=== PATIENT | male | born 1970 | race Caucasian/White ===

== ENCOUNTER 2019-05-03 03:03 | Emergency (ER) | payer MEDICARE, MEDICAID, SELFPAY ==
[2019-05-03] VITALS (7 sets, daily range): BP systolic 130–151; BP diastolic 95–119; PULSE 84–87; RESP 17–20; O2SAT 96–98; BMI 23.7
--- NOTE | 2019-05-03 03:23 | ED_ITS ---
Entered by Yadi Du, acting as scribe for Marv Little DO HPI - General Adult General: Chief complaint: General Medical Stated complaint: ABD PAIN/N/V Time Seen by Provider: 05/03/19 03:24 Source: patient Mode of arrival: wheelchair History of Present Illness: HPI narrative: 48 y/o male presents to the ED with complaint of abd pain. Pt states he has been unable to sleep tonight due to heartburn, N/V. Pt states he has had diarrhea for the past few days. He had a spinal cord stimulator placed last and he has not felt well since then. MD complaint: abd pain Onset (ago): hour(s) Location: abdomen Severity: mild Pain Consistency: constant Relieving factors: none Associated symptoms: Reports nausea and vomiting; Deny chest pain, confusion, dyspnea, headache(s), rash or palpitations Review of Systems Const: Denies: fever or chills Eyes: Denies: change in vision or blurry vision ENMT: Denies: painful swallowing, swelling of lips/tongue, bleeding gums or dental pain Card: Denies: chest pain, palpitations, irregular heart rhythm, edema, swelling of feet/ankles, shortness of breath on exertion or shortness of breath when lying down Resp: Denies: shortness of breath, productive cough, non-productive cough or wheezing GI: Reports: abdominal pain, nausea, vomiting and diarrhea; Denies: rectal pain, blood in stool or black tarry stool : Denies: difficulty urinating, painful urination, urinary frequency, urinary urgency or blood in urine Musc: Denies: neck pain, back pain, redness or joint warmth Skin/Breast: Denies: rash, itching or redness Neuro: Denies: headache, dizziness, vertigo, confusion or seizure-like activity Psych: Denies: anxiety, visual hallucinations or auditory hallucinations PFSH ED PFSH: Statuses (acute, chronic, etc) shown below reflect problem list status as previously entered and may not be historically accurate Social History Smoking and tobacco status: never smoked Physical Exam Const: GENERAL APPEARANCE: well developed ORIENTATION/CONSCIOUSNESS: Yes oriented to person, Yes oriented to place and Yes oriented to time HENMT: COMMON NORMALS: normocephalic, external ears normal and external nose normal HEAD & SCALP: normocephalic; no scalp tenderness FACE & SINUS: normal facial exam NOSE: external nose normal and no nasal discharge EXTERNAL EAR: Yes external ears normal THROAT: posterior oropharynx normal; no peritonsillar mass Eye: COMMON NORMALS: PERRL, EOMs intact bilaterally and conjunctivae normal EYELID: eyelids normal CONJUNCTIVA: Yes conjunctivae normal PUPIL: Yes PERRL Chest: COMMONS NORMALS: inspection of chest normal CHEST: No tenderness Resp: COMMON NORMALS: clear to auscultation bilaterally EFFORT & INSPEC TION: No tachypneic, No respiratory distress, No retractions, No uses accessory muscles and No tracheal deviation AUSCULTATION: clear to auscultation bilaterally, no rhonchi, no wheezes and lung sounds not diminished Cardio: COMMON NORMALS: regular rate and regular rhythm RATE: regular rate RHYTHM: regular rhythm HEART SOUNDS: no murmurs PERIPHERAL PULSES: radial pulses present GI: COMMON NORMALS: soft to palpation INSPECTION: No abdominal distension AUSCULTATION: No hyperactive bowel sounds and No hypoactive bowel sounds PALPATION: Yes soft, Yes tender Details: RLQ, No guarding and No rigid PERCUSSION: no dullness to percussion and no tympanic to percussion Back/Pelvis: OTHER: spinal cord stimulator in place for trial basis Extremity: RIGHT LOWER EXTREMITY: Yes lower leg (amputation ) Neuro: SENSORIUM/ORIENTATION: Yes oriented to person, Yes oriented to place and Yes oriented to time Psych: COMMON NORMALS: mental status grossly normal Skin: COMMON NORMALS: no rashes or lesions noted GENERAL SKIN EXAM: no rashes or lesions noted Course ED course: No fever here. No leukocytosis. Labs are otherwise benign. CT of the belly shows no acute problem. CT of the lumbar spine with contrast fails to reveal an abscess or other problem. Vital Signs: Vital signs: Vital Signs Pulse Rate 84 05/03/19 06:48 Respiratory Rate 18 05/03/19 06:48 Blood Pressure 148/119 05/03/19 06:48 Pulse Oximetry 97 05/03/19 06:48 MDM - General Adult Lab Data: Labs: Lab Results 05/03/19 05/03/19 Range/Units 03:58 03:58 WBC 7.8 (4.0-10.0) 10^3/ uL RBC 5.52 H (4.1-5.3) 10^6/u L Hgb 11.8 (11.7-16.6) g/dL Hct 38.9 L (42.0-52.0) % MCV 70.5 L (80-94) fL MCH 21.4 L (28.0-34.0) pg MCHC 30.3 (30.0-36.0) g/dL RDW 18.6 H (12.1-15.1) % Plt Count 393 (130-400) 10^3/c mm MPV 9.3 (7.4-10.4) fL Neut % (Auto) 58.8 % Lymph % (Auto) 23.7 % [place] % (Auto) 10.0 % Eos % (Auto) 6.3 % Baso % (Auto) 0.9 % Neut # (Auto) 4.6 (1.8-7.7) 10^3/u L Lymph # (Auto) 1.8 (0.8-4.8) 10^3/u L [place] # (Auto) 0.8 (0.2-0.9) 10^3/u L Eos # (Auto) 0.5 (0.0-0.8) 10^3/u L Baso # (Auto) 0.1 (0.0-0.1) 10^3/u L Nucleated RBC % (a uto) 0 % Nucleated RBCs # 0.0 /100WBC Sodium 139 (136-145) mmol/L Potassium 3.7 (3.5-5.1) mmol/L Chloride 102 (98-107) mmol/L Carbon Dioxide 23 (22-29) mmol/L Anion Gap 17.7 (5-19) BUN 9 (6-20) mg/dL Creatinine 0.7 (0.7-1.2) mg/dL GFR Calculation 119.9 (90-130) mL/min Glucose 117 H (74-109) mg/dL Calcium 10.1 (8.5-10.5) mg/dL Total Bilirubin 0.5 (0.15-1.2) mg/dL AST 24 (0-40) U/L ALT 21 (0-41) U/L Alkaline Phosphata se 104 (40-130) IU/L C-Reactive Protein 4.2 (0.0-4.9) mg/L Total Protein 7.8 (6.6-8.7) g/dL Albumin 4.3 (3.5-5.2) g/dL Globulin 3.5 (1.3-4.6) g/dL Lipase 59 (13-60) U/L Discharge Plan Discharge Patient Disposition: Home, Self-Care Clinical Impression: Gastroenteritis Condition: Stable Prescriptions: New ketorolac 10 mg tablet 10 mg PO Q6H PRN (Reason: pain) Qty: 10 RF: 0 Zofran 4 mg tablet 4 mg PO Q6H PRN (Reason: nausea and vomiting) Qty: 10 RF: 0 No Action losartan 50 mg Tablet 100 mg PO DAILY RF: 0 metoprolol succinate 50 mg Tablet Extended Release 24 Hr 25 mg PO DAILY RF: 0 Nexium 20 mg Capsule,Delayed Release(Dr/Ec) 20 mg PO DAILY RF: 0 amlodipine 10 mg Tablet 10 mg PO DAILY RF: 0 Discharge Orders: Discharge Order (Routine); Ordered 05/03/19 Ordered By: Marv Little Referrals: Madi Trotter MD [Primary Care Provider] - Ozzy Torres DO [Family Provider] - Discharge Diet: Advance as tolerated and Clear Liquid Discharge Activity: Increase activity as tolerated Patient Instructions: Gastroenteritis (ED) Activity Restrictions/Additional Instructions: Return for fever greater than 100, worsening pain despite treatment, vomiting liquids or medications despite treatment, other concerning symptoms. Discharge Date/Time: 05/03/19 06:48 Coding Level of Care Code ED Ui Architect for Chg Ernie The documentation recorded by the Florian rodriguez Ashley, accurately reflects the service I personally performed and the decisions made by Sidney boyer Jeremy John, DO May 03, 2019 03:03
--- NOTE | 2019-05-03 03:39 | PC.NURSE ---
patient has had surgery for a spinal cord stimulator. patient states that his pain has not gotten any better since the surgery. patient is also stating that he is having pain in his right leg. 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
[2019-05-03] MEDS: ondansetron 2 mg/ML SDV 2 mL 4 MG IVP (03:56)
[2019-05-03] MEDS: morphine 4 mg/mL SDV 1 mL IVP ×2 (03:56→06:02)
[2019-05-03] MEDS: sodium chloride 0.9% 1,000 ML 999 ML IV (03:57)
[2019-05-03 04:12] LABS: Basophils # 0.1 10^3/uL (0.0-0.1); Basophils % 0.9 %; Eosinophils # 0.5 10^3/uL (0.0-0.8); Eosinophils % 6.3 %; Hematocrit 38.9 % (42.0-52.0); Hemoglobin 11.8 g/dL (11.7-16.6); Lymphocytes # 1.8 10^3/uL (0.8-4.8); Lymphocytes % 23.7 %; Mean Corpuscular HGB Conc 30.3 g/dL (30.0-36.0); Mean Corpuscular Hemoglobin 21.4 pg (28.0-34.0); Mean Corpuscular Volume 70.5 fL (80-94); Mean Platelet Volume 9.3 fL (7.4-10.4); Monocytes # 0.8 10^3/uL (0.2-0.9); Neutrophils # 4.6 10^3/uL (1.8-7.7); Neutrophils % 58.8 %; Nucleated Red Blood Cells % 0 %; Platelet Count 393 10^3/cmm (130-400); Red Blood Count 5.52 10^6/uL (4.1-5.3); Red Cell Distribution Width 18.6 % (12.1-15.1); White Blood Count 7.8 10^3/uL (4.0-10.0)
--- NOTE | 2019-05-03 04:36 | CTR_ITS ---
PROCEDURE INFORMATION: Exam: CT Lumbar Spine With Contrast Exam date and time: 05/03/2019 4:51 AM Age: 48 years old Clinical indication: Low back pain; Prior surgery; Surgery date: 3-7 days post-operative; Surgery type: Stimulator; Additional info: Pain, vomiting TECHNIQUE: Imaging protocol: Computed tomography images of the lumbar spine with intravenous contrast. Total DLP: 2350.97 mGy-cm Radiation optimization: All CT scans at this facility use at least one of these dose optimization techniques: automated exposure control; mA and/or kV adjustment per patient size (includes targeted exams where dose is matched to clinical indication); or iterative reconstruction. Contrast material: OMNI 300; Contrast volume: 95 ml; Contrast route: IV; COMPARISON: [place] [id number] 02/03/2017 10:16 AM FINDINGS: There is a normal lumbar lordosis. There is normal alignment of the lumbar spine. No fractures or dislocations identified. Vertebral body heights and intervertebral disk spaces are well maintained throughout. No prevertebral soft tissue swelling identified. The bony spinal canal is patent. No abscess identified. Note is made of stimulator wires in the lower thoracic spinal canal. CT/CT lumbar spine w con [id number] IMPRESSION: 1. No fractures or dislocations identified involving the lumbar spine. Radiation Dose CTDIVOL = (mGy): DLP = 2350.97 (mGy-cm)
--- NOTE | 2019-05-03 04:36 | CTR_ITS ---
PROCEDURE INFORMATION: Exam: CT Abdomen And Pelvis With Contrast Exam date and time: 05/03/2019 4:51 AM Age: 48 years old Clinical indication: Abdominal pain; Generalized; Prior surgery; Surgery date: 3-7 days post-operative; Surgery type: Stimulator; Additional info: Pain vomiting TECHNIQUE: Imaging protocol: Computed tomography of the abdomen and pelvis with intravenous contrast. Total DLP: 752.85 mGy-cm Radiation optimization: All CT scans at this facility use at least one of these dose optimization techniques: automated exposure control; mA and/or kV adjustment per patient size (includes targeted exams where dose is matched to clinical indication); or iterative reconstruction. Contrast material: OMNI 300; Contrast volume: 95 ml; Contrast route: IV; COMPARISON: CT abdomen pelvis w con* [id number] 02/03/2017 10:22 AM FINDINGS: Mild atelectasis at bilateral lung bases. The liver, gallbladder, spleen, pancreas, adrenal glands, and right kidney are unremarkable. There is a 1.7 cm cyst in the left kidney lower pole. A normal-appearing appendix is seen in the right lower quadrant. No evidence of bowel obstruction. No evidence of diverticulitis. No free intraperitoneal air or fluid identified. The bladder is partially filled with contrast. The abdominal aorta is nonaneurysmal. Minimal degenerative changes of the lumbar spine. CT/CT abdomen pelvis w con* [id number] IMPRESSION: 1. No acute intra-abdominal/intrapelvic process identified. Radiation Dose CTDIVOL = (mGy): DLP = 752.85 (mGy-cm)
[2019-05-03 04:45] LABS: Alanine Aminotransferase 21 U/L (0-41); Albumin Level 4.3 g/dL (3.5-5.2); Alkaline Phosphatase 104 IU/L (40-130); Anion Gap 17.7 (5-19); Aspartate Amino Transferase 24 U/L (0-40); Blood Urea Nitrogen 9 mg/dL (6-20); Calcium 10.1 mg/dL (8.5-10.5); Carbon Dioxide 23 mmol/L (22-29); Chloride 102 mmol/L (98-107); Globulin 3.5 g/dL (1.3-4.6); Glomerular Filtration Rate 119.9 mL/min (90-130); Glucose 117 mg/dL (74-109); Lipase 59 U/L (13-60); Potassium 3.7 mmol/L (3.5-5.1); Sodium 139 mmol/L (136-145); Total Bilirubin 0.5 mg/dL (0.15-1.2); Total Protein 7.8 g/dL (6.6-8.7)
[2019-05-03 05:26] LABS: C Reactive Protein 4.2 mg/L (0.0-4.9)
[2019-05-03] MEDS: ketorolac 30 mg/mL INJ IVP (06:01)
== END 2019-05-03 06:48 | disposition home or self-care (01) ==
PROVIDERS: Emergency Provider Emergency Medicine; Family Provider Internal Medicine; PCP Internal Medicine
DX: K52.9 Noninfective gastroenteritis and colitis, unspecified (principal)
CPT/HCPCS: 72132; 74177; 80053; 83690; 85025; 86140; 96360; 96361; 96374; 96375; 96376; 99282; 99283; J1885; J2270; J2405; J7030

== ENCOUNTER 2019-08-23 20:52 | Emergency (ER) | payer MEDICARE, MEDICAID, SELFPAY ==
[2019-08-23 21:11] VITALS: BP 150/110; PULSE 106; RESP 18; TEMP 36.8; O2SAT 98; BMI 23.3
--- NOTE | 2019-08-23 21:18 | W.ED.WOUNDLC ---
HPI - Wound/Laceration General: Chief Complaint: Wound/Laceration Stated Complaint: hand lac Time Seen by Provider: 08/23/19 21:18 Source: patient Mode of arrival: ambulatory Limitations: no limitations History of Present Illness: HPI narrative: Patient comes in with injury to the right hand fourth knuckle. Patient states he cut it on a exhaust from a engine he was removing. Patient states that he cleaned it well at home but needed it repaired in order for him to continue his work on the engine tomorrow. Patient appears well. Patient appears in no acute distress. Patient cannot recall his last tetanus shot. Review of Systems General: Reports: 10 or more systems reviewed and unremarkable except in HPI and below Skin/Breast: Reports: other (Laceration) PFSH ED PFSH: Social History Smoking and tobacco status: current every day smoker Physical Exam Const: COMMON NORMALS: no acute distress and patient oriented x3 GENERAL APPEARANCE: cooperative HENMT: COMMON NORMALS: normocephalic, TM's normal bilaterally and Normal external nose present HEAD & SCALP: normal to inspection and normocephalic NOSE: Normal external nose present TYMPANIC MEMBRANE: TM's normal bilaterally MOUTH: Normal oral and palatal mucosa present THROAT: posterior oropharynx normal Eye: GENERAL EYE: appearance normal, both eyes and all related structures Neck/C-Spine: COMMON NORMALS: full ROM Lymph: LYMPHATIC: no lymphadenopathy noted Chest: COMMONS NORMALS: normal inspection of the chest Resp: COMMON NORMALS: normal respiratory effort EFFORT & INSPECTION: Yes able to speak in complete sentences Cardio: COMMON NORMALS: regular rate and regular rhythm RATE: regular rate RHYTHM: regular rhythm GI: COMMON NORMALS: non-tender : COMMON NORMALS: Yes no CVA tenderness BLADDER/KIDNEY EXAM: Yes no CVA tenderness Back/Pelvis: COMMON NORMALS: no CVA tenderness and thoracic and lumbar spine normal to inspection Extremity: COMMON NORMALS: normal to inspection Neuro: COMMON NORMALS: patient oriented x3 and moves all extremities Psych: COMMON NORMALS: mental status grossly normal and cooperative Skin: NARRATIVE SKIN EXAM: 2 cm lacerations noted to the dorsal right hand at the fourth knuckle. Procedures Laceration Laceration 1: Site: upper extremity Side (If applicable): right Size (cm): 2 Description: linear Depth: simple, single layer Local Anesthetic: lidocaine 1% Amount of anesthesia used (mL): 5 Pre-repair: wound explored and irrigated extensively Skin layer closed with: nylon Size (cm): 4-0 Number of sutures: 3 Technique: simple, interrupted (2) and horizontal mattress (1) Course Vital Signs: Vital signs: Vital Signs Temperature 98.2 F 08/23/19 21:11 Pulse Rate 106 H 08/23/19 21:11 Respiratory Rate 18 08/23/19 21:11 Blood Pressure 150/110 08/23/19 21:11 Pulse Oximetry 98 08/23/19 21:11 MDM - Wound/Laceration MDM Narrative: Medical decision making narrative: Patient comes in today with injury to the right dorsal hand. On exam we note a 2 cm laceration to the right dorsal hand at the fourth knuckle. Patient has normal range of motion of the hand. No foreign body was noted. Normal tendon function was noted. Prompt capillary refill was noted. Differential diagnosis includes but not limited to tendon injury, foreign body, laceration, need for prophylaxis tetanus. Reviewed exam with patient repaired wound with sutures. Updated tetanus shot. Patient will be placed on cephalexin twice a day for 10 days due to length of time prior to repair. Patient reported understanding of care plan and need for follow-up. Discharge Plan Discharge Patient Disposition: Home, Self-Care Clinical Impression: Laceration Condition: Stable Prescriptions: New cephalexin 500 mg capsule 500 mg PO BID 10 Days Qty: 20 RF: 0 No Action losartan 50 mg Tablet 100 mg PO DAILY RF: 0 metoprolol succinate 50 mg Tablet Extended Release 24 Hr 25 mg PO DAILY RF: 0 Nexium 20 mg Capsule,Delayed Release(Dr/Ec) 20 mg PO DAILY RF: 0 amlodipine 10 mg Tablet 10 mg PO DAILY RF: 0 ketorolac 10 mg tablet 10 mg PO Q6H PRN (Reason: pain) Qty: 10 RF: 0 Zofran 4 mg tablet 4 mg PO Q6H PRN (Reason: nausea and vomiting) Qty: 10 RF: 0 Discharge Orders: Discharge Order (Routine); Ordered 08/23/19 Ordered By: Nathaniel Liz Referrals: Ozzy Torres DO [Primary Care Provider] - Discharge Diet: Usual diet Discharge Activity: Increase activity as tolerated Patient Instructions: Laceration (ED) Activity Restrictions/Additional Instructions: Keep wound to the hand clean and dry. It is very important to keep it clean and dry for the next 2 days. Use dressing to protect the wound site. Sutures need removed in 7 to 10 days. Monitor for signs of infection such as redness, increased swelling to the hand, and fever. Return to the ER for the signs. Follow-up with primary care in 1 week. Coding Level of Care Code ED Power Shovel Engineer for Dickson Klein Exam Comprehensive
[2019-08-23] MEDS: tetanus-dipt-pertussis 0.5 mL SDV IM (21:58)
[2019-08-23] MEDS: cephALEXin 500 mg Capsule PO (21:58)
[2019-08-23 22:10] VITALS: BP 134/88; PULSE 71; RESP 16; O2SAT 96
== END 2019-08-23 22:13 | disposition home or self-care (01) ==
PROVIDERS: Emergency Provider Nurse Practitioner Family; PCP Internal Medicine
DX: S61.411A Laceration without foreign body of right hand, initial encounter (principal); W26.8XXA Contact with other sharp object(s), not elsewhere classified, initial encounter; F17.210 Nicotine dependence, cigarettes, uncomplicated; Z23 Encounter for immunization
CPT/HCPCS: 12001; 12345; 90471; 90715; 99281; 99283

== ENCOUNTER 2019-08-31 20:02 | Emergency (ER) | payer MEDICARE, MEDICAID, SELFPAY ==
[2019-08-31 20:18] VITALS: BP 148/92; PULSE 94; RESP 14; TEMP 36.3; O2SAT 96; BMI 23.7
--- NOTE | 2019-08-31 20:25 | XR_ITS ---
WS: [id number] XR chest 1V portable [id number] REASON FOR EXAM: tia FINDINGS: A nodular density is noted in the left lung base not appreciated on previous exam May 17, 2018. The heart is not enlarged. The remaining lung salgado are well aerated. No pneumonia, pleural effusion, pulmonary edema, no pneum othorax. The hilum and apices are normal. XR/XR chest 1V portable [id number] IMPRESSION: Essentially negative chest A nodule is seen in the left lung base follow-up evaluation recommended.
--- NOTE | 2019-08-31 21:08 | CTR_ITS ---
PROCEDURE INFORMATION: Exam: CT Angiography Head With Contrast Exam date and time: 08/31/2019 9:15 PM Age: 48 years old Clinical indication: Visual disturbance; Additional info: TIA TECHNIQUE: Imaging protocol: Computed tomography angiography of the head with intravenous contrast. 3D rendering: MIP and/or 3D reconstructed images were created by the technologist. Radiation optimization: All CT scans at this facility use at least one of these dose optimization techniques: automated exposure control; mA and/or kV adjustment per patient size (includes targeted exams where dose is matched to clinical indication); or iterative reconstruction. Contrast material: OMNI 350; Contrast volume: 95 ml; Contrast route: IV; COMPARISON: No relevant prior studies available. RADIATION DOSE METRICS: Total DLP: 3644.46 mGy-cm FINDINGS: Anterior cerebral arteries: No occlusion or significant stenosis. No aneurysm. Right internal carotid artery: Intracranial segment is patent with no significant stenosis or occlusion. No aneurysm. Right middle cerebral artery: No occlusion or significant stenosis. No aneurysm. Right posterior cerebral artery: No occlusion or significant stenosis. No aneurysm. Right vertebral artery: No occlusion or significant stenosis. No aneurysm. Left internal carotid artery: Intracranial segment is patent with no significant stenosis or occlusion. No aneurysm. Left middle cerebral artery: No occlusion or significant stenosis. No aneurysm. Left posterior cerebral artery: No occlusion or significant stenosis. No aneurysm. Left vertebral artery: No occlusion or significant stenosis. No aneurysm. Basilar artery: No occlusion or significant stenosis. No aneurysm. Other vasculature: No hyperdense artery. HEAD: Brain: The sulci are normal. No abnormal brain attenuation. No intracranial hemorrhage. Sinuses: Mucosal thickening in the anterior ethmoid sinuses. IMPRESSION: 1. No large artery occlusion or stenosis. PROCEDURE INFORMATION: Exam: CT Angiography Neck With Contrast Exam date and time: 08/31/2019 9:15 PM Age: 48 years old Clinical indication: Visual disturbance; Additional info: TIA TECHNIQUE: Imaging protocol: Computed tomography angiography of the neck with intravenous contrast. 3D rendering: MIP and/or 3D reconstructed images were created by the technologist. Radiation optimization: All CT scans at this facility use at least one of these dose optimization techniques: automated exposure control; mA and/or kV adjustment per patient size (includes targeted exams where dose is matched to clinical indication); or iterative reconstruction. Contrast material: OMNI 350; Contrast volume: 95 ml; Contrast route: IV; COMPARISON: No relevant prior studies available. RADIATION DOSE METRICS: Total DLP: 3644.46 mGy-cm FINDINGS: Right common carotid artery: No stenosis. No dissection or occlusion. Right internal carotid artery: No stenosis of the extracranial segment. No dissection or occlusion. Right external carotid artery: No occlusion or stenosis of the origin. Right vertebral artery: No stenosis. No dissection or occlusion. Left common carotid artery: No stenosis. No dissection or occlusion. Left internal carotid artery: Mild plaque in the proximal left internal carotid artery with 0% stenosis. Left external carotid artery: No occlusion or stenosis of the origin. Left vertebral artery: No stenosis. No dissection or occlusion. Bones/joints: No acute fracture. Soft tissues: Normal. No significant soft tissue swelling. Lungs: Centrilobular emphysema. CT/CT angio headneck* [id number] IMPRESSION: 1. No stenosis identified within the arteries of the neck. 2. Mild plaque in the proximal left internal carotid artery with 0% stenosis. REFERENCES: NASCET CRITERIA. The degree of internal carotid artery stenosis is based on NASCET criteria. Normal is no stenosis. Mild is less than 50% stenosis. Moderate is 50-69% stenosis. Severe is 70% to 99% stenosis. Total occlusion is no detectable patent lumen. Radiation Dose CTDIVOL = (mGy): DLP = 3644.46~3644.46 (mGy-cm)
--- NOTE | 2019-08-31 21:11 | ED_ITS ---
HPI - Neuro Symptoms/Deficit General: Chief Complaint: Neuro Symptoms/Deficit Stated Complaint: Vision change Time Seen by Provider: 08/31/19 21:05 History of Present Illness: HPI Narrative: Mr. Garcia is a nice 48-year-old male who comes in complaining of 15 minutes of double vision and tingling on the left side of his face. He denies any numbness or tingling to his left upper extremity or left lower extremity. He states his symptoms lasted 15 minutes and then completely resolved. He states he had a similar episode approximately 4 to 5 days ago but did not seek any evaluation at that time. He states currently he has no symptoms. He states this occurred approximately 4-1/2 to 5 hours ago. Associated symptoms: Deny chest pain, diaphoresis, headache(s), malaise, nausea, syncope, vertigo or vomiting Review of Systems Const: Denies: fever(s), chills, body aches, fatigue, malaise or diaphoresis Eyes: Reports: change in vision; Denies: blurry vision, blind spots or photophobia ENMT: Denies: throat pain, odynophagia, hoarseness, swelling of lips/tongue, ear or mastoid pain, ear discharge, change in hearing or nasal discharge Card: Denies: chest pain, palpitations, irregular heart rhythm, edema, lightheadedness, syncope, pre-syncope, dyspnea on exertion or orthopnea Resp: Denies: dyspnea, productive cough, non-productive cough, wheezing, hemoptysis or chest congestion GI: Denies: abdominal pain, nausea, vomiting, hematemesis, coffee ground emesis, heartburn, diarrhea, constipation, GI cramping, hematochezia or melena : Denies: flank pain, dysuria, urinary frequency, urinary urgency or hematuria Musc: Denies: neck pain, back pain, extremity pain, extremity swelling, joint pain, joint swelling, joint redness, joint warmth or joint stiffness Skin/Breast: Denies: rash, pruritus, erythema, skin tenderness or jaundice Neuro: Reports: sensory changes; Denies: headache(s), numbness in extremities, weakness in extremities, lack of coordination, difficulty walking, dizziness, vertigo, confusion or Slurred speech present Neil/Lymph: Denies: easy bruising, easy bleeding, petechiae, purpura or enlarged lymph nodes All/Imm: Denies: urticaria, throat swelling, tongue swelling, facial swelling or acute wheezing PFSH ED PFSH: Medical History Amputation of leg Hypertension Social History Smoking and tobacco status: current every day smoker NIH stroke score NIHSS: Level Of Consciousness - 1a: 0 Level Of Consciousness Questions - 1b: Both Correct Level Of Consciousness Commands - 1c: Both Correct Best Gaze - 2: Normal Visual Clark - 3: No Visual Loss Facial Palsy - 4: Normal Motor Arm Right - 5: No Drift Motor Arm Left - 5: No Drift Motor Leg Right - 6: No Drift Motor Leg Left - 6: No Drift Limb Ataxia - 7: Absent Sensory - 8: Normal Best Language - 9: No Aphasia Dysarthia - 10: Normal Extinction And Inattention - 11: 0 Score: Total Score: 0 Physical Exam Const: COMMON NORMALS: no acute distress, patient oriented x3, no limitations, healthy appearing and well nourished GENERAL APPEARANCE: cooperative, well kempt and well developed HENMT: COMMON NORMALS: normocephalic, atraumatic, hearing grossly normal bilaterally, external ears normal, EAC's normal, Normal external nose present and moist oral mucous membranes HEAD & SCALP: normocephalic and atraumatic NOSE: Normal external nose present and Normal nares present EXTERNAL EAR: Yes external ears normal EXTERNAL AUDITORY CANAL: EAC's normal MOUTH: Normal oral and palatal mucosa present, lip normal and tongue normal Eye: COMMON NORMALS: Equal, round and reactive pupils present, EOMs intact bilaterally, conjunctivae normal and no scleral icterus GENERAL EYE: appearance normal, both eyes and all related structures ALIGNMENT: Yes alignment normal PERIORBITAL: periorbital findings normal EYELID: eyelids normal CONJUNCTIVA: Yes conjunctivae normal SCLERA: sclerae normal PUPIL: Yes Equal, round and reactive pupils present Neck/C-Spine: COMMON NORMALS: full ROM, no lymphadenopathy, supple, no meningeal signs and no JVD GENERAL: Yes normal visual inspection and Yes tr achea midline Chest: COMMONS NORMALS: normal inspection of the chest and normal palpation of entire chest wall Resp: COMMON NORMALS: normal respiratory effort, No retractions, No use of accessory muscles and clear to auscultation bilaterally EFFORT & INSPECTION: Yes able to speak in complete sentences and Yes symmetric chest movement AUSCULTATION: clear to auscultation bilaterally, no crackles, no rales, no rhonchi and no wheezes Cardio: COMMON NORMALS: no JVD, regular rate, regular rhythm, S1 normal heart sound present, S2 normal heart sound present, No gallops present (Cardio), No clicks present (Cardio), No murmurs present (Cardio) and No rub (Cardio) RATE: regular rate RHYTHM: regular rhythm HEART SOUNDS: S1 normal heart sound present and S2 normal heart sound present GI: COMMON NORMALS: Soft to palpation and No hepatosplenomegaly present PALPATION: Yes Soft to palpation, No Tenderness to palpation present (GI), No Guarding due to palpation present (GI), No Rigid due to palpation, Yes No hepatosplenomegaly present, No Hernia present, No Palpable mass present and No Pulsatile mass present : COMMON NORMALS: Yes no CVA tenderness BLADDER/KIDNEY EXAM: Yes no CVA tenderness Back/Pelvis: COMMON NORMALS: no CVA tenderness, thoracic and lumbar spine normal to inspection, no thoracic nor lumbar tenderness and thoraco-lumbar ROM normal Extremity: COMMON NORMALS: normal to inspection, full ROM, capillary refill normal, no joint enlargement, no clubbing, cyanosis or edema and no calf tenderness Neuro: COMMON NORMALS: patient oriented x3, CN's II-XII intact bilaterally, moves all extremities, no focal motor deficits and no sensory deficits noted MENINGEAL SIGNS: Yes no meningeal signs SPEECH: speech normal Psych: COMMON NORMALS: mental status grossly normal, Normal thought process present, cooperative, normal affect, speech normal and activity/motor behavior normal APPEARANCE: Yes well kempt SPEECH: Yes normal speech THOUGHT PROCESS: Normal thought process present Skin: COMMON NORMALS: no rashes or lesions noted, turgor normal, no jaundice, no petechiae and no mottling GENERAL SKIN EXAM: no rashes or lesions noted and turgor normal Course Vital Signs: Vital signs: Vital Signs Temperature 97.4 F L 08/31/19 20:18 Pulse Rate 68 08/31/19 23:11 Respiratory Rate 18 08/31/19 23:11 Blood Pressure 157/100 08/31/19 23:11 Pulse Oximetry 97 08/31/19 23:11 MDM - Neuro Symptoms/Deficit MDM Narrative: Medical decision making narrative: The patient refuses to stay as he says he has things at home he needs to get done. He had said this from the very beginning but reluctantly agreed for me to do as much work-up as I did do here. He is refusing to take aspirin as he says he cannot tolerate it with his stomach and his ears. He understands the importance of this but does agree to try Plavix. He is going to see Dr. Torres in the next 1 to 2 days as he has surgery planned that he wants to complete and he knows that he will need to address the Plavix at that time. Patient understands I recommended he come into the hospital for further evaluation and care but he declines. He understands the risks of leaving including another stroke but despite this he refuses and wants to leave. He understands though he is welcome to return here at any time. Lab Data: Attestation: I reviewed the patient's lab results. Labs: Lab Results 08/31/19 08/31/19 08/31/19 Range/Units 21:05 21:05 21:05 WBC 9.0 (4.0-10.0) 10^3/ uL RBC 5.65 H (4.1-5.3) 10^6/u L Hgb 13.3 (11.7-16.6) g/dL Hct 42.7 (42.0-52.0) % MCV 75.6 L (80-94) fL MCH 23.5 L (28.0-34.0) pg MCHC 31.1 (30.0-36.0) g/dL RDW 17.0 H (12.1-15.1) % Plt Count 476 H (130-400) 10^3/c mm MPV 8.9 (7.4-10.4) fL Neut % (Auto) 52.6 % Lymph % (Auto) 30.8 % Treasure % (Auto) 11.7 % Eos % (Auto) 3.7 % Baso % (Auto) 0.9 % Neut # (Auto) 4.7 (1.8-7.7) 10^3/u L Lymph # (Auto) 2.8 (0.8-4.8) 10^3/u L Treasure # (Auto) 1.1 H (0.2-0.9) 10^3/u L Eos # (Auto) 0.3 (0.0-0.8) 10^3/u L Baso # (Auto) 0.1 (0.0-0.1) 10^3/u L Nucleated RBC % (a uto) 0 % Nucleated RBCs # 0.0 /100WBC PT 11.80 (10.5-13.3) SECO NDS INR 0.85 (0.8-1.2) APTT 26.0 (23.9-36.7) SECO NDS Sodium 136 (136-145) mmol/L Potassium 3.7 (3.5-5.1) mmol/L Chloride 99 (98-107) mmol/L Carbon Dioxide 26 (22-29) mmol/L Anion Gap 14.7 (5-19) BUN 9 (6-20) mg/dL Creatinine 0.8 (0.7-1.2) mg/dL GFR Calculation 102.7 (90-130) mL/min Glucose 82 (65-115) mg/dL Calculated Osmolal ity 277 L (285-295) mOsm/k g Calcium 9.5 (8.5-10.5) mg/dL Magnesium 2.3 (1.7-2.3) mg/dL Total Bilirubin 0.3 (0.15-1.2) mg/dL AST 19 (0-40) U/L ALT 17 (0-41) U/L Alkaline Phosphata se 101 (40-130) IU/L Troponin T Baselin e (0-15) ng/mL Troponin T 120 Min [place] (0-15) ng/mL Delta Troponin T (0-10) ABS# Total Protein 7.1 (6.6-8.7) g/dL Albumin 4.7 (3.5-5.2) g/dL Globulin 2.4 (1.3-4.6) g/dL 08/31/19 08/31/19 Range/Units 21:05 22:30 WBC (4.0-10.0) 10^3/ uL RBC (4.1-5.3) 10^6/u L Hgb (11.7-16.6) g/dL Hct (42.0-52.0) % MCV (80-94) fL MCH (28.0-34.0) pg MCHC (30.0-36.0) g/dL RDW (12.1-15.1) % Plt Count (130-400) 10^3/c mm MPV (7.4-10.4) fL Neut % (Auto) % Lymph % (Auto) % Treasure % (Auto) % Eos % (Auto) % Baso % (Auto) % Neut # (Auto) (1.8-7.7) 10^3/u L Lymph # (Auto) (0.8-4.8) 10^3/u L Treasure # (Auto) (0.2-0.9) 10^3/u L Eos # (Auto) (0.0-0.8) 10^3/u L Baso # (Auto) (0.0-0.1) 10^3/u L Nucleated RBC % (a uto) % Nucleated RBCs # /100WBC PT (10.5-13.3) SECO NDS INR (0.8-1.2) APTT (23.9-36.7) SECO NDS Sodium (136-145) mmol/L Potassium (3.5-5.1) mmol/L Chloride (98-107) mmol/L Carbon Dioxide (22-29) mmol/L Anion Gap (5-19) BUN (6-20) mg/dL Creatinine (0.7-1.2) mg/dL GFR Calculation (90-130) mL/min Glucose (65-115) mg/dL Calculated Osmolal ity (285-295) mOsm/k g Calcium (8.5-10.5) mg/dL Magnesium (1.7-2.3) mg/dL Total Bilirubin (0.15-1.2) mg/dL AST (0-40) U/L ALT (0-41) U/L Alkaline Phosphata se (40-130) IU/L Troponin T Baselin e 6 (0-15) ng/mL Troponin T 120 Min [place] 6.50 (0-15) ng/mL Delta Troponin T 0.50 (0-10) ABS# Total Protein (6.6-8.7) g/dL Albumin (3.5-5.2) g/dL Globulin (1.3-4.6) g/dL Imaging Data^: CXR: My impression: No acute cardiopulmonary findings. CT Head: Radiologist's impression: [facility] [address] [place] [address] CT Scan Report Signed Patient: Holger Garcia Unit #: [id number] : 1970 Age/Sex: 48 / M ADM Date: 08/31/19 Loc: ER Room/Bed: Attending Dr: Ordering Provider/Ordering MD: Shelley Fontanez DO Date of Service: 08/31/19 Procedure(s): CT angio headneck* [id number] Accession Number(s): [id number] Report Number: [id number] PROCEDURE INFORMATION: Exam: CT Angiography Head With Contrast Exam date and time: 08/31/2019 9:15 PM Age: 48 years old Clinical indication: Visual disturbance; Additional info: TIA TECHNIQUE: Imaging protocol: Computed tomography angiography of the head with intravenous contrast. 3D rendering: MIP and/or 3D reconstructed images were created by the technologist. Radiation optimization: All CT scans at this facility use at least one of these dose optimization techniques: automated exposure control; mA and/or kV adjustment per patient size (includes targeted exams where dose is matched to clinical indication); or iterative reconstruction. Contrast material: OMNI 350; Contrast volume: 95 ml; Contrast route: IV; COMPARISON: No relevant prior studies available. RADIATION DOSE METRICS: Total DLP: 3644.46 mGy-cm FINDINGS: Anterior cerebral arteries: No occlusion or significant stenosis. No aneurysm. Right internal carotid artery: Intracranial segment is patent with no significant stenosis or occlusion. No aneurysm. Right middle cerebral artery: No occlusion or significant stenosis. No aneurysm. Right posterior cerebral artery: No occlusion or significant stenosis. No aneurysm. Right vertebral artery: No occlusion or significant stenosis. No aneurysm. Left internal carotid artery: Intracranial segment is patent with no significant stenosis or occlusion. No aneurysm. Left middle cerebral artery: No occlusion or significant stenosis. No aneurysm. Left posterior cerebral artery: No occlusion or significant stenosis. No aneurysm. Left vertebral artery: No occlusion or significant stenosis. No aneurysm. Basilar artery: No occlusion or significant stenosis. No aneurysm. Other vasculature: No hyperdense artery. HEAD: Brain: The sulci are normal. No abnormal brain attenuation. No intracranial hemorrhage. Sinuses: Mucosal thickening in the anterior ethmoid sinuses. IMPRESSION: 1. No large artery occlusion or stenosis. PROCEDURE INFORMATION: Exam: CT Angiography Neck With Contrast Exam date and time: 08/31/2019 9:15 PM Age: 48 years old Clinical indication: Visual disturbance; Additional info: TIA TECHNIQUE: Imaging protocol: Computed tomography angiography of the neck with intravenous contrast. 3D rendering: MIP and/or 3D reconstructed images were created by the technologist. Radiation optimization: All CT scans at this facility use at least one of these dose optimization techniques: automated exposure control; mA and/or kV adjustment per patient size (includes targeted exams where dose is matched to clinical indication); or iterative reconstruction. Contrast material: OMNI 350; Contrast volume: 95 ml; Contrast route: IV; COMPARISON: No relevant prior studies available. RADIATION DOSE METRICS: Total DLP: 3644.46 mGy-cm FINDINGS: Right common carotid artery: No stenosis. No dissection or occlusion. Right internal carotid artery: No stenosis of the extracranial segment. No dissection or occlusion. Right external carotid artery: No occlusion or stenosis of the origin. Right vertebral artery: No stenosis. No dissection or occlusion. Left common carotid artery: No stenosis. No dissection or occlusion. Left internal carotid artery: Mild plaque in the proximal left internal carotid artery with 0% stenosis. Left external carotid artery: No occlusion or stenosis of the origin. Left vertebral artery: No stenosis. No dissection or occlusion. Bones/joints: No acute fracture. Soft tissues: Normal. No significant soft tissue swelling. Lungs: Centrilobular emphysema. CT/CT angio headneck* [id number] IMPRESSION: 1. No stenosis identified within the arteries of the neck. 2. Mild plaque in the proximal left internal carotid artery with 0% stenosis. REFERENCES: NASCET CRITERIA. The degree of internal carotid artery stenosis is based on NASCET criteria. Normal is no stenosis. Mild is less than 50% stenosis. Moderate is 50-69% stenosis. Severe is 70% to 99% stenosis. Total occlusion is no detectable patent lumen. Radiation Dose CTDIVOL = (mGy): DLP = 3644.46 3644.46 (mGy-cm) Dictated By: Sang Paz Signed By: Sang Paz Signed Date/Time: 08/31/192232 DD/ 31 EKG Data^: EKG 1: Attestation: I personally reviewed and interpreted this EKG as follows: EKG interpretation date: 08/31/19 EKG interpretation time: 21:35 Interpretation: Normal sinus rhythm at 92 beats a minute, left axis deviation, incomplete right bundle branch block, LVH, no acute ST or T wave findings. Discharge Plan Discharge Patient Disposition: Home, Self-Care Clinical Impression: Transient cerebral ischemia Qualifiers: Transient cerebral ischemia type: unspecified Qualified Code(s): G45.9 - Transient cerebral ischemic attack, unspecified Condition: Stable Prescriptions: New Plavix 75 mg tablet 75 mg PO DAILY Qty: 30 RF: 0 No Action losartan 50 mg Tablet 100 mg PO DAILY RF: 0 metoprolol succinate 50 mg Tablet Extended Release 24 Hr 25 mg PO DAILY RF: 0 Nexium 20 mg Capsule,Delayed Release(Dr/Ec) 20 mg PO DAILY RF: 0 amlodipine 10 mg Tablet 10 mg PO DAILY RF: 0 ketorolac 10 mg tablet 10 mg PO Q6H PRN (Reason: pain) Qty: 10 RF: 0 Zofran 4 mg tablet 4 mg PO Q6H PRN (Reason: nausea and vomiting) Qty: 10 RF: 0 cephalexin 500 mg capsule 500 mg PO BID 10 Days Qty: 20 RF: 0 Discharge Orders: Discharge Order (Routine); Ordered 08/31/19 Ordered By: Shelley Fontanez Referrals: Ozzy Torres DO [Primary Care Provider] - 1-3 days Discharge Diet: Advance as tolerated Discharge Activity: Increase activity as tolerated Patient Instructions: Transient Ischemic Attack (ED) Activity Restrictions/Additional Instructions: Please return to the ER immediately for any of the signs or symptoms listed on your discharge instruction sheets, worsening/changing of your symptoms, you are not getting better as quickly as expected, or for ANY other cause or concerns. I have recommended and offered to admit you to the hospital for further evaluation and care but you have refused. Your risk of stroke much worse than you experienced a day by not staying for further evaluation and care. If your symptoms change or return or you simply change your mind you are more than welcome to return here at any time for further evaluation and care. Be certain to follow-up with Dr. Trores as soon as possible to discuss your Plavix and upcoming surgery. Discharge Date/Time: 08/31/19 23:12 Coding Level of Care Code ED [employer] Fwd Exam Comprehensive
[2019-08-31 21:18] LABS: Basophils # 0.1 10^3/uL (0.0-0.1); Basophils % 0.9 %; Eosinophils # 0.3 10^3/uL (0.0-0.8); Eosinophils % 3.7 %; Hematocrit 42.7 % (42.0-52.0); Hemoglobin 13.3 g/dL (11.7-16.6); Lymphocytes # 2.8 10^3/uL (0.8-4.8); Lymphocytes % 30.8 %; Mean Corpuscular HGB Conc 31.1 g/dL (30.0-36.0); Mean Corpuscular Hemoglobin 23.5 pg (28.0-34.0); Mean Corpuscular Volume 75.6 fL (80-94); Mean Platelet Volume 8.9 fL (7.4-10.4); Monocytes # 1.1 10^3/uL (0.2-0.9); Monocytes % 11.7 %; Neutrophils # 4.7 10^3/uL (1.8-7.7); Neutrophils % 52.6 %; Nucleated Red Blood Cells % 0 %; Platelet Count 476 10^3/cmm (130-400); Red Blood Count 5.65 10^6/uL (4.1-5.3)
[2019-08-31 21:21] VITALS: BP 125/100; PULSE 92; RESP 18; O2SAT 98
[2019-08-31 21:30] LABS: INR 0.85 (0.8-1.2)
[2019-08-31] MEDS: ondansetron 2 mg/ML SDV 2 mL 4 MG IVP (21:33)
[2019-08-31 21:34] VITALS: RESP 16; O2SAT 95
[2019-08-31] MEDS: morphine 4 mg/mL SDV 1 mL IVP (21:34)
[2019-08-31 21:37] VITALS: BP 135/84; PULSE 94; RESP 18; O2SAT 96
[2019-08-31 21:38] LABS: Alanine Aminotransferase 17 U/L (0-41); Albumin Level 4.7 g/dL (3.5-5.2); Alkaline Phosphatase 101 IU/L (40-130); Anion Gap 14.7 (5-19); Aspartate Amino Transferase 19 U/L (0-40); Blood Urea Nitrogen 9 mg/dL (6-20); Calcium 9.5 mg/dL (8.5-10.5); Carbon Dioxide 26 mmol/L (22-29); Chloride 99 mmol/L (98-107); Globulin 2.4 g/dL (1.3-4.6); Glomerular Filtration Rate 102.7 mL/min (90-130); Glucose 82 mg/dL (65-115); Magnesium 2.3 mg/dL (1.7-2.3); Osmolality Calculated 277 mOsm/kg (285-295); Potassium 3.7 mmol/L (3.5-5.1); Sodium 136 mmol/L (136-145); Total Bilirubin 0.3 mg/dL (0.15-1.2); Total Protein 7.1 g/dL (6.6-8.7)
[2019-08-31 21:40] LABS: Troponin(5th) Baseline 6 ng/mL (0-15)
[2019-08-31 22:08] VITALS: PULSE 78; RESP 18; O2SAT 99
[2019-08-31] MEDS: iohexol 350 mg/mL 100 mL Btl IV (22:11)
--- NOTE | 2019-08-31 22:26 | ECG_ITS ---
Measurements Intervals [place] Rate: 92 P: 39 HI: 160 QRS: -24 QRSD: 114 T: -4 QT: 366 QTc: 453 SINUS RHYTHM BORDERLINE LEFT AXIS DEVIATION [QRS AXIS < -20] S1-S2-S3 PATTERN, CONSISTENT WITH PULMONARY DISEASE, RVH, OR NORMAL VARIANT INCOMPLETE RIGHT BUNDLE BRANCH BLOCK [90+ ms QRS DURATION, TERMINAL R IN V1/V2, 40+ ms S IN I/aVL/V4/V5/V6] VOLTAGE CRITERIA FOR LVH [MEETS CRITERIA IN ONE OF: R(aVL), S(V1), R(V5), R (V5/V6)+S(V1)] No previous ECG available for comparison Electronically Signed On 09-01-2019 19:39:25 CDT by Katerin Mccullough M.D. [id number]
[2019-08-31] MEDS: clopidogrel 75 mg Tablet PO (23:07)
[2019-08-31 23:11] VITALS: BP 157/100; PULSE 68; RESP 18; O2SAT 97
== END 2019-08-31 23:12 | disposition home or self-care (01) ==
PROVIDERS: Emergency Provider Emergency Medicine; PCP Internal Medicine
DX: G45.9 Transient cerebral ischemic attack, unspecified (principal); I10 Essential (primary) hypertension; F17.210 Nicotine dependence, cigarettes, uncomplicated
CPT/HCPCS: 12345; 36415; 70496; 70498; 71045; 80053; 83735; 84484; 85025; 85610; 85730; 93005; 96374; 96375; 99283; 99284; J2270; J2405; Q9967

== ENCOUNTER 2019-09-21 09:29 | Outpatient (CLI) | payer MEDICARE, MEDICAID, SELFPAY ==
--- NOTE | 2019-09-21 | CT_ITS ---
WS: [id number] CT CHEST TECHNIQUE: Noncontrast CT of the chest with coronal and sagittal reformatted images. CLINICAL INFORMATION: PULMONARY NODULE COMPARISON: None. DLP: 994.[address] scans at [facility] use at least one of these dose optimization techniques: automat ed exposure control; mA and/or kV adjustment per patient size (includes targeted exams where dose is matched to clinical indication); or iterative reconstruction. FINDINGS: Mild chronic emphysematous changes. Patchy hazy groundglass infiltrates in the right upper lobe. Fazal elation for pneumonitis. Lungs are otherwise well aerated. No focal pneumonia. No consolidation pleur al fluid.Small noncalcified nodule along the left fissure measuring 5 mm. Additional small noncalcifi ed nodule left lower lobe measuring 5 mm. Normal caliber thoracic aorta or. No mediastinal or hilar lymphadenopathy. No axillary lymphadenopath y. Chronic appearing anterior wedging at L1. No acute appearing compression fractures. Adrenal glands are normal. Small esophageal hiatal hernia. CT/CT chest wo con [id number] IMPRESSION: 1. Patchy hazy ground glass infiltrates in the right upper lobe. Recommend cor relation for pneumonitis. 2. Lungs are otherwise well aerated. Mild chronic emphysematous changes. 3. Small noncalcified nodule along the left fissure and left lower lobe latera lly both measuring 5 mm. Recommend 6 month follow-up. 4. No other significant findings. 5. No mediastinal or hilar lymphadenopathy.
== END 2019-09-21 09:30 | disposition home or self-care (01) ==
LOC: RADWPI 09:33
PROVIDERS: Family Provider Internal Medicine; PCP Internal Medicine; Visit Provider Internal Medicine
DX: R91.1 Solitary pulmonary nodule (principal); R91.8 Other nonspecific abnormal finding of lung field
CPT/HCPCS: 71250

== ENCOUNTER 2020-07-07 16:27 | Emergency (ER) | payer MEDICARE, MEDICAID, SELFPAY ==
[2020-07-07 16:40] VITALS: BP 203/133; PULSE 114; RESP 18; TEMP 36.7; O2SAT 97; BMI 26.4
--- NOTE | 2020-07-07 17:29 | ED_ITS ---
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 He comes to the ER complaining of severe right kidney pains for the past month but has been severe for the past couple days. He says occasionally his urine has be en foul-smelling and it is also dark yellow-colored. Pain 10 out of 10. He has had no previous kidney stone or infection history but does have chronic severe low back pain. Duration: constant Location: right flank Severity: severe Severity scale (1-10): 10 Quality: sharp Exacerbating factors: none Review of Systems General: Reports: 10 or more systems reviewed and unremarkable except in HPI and below Const: Denies: fatigue Eyes: Denies: change in vision, blurry vision or eye redness ENMT: Denies: throat pain, swelling of lips/tongue, ear or mastoid pain or na cain congestion Card: Denies: chest pain, palpitations, irregular heart rhythm, edema, dyspnea on exertion or orthopnea Resp: Denies: dyspnea, productive cough or non-productive cough GI: Denies: abdominal pain, diarrhea or GI cramping : Reports: flank pain; Denies: urinary frequency or urinary urgency Musc: Reports: back pain; Denies: neck pain, extremity pain, joint pain, joint redness, limited range of motion or muscle weakness Skin/Breast: Denies: rash, pruritus, erythema, skin pain or skin tenderness Neuro: Denies: headache(s), numbness in extremities, weakness in extremities, sensory changes, difficulty walking, dizziness, confusion or Slurred speech present Psych: Denies: anxiety or depression Endo: Denies: polyuria All/Imm: Denies: urticaria, throat swelling or tongue swelling PFSH ED PFSH: Medical History (Updated 07/07/20 @ 20:09 by Deshawn Lopez MD) Amputation of leg Hypertension Social History Smoking and tobacco status: current every day smoker Physical Exam Const: COMMON NORMALS: no acute distress, average body habitus, patient oriented x3, no limitations, healthy appearing, alert and well nourished GENERAL APPEARANCE: cooperative, comfortable, well kempt and well developed ORIENTATION/CONSCIOUSNESS: Yes awake, Yes oriented to person, Yes oriented to place and Yes oriented to time HENMT: COMMON NORMALS: normocephalic, external ears normal and Normal external nose present HEAD & SCALP: normal to inspection and normocephalic NOSE: Normal external nose present EXTERNAL EAR: Yes external ears normal MOUTH: Normal oral and palatal mucosa present THROAT: posterior oropharynx normal Eye: COMMON NORMALS: Equal, round and reactive pupils present and EOMs intact bilaterally GENERAL EYE: appearance normal, both eyes and all related structures PUPIL: Yes Equal, round and reactive pupils present Neck/C-Spine: COMMON NORMALS: full ROM, no lymphadenopathy, no meningeal signs and no JVD GENERAL: Yes normal visual inspection Lymph: LYMPHATIC: no lymphadenopathy noted Chest: COMMONS NORMALS: normal inspection of the chest and normal palpation of entire chest wall Resp: COMMON NORMALS: normal respiratory effort, No retractions, No use of accessory muscles, clear to auscultation bilaterally and percussion normal EFFORT & INSPECTION: Yes able to speak in complete sentences AUSCULTATION: clear to auscultation bilaterally PERCUSSION: percussion normal Cardio: COMMON NORMALS: no JVD, regular rate, regular rhythm, S1 normal heart sound present, S2 normal heart sound present and Peripheral pulses 2+ throughout RATE: regular rate RHYTHM: regular rhythm HEART SOUNDS: S1 normal heart sound present and S2 normal heart sound present PERIPHERAL PULSES: Peripheral pulses 2+ throughout GI: COMMON NORMALS: Normal to inspection, nondistended, normoactive bowel sounds present, Soft to palpation, non-tender and no masses INSPECTION: Yes normal to inspection PALPATION: Yes Soft to palpation : BLADDER/KIDNEY EXAM: Yes CVA tenderness on the right Back/Pelvis: COMMON NORMALS: thoracic and lumbar spine normal to inspection, no thoracic nor lumbar tenderness and thoraco-lumbar ROM normal GENERAL BACK: Yes CVA tenderness Extremity: COMMON NORMALS: normal to inspection, full ROM, capillary refill normal, no joint enlargement and no pedal edema GENERAL: Yes normal exam except as noted Neuro: COMMON NORMALS: patient oriented x3, CN's II-XII intact bilaterally, moves all extremities, no focal motor deficits, no sensory deficits noted and gait normal SENSORIUM/ORIENTATION: Yes alert, Yes oriented to person, Yes oriented to place and Yes oriented to time MENINGEAL SIGNS: Yes no meningeal signs Psych: COMMON NORMALS: mental status grossly normal, Normal thought process present, cooperative, normal affect and speech normal APPEARANCE: Yes well kempt ATTITUDE: Yes calm SPEECH: Yes normal speech THOUGHT PROCESS: Normal thought process present Skin: COMMON NORMALS: no rashes or lesions noted GENERAL SKIN EXAM: no rashes or lesions noted Course Vital Signs: Vital signs: Vital Signs Temperature 98.0 F 07/07/20 16:40 Pulse Rate 103 H 07/07/20 20:05 Respiratory Rate 16 07/07/20 20:05 Blood Pressure 195/125 07/07/20 20:05 Pulse Oximetry 97 07/07/20 20:05 MDM - Male MDM Narrative: Medical decision making narrative: The patient came to the ER complaining of right flank pain. He also has severe chronic back pain. CT scan was negative for stone. Gave him pain control with morphine which improved his pain significantly. Likely causing his pain is a back spasm. He has a right leg amputation and this probably causes him to have severe back pain and walk offkilter frequently. Also of note is his blood pressure is severely elevated. He gave him 0.2 clonidine with mild reduction of his blood pressure. Currently 183/26. When he arrived it was 203/133. He is asymptomatic of this blood pressure. He says he takes his blood pressure medicines at night. His medical record says he takes amlodipine daily however he says he does not take it. I prescribed him amlodipine 10 mg daily as he is clearly supposed to be taking that medication but does not. Recommended he write down his blood pressures in a diary and bring them to his primary care physician early next week. Return to the ER with any worsening symptoms. Lab Data: Labs: Lab Results 07/07/20 07/07/20 07/07/20 Range/Units 17:35 17:35 17:35 WBC 9.5 (4.0-10.0) 10^3/ uL RBC 5.50 H (4.1-5.3) 10^6/u L Hgb 16.4 (11.7-16.6) g/dL Hct 48.2 (42.0-52.0) % MCV 87.6 (80-94) fL MCH 29.8 (28.0-34.0) pg MCHC 34.0 (30.0-36.0) g/dL RDW 13.2 (12.1-15.1) % Plt Count 323 (130-400) 10^3/c mm MPV 9.3 (7.4-10.4) fL Neut % (Auto) 62.0 % Lymph % (Auto) 23.4 % [place] % (Auto) 9.3 % Eos % (Auto) 3.7 % Baso % (Auto) 1.2 % Neut # (Auto) 5.87 (1.8-7.7) 10^3/u L Lymph # (Auto) 2.2 (0.8-4.8) 10^3/u L [place] # (Auto) 0.9 (0.2-0.9) 10^3/u L Eos # (Auto) 0.4 (0.0-0.8) 10^3/u L Baso # (Auto) 0.1 (0.0-0.1) 10^3/u L Nucleated RBC % (a uto) 0 % Nucleated RBCs # 0.0 /100WBC Sodium 140 (136-145) mmol/L Potassium 3.5 (3.5-5.1) mmol/L Chloride 103 (98-107) mmol/L Carbon Dioxide 27 (22-29) mmol/L Anion Gap 13.5 (5-19) BUN 9 (6-20) mg/dL Creatinine 0.7 (0.7-1.2) mg/dL GFR Calculation 119.4 (90-130) mL/min Glucose 99 (65-115) mg/dL Calculated Osmolal ity 289 (285-295) mOsm/k g Lactate 1.7 (0.5-2.2) mmol/L Calcium 9.2 (8.5-10.5) mg/dL Total Bilirubin 0.4 (0.15-1.2) mg/dL AST 18 (0-40) U/L ALT 22 (0-41) U/L Alkaline Phosphata se 110 (40-130) IU/L Total Protein 6.4 L (6.6-8.7) g/dL Albumin 4.0 (3.5-5.2) g/dL Globulin 2.4 (1.3-4.6) g/dL Lipase 50 (13-60) U/L Urine Color (Yellow) Urine Appearance (CLEAR) Urine pH (5-7) Ur Specific Gravit y (1.005-1.030) Urine Protein (Negative) Urine Glucose (UA) (Normal) Urine Ketones (Negative) Urine Blood (Negative) Urine Nitrate (Negative) Urine Bilirubin (Negative) Urine Urobilinogen (Negative) mg/dL Ur Leukocyte Sydni ase (Negative) 07/07/20 Range/Units 17:40 WBC (4.0-10.0) 10^3/ uL RBC (4.1-5.3) 10^6/u L Hgb (11.7-16.6) g/dL Hct (42.0-52.0) % MCV (80-94) fL MCH (28.0-34.0) pg MCHC (30.0-36.0) g/dL RDW (12.1-15.1) % Plt Count (130-400) 10^3/c mm MPV (7.4-10.4) fL Neut % (Auto) % Lymph % (Auto) % [place] % (Auto) % Eos % (Auto) % Baso % (Auto) % Neut # (Auto) (1.8-7.7) 10^3/u L Lymph # (Auto) (0.8-4.8) 10^3/u L [place] # (Auto) (0.2-0.9) 10^3/u L Eos # (Auto) (0.0-0.8) 10^3/u L Baso # (Auto) (0.0-0.1) 10^3/u L Nucleated RBC % (a uto) % Nucleated RBCs # /100WBC Sodium (136-145) mmol/L Potassium (3.5-5.1) mmol/L Chloride (98-107) mmol/L Carbon Dioxide (22-29) mmol/L Anion Gap (5-19) BUN (6-20) mg/dL Creatinine (0.7-1.2) mg/dL GFR Calculation (90-130) mL/min Glucose (65-115) mg/dL Calculated Osmolal ity (285-295) mOsm/k g Lactate (0.5-2.2) mmol/L Calcium (8.5-10.5) mg/dL Total Bilirubin (0.15-1.2) mg/dL AST (0-40) U/L ALT (0-41) U/L Alkaline Phosphata se (40-130) IU/L Total Protein (6.6-8.7) g/dL Albumin (3.5-5.2) g/dL Globulin (1.3-4.6) g/dL Lipase (13-60) U/L Urine Color Yellow (Yellow) Urine Appearance Clear (CLEAR) Urine pH 6 (5-7) Ur Specific Gravit y 1.015 (1.005-1.030) Urine Protein Neg (Negative) Urine Glucose (UA) Norm (Normal) Urine Ketones Negative (Negative) Urine Blood Neg (Negative) Urine Nitrate Negative (Negative) Urine Bilirubin Neg (Negative) Urine Urobilinogen 1 H (Negative) mg/dL Ur Leukocyte Sydni ase Negative (Negative) Discharge Plan Discharge Patient Disposition: Home Clinical Impression: Hypertension, Back muscle spasm Condition: Stable Prescriptions: New amlodipine 10 mg tablet 10 mg PO DAILY Qty: 30 RF: 0 cyclobenzaprine 5 mg tablet 5 mg PO TID PRN (Reason: Back Pain) Qty: 12 RF: 0 No Action losartan 50 mg Tablet 100 mg PO DAILY RF: 0 metoprolol succinate 50 mg Tablet Extended Release 24 Hr 50 mg PO DAILY RF: 0 esomeprazole magnesium [Nexium] 20 mg Capsule,Delayed Release(Dr/Ec) 20 mg PO DAILY RF: 0 amlodipine 10 mg Tablet 10 mg PO DAILY RF: 0 cimetidine 400 mg tablet 400 mg PO DAILY RF: 0 nortriptyline 50 mg capsule 50 mg PO BEDTIME RF: 0 Discharge Orders: Discharge ED (Routine); Ordered 07/07/20 Ordered By: Deshawn Lopez Referrals: Ozzy Torres DO [Primary Care Provider] - Discharge Diet: Advance as tolerated Discharge Activity: Resume usual activity Patient Instructions: Chronic Hypertension (ED), Muscle Spasm (ED), Opioid Safety Activity Restrictions/Additional Instructions: You do not have a kidney stone. Your pain is likely caused by the muscles in your back spasming. Please take the muscle relaxer to help with your pain there and it will ease. Do not mix this medication with drugs, alcohol, nor operate machinery while taking it. Also of note your blood pressure is severely elevated. During our discussion you noted that you are not taking amlodipine. I have prescribed you a month supply of this to take once daily in the mornings. Write your blood pressures down and bring this to your primary care physician in a few days to discuss further as you may need further increases of blood pressure medication to get it under control. Return to the ER with worsening symptoms at any time Coding Level of Care Code ED Filterer for Dickson Klein Exam Comprehensive
[2020-07-07 17:49] LABS: Add Urine Microscopic? NO; Charge for UA Resulting for Rev
[2020-07-07 17:52] LABS: Basophils # 0.1 10^3/uL (0.0-0.1); Basophils % 1.2 %; Eosinophils # 0.4 10^3/uL (0.0-0.8); Eosinophils % 3.7 %; Hematocrit 48.2 % (42.0-52.0); Hemoglobin 16.4 g/dL (11.7-16.6); Lymphocytes # 2.2 10^3/uL (0.8-4.8); Lymphocytes % 23.4 %; Mean Corpuscular Hemoglobin 29.8 pg (28.0-34.0); Mean Corpuscular Volume 87.6 fL (80-94); Mean Platelet Volume 9.3 fL (7.4-10.4); Monocytes # 0.9 10^3/uL (0.2-0.9); Monocytes % 9.3 %; Neutrophils # 5.87 10^3/uL (1.8-7.7); Nucleated Red Blood Cells % 0 %; Platelet Count 323 10^3/cmm (130-400); Red Cell Distribution Width 13.2 % (12.1-15.1); White Blood Count 9.5 10^3/uL (4.0-10.0)
[2020-07-07 17:59] LABS: Bilirubin Urine Neg (Negative); Blood Urine Neg (Negative); Glucose Urine UA Norm (Normal); Ketones Urine Negative (Negative); Leukocyte Esterase Urine Negative (Negative); Nitrate Urine Negative (Negative); Protein Urine Neg (Negative); Specific Gravity, Urine 1.015 (1.005-1.030); Urine Appearance Clear (CLEAR); Urine Color Yellow (Yellow); Urobilinogen Urine 1 mg/dL (Negative); pH Urine 6 (5-7)
[2020-07-07] MEDS: sodium chloride 0.9% 1,000 ML 999 ML IV (18:06)
[2020-07-07] MEDS: morphine 4 mg/mL SDV 1 mL 2 MG IVP (18:06)
[2020-07-07 18:10] VITALS: BP 190/128; PULSE 112; RESP 16; O2SAT 97
[2020-07-07 18:17] LABS: Alanine Aminotransferase 22 U/L (0-41); Alkaline Phosphatase 110 IU/L (40-130); Anion Gap 13.5 (5-19); Aspartate Amino Transferase 18 U/L (0-40); Blood Urea Nitrogen 9 mg/dL (6-20); Calcium 9.2 mg/dL (8.5-10.5); Carbon Dioxide 27 mmol/L (22-29); Chloride 103 mmol/L (98-107); Globulin 2.4 g/dL (1.3-4.6); Glomerular Filtration Rate 119.4 mL/min (90-130); Glucose 99 mg/dL (65-115); Lipase 50 U/L (13-60); Osmolality Calculated 289 mOsm/kg (285-295); Potassium 3.5 mmol/L (3.5-5.1); Sodium 140 mmol/L (136-145); Total Bilirubin 0.4 mg/dL (0.15-1.2); Total Protein 6.4 g/dL (6.6-8.7)
[2020-07-07 18:18] LABS: Lactate (Lactic Acid level) 1.7 mmol/L (0.5-2.2)
--- NOTE | 2020-07-07 18:28 | CTR_ITS ---
PROCEDURE INFORMATION: Exam: CT Abdomen And Pelvis Without Contrast Exam date and time: 07/07/2020 6:34 PM Age: 49 years old Clinical indication: Abdominal pain; Flank; Right; Additional info: Right flank pain TECHNIQUE: Imaging protocol: Computed tomography of the abdomen and pelvis without contrast. Radiation optimization: All CT scans at this facility use at least one of these dose optimization techniques: automated exposure control; mA and/or kV adjustment per patient size (includes targeted exams where dose is matched to clinical indication); or iterative reconstruction. COMPARISON: CT abdomen pelvis w con* [id number] 05/03/2019 5:15 AM , and 02/03/2017 RADIATION DOSE METRICS: Total DLP (mGy-cm): 1529.19 FINDINGS: Lungs: Stable 4 mm left lower lobe nodule. Liver: Normal. No mass. Gallbladder and bile ducts: Partially contracted gallbladder. The bile ducts are normal. Pancreas: Normal. No ductal dilation. Spleen: Normal. No splenomegaly. Adrenal glands: Normal. No mass. Kidneys and ureters: 2 mm nonobstructing left renal calculus. Mild perinephric stranding is most likely physiologic. The right kidney is normal. No ureteral calculus or hydronephrosis. Fluid density left renal cyst, Hounsfield units less than 20. No imaging follow-up recommended. Stomach and bowel: Unremarkable. No obstruction. No mucosal thickening. Appendix: The appendix is visualized and is normal. Intraperitoneal space: Unremarkable. No free air. No significant fluid collection. Vasculature: Unremarkable. No abdominal aortic aneurysm. Lymph nodes: Unremarkable. No enlarged lymph nodes. Urinary bladder: Unremarkable as visualized. Reproductive: Unremarkable as visualized. Bones/joints: Stable mild chronic L1 compression fracture. Soft tissues: Bilateral fat containing inguinal hernias. Small fat containing umbilical hernia. CT/CT kidney stone 57000 IMPRESSION: 1. No acute abnormality identified in the abdomen or pelvis. 2. Nonobstructing small left renal calculus. 3. 4 mm left pulmonary nodule, stable since 02/03/2017 and considered benign. Radiation Dose CTDIVOL = (mGy): DLP = 1529.19 (mGy-cm)
[2020-07-07 18:40] VITALS: BP 190/128
[2020-07-07] MEDS: cloNIDine 0.1 mg Tablet 0.2 MG PO (18:40)
[2020-07-07 20:05] VITALS: BP 195/125; PULSE 103; RESP 16; O2SAT 97
[2020-07-07 20:14] VITALS: BP 183/126; PULSE 105; RESP 15; O2SAT 95
== END 2020-07-07 20:14 | disposition home or self-care (01) ==
PROVIDERS: Emergency Provider Family Medicine; PCP Internal Medicine
DX: M62.830 Muscle spasm of back (principal); I10 Essential (primary) hypertension; F17.210 Nicotine dependence, cigarettes, uncomplicated; Z89.611 Acquired absence of right leg above knee
CPT/HCPCS: 74176; 80053; 81003; 83605; 83690; 85025; 96361; 96374; 99283; J2270; J7030

== ENCOUNTER 2020-08-07 09:52 | Emergency (ER) | payer MEDICARE, MEDICAID, SELFPAY ==
[2020-08-07 10:04] VITALS: BP 173/134; PULSE 114; RESP 18; TEMP 36.6; O2SAT 95; BMI 24.4
--- NOTE | 2020-08-07 10:08 | W.ED.SKABFB ---
HPI - Skin/Abscess/Foreign Bdy General: Chief complaint: Skin/Abscess/Foreign Body Stated complaint: HAND AND PROSTATE ISSUES Time Seen by Provider: 08/07/20 10:02 Source: patient Mode of arrival: ambulatory Limitations: no limitations History of Present Illness: HPI narrative: 49-year-old male patient comes in with area of redness and induration to the left forearm. Patient also has a skin rash to the right buttock. He reports tenderness to one lesion in the area of the right buttock. Patient is alert oriented and appears well. MD complaint: rash and discoloration Onset (ago): day(s) Tetanus up to date: yes Location: LUE and buttocks Severity: moderate Quality: burning Pain Consistency: intermittent Relieving factors: none Exacerbating factors: none Context: none Associated symptoms: Reports no associated symptoms Treatments prior to arrival: none Review of Systems General: Reports: 10 or more systems reviewed and unremarkable except in HPI and below Skin/Breast: Reports: erythema and skin tenderness [facility] ED PFSH: Medical History (Updated 08/07/20 @ 10:16 by CARLOS Parham) Amputation of leg Hypertension Social History Smoking and tobacco status: current every day smoker Physical Exam Const: COMMON NORMALS: no acute distress and patient oriented x3 GENERAL APPEARANCE: cooperative HENMT: COMMON NORMALS: normocephalic and Normal external nose present HEAD & SCALP: normal to inspection and normocephalic NOSE: Normal external nose present Eye: GENERAL EYE: appearance normal, both eyes and all related structures Neck/C-Spine: COMMON NORMALS: full ROM Chest: COMMONS NORMALS: normal inspection of the chest Resp: COMMON NORMALS: normal respiratory effort EFFORT & INSPECTION: Yes able to speak in complete sentences Cardio: COMMON NORMALS: regular rate and regular rhythm RATE: regular rate RHYTHM: regular rhythm GI: COMMON NORMALS: non-tender Back/Pelvis: COMMON NORMALS: thoracic and lumbar spine normal to inspection Extremity: COMMON NORMALS: normal to inspection Neuro: COMMON NORMALS: patient oriented x3 and moves all extremities Psych: COMMON NORMALS: mental status grossly normal and cooperative Skin: NARRATIVE SKIN EXAM: Patient has several lesions to the right buttock and thigh in various stages of healing. Patient points out 1 larger lesion to the central right buttock with a pustulant center with no surrounding area of redness. No fluctuance or mass is noted in the area. Patient also has an area of redness about 7 cm with a central lesion that is crusted to the left forearm. Course Vital Signs: Vital signs: Vital Signs Temperature 97.8 F 08/07/20 10:04 Pulse Rate 113 H 08/07/20 10:25 Respiratory Rate 18 08/07/20 10:25 Blood Pressure 173/120 08/07/20 10:25 Pulse Oximetry 96 08/07/20 10:25 MDM - Skin/Abscess/Foreign Bdy MDM Narrative: Medical decision making narrative: 49-year-old male comes in today with complaints of redness and pain to his left forearm and right buttock. On exam we do note an area of cellulitis and with a central lesion to the left forearm. Right buttock has various lesions and various stages of healing with one lesion that has a purulent center that is draining but with no surrounding area of redness or significant fluctuance or mass. Differential diagnosis includes MRSA, cellulitis, folliculitis. Reviewed exam with patient with recommendations for treatment and follow-up. Patient reported understanding of care plan and need for further evaluation as needed. Patient was treated with clindamycin for an antibiotic to cover for MRSA. Patient was given hydrocodone acetaminophen 10 tablets for his complaints of significant pain in the area of buttock from a draining lesion. Discharge Plan Discharge Patient Disposition: Home Clinical Impression: Cellulitis of forearm, left, Folliculitis Condition: Stable Prescriptions: New clindamycin HCl 150 mg capsule 450 mg PO Q8H 7 Days Qty: 63 RF: 0 hydrocodone-acetaminophen 5-325 mg tablet 1 tab PO Q6H PRN (Reason: pain) Qty: 10 RF: 0 No Action losartan 50 mg Tablet 100 mg PO DAILY RF: 0 metoprolol succinate 50 mg Tablet Extended Release 24 Hr 50 mg PO DAILY RF: 0 esomeprazole magnesium [Nexium] 20 mg Capsule,Delayed Release(Dr/Ec) 20 mg PO DAILY RF: 0 amlodipine 10 mg Tablet 10 mg PO DAILY RF: 0 cimetidine 400 mg tablet 400 mg PO DAILY RF: 0 nortriptyline 50 mg capsule 50 mg PO BEDTIME RF: 0 amlodipine 10 mg tablet 10 mg PO DAILY Qty: 30 RF: 0 cyclobenzaprine 5 mg tablet 5 mg PO TID PRN (Reason: Back Pain) Qty: 12 RF: 0 Discharge Orders: Discharge ED (Routine); Ordered 08/07/20 Ordered By: Nathaniel Liz Referrals: Ozzy Torres DO [Primary Care Provider] - Discharge Diet: Usual diet Discharge Activity: Increase activity as tolerated Patient Instructions: Cellulitis (ED), Opioid Safety Activity Restrictions/Additional Instructions: Take medication as directed. Drink plenty of water with antibiotic. Follow-up with primary care in 3 days for recheck. Continue with routine medication for blood pressure. Return to the emergency department for high fever or worsening symptoms. Coding Level of Care Code ED Can Closing Machine Tender for Derrickg Fwd Exam Comprehensive
[2020-08-07 10:25] VITALS: BP 173/120; PULSE 113; RESP 18; O2SAT 96
== END 2020-08-07 10:27 | disposition home or self-care (01) ==
PROVIDERS: Emergency Provider Nurse Practitioner Family; PCP Internal Medicine
DX: L03.114 Cellulitis of left upper limb (principal); L73.9 Follicular disorder, unspecified; I10 Essential (primary) hypertension; F17.210 Nicotine dependence, cigarettes, uncomplicated; Z89.619 Acquired absence of unspecified leg above knee
CPT/HCPCS: 99282

== ENCOUNTER 2020-12-20 10:58 | Emergency (ER) | payer BC, MEDICARE, MEDICAID, SELFPAY ==
[2020-12-20 11:15] VITALS: BP 140/82; PULSE 89; RESP 16; TEMP 36.8; O2SAT 96; BMI 24.1
--- NOTE | 2020-12-20 11:20 | CT_ITS ---
WS: [id number] CT HEAD NONCONTRAST HISTORY: headache, dizziness and double vision TECHNIQUE: Contiguous axial imaging performed through the brain in 2.5 mm imaging. Bone and soft tiss ue windows. Sagittal and coronal reformats reviewed. All CT scans at [facility] use at least one of these dose optimization techniques: automated exposure control; mA and/or kV adjustment per pa tient size (includes targeted exams where dose is matched to clinical indication); or iterative recon struction. DLP: 986.5 mGy.cm COMPARISON: 09/14/2011, 02/25/2007 No acute intracranial hemorrhage, midline shift or mass effect. No atrophy or prior infarcts or herniation. The configuration of the brain in the vascular structure s very similar to the prior CT from 02/25/2007. Ventricles: Normal size with no hydrocephalus. No mass or abnormality at the optic chiasm on this unenhanced CT. Paranasal sinuses: As visualized are clear. Mastoid air cells: Well pneumatized. Calvarium and scalp: Skull is intact with no soft tissue edema or swelling. CT/CT head wo con* [id number] IMPRESSION: 1. No acute hemorrhage or edema. 2. No mass near the optic chiasm. 3. Stable appearance of the brain since 2006.
[2020-12-20 11:26] VITALS: BP 141/92; PULSE 90; RESP 16; TEMP 37; O2SAT 96
--- NOTE | 2020-12-20 11:39 | ED_ITS ---
HPI - Headache General: Chief Complaint: Headache Stated Complaint: DIZZINESS, AND DOUBLE VISION Time Seen by Provider: 12/20/20 11:20 History of Present Illness: HPI Narrative: Patient is a 50-year-old male who comes to the ED with a headache and dizziness. Patient says that 2 days ago he got out of the car and walk to his door and felt dizziness and a headache that he describes as pressure in the front of his head. He says the dizziness felt like a spinning sensation. He immediately went to lie down and slept after that episode. Yesterday at work he was sitting working and developed the dizziness and double vision all day while at work. He says his headache has remained since it started 2 days ago and he rates it currently 8 out of 10. He also endorses having some nausea as well, but no emesis. Denies having any episodes like this in the past. Denies chest pain, shortness of breath, syncope or loss of consciousness. Associated symptoms: Deny chest pain, fever(s), nausea, rash or vomiting Review of Systems Const: Denies: fever(s), chills or fatigue Eyes: Denies: change in vision or eye discomfort ENMT: Denies: throat pain, odynophagia, nasal discharge or nasal congestion Card: Denies: chest pain, palpitations, edema, swelling of feet/ankles, dyspnea on exertion or orthopnea Resp: Denies: dyspnea, productive cough or non-productive cough GI: Denies: abdominal pain, nausea, vomiting, diarrhea, constipation or hematochezia : Denies: flank pain, difficulty urinating, dysuria or hematuria Musc: Denies: neck pain, back pain or extremity swelling Skin/Breast: Denies: rash or new lesions Neuro: Reports: headache(s), dizziness and vertigo; Denies: numbness in extremities or weakness in extremities PFSH ED 2 PFSH: Medical History Amputation of leg Hypertension Social History Smoking and tobacco status: current every day smoker Physical Exam Const: COMMON NORMALS: no acute distress, patient oriented x3 and alert GENERAL APPEARANCE: cooperative and comfortable HENMT: COMMON NORMALS: normocephalic HEAD & SCALP: normocephalic MOUTH: Normal oral and palatal mucosa present THROAT: posterior oropharynx normal and uvula midline Neck/C-Spine: COMMON NORMALS: supple GENERAL: Yes normal visual inspection Resp: COMMON NORMALS: normal respiratory effort, No retractions, No use of accessory muscles and clear to auscultation bilaterally AUSCULTATION: clear to auscultation bilaterally Cardio: COMMON NORMALS: regular rate, regular rhythm, S1 normal heart sound present, S2 normal heart sound present, No gallops present (Cardio), No clicks present (Cardio), No murmurs present (Cardio) and Peripheral pulses 2+ throughout RATE: regular rate RHYTHM: regular rhythm HEART SOUNDS: S1 normal heart sound present and S2 normal heart sound present PERIPHERAL PULSES: Peripheral pulses 2+ throughout GI: COMMON NORMALS: Normal to inspection, nondistended, normoactive bowel sounds present, Soft to palpation, non-tender and no masses PALPATION: Yes Soft to palpation : COMMON NORMALS: Yes no CVA tenderness BLADDER/KIDNEY EXAM: Yes no CVA tenderness Back/Pelvis: COMMON NORMALS: no CVA tenderness Extremity: GENERAL: Yes normal exam except as noted and Yes amputation (Right leg above the knee) Neuro: COMMON NORMALS: patient oriented x3, CN's II-XII intact bilaterally, moves all extremities, no focal motor deficits and no sensory deficits noted SENSORIUM/ORIENTATION: Yes alert SENSORY EXAM: Yes extremities (intact) MOTOR EXAM: 5/5 motor strength present throughout Skin: GENERAL SKIN EXAM: dry skin Course Reevaluation(s): Reevaluation #1: After patient received IV fluids and migraine/headache cocktail his symptoms improved. He said his headache is a lot more manageable now and he is ready to discharge home. Time: 14:17 Vital Signs: Vital signs: Vital Signs Temperature 98 F 12/20/20 14:18 Pulse Rate 79 12/20/20 14:18 Respiratory Rate 16 12/20/20 14:18 Blood Pressure 117/79 12/20/20 14:18 Pulse Oximetry 97 12/20/20 14:18 MDM - Headache MDM Narrative: Medical decision making narrative: Patient is a 50-year-old male comes to the ED with headache and dizziness. Patient appears nontoxic and in no acute distress or pain. Neuro exam was normal and shows no deficits. CBC and CMP were unremarkable. CT of head shows no acute findings. Patient was given IV fluids, Toradol, Decadron, Reglan and Benadryl and his headache and other symptoms greatly improved. Patient was diagnosed with a headache and dizziness and discharged home with a prescription of meclizine. He was told to follow-up with his PCP in 7 to 10 days reevaluation. Return to ED precautions given. Patient understood agree with plan. Lab Data: Labs: Lab Results 12/20/20 12/20/20 12/20/20 11:36 11:36 12:04 WBC 8.7 10^3/uL 10^3/ uL (4.0-10.0) RBC 6.08 10^6/uL H 10 ^6/uL (4.1-5.3) Hgb 18.6 g/dL H g/dL (11.7-16.6) Hct 54.1 % H % (42.0-52.0) MCV 89.0 fl fl (80-94) MCH 30.6 pg pg (28.0-34.0) MCHC 34.4 g/dL g/dL (30.0-36.0) RDW 13.2 % % (12.1-15.1) Plt Count 291 10^3/cmm 10^3 /cmm (130-400) MPV 9.2 fL fL (7.4-10.4) Neut % (Auto) 71.3 % % Lymph % (Auto) 15.1 % % [place] % (Auto) 7.9 % % Eos % (Auto) 4.1 % % Baso % (Auto) 1.0 % % Neut # (Auto) 6.18 10^3/uL 10^3 /uL (1.8-7.7) Lymph # (Auto) 1.3 10^3/uL 10^3/ uL (0.8-4.8) [place] # (Auto) 0.7 10^3/uL 10^3/ uL (0.2-0.9) Eos # (Auto) 0.4 10^3/uL 10^3/ uL (0.0-0.8) Baso # (Auto) 0.1 10^3/uL 10^3/ uL (0.0-0.1) Nucleated RBC % (a uto) 0 % % Nucleated RBCs # 0.0 /100WBC /100W BC Sodium Cancelled 135 mmol/L L mmol /L (136-145) Potassium Cancelled 3.7 mmol/L mmol/L (3.5-5.1) Chloride Cancelled 101 mmol/L mmol/L (98-107) Carbon Dioxide Cancelled 25 mmol/L mmol/L (22-29) Anion Gap Cancelled 12.7 (5-19) BUN Cancelled 7 mg/dL mg/dL (6-20) Creatinine Cancelled 0.6 mg/dL L mg/dL (0.7-1.2) GFR Calculation Cancelled 142.0 mL/min H mL /min (90-130) Glucose Cancelled 105 mg/dL mg/dL (65-115) Calculated Osmolal ity Cancelled 278 mOsm/kg L mOs m/kg (285-295) Calcium Cancelled 9.1 mg/dL mg/dL (8.5-10.5) Total Bilirubin Cancelled 0.5 mg/dL mg/dL (0.15-1.2) AST Cancelled 15 U/L U/L (0-40) ALT Cancelled 18 U/L U/L (0-41) Alkaline Phosphata se Cancelled 90 IU/L IU/L (40-130) Total Protein Cancelled 6.4 g/dL L g/dL (6.6-8.7) Albumin Cancelled 3.7 g/dL g/dL (3.5-5.2) Globulin Cancelled 2.7 g/dL g/dL (1.3-4.6) Imaging Data^: CT Head: Attestation: I personally reviewed and interpreted this imaging study as follows: Radiologist's impression: [address] [address] [address] Scan Report Signed Patient: Holger Garcia Unit #: [id number] : 1970 Age/Sex: 50 / M ADM Date: 12/20/20 Loc: ER Room/Bed: Attending Dr: Ordering Provider/Ordering MD: Dez Moraes Date of Service: 12/20/20 Procedure(s): CT head wo con* [id number] Accession Number(s): [id number] Report Number: [id number] WS: [id number] CT HEAD NONCONTRAST HISTORY: headache, dizziness and double vision TECHNIQUE: Contiguous axial imaging performed through the brain in 2.5 mm imaging. Bone and soft tissue windows. Sagittal and coronal reformats reviewed. All CT scans at [facility] use at least one of these dose optimization techniques: automated exposure control; mA and/or kV adjustment per patient size (includes targeted exams where dose is matched to clinical indication); or iterative reconstruction. DLP: 986.5 mGy.cm COMPARISON: 09/14/2011, 02/25/2007 No acute intracranial hemorrhage, midline shift or mass effect. No atrophy or prior infarcts or herniation. The configuration of the brain in the vascular structures very similar to the prior CT from 02/25/2007. Ventricles: Normal size with no hydrocephalus. No mass or abnormality at the optic chiasm on this unenhanced CT. Paranasal sinuses: As visualized are clear. Mastoid air cells: Well pneumatized. Calvarium and scalp: Skull is intact with no soft tissue edema or swelling. CT/CT head wo con* [id number] IMPRESSION: 1. No acute hemorrhage or edema. 2. No mass near the optic chiasm. 3. Stable appearance of the brain since 2006. Dictated By: Joie Garcia DO Signed By: Joie Garcia DO Signed Date/Time: 12/20/20 1311 DD/ 1307 Discharge Plan Discharge Patient Disposition: Home Clinical Impression: Dizziness Headache Qualifiers: Headache type: unspecified Headache chronicity pattern: acute headache Intractability: not intractable Qualified Code(s): R51.9 - Headache, unspecified Condition: Stable Prescriptions: New meclizine 25 mg tablet 25 mg PO DAILY PRN (Reason: dizziness or vertigo) Qty: 15 RF: 0 No Action losartan 50 mg Tablet 100 mg PO DAILY RF: 0 metoprolol succinate 50 mg Tablet Extended Release 24 Hr 50 mg PO DAILY RF: 0 esomeprazole magnesium [Nexium] 20 mg Capsule,Delayed Release(Dr/Ec) 20 mg PO DAILY RF: 0 chlorthalidone 25 mg Tablet 25 mg PO DAILY RF: 0 amlodipine 5 mg tablet 5 mg PO DAILY RF: 0 Iron (ferrous sulfate) 325 mg (65 mg iron) Tablet 325 mg PO DAILY RF: 0 sertraline 50 mg tablet See Rx Instructions .ROUTE .COMPLEX RF: 0 pregabalin 75 mg capsule 75 mg PO BID RF: 0 cimetidine 400 mg tablet 400 mg PO DAILY RF: 0 nortriptyline 50 mg capsule 50 mg PO BEDTIME RF: 0 amlodipine 10 mg tablet 10 mg PO DAILY Qty: 30 RF: 0 Discharge Orders: Discharge ED (Routine); Ordered 12/20/20 Ordered By: Dez Moraes Referrals: Ozzy Torres, [Primary Care Provider] - Discharge Diet: Regular Discharge Activity: Increase activity as tolerated Patient Instructions: Vertigo (ED), Acute Headache (ED), Dizziness (ED) Activity Restrictions/Additional Instructions: Follow-up with medical provider as directed in 7-10 days. Take medications as prescribed. Return to the ER or your medical provider if condition worsens. Please read and understand discharge instructions. Thank you for choosing [facility] for your healthcare needs today. Please realize this is an emergency room and that we are providing you with a medical screening exam and this may not be complete and all inclusive of all the testing and or work up that you may need to determine your ailment or severity of your illness. It is very important that you follow up as instructed or that you return to the Emergency Department should you have concerns or if your condition changes or worsens in any way. 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
[2020-12-20 11:49] LABS: Basophils # 0.1 10^3/uL (0.0-0.1); Eosinophils # 0.4 10^3/uL (0.0-0.8); Eosinophils % 4.1 %; Hematocrit 54.1 % (42.0-52.0); Hemoglobin 18.6 g/dL (11.7-16.6); Lymphocytes # 1.3 10^3/uL (0.8-4.8); Lymphocytes % 15.1 %; Mean Corpuscular HGB Conc 34.4 g/dL (30.0-36.0); Mean Corpuscular Hemoglobin 30.6 pg (28.0-34.0); Mean Platelet Volume 9.2 fL (7.4-10.4); Monocytes # 0.7 10^3/uL (0.2-0.9); Monocytes % 7.9 %; Neutrophils # 6.18 10^3/uL (1.8-7.7); Neutrophils % 71.3 %; Nucleated Red Blood Cells % 0 %; Platelet Count 291 10^3/cmm (130-400); Red Blood Count 6.08 10^6/uL (4.1-5.3); Red Cell Distribution Width 13.2 % (12.1-15.1); White Blood Count 8.7 10^3/uL (4.0-10.0)
[2020-12-20 12:31] LABS: Alanine Aminotransferase 18 U/L (0-41); Albumin Level 3.7 g/dL (3.5-5.2); Alkaline Phosphatase 90 IU/L (40-130); Anion Gap 12.7 (5-19); Aspartate Amino Transferase 15 U/L (0-40); Blood Urea Nitrogen 7 mg/dL (6-20); Calcium 9.1 mg/dL (8.5-10.5); Carbon Dioxide 25 mmol/L (22-29); Chloride 101 mmol/L (98-107); Globulin 2.7 g/dL (1.3-4.6); Glucose 105 mg/dL (65-115); Osmolality Calculated 278 mOsm/kg (285-295); Potassium 3.7 mmol/L (3.5-5.1); Sodium 135 mmol/L (136-145); Total Bilirubin 0.5 mg/dL (0.15-1.2); Total Protein 6.4 g/dL (6.6-8.7)
[2020-12-20 13:02] VITALS: BP 124/82; PULSE 90; RESP 18; TEMP 36.6; O2SAT 96
[2020-12-20] MEDS: dexamethasone 10 mg/mL INJ IVP (13:27)
[2020-12-20] MEDS: ketorolac 30 mg/mL INJ IVP (13:27)
[2020-12-20] MEDS: diphenhydrAMINE 50 mg/mL SDV 1mL 25 MG IVP (13:27)
[2020-12-20] MEDS: sodium chloride 0.9% 500 ML 999 ML IV (13:27)
[2020-12-20] MEDS: metoclopramide 5 mg/mL SDV 2 mL 10 MG IVP (13:27)
--- NOTE | 2020-12-20 14:03 | PC.NURSE ---
Lab at bedside.
[2020-12-20 14:05] VITALS: BP 109/65; PULSE 77; RESP 16; TEMP 36.6; O2SAT 95
[2020-12-20 14:18] VITALS: BP 117/79; PULSE 79; RESP 16; TEMP 36.6; O2SAT 97
== END 2020-12-20 14:30 | disposition home or self-care (01) ==
PROVIDERS: Emergency Provider Physician Assistant; PCP Internal Medicine
DX: R51.9 Headache, unspecified (principal); R42 Dizziness and giddiness; I10 Essential (primary) hypertension; F17.210 Nicotine dependence, cigarettes, uncomplicated
CPT/HCPCS: 70450; 80053; 85025; 96374; 96375; 99284; J1100; J1200; J1885; J2765; J7040

== ENCOUNTER 2020-12-25 19:30 | Inpatient (IN) | payer BC, MEDICARE, MEDICAID, SELFPAY ==
[2020-12-25] VITALS (33 sets, daily range): BP systolic 142–170; BP diastolic 93–114; PULSE 99–120; RESP 12–20; TEMP 37.1–37.4; O2SAT 59–96; BMI 23.0
[2020-12-25 19:40] LABS: Glucose Point of Care 170 mg/dL (70-110)
--- NOTE | 2020-12-25 19:47 | XRR_ITS ---
PROCEDURE INFORMATION: Exam: XR Chest Exam date and time: 12/25/2020 7:47 PM Age: 50 years old Clinical indication: Fever; Additional info: Fever, weakness TECHNIQUE: Imaging protocol: XR of the chest. Views: 1 view. COMPARISON: CT chest con [id number] 09/21/2019 10:27 AM FINDINGS: Lungs: Lungs are clear bilaterally. Pleural spaces: No pleural effusion. No pneumothorax. Heart/Mediastinum: The cardiac silhouette and mediastinal contours are unremarkable. Bones/joints: Unremarkable for age. XR/XR chest 1V portable [id number] IMPRESSION: 1. No acute cardiopulmonary process. 2. Incidental/nonacute findings are listed in the report.
--- NOTE | 2020-12-25 19:47 | CTR_ITS ---
PROCEDURE INFORMATION: Exam: CT Head Without Contrast Exam date and time: 12/25/2020 7:47 PM Age: 50 years old Clinical indication: Patient HX: C/O dizziness and weakness; Additional info: Weakness, dizziness TECHNIQUE: Imaging protocol: Computed tomography of the head without contrast. Sagittal and coronal reformatted images were created and reviewed. Radiation optimization: All CT scans at this facility use at least one of these dose optimization techniques: automated exposure control; mA and/or kV adjustment per patient size (includes targeted exams where dose is matched to clinical indication); or iterative reconstruction. COMPARISON: CT head wo con* [id number] 12/20/2020 12:48 PM RADIATION DOSE METRICS: Total DLP (mGy-cm): 1911.55 FINDINGS: Brain: No acute intracranial hemorrhage. Interval development of a moderate sized area of decreased density with loss of lara-white matter differentiation in the medial right cerebellar hemisphere (series 601, image 11 and series 2, image 20). Findings are suspicious for an acute infarct. No intra-axial or extra-axial masses. No midline shift. No extra-axial fluid collections. Lara-white matter differentiation is unremarkable. No evidence for Chiari 1 malformation. Cerebral ventricles: No hydrocephalus. Paranasal sinuses: Visualized paranasal sinuses are clear. Mastoid air cells: Visualized mastoid air cells are clear. Orbital cavity: Globes and lenses, extraocular muscles, and optic nerves are intact bilaterally. No acute intraorbital abnormality. Bones/joints: No acute fracture. Soft tissues: The extracranial soft tissues are unremarkable. CT/CT head wo con* [id number] IMPRESSION: Interval development of findings suspicious for a moderate sized acute infarct in the medial right cerebellar hemisphere. Radiation Dose CTDIVOL = (mGy): DLP = 1911.55 (mGy-cm)
[2020-12-25 19:54] LABS: Basophils # 0.1 10^3/uL (0.0-0.1); Basophils % 0.3 %; Eosinophils # 0.1 10^3/uL (0.0-0.8); Eosinophils % 0.2 %; Hematocrit 54.7 % (42.0-52.0); Hemoglobin 19.3 g/dL (11.7-16.6); Lymphocytes # 1.9 10^3/uL (0.8-4.8); Lymphocytes % 6.9 %; Mean Corpuscular HGB Conc 35.3 g/dL (30.0-36.0); Mean Corpuscular Hemoglobin 30.5 pg (28.0-34.0); Mean Corpuscular Volume 86.6 fl (80-94); Mean Platelet Volume 8.8 fL (7.4-10.4); Monocytes # 1.8 10^3/uL (0.2-0.9); Monocytes % 6.7 %; Neutrophils # 23.24 10^3/uL (1.8-7.7); Neutrophils % 85.1 %; Nucleated Red Blood Cells % 0 %; Platelet Count 414 10^3/cmm (130-400); Red Blood Count 6.32 10^6/uL (4.1-5.3); White Blood Count 27.3 10^3/uL (4.0-10.0)
[2020-12-25] MEDS: LORazepam 2 mg/mL INJ 1 mL 1.5 MG IVP (19:56)
[2020-12-25] MEDS: sodium chloride 0.9% 1,000 ML 999 ML IV (19:58)
[2020-12-25] MEDS: labetalol 5 mg/mL SDV 20mL 10 MG IVP (19:58)
[2020-12-25 20:06] LABS: Alanine Aminotransferase 21 U/L (0-41); Albumin Level 4.5 g/dL (3.5-5.2); Alkaline Phosphatase 103 IU/L (40-130); Anion Gap 20.4 (5-19); Aspartate Amino Transferase 13 U/L (0-40); Blood Urea Nitrogen 19 mg/dL (6-20); Calcium 9.7 mg/dL (8.5-10.5); Carbon Dioxide 23 mmol/L (22-29); Chloride 93 mmol/L (98-107); Creatine Phosphokinase 69 U/L (39-308); Globulin 3.6 g/dL (1.3-4.6); Glucose 145 mg/dL (65-115); Lactate (Lactic Acid level) 2.1 mmol/L (0.5-2.2); Magnesium 2.3 mg/dL (1.7-2.3); Osmolality Calculated 281 mOsm/kg (285-295); Potassium 3.4 mmol/L (3.5-5.1); Sodium 133 mmol/L (136-145); Total Protein 8.1 g/dL (6.6-8.7)
[2020-12-25 20:13] LABS: Alcohol Level < 10 mg/dL (0-10); Procalcitonin 0.06 ng/mL (0-0.5)
--- NOTE | 2020-12-25 20:20 | ED_ITS ---
HPI - Weakness General: Chief complaint: Weakness Stated complaint: gerneralized weakness and high blood pressure Time Seen by Provider: 12/25/20 19:37 History of Present Illness: HPI Narrative: 50-year-old gentleman who was seen last week for vertigo type symptoms. He notes that he improved from this, but yesterday began to feel generally weak. He got dizzy again, and notes that the whole world is spinning. It is worse with movement. He notes that only sleeping improves his symptoms. He vomited multiple times last night. He has not had any respiratory symptoms. No diarrhea. No fever that he knows of. No focal weakness, no language or vision changes. MD Complaint: generalized weakness Onset (ago): hour(s) (30) Duration: constant Location: generalized Migration: none Severity: moderate Quality: other Relieving factors: none Associated symptoms: Reports decreased appetite, diaphoresis, headache(s), nausea and vomiting; Denies chest pain, chills, confusion, dysuria, fever(s) or short of breath Review of Systems Const: Reports: diaphoresis; Denies: fever(s) or chills Card: Denies: chest pain GI: Reports: nausea and vomiting : Denies: dysuria Neuro: Reports: headache(s); Denies: confusion PFS ED PFSH: Medical History (Updated 12/25/20 @ 22:14 by Marv Little DO) Amputation of leg Hypertension Social History Smoking and tobacco status: current every day smoker Physical Exam Const: COMMON NORMALS: no acute distress GENERAL APPEARANCE: cooperative and ill appearing ORIENTATION/CONSCIOUSNESS: Yes awake, Yes oriented to p erson, Yes oriented to place and Yes oriented to time HENMT: COMMON NORMALS: normocephalic and atraumatic HEAD & SCALP: normocephalic and atraumatic FACE & SINUS: normal facial exam and face symmetric Eye: COMMON NORMALS: Equal, round and reactive pupils present and EOMs intact bilaterally PUPIL: Yes Equal, round and reactive pupils present Chest: COMMONS NORMALS: normal inspection of the chest Resp: COMMON NORMALS: normal respiratory effort, No use of accessory muscles and clear to auscultation bilaterally AUSCULTATION: clear to auscultation bilaterally Cardio: COMMON NORMALS: regular rhythm RATE: tachycardic RHYTHM: regular rhythm GI: COMMON NORMALS: Normal to inspection, nondistended, normoactive bowel sounds present and Soft to palpation PALPATION: Yes Soft to palpation Neuro: AGUSTO COMA SCALE: document GCS findings SENSORIUM/ORIENTATION: Yes oriented to person, Yes oriented to place and Yes oriented to time CRANIAL NERVES: Yes CN normal except as noted COORDINATION/BALANCE: No qtkddw-wr-fget test normal (Mildly impaired on the right) and yhcc-yw-dtev test normal (Not performed, missing right lower extremity) SPEECH: speech normal GAIT: Yes Unable to assess gait SENSORY EXAM: Yes extremities (Intact) MOTOR EXAM: Pronator motor function not present COORDINATION: erfijl-rm-vpht test abnormal (Mildly impaired on the right) and lbke-fc-oarf test normal (Not performed, missing right lower extremity) Course Consultations: Consultation #1: Merari Time: 22:14 Vital Signs: Vital signs: Vital Signs Temperature 98.8 F 12/25/20 23:13 Pulse Rate 105 H 12/25/20 23:13 Respiratory Rate 17 12/25/20 23:13 Blood Pressure 148/98 12/25/20 23:13 Pulse Oximetry 95 12/25/20 23:13 MDM - Weakness MDM Narrative: Medical decision making narrative: NIH calculated is 1 due to mild ataxia with [id number]-gn-devd on the right. No other deficits. This gentleman appears to have a change in his CT in the right occipital lobe not present 5 days ago consistent with likely ischemia. Awaiting official radiology read. 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 White blood cell count is elevated at 27, hemoglobin is 19.3. Likely from vomiting. He is afebrile here. His creatinine is 0.6. Potassium 3.4. He is mildly hypertensive, with systolic blood pressure of 144 currently. He'll be admitted for continued stroke work-up and treatment Lab Data: Labs: Lab Results 12/25/20 12/25/20 12/25/20 19:38 19:45 19:45 WBC 27.3 10^3/uL H 10 ^3/uL (4.0-10.0) RBC 6.32 10^6/uL H 10 ^6/uL (4.1-5.3) Hgb 19.3 g/dL H g/dL (11.7-16.6) Hct 54.7 % H % (42.0-52.0) MCV 86.6 fl fl (80-94) MCH 30.5 pg pg (28.0-34.0) MCHC 35.3 g/dL g/dL (30.0-36.0) RDW 13.0 % % (12.1-15.1) Plt Count 414 10^3/cmm H 10 ^3/cmm (130-400) MPV 8.8 fL fL (7.4-10.4) Neut % (Auto) 85.1 % % Lymph % (Auto) 6.9 % % [place] % (Auto) 6.7 % % Eos % (Auto) 0.2 % % Baso % (Auto) 0.3 % % Neut # (Auto) 23.24 10^3/uL H 1 0^3/uL (1.8-7.7) Lymph # (Auto) 1.9 10^3/uL 10^3/ uL (0.8-4.8) [place] # (Auto) 1.8 10^3/uL H 10^ 3/uL (0.2-0.9) Eos # (Auto) 0.1 10^3/uL 10^3/ uL (0.0-0.8) Baso # (Auto) 0.1 10^3/uL 10^3/ uL (0.0-0.1) Nucleated RBC % (a uto) 0 % % Nucleated RBCs # 0.0 /100WBC /100W BC Sodium 133 mmol/L L mmol /L (136-145) Potassium 3.4 mmol/L L mmol /L (3.5-5.1) Chloride 93 mmol/L L mmol/ L (98-107) Carbon Dioxide 23 mmol/L mmol/L (22-29) Anion Gap 20.4 H (5-19) BUN 19 mg/dL mg/dL (6-20) Creatinine 0.6 mg/dL L mg/dL (0.7-1.2) GFR Calculation 142.0 mL/min H mL /min (90-130) Glucose 145 mg/dL H mg/dL (65-115) POC Glucose 170 mg/dL H mg/dL (70-110) Calculated Osmolal ity 281 mOsm/kg L mOs m/kg (285-295) Lactate Calcium 9.7 mg/dL mg/dL (8.5-10.5) Magnesium 2.3 mg/dL mg/dL (1.7-2.3) Total Bilirubin 1.0 mg/dL mg/dL (0.15-1.2) AST 13 U/L U/L (0-40) ALT 21 U/L U/L (0-41) Alkaline Phosphata se 103 IU/L IU/L (40-130) Creatine Kinase 69 U/L U/L (39-308) C-Reactive Protein 15.0 mg/L H mg/L (0.0-4.9) Total Protein 8.1 g/dL g/dL (6.6-8.7) Albumin 4.5 g/dL g/dL (3.5-5.2) Globulin 3.6 g/dL g/dL (1.3-4.6) Procalcitonin 0.06 ng/mL ng/mL (0-0.5) Urine Color Urine Appearance Urine pH Ur Specific Gravit y Urine Protein Urine Glucose (UA) Urine Ketones Urine Blood Urine Nitrate Urine Bilirubin Urine Urobilinogen Ur Leukocyte Sydni ase Urine Opiates Scre en Ur Barbiturates Sc reen Ur Phencyclidine S crn Ur Amphetamines Sc reen U Benzodiazepines Scrn Urine Cocaine Scre en U Marijuana (THC) Screen Ethyl Alcohol < 10 mg/dL mg/dL (0-10) 12/25/20 12/25/20 12/25/20 19:45 22:18 22:18 WBC RBC Hgb Hct MCV MCH MCHC RDW Plt Count MPV Neut % (Auto) Lymph % (Auto) [place] % (Auto) Eos % (Auto) Baso % (Auto) Neut # (Auto) Lymph # (Auto) [place] # (Auto) Eos # (Auto) Baso # (Auto) Nucleated RBC % (a uto) Nucleated RBCs # Sodium Potassium Chloride Carbon Dioxide Anion Gap BUN Creatinine GFR Calculation Glucose POC Glucose Calculated Osmolal ity Lactate 2.1 mmol/L mmol/L (0.5-2.2) Calcium Magnesium Total Bilirubin AST ALT Alkaline Phosphata se Creatine Kinase C-Reactive Protein Total Protein Albumin Globulin Procalcitonin Urine Color Yellow (Yellow) Urine Appearance Clear (CLEAR) Urine pH 5 (5-7) Ur Specific Gravit y 1.020 (1.005-1.030) Urine Protein Neg (Negative) Urine Glucose (UA) Norm (Normal) Urine Ketones 1+ H (Negative) Urine Blood Neg (Negative) Urine Nitrate Negative (Negative) Urine Bilirubin Neg (Negative) Urine Urobilinogen Norm mg/dL mg/dL (Negative) Ur Leukocyte Sydni ase Negative (Negative) Urine Opiates Scre en Negative ng/mL ng /mL (Negative) Ur Barbiturates Sc reen Negative ng/mL ng /mL (Negative) Ur Phencyclidine S crn Negative ng/mL ng /mL (Negative) Ur Amphetamines Sc reen Negative ng/mL ng /mL (Negative) U Benzodiazepines Scrn Negative ng/mL ng /mL (Negative) Urine Cocaine Scre en Negative ng/mL ng /mL (Negative) U Marijuana (THC) Screen Negative ng/mL ng /mL (Negative) Ethyl Alcohol Discharge Plan Discharge Patient Disposition: Admitted As Inpatient Admit Provider: Raina Gage Clinical Impression: Acute CVA (cerebrovascular accident) Condition: Stable Coding Level of Care Code ED 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
--- NOTE | 2020-12-25 20:29 | PC.NURSE ---
v/s at 2020 depicts an erroneous spo2. spo2 has remained 92-98 % since time in ED.
[2020-12-25 22:23] LABS: Add Urine Microscopic? NO; Charge for UA Resulting for Rev
--- NOTE | 2020-12-25 22:28 | PC.NURSE ---
report called to Chrissie FUENTES
[2020-12-25 22:29] LABS: Bilirubin Urine Neg (Negative); Blood Urine Neg (Negative); Glucose Urine UA Norm (Normal); Ketones Urine 1+ (Negative); Leukocyte Esterase Urine Negative (Negative); Nitrate Urine Negative (Negative); Protein Urine Neg (Negative); Urine Appearance Clear (CLEAR); Urine Color Yellow (Yellow); Urobilinogen Urine Norm (Negative); pH Urine 5 (5-7)
[2020-12-25 22:34] LABS: Amphetamines Screen Urine Negative (Negative); Barbiturates Screen Urine Negative (Negative); Benzodiazepines Screen Urine Negative (Negative); Cocaine Screen Urine Negative (Negative); Opiate Screen Urine Negative (Negative); PCP Screen Urine Negative (Negative); THC Screen Urine Negative (Negative)
[2020-12-25] MEDS: aspirin 325 mg Tablet PO (23:11)
[2020-12-25] MEDS: sodium chloride 0.9% 1,000 ML 150 ML IV (23:11)
[2020-12-25] MEDS: ondansetron 2 mg/ML SDV 2 mL 4 MG IVP (23:46)
[2020-12-26] VITALS (10 sets, daily range): BP systolic 150–172; BP diastolic 91–117; PULSE 0–109; RESP 16–20; TEMP 36.6–37.4; O2SAT 95–98
--- NOTE | 2020-12-26 00:09 | PM.HP ---
Providers/Chief Complaint Admitting Physician: Raina Gage MD Primary Care Provider: Ozzy Torres DO Chief Complaint: gerneralized weakness and high blood pressure History of Present Illness Holger Garcia is a 50 year old male who had presented to the emergency room on 12/20 with chief complains of headache dizziness and double vision. His symptoms have started 2 days prior to initial presentation when he had experienced dizziness while getting out and walking to his car. Thereafter he had 2-3 more episodes and presented to the ER. Associated symptoms were nausea. Neurology exam was normal at the day, CT head was negative for any acute events. He received symptomatic treatment with fluids Toradol Decadron Reglan and Benadryl and his symptoms greatly improved. Overall impression was that of possible migraine. He received a prescription of meclizine to go home, which she states helped for the first few days. He returned to the ER today complaining of generalized weakness and return of dizziness described as the room spinning around him. He has also had multiple episodes of vomiting without significant relief. Denies visual changes today. CT of the head today revealed a posterior circulation stroke in the right cerebellum. Review of Systems General: Reports: 10 or more systems reviewed and unremarkable except in HPI and below Const: Denies: fever(s), chills or body aches Eyes: Denies: change in vision, blurry vision or photophobia ENMT: Reports: hoarseness; Denies: throat pain, enlarged tonsils, odynophagia or nasal congestion Card: Denies: chest pain, palpitations, irregular heart rhythm, edema, swelling of feet/ankles, lightheadedness, pre-syncope, dyspnea on exertion or orthopnea Resp: Denies: dyspnea, productive cough, non-productive cough, wheezing, stridor, pain on inspiration, change in phlegm color, hemoptysis or chest congestion GI: Denies: abdominal pain, nausea, vomiting, hematemesis, coffee ground emesis, dysphagia, heartburn, diarrhea, constipation, GI cramping, change in stool character, hematochezia or melena : Denies: flank pain, dysuria, urinary frequency, urinary urgency, urinary hesitancy or hematuria Musc: Denies: neck pain, back pain, extremity pain, joint swelling, joint warmth or deformity Neuro: Denies: headache(s), numbness in extremities, weakness in extremities, sensory changes, difficulty walking, frequent falls, dizziness, vertigo, behavioral changes, Slurred speech present or seizure-like activity Psych: Denies: anxiety, depression, suicidal ideation or homicidal ideation Endo: Denies: polyuria, polydipsia, tired all the time, cold intolerance or hot flashes Neil/Lymph: Denies: easy bruising or easy bleeding Medications/Allergies Home Medications Medication Instructions Recorded Confirmed Last Taken Type esomeprazole magnesium [Nexium] 20 mg PO DAILY 05/03/19 12/25/20 12/23/20 History losartan 100 mg PO DAILY 05/03/19 12/25/20 12/23/20 History metoprolol succinate 50 mg PO DAILY 05/03/19 12/25/20 12/23/20 History amlodipine 10 mg PO DAILY #30 tab 07/07/20 12/25/20 12/23/20 Rx cimetidine 400 mg PO DAILY 07/07/20 12/25/20 12/23/20 History nortriptyline 50 mg PO BEDTIME 07/07/20 12/25/20 12/23/20 History amlodipine 5 mg PO DAILY 12/20/20 12/25/20 12/23/20 History chlorthalidone 25 mg PO DAILY 12/20/20 12/25/20 12/23/20 History ferrous sulfate [Iron (ferrous 325 mg PO DAILY 12/20/20 12/25/20 12/23/20 History sulfate)] meclizine 25 mg PO DAILY PRN #15 tab 12/20/20 12/25/20 Unknown Rx pregabalin 75 mg PO BID 12/20/20 12/25/20 12/23/20 History sertraline See Rx Instructions .ROUTE .COMPLEX 12/20/20 12/25/20 12/23/20 History Allergies Allergy/AdvReac Type Severity Reaction Status Date / Time No Known Allergies Allergy Verified 05/03/19 03:16 PFSH Acute PFSH: Medical History (Updated 12/26/20 @ 05:25 by Raina Gage MD) Amputation of leg Hypertension Social History Smoking and tobacco status: current every day smoker Vitals/I&O/Wt Last Vital Signs Temp 98.8 F 12/25/20 23:13 Pulse 105 H 12/25/20 23:13 Resp 17 12/25/20 23:13 BP 148/98 12/25/20 23:13 Pulse Ox 95 12/25/20 23:13 12/25/20 12/25/20 12/26/20 14:59 22:59 06:59 Intake Total 1000 / 1000 Balance 1000 / 1000 Weight last 48 hrs Weight 77.111 kg Physical Exam Narrative: EXAM NARRATIVE: General: No acute distress, AO x3 Chest: Normal vesicular breath sounds, no added sounds, equal good air entry bilaterally CVS: S1-S2 regular, no murmurs, no tachycardia, no gallops, no rubs Abdomen: Soft, nontender, no organomegaly, bowel sounds present Neuro: No focal deficits,ataxia+ , no facial deformity, AO x3, power 5/5 in all limbs . Data : 12/25/20 19:45 12/25/20 19:45 Other Labs: Laboratory Results WBC 27.3 10^3/uL (4.0-10.0) H 12/25/20 19:45 RBC 6.32 10^6/uL (4.1-5.3) H 12/25/20 19:45 Hgb 19.3 g/dL (11.7-16.6) H 12/25/20 19:45 Hct 54.7 % (42.0-52.0) H 12/25/20 19:45 MCV 86.6 fl (80-94) 12/25/20 19:45 MCH 30.5 pg (28.0-34.0) 12/25/20 19:45 MCHC 35.3 g/dL (30.0-36.0) 12/25/20 19:45 RDW 13.0 % (12.1-15.1) 12/25/20 19:45 Plt Count 414 10^3/cmm (130-400) H 12/25/20 19:45 MPV 8.8 fL (7.4-10.4) 12/25/20 19:45 Neut % (Auto) 85.1 % 12/25/20 19:45 Lymph % (Auto) 6.9 % 12/25/20 19:45 [place] % (Auto) 6.7 % 12/25/20 19:45 Eos % (Auto) 0.2 % 12/25/20 19:45 Baso % (Auto) 0.3 % 12/25/20 19:45 Neut # (Auto) 23.24 10^3/uL (1.8-7.7) H 12/25/20 19:45 Lymph # (Auto) 1.9 10^3/uL (0.8-4.8) 12/25/20 19:45 [place] # (Auto) 1.8 10^3/uL (0.2-0.9) H 12/25/20 19:45 Eos # (Auto) 0.1 10^3/uL (0.0-0.8) 12/25/20 19:45 Baso # (Auto) 0.1 10^3/uL (0.0-0.1) 12/25/20 19:45 Nucleated RBC % (auto) 0 % 12/25/20 19:45 Nucleated RBCs # 0.0 /100WBC 12/25/20 19:45 Sodium 133 mmol/L (136-145) L 12/25/20 19:45 Potassium 3.4 mmol/L (3.5-5.1) L 12/25/20 19:45 Chloride 93 mmol/L (98-107) L 12/25/20 19:45 Carbon Dioxide 23 mmol/L (22-29) 12/25/20 19:45 Anion Gap 20.4 (5-19) H 12/25/20 19:45 BUN 19 mg/dL (6-20) 12/25/20 19:45 Creatinine 0.6 mg/dL (0.7-1.2) L 12/25/20 19:45 GFR Calculation 142.0 mL/min (90-130) H 12/25/20 19:45 Glucose 145 mg/dL (65-115) H 12/25/20 19:45 POC Glucose 170 mg/dL (70-110) H 12/25/20 19:38 Calculated Osmolality 281 mOsm/kg (285-295) L 12/25/20 19:45 Lactate 2.1 mmol/L (0.5-2.2) 12/25/20 19:45 Calcium 9.7 mg/dL (8.5-10.5) 12/25/20 19:45 Magnesium 2.3 mg/dL (1.7-2.3) 12/25/20 19:45 Total Bilirubin 1.0 mg/dL (0.15-1.2) 12/25/20 19:45 AST 13 U/L (0-40) 12/25/20 19:45 ALT 21 U/L (0-41) 12/25/20 19:45 Alkaline Phosphatase 103 IU/L (40-130) 12/25/20 19:45 Creatine Kinase 69 U/L (39-308) 12/25/20 19:45 C-Reactive Protein 15.0 mg/L (0.0-4.9) H 12/25/20 19:45 Total Protein 8.1 g/dL (6.6-8.7) 12/25/20 19:45 Albumin 4.5 g/dL (3.5-5.2) 12/25/20 19:45 Globulin 3.6 g/dL (1.3-4.6) 12/25/20 19:45 Procalcitonin 0.06 ng/mL (0-0.5) 12/25/20 19:45 Urine Color Yellow (Yellow) 12/25/20 22:18 Urine Appearance Clear (CLEAR) 12/25/20 22:18 Urine pH 5 (5-7) 12/25/20 22:18 Ur Specific [place] 1.020 (1.005-1.030) 12/25/20 22:18 Urine Protein Neg (Negative) 12/25/20 22:18 Urine Glucose (UA) Norm (Normal) 12/25/20 22:18 Urine Ketones 1+ (Negative) H 12/25/20 22:18 Urine Blood Neg (Negative) 12/25/20 22:18 Urine Nitrate Negative (Negative) 12/25/20 22:18 Urine Bilirubin Neg (Negative) 12/25/20 22:18 Urine Urobilinogen Norm mg/dL (Negative) 12/25/20 22:18 Ur Leukocyte Esterase Negative (Negative) 12/25/20 22:18 Urine Opiates Screen Negative ng/mL (Negative) 12/25/20 22:18 Ur Barbiturates Screen Negative ng/mL (Negative) 12/25/20 22:18 Ur Phencyclidine Scrn Negative ng/mL (Negative) 12/25/20 22:18 Ur Amphetamines Screen Negative ng/mL (Negative) 12/25/20 22:18 U Benzodiazepines Scrn Negative ng/mL (Negative) 12/25/20 22:18 Urine Cocaine Screen Negative ng/mL (Negative) 12/25/20 22:18 U Marijuana (THC) Screen Negative ng/mL (Negative) 12/25/20 22:18 Ethyl Alcohol < 10 mg/dL (0-10) 12/25/20 19:45 Impressions Chest X-Ray 12/25/20 19:47 IMPRESSION: 1. No acute cardiopulmonary process. 2. Incidental/nonacute findings are listed in the report. Head CT 12/25/20 19:47 IMPRESSION: Interval development of findings suspicious for a moderate sized acute infarct in the medial right cerebellar hemisphere. Radiation Dose CTDIVOL = (mGy): DLP = 1911.55 (mGy-cm) ADDENDUM: 12/25/202038 THIS REPORT CONTAINS FINDINGS THAT MAY BE CRITICAL TO PATIENT CARE. GRACIA Rodriguez confirmed on 12/25/2020 at 8:37 PM CDT that a copy of the report containing critical findings was received and there were no questions. Radiation Dose CTDIVOL = (mGy): DLP = 1911.55 (mGy-cm) A&P Assessment and plan (1) Cerebellar stroke: Right cerebellar stroke with symptom onset at least since 12/20/20. current symptoms include ataxia, dizziness, persistant nausea and vomiting Evaluate with MRI/MRA head and neck to evaluate for mass effect, brainstem CVA and assessment of vasculature/aneursym or dissection. 2d echocardiogram telemetry monitoring to evaluate for underlying arrhthymias PT/OT/speech assessment Status: Acute (2) Dizziness: Status: Acute (3) Headache: Status: Acute Qualifiers: Headache chronicity pattern: acute headache Headache type: unspecified Intractability: not intractable Qualified Code(s): R51.9 - Headache, unspecified (4) Leukocytosis: Leukocytosis may be 2/2 recurrent nausea and vomiting monitor off antimicrobials for now recheck with am labs Status: Acute Qualifiers: Leukocytosis type: unspecified Qualified Code(s): D72.829 - Elevated white blood cell count, unspecified Attestations Medical Necessity Statement*: >2midnight admission anticipated for above defined care Coding Level of Care Code Acute Scientific Editor for [facility] Diagnoses Cerebellar stroke I63.9 Dizziness R42 Headache R51.9 Headache chronicity pattern: acute headache Headache type: unspecified Intractability: not intractable Leukocytosis D72.829 Leukocytosis type: unspecified
[2020-12-26] MEDS: acetaminophen 325 mg Tablet 650 MG PO ×2 (03:19→10:37)
--- NOTE | 2020-12-26 05:17 | MR_ITS ---
WS: [id number] MRA CAROTID ARTERIES HISTORY: cerebellar stroke COMPARISON: None available. TECHNIQUE: MRA is performed with intravenous gadolinium. MIP and source images are reviewed. Right: Normal carotid artery. No occlusions or dissection. Left: Normal carotid artery. No occlusion or dissection. Subclavian Arteries: Normal bilaterally. Vertebral Arteries: Very small caliber extracranial RIGHT vertebral artery. At the skull base there is loss of the normal RIGHT vertebral artery. Abnormal signal is noted within the distal RIGHT vertebral artery on the recent MRI. Suspect occlusion secondary to thrombus distall y. Normal, dominant LEFT vertebral artery. MR/MR angio neck w con* [id number] IMPRESSION: 1. Absent distal RIGHT vertebral artery. Findings on the recent MRI suggests t hrombus in the distal RIGHT vertebral artery with occlusion resulting in infarc tion. 2. No carotid artery stenosis.
[2020-12-26] MEDS: sodium chloride 0.9% 1,000 ML 75 ML IV ×2 (06:23→22:39)
[2020-12-26 06:32] LABS: Basophils # 0.1 10^3/uL (0.0-0.1); Basophils % 0.4 %; Eosinophils # 0.1 10^3/uL (0.0-0.8); Eosinophils % 0.5 %; Hematocrit 46.2 % (42.0-52.0); Hemoglobin 16.2 g/dL (11.7-16.6); Lymphocytes # 2.4 10^3/uL (0.8-4.8); Lymphocytes % 12.5 %; Mean Corpuscular HGB Conc 35.1 g/dL (30.0-36.0); Mean Corpuscular Hemoglobin 30.7 pg (28.0-34.0); Mean Corpuscular Volume 87.7 fl (80-94); Monocytes # 1.7 10^3/uL (0.2-0.9); Monocytes % 8.8 %; Neutrophils # 14.63 10^3/uL (1.8-7.7); Neutrophils % 77.3 %; Nucleated Red Blood Cells % 0 %; Platelet Count 328 10^3/cmm (130-400); Red Blood Count 5.27 10^6/uL (4.1-5.3); Red Cell Distribution Width 13.2 % (12.1-15.1); White Blood Count 18.9 10^3/uL (4.0-10.0)
--- NOTE | 2020-12-26 06:50 | PC.NURSE ---
No tele available
[2020-12-26 07:03] LABS: Alanine Aminotransferase 16 U/L (0-41); Albumin Level 3.7 g/dL (3.5-5.2); Alkaline Phosphatase 91 IU/L (40-130); Anion Gap 14.3 (5-19); Aspartate Amino Transferase 11 U/L (0-40); Blood Urea Nitrogen 14 mg/dL (6-20); Calcium 8.4 mg/dL (8.5-10.5); Carbon Dioxide 25 mmol/L (22-29); Chloride 95 mmol/L (98-107); Cholesterol 174 mg/dL (0-200); Globulin 2.7 g/dL (1.3-4.6); Glucose 100 mg/dL (65-115); HDL Cholesterol 30 mg/dL (60-100); LDL Cholesterol Calculated 118 mg/dL (50-129); LDL HDL Ratio 3.93 RATIO (0.00-3.22); Osmolality Calculated 273 mOsm/kg (285-295); Potassium 3.3 mmol/L (3.5-5.1); Sodium 131 mmol/L (136-145); Total Bilirubin 1.1 mg/dL (0.15-1.2); Total Protein 6.4 g/dL (6.6-8.7); Triglycerides 132 mg/dL (0-150)
[2020-12-26 07:19] LABS: SARS Covid-2 Antigen Negative (Negative)
--- NOTE | 2020-12-26 07:34 | MR_ITS ---
WS: [id number] MRI BRAIN WITH AND WITHOUT CONTRAST HISTORY: posterior circulation stroke COMPARISON: 12/25/2020 TECHNIQUE: Multiplanar imaging performed through the brain with MultiHance 20 ml's IV. Diffusion-weighted abnormalities are noted within the RIGHT cerebellum. Diffusion-weighted abnormalit y along the posterior cerebellum extends into the vermis and also involves the lateral most aspect of the RIGHT medullary. There is no hemorrhagic component. No additional infarcts are evident. No susceptibility artifacts or prior lacunar infarcts. Mild chronic microvascular ischemic type perez es in the supratentorial white matter. No additional infarct. Ventricles and extra-axial spaces are normal. Clivus and pituitary gland are normal. Visualized posterior fossa and brainstem are also normal. Postcontrast images are negative for masses or vascular malformations. There is abnormal signal in th e distal RIGHT vertebral artery. On the postcontrast images there is a persistent filling defect. Thi s will be better evaluated on follow-up MR angiogram. Dural venous sinuses are normal. Paranasal sinuses: Well aerated with no significant disease. Mastoid air cells: Normal. Calvarium and scalp: Normal. MR/MR head wo/w con [id number] IMPRESSION: 1. Acute infarct involving the medial, posterior and inferior RIGHT cerebellum with extension to involve the lateral most RIGHT medullary. No hemorrhage. 2. Central filling defect in the distal RIGHT vertebral artery is probably thr ombus. 3. Otherwise mild chronic microvascular type ischemic changes.
[2020-12-26 07:52] LABS: Estmated Average Glucose 111; Hemoglobin A1C 5.5 % (4.0-6.0)
[2020-12-26] MEDS: metoprolol succinate ER (24 HR) 50 mg Tablet PO (07:58)
[2020-12-26] MEDS: pregabalin 75 mg Capsule PO ×2 (07:59→17:37)
[2020-12-26] MEDS: sertraline 50 mg Tablet PO (07:59)
--- NOTE | 2020-12-26 09:15 | PC.CHAP ---
Pastoral Care Encounter/Spiritual Assessment Type of Contact [] Declined palletiser operator visit [] Patient/Family/Request visit [] Outpatient visit [] Follow-up visit [] Physician referral [] Code/Alert [x] Routine visit [] Staff referral [] Actively dying [x] Patient sleeping [] Family support [] [] Out of room [] Palliative care [] [] Receiving care in room [] Pre-surgical visit [] Trauma [] Long length of stay [] ICU visit [] Other: Relational/Emotional Strength [] Patient feels connected with others/family/visitors/staff [] Distress [] Loneliness/isolation [] Abandonment Spirituality of Patient [] Person of [place] [] Attends Sikh of their [place] [] Believes in Prayer [] Reads Bible or Anabaptism materials [] There are Spiritual issues to be addressed Gear Machine Operator Interventions [] Prayer [] Active listening [] Non-anxious presence [] Spiritual/emotional support [] Crisis/trauma care [] Spiritual counseling [] Bereavement support [] Provided bereavement packet [] Provided Bible/devotional materials [] Provided toy/stuffed animal, coloring book to patient or family member [] Provided Communion [] Anointing/[place] [] Salvation [x] Completed spiritual assessment [] Other: Impact on Illness or Injury [] Angry [] Fearful [] Anxious [] Often cries [] Exhaustion [] Unable to work [] Unable to attend restoration [] Unable to walk/stand [] Unable to read [] Unable to drive [] Unable to eat/drink [] Unable to sleep [] Unable to be with family [] Patient intubated [] Other: Summary Time spent with patient
[2020-12-26] MEDS: metoclopramide 5 mg/mL SDV 2 mL IVP (09:18)
--- NOTE | 2020-12-26 11:25 | PC.NURSE ---
Patient to MRI at this time.
[2020-12-26] MEDS: gadobenate dimeglumine 20 mL vial IV (12:50)
--- NOTE | 2020-12-26 13:00 | PC.NURSE ---
Patient returned from MRI at this time. He states his headache is better
--- NOTE | 2020-12-26 13:38 | PC.NURSE ---
Patient came back from MRI and Florecita Bloom RN went to patient's room to assess him after his procedure to find that he was not in his room, however his phone and glasses were still on the bed. I called and spoke with Terry Mathur with [facility] and he believed he saw the patient and his spouse coming back into the hospital from the ER entrance. I waited for them to come back to the floor and went in and spoke with the patient and his spouse and informed him of the smoking policy as well as the risks of leaving the floor. They verbalize understanding and state they won't do it again. Security notified of update as well as Florecita Bloom RN.
[2020-12-26] MEDS: ondansetron 2 mg/ML SDV 2 mL 4 MG IVP (13:47)
--- NOTE | 2020-12-26 13:49 | PC.NURSE ---
Patient has his gown and Telemetry off in the room at this time. Patient states, I don't need it right now. I just want to sit her and talk with her.
--- NOTE | 2020-12-26 13:59 | PC.RESP ---
SMOKING CESSATION INFORMATION SENT TO PATIENT.
[2020-12-26] MEDS: pantoprazole DR 40 mg Tablet PO (14:47)
[2020-12-26] MEDS: clopidogrel 75 mg Tablet PO (14:47)
[2020-12-26] MEDS: HYDROcodone-acetaminophen 5-325 mg Tablet 1 TAB PO ×2 (15:18→23:55)
--- NOTE | 2020-12-26 17:20 | P.PN_ITS ---
Subjective Subjective: Interval history: Still having vertigo. No further vomiting. Some heartburn, however, request to advance diet. Discussed risks of aspiration in case of recurrence of vomiting, he and his verbalized understanding. Having some mild to moderate headache. Vitals/I&O/Wt Last Vital Signs Temp 98.5 F 12/26/20 16:00 Pulse 89 12/26/20 16:00 Resp 17 12/26/20 16:00 BP 169/107 12/26/20 16:00 Pulse Ox 97 12/26/20 16:00 12/26/20 12/26/20 12/26/20 06:59 14:59 22:59 Intake Total 800 / 1800 500 / 500 Output Total 725 / 725 Balance 75 / 1075 500 / 500 Weight last 48 hrs Weight 77.111 kg Weight 77.111 kg Physical Exam Narrative: EXAM NARRATIVE: at bedside. Const: COMMON NORMALS: no acute distress, patient oriented x3 and alert HENMT: COMMON NORMALS: oropharynx normal Neck/C-Spine: COMMON NORMALS: no meningeal signs and no JVD Resp: COMMON NORMALS: normal respiratory effort and clear to auscultation bilaterally AUSCULTATION: clear to auscultation bilaterally Cardio: COMMON NORMALS: no JVD, regular rhythm, S1 normal heart sound present, S2 normal heart sound present and No murmurs present (Cardio) RHYTHM: regular rhythm HEART SOUNDS: S1 normal heart sound present and S2 normal heart sound present GI: COMMON NORMALS: Normal to inspection, nondistended, normoactive bowel sounds present, Soft to palpation and non-tender PALPATION: Yes Soft to palpation Extremity: COMMON NORMALS: no joint enlargement and no pedal edema OTHER: R AKA Neuro: COMMON NORMALS: patient oriented x3 and moves all extremities SENSORIUM/ORIENTATION: Yes alert MENINGEAL SIGNS: Yes no meningeal signs COORDINATION/BALANCE: [id number] test normal (Near normal) and [id number]-[id number] test normal (Cannot perform due to AKA) SPEECH: speech normal SENSORY EXAM: Yes Normal double simultaneous stimulation for sensation; No sensory level loss detected MOTOR EXAM: 5/5 motor strength present throughout and Pronator motor function not present COORDINATION: [id number]-[id number] test normal (Near normal) and [id number] test normal (Cannot perform due to AKA) OTHER: No tr ouble tracking. Visual salgado full to confrontation. Skin: COMMON NORMALS: no rashes or lesions noted GENERAL SKIN EXAM: no rashes or lesions noted Data : 12/26/20 06:03 12/26/20 06:03 A&P Assessment and plan (1) Cerebellar stroke: Acute right cerebellar infarction confirmed on MRI. He reports symptoms started on Saturday. Discussed findings with him and his . Discussed also findings with parent thrombosis in the distal right vertebral artery. He states he has had issues with aspirin in the past would not want to continue this long- term. Discussed with him Plavix instead. He is agreeable. Denies other acute recent events. Had been vaccinated for COVID-19, but this was 4 months ago. No thrombocytopenia. He is a current smoker, and had been seen sneaking out with his to smoke. Had been educated regarding smoking abstinence, verbalized understanding continued smoking will predispose him to re currence of CVA. Agreeable to nicotine replacement in the hospital. Start statin. Seen by speech therapy, appears to be having some aspiration with thin liquids. Started on nectar thick liquids. Perhaps may have had a degree of microaspiration causing some of his other symptoms. Continue PT, OT. Discussed with him with size and location of his CVA may be at risk of cerebellar swelling, possibly severe complications. Discussed with him need for close monitoring for additional several days in the hospital. Close monitoring of blood pressure to avoid hypotension and further ischemia due to risk of severe complications which may be life-threatening. He and his verbalized understanding. Follow-up 2d echocardiogram telemetry monitoring to evaluate for underlying arrhthymias Follow-up with neurology after discharge. Status: Acute (2) Dizziness: Status: Acute (3) Headache: Status: Acute Qualifiers: Headache chronicity pattern: acute headache Headache type: unspecified Intractability: not intractable Qualified Code(s): R51.9 - Headache, unspecified (4) Leukocytosis: Improving. Leukocytosis may be 2/2 recurrent nausea and vomiting monitor off antimicrobials for now recheck with am labs Status: Acute Qualifiers: Leukocytosis type: unspecified Qualified Code(s): D72.829 - Elevated white blood cell count, unspecified Attestations Medical Necessity Statement*: Continue admission for assessment of management of cerebellar CVA Coding Level of Care Code Acute Client Relationship Manager for [facility] Exam Comprehensive Diagnoses Cerebellar stroke I63.9 Dizziness R42 Headache R51.9 Headache chronicity pattern: acute headache Headache type: unspecified Intractability: not intractable Leukocytosis D72.829 Leukocytosis type: unspecified
[2020-12-26] MEDS: polyethylene glycol 3350 Pkt 17 gm PO (17:37)
--- NOTE | 2020-12-26 19:10 | PC.NURSE ---
[facility] at [facility].
[2020-12-26] MEDS: nortriptyline 25 mg Capsule 50 MG PO (21:06)
[2020-12-26] MEDS: atorvastatin 40 mg Tablet PO (21:06)
[2020-12-27] VITALS: BP 149/90; PULSE 102; RESP 17; TEMP 36.6; O2SAT 93
--- NOTE | 2020-12-27 00:04 | USCV_ITS ---
Holger Garcia Age: 50 Gender: M : 1970 Exam Date: 12/27/2020 06:15 Ordering Phys: Raina Gage MD Technologist: [place] Austin [place] [facility] [place]ication: CVA BP: 146 / 86 HR: 73 Rhythm: Sinus Technical Quality: Adequate MEASUREMENTS (Male / Female) Normal Values 2D ECHO LV Diastolic Diameter PLAX 4.4 cm 4.2 - 5.9 / 3.9 - 5.3 cm LV Systolic Diameter PLAX 2.7 cm IVS Diastolic Thickness 1.8 cm 0.6 - 1.0 / 0.6 - 0.9 cm IVS Systolic Thickness 1.7 cm LVPW Diastolic Thickness 1.4 cm 0.6 - 1.0 / 0.6 - 0.9 cm LVPW Systolic Thickness 1.9 cm LVOT Diameter 2.0 cm LV Ejection Fraction 2D Teich 68.9 % LV Ejection Fraction MOD 2C 67.2 % LV Ejection Fraction 2C AL 68.1 % LA Diameter 3.4 cm LA Width 3.4 cm LA Height 3.8 cm RA Width 2.9 cm RA Height 4.1 cm Aorta at Sinotubular Diameter 3.2 cm DOPPLER AV Peak Velocity 127.0 cm/s LVOT Peak Velocity 111.0 cm/s AV Area Cont Eq vti 2.9 cm squared AV Area Cont Eq pk 2.7 cm squared MV Area PHT 3.1 cm squared Mitral E to A Ratio 0.9 MV E' Velocity 37.0 cm/s Mitral E to MV E' Ratio 8.2 Mitral E to LV E' Lateral Ratio 6.7 Mitral E to LV E' Septal Ratio 10.4 TR Peak Velocity 127.0 cm/s TR Peak Gradient 6.5 mmHg TV Peak E Velocity 55.0 cm/s Right Atrial Pressure 3.0 mmHg Pulmonary Artery Systolic Pressu 9.5 mmHg PV Peak Velocity 95.0 cm/s RV Acceleration Time 0.1 s RV Ejection Time 0.3 s RV AcT/ET 0.6 FINDINGS Left Ventricle Normal left ventricular size and systolic function, EF 72 %. No regional wall motion abnormalities. Mild left ventricular hypertrophy. Grade I/IV diastolic dysfunction (abnormal relaxation filling pattern), normal to mildly elevated filling pressures. Right Ventricle The right ventricle is normal in size and function. Right Atrium The right atrium is normal in size. Left Atrium The left atrium is normal in size. Mitral Valve Thickened mitral valve. Aortic Valve Thickened aortic valve. Tricuspid Valve No gross abnormalities noted Pulmonic Valve Trace pulmonary valve regurgitation. Pericardium Normal pericardium without effusion. Aorta Normal ascending aorta dimension. CONCLUSIONS Normal left ventricular size and systolic function, EF 72 %. No regional wall motion abnormalities. Mild left ventricular hypertrophy. Grade I/IV diastolic dysfunction (abnormal relaxation filling pattern), normal to mildly elevated filling pressures. Minimally thickened aortic and mitral valves.Trace pulmonary valve regurgitation. There is no pericardial effusion. There are no intracardiac masses. No similar previous study is available for comparison. Dr Leia Mast MD FAC (Electronically Signed) Final Date: 27 December 2020 13:24 S
--- NOTE | 2020-12-27 00:04 | USCV_ITS ---
Holger Garcia Age: 50 Gender: M : 1970 Exam Date: 12/27/2020 06:34 Ordering Phys: Raina Gage MD Technologist: [place] Austin Exam Location: [facility] [place] Indication: CVA Risk Factors: Previous Vascular Surgery: Right Brachial BP: / Left Brachial BP: / Right Left Velocity (cm/s) Spectral Plaque Velocity (cm/s) Spectral Plaque Syst/Diast Broadening Syst/Diast Broadening 68.40/ 17.60 Prox CCA 71.70 / 26.50 83.20/ 18.70 Mid CCA 70.60 / 20.90 84.30/ 25.60 Distal CCA 61.00 / 17.80 66.00/ 27.50 Prox ICA 48.10 / 20.30 39.30/ 15.80 Mid ICA 55.40 / 25.70 65.30/ 30.30 Distal ICA 46.40 / 23.50 101.70 ECA 86.80 0.79 ICA/CCA 0.78 Antegrade Vertebral Antegrade 42.30/ 7.40 cm/s 45.80/ 22.50 cm/s Tri Subclavian Tri 110.3 98.50 0 FINDINGS Minimal plaques of the bifurcations Normal Doppler flow velocities Antegrade flow in the vertebral arteries bilaterally CONCLUSIONS No significant stenosis in the extracranial arteries, evaluated as above. No unstable plaques or lesions noted Dr Leia Mast MD [facility] (Electronically Signed) Final Date: 27 December 2020 19:26 S
[2020-12-27 03:58] VITALS: BP 147/96; PULSE 86; RESP 17; TEMP 36.8; O2SAT 95
[2020-12-27 05:38] LABS: Basophils # 0.1 10^3/uL (0.0-0.1); Basophils % 0.7 %; Eosinophils # 0.2 10^3/uL (0.0-0.8); Eosinophils % 2.5 %; Hematocrit 48.3 % (42.0-52.0); Hemoglobin 16.3 g/dL (11.7-16.6); Lymphocytes % 30.1 %; Mean Corpuscular HGB Conc 33.7 g/dL (30.0-36.0); Mean Corpuscular Hemoglobin 30.1 pg (28.0-34.0); Mean Corpuscular Volume 89.3 fl (80-94); Monocytes # 1.1 10^3/uL (0.2-0.9); Neutrophils # 5.39 10^3/uL (1.8-7.7); Neutrophils % 55.1 %; Nucleated Red Blood Cells % 0 %; Platelet Count 306 10^3/cmm (130-400); Red Blood Count 5.41 10^6/uL (4.1-5.3); White Blood Count 9.8 10^3/uL (4.0-10.0)
[2020-12-27 06:02] LABS: Anion Gap 14.5 (5-19); Blood Urea Nitrogen 5 mg/dL (6-20); Calcium 8.2 mg/dL (8.5-10.5); Carbon Dioxide 25 mmol/L (22-29); Chloride 101 mmol/L (98-107); Glomerular Filtration Rate 175.3 mL/min (90-130); Glucose 136 mg/dL (65-115); Osmolality Calculated 283 mOsm/kg (285-295); Potassium 3.5 mmol/L (3.5-5.1); Sodium 137 mmol/L (136-145)
[2020-12-27 07:19] VITALS: BP 155/92; PULSE 80; RESP 17; TEMP 36.9; O2SAT 97
[2020-12-27] MEDS: HYDROcodone-acetaminophen 5-325 mg Tablet 1 TAB PO ×2 (08:31→21:29)
[2020-12-27] MEDS: nicotine 21 mg Patch 1 PATCH TRANSDERMA (08:32)
[2020-12-27] MEDS: metoprolol succinate ER (24 HR) 50 mg Tablet PO (08:32)
[2020-12-27] MEDS: pantoprazole DR 40 mg Tablet PO (08:32)
[2020-12-27] MEDS: pregabalin 75 mg Capsule PO ×2 (08:32→17:12)
[2020-12-27] MEDS: polyethylene glycol 3350 Pkt 17 gm PO ×2 (08:32→17:12)
[2020-12-27] MEDS: sertraline 50 mg Tablet PO (08:36)
--- NOTE | 2020-12-27 10:33 | PC.CHAP ---
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 [] Patient/Family/Request visit [] Outpatient visit [] Follow-up visit [] Physician referral [] Code/Alert [x] Routine visit [] Staff referral [] Actively dying [] Patient sleeping [] Family support [] [] Out of room [] Palliative care [] [] Receiving care in room [] Pre-surgical visit [] Trauma [] Long length of stay [] ICU visit [] Other: Relational/Emotional Strength [x] Patient feels connected with others/family/visitors/staff [] Distress [] Loneliness/isolation [] Abandonment Spirituality of Patient [] Person of Blaire [] Attends Christianity of their Blaire [] Believes in Prayer [] Reads Bible or Episcopal materials [x] 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 are 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 [] Prayer [x] Active listening [x] Non-anxious presence [x] Spiritual/emotional support [] Crisis/trauma care [] Spiritual counseling [] Bereavement support [] Provided bereavement packet [] Provided Bible/devotional materials [] Provided toy/stuffed animal, coloring book to patient or family member [] Provided Communion [] Anointing/Cable [] Salvation [x] Completed spiritual assessment [] Other: Impact on Illness or Injury [] Angry [] Fearful [] Anxious [] Often cries [] Exhaustion [] Unable to work [] Unable to attend hinduism [] Unable to walk/stand [] Unable to read [] Unable to drive [] Unable to eat/drink [] Unable to sleep [] Unable to be with family [] Patient intubated [] Other: Summary Pt is a very determined individual. Has had multiple health issues in his life but doesn't look at any of them as something to weigh him down. 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 The stroke has affected his balance. His will bring in leg tomorrow and he will see if he is able to walk and/or how well. Time spent with patient 20 m
[2020-12-27 11:32] VITALS: BP 175/122; PULSE 100; RESP 18; TEMP 36.9; O2SAT 94
--- NOTE | 2020-12-27 14:51 | PC.NURSE ---
Addendum entered by Jeaenth Bloom RN 12/27/20 14:52: Dr. Palacios notified Original Note: Patient is refusing to wear the telemetry box. Patient states, The patches itch me.
[2020-12-27] MEDS: acetaminophen 325 mg Tablet 650 MG PO (15:25)
[2020-12-27] MEDS: clopidogrel 75 mg Tablet PO (15:25)
[2020-12-27] MEDS: nicotine 2 mg Gum 4 MG BUCCAL (15:31)
[2020-12-27 15:44] VITALS: BP 177/112; PULSE 104; RESP 17; TEMP 37; O2SAT 93
[2020-12-27] MEDS: psyllium powder Pkt 1 PACKET PO (17:12)
[2020-12-27 20:00] VITALS: BP 198/118; PULSE 109; RESP 18; TEMP 37.4; O2SAT 96
--- NOTE | 2020-12-27 21:04 | PM.PN ---
Subjective Subjective: Interval history: Was having some pain of the right eyes/headache behind the right eye, was rubbing the eye as well and noted to have some conjunctival erythema. Denies any blurred vision, no trouble seeing. No visual artifacts. Denies history of glaucoma. Denies any other new complaints. Vitals/I&O/Wt Last Vital Signs Temp 98.6 F 12/27/20 15:44 Pulse 104 H 12/27/20 15:44 Resp 17 12/27/20 15:44 BP 177/112 12/27/20 15:44 Pulse Ox 93 12/27/20 15:44 12/27/20 12/27/20 12/27/20 06:59 14:59 22:59 Intake Total 360 / 2220 600 / 600 360 / 960 Output Total 1000 / 2200 Balance -640 / 20 600 / 600 360 / 960 Weight last 48 hrs Weight 77.111 kg Physical Exam Narrative: EXAM NARRATIVE: at bedside. Const: COMMON NORMALS: no acute distress, patient oriented x3 and alert HENMT: COMMON NORMALS: oropharynx normal Eye: OTHER: Right eye mild conjunctival injection. Pupils equal and reactive. Right eye tonometry exam, intraocular pressure of 12 mmHg. Neck/C-Spine: COMMON NORMALS: no meningeal signs and no JVD Resp: COMMON NORMALS: normal respiratory effort and clear to auscultation bilaterally AUSCULTATION: clear to auscultation bilaterally Cardio: COMMON NORMALS: no JVD, regular rhythm, S1 normal heart sound present, S2 normal heart sound present and No murmurs present (Cardio) RHYTHM: regular rhythm HEART SOUNDS: S1 normal heart sound present and S2 normal heart sound present GI: COMMON NORMALS: Normal to inspection, nondistended, normoactive bowel sounds present, Soft to palpation and non-tender PALPATION: Yes Soft to palpation Extremity: COMMON NORMALS: no joint enlargement and no pedal edema OTHER: R AKA Neuro: COMMON NORMALS: patient oriented x3 and moves all extremities SENSORIUM/ORIENTATION: Yes alert MENINGEAL SIGNS: Yes no meningeal signs COORDINATION/BALANCE: gvqrjc-ko-vmtb test normal (Near normal) and odix-ah-rrzi test normal (Cannot perform due to AKA) SPEECH: speech normal SENSORY EXAM: Yes Normal double simultaneous stimulation for sensation; No sensory level loss detected MOTOR EXAM: 5/5 motor strength present throughout and Pronator motor function not present COORDINATION: wrxhwe-de-ckah test normal (Near normal) and rxpl-hq-gibe test normal (Cannot perform due to AKA) OTHER: No trouble tracking. Visual salgado full to confrontation. Skin: COMMON NORMALS: no rashes or lesions noted GENERAL SKIN EXAM: no rashes or lesions noted Data : 12/27/20 04:50 12/27/20 04:50 A&P Assessment and plan (1) Cerebellar stroke: Follow-up CT head requested following cerebellar CVA. Hold off on blood any escalation in pressure treatment. Continue to monitor in the hospital given size and location of the stroke. No significant stenosis noted on carotid Doppler. Echocardiogram with normal ejection fraction, grade 1 diastolic dysfunction, trace PVR. Continue Plavix. Denies other acute recent events. Had been vaccinated for COVID-19, but this was 4 months ago. No thrombocytopenia. He is a current smoker. Continue to encourage cessation. Statin. Seen by speech therapy, appears to be having some aspiration with thin liquids. Started on nectar thick liquids. Perhaps may have had a degree of microaspiration causing some of his other symptoms. Continue PT, OT. Discussed with him with size and location of his CVA may be at risk of cerebellar swelling, possibly severe complications. Discussed with him need for close monitoring for additional several days in the hospital. Close monitoring of blood pressure to avoid hypotension and further ischemia due to risk of severe complications which may be life-threatening. He and his verbalized understanding. telemetry monitoring to evaluate for underlying arrhthymias Follow-up with neurology after discharge. Status: Acute (2) Dizziness: Status: Acute (3) Headache: Status: Acute Qualifiers: Headache chronicity pattern: acute headache Headache type: unspecified Intractability: not intractable Qualified Code(s): R51.9 - Headache, unspecified (4) Leukocytosis: Resolved. Leukocytosis may be 2/2 recurrent nausea and vomiting monitor off antimicrobials for now recheck with am labs Status: Acute Qualifiers: Leukocytosis type: unspecified Qualified Code(s): D72.829 - Elevated white blood cell count, unspecified Attestations Medical Necessity Statement*: Continue admission for management following cerebellar CVA, reassessment CT head given size and location of the stroke, risk of cerebellar edema. 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
[2020-12-27] MEDS: nortriptyline 25 mg Capsule 50 MG PO (21:16)
[2020-12-27] MEDS: atorvastatin 40 mg Tablet PO (21:16)
[2020-12-28] VITALS: BP 190/124; PULSE 108; RESP 18; TEMP 36.8; O2SAT 96
[2020-12-28] MEDS: hyDRALAzine 20 mg/mL INJ 1 mL 10 MG IVP (01:07)
[2020-12-28] MEDS: acetaminophen 325 mg Tablet 650 MG PO (01:17)
[2020-12-28 04:00] VITALS: BP 159/105; PULSE 98; RESP 18; TEMP 37; O2SAT 95
[2020-12-28 05:27] LABS: Basophils # 0.1 10^3/uL (0.0-0.1); Basophils % 1.2 %; Eosinophils # 0.4 10^3/uL (0.0-0.8); Eosinophils % 3.8 %; Hematocrit 48.7 % (42.0-52.0); Mean Corpuscular HGB Conc 34.9 g/dL (30.0-36.0); Mean Corpuscular Hemoglobin 30.5 pg (28.0-34.0); Mean Corpuscular Volume 87.3 fl (80-94); Mean Platelet Volume 8.7 fL (7.4-10.4); Monocytes # 1.1 10^3/uL (0.2-0.9); Monocytes % 11.9 %; Neutrophils # 4.52 10^3/uL (1.8-7.7); Neutrophils % 49.1 %; Nucleated Red Blood Cells % 0 %; Platelet Count 309 10^3/cmm (130-400); Red Blood Count 5.58 10^6/uL (4.1-5.3); Red Cell Distribution Width 12.6 % (12.1-15.1); White Blood Count 9.2 10^3/uL (4.0-10.0)
[2020-12-28 05:44] LABS: Anion Gap 13.7 (5-19); Blood Urea Nitrogen 7 mg/dL (6-20); Calcium 9.2 mg/dL (8.5-10.5); Carbon Dioxide 25 mmol/L (22-29); Chloride 99 mmol/L (98-107); Glomerular Filtration Rate 175.3 mL/min (90-130); Glucose 92 mg/dL (65-115); Osmolality Calculated 276 mOsm/kg (285-295); Potassium 3.7 mmol/L (3.5-5.1); Sodium 134 mmol/L (136-145)
[2020-12-28 08:00] VITALS: PULSE 106; RESP 18; TEMP 36.8; O2SAT 95
--- NOTE | 2020-12-28 08:00 | CT_ITS ---
WS: [id number] CT HEAD NONCONTRAST HISTORY: follow up on cerebellar CVA TECHNIQUE: Contiguous axial imaging performed through the brain in 2.5 mm imaging. Bone and soft tiss ue windows. Sagittal and coronal reformats reviewed. All CT scans at [facility] use at least one of these dose optimization techniques: automated exposure control; mA and/or kV adjustment per pa tient size (includes targeted exams where dose is matched to clinical indication); or iterative recon struction. DLP: 2276.6 mGy.cm COMPARISON: 12/25/2020 No acute hemorrhage or hemorrhagic transformation of the RIGHT cerebellar acute infarct. Low-attenuat ion has progressed as expected in the posterior medial RIGHT cerebellum. Infarct in the lateral RIGHT medullary is not apparent but this is a very small infarct and would not likely be apparent by CT. S upratentorial white matter is intact. No significant atrophy and no herniation. Ventricles: Normal size with no hydrocephalus. There is increased density in the distal RIGHT vertebral artery which corresponds to the thrombus see n on the recent angiogram and MRI head in the vertebral artery. Vertebral artery thrombus is more rehan dent pronounced as compared to prior CTs. Paranasal sinuses: As visualized are clear. Mastoid air cells: Well pneumatized. Calvarium and scalp: Skull is intact with no soft tissue edema or swelling. CT/CT head wo con* [id number] IMPRESSION: 1. Normal evolution of the acute RIGHT cerebellar infarct without hemorrhagic transformation. 2. High density thrombus noted within the distal RIGHT vertebral artery. This thrombus was previously described.
[2020-12-28] MEDS: polyethylene glycol 3350 Pkt 17 gm PO (09:36)
[2020-12-28] MEDS: psyllium powder Pkt 1 PACKET PO (09:36)
[2020-12-28] MEDS: aspirin 81 mg EC Tablet PO (09:37)
[2020-12-28] MEDS: sertraline 50 mg Tablet PO (09:37)
[2020-12-28] MEDS: pantoprazole DR 40 mg Tablet PO (09:37)
[2020-12-28] MEDS: pregabalin 75 mg Capsule PO (09:37)
[2020-12-28] MEDS: metoprolol succinate ER (24 HR) 50 mg Tablet PO (09:37)
[2020-12-28] MEDS: nicotine 21 mg Patch 1 PATCH TRANSDERMA (09:38)
[2020-12-28] MEDS: HYDROcodone-acetaminophen 5-325 mg Tablet 1 TAB PO (09:40)
[2020-12-28 10:14] VITALS: BP 160/112
--- NOTE | 2020-12-28 10:30 | ECG_ITS ---
[facility] Test Date: 2020-12-28 Pat Name: Holger Garcia Department: Room: 277 Gender: Male Gold Reclaimer: CARLOS: 1970 Requested By: Danny Pittman Order Number: [id number] Emily MD: Leia Mast M.D. Measurements Intervals [place] Rate: 107 P: 63 OH: 164 QRS: -4 QRSD: 101 T: 44 QT: 332 QTc: 444 Interpretive Statements SINUS TACHYCARDIA ABNORMAL RHYTHM ECG Compared to ECG 08/31/2019 21:35:38 Sinus rhythm no longer present Right ventricular hypertrophy no longer present Incomplete right bundle-branch block no longer present Left ventricular hypertrophy no longer present Electronically Signed On 12-28-2020 21:47:50 CDT by Leia Mast M.D. [id number]
[2020-12-28 10:55] LABS: Troponin T (5th) Once 6 ng/L (0-15)
[2020-12-28 11:07] LABS: Glucose Point of Care 116 mg/dL (70-110)
[2020-12-28 11:52] VITALS: BP 160/110; PULSE 103; RESP 18; TEMP 36.8; O2SAT 94
--- NOTE | 2020-12-28 12:47 | PM.DCS ---
Discharge Providers Date of Admission: 12/25/20 22:24 Date of Discharge: December 28, 2020 Attending Provider at Admission: Raina Gage MD Attending Provider at Discharge: Danny Pittman Primary Care Provider: Ozzy Torres DO Diagnoses at Discharge Discharge Diagnosis (1) Cerebellar stroke: Status: Acute (2) Dizziness: Status: Inactive (3) Headache: Status: Inactive Qualifiers: Headache chronicity pattern: acute headache Headache type: unspecified Intractability: not intractable Qualified Code(s): R51.9 - Headache, unspecified (4) Leukocytosis: Status: Acute Qualifiers: Leukocytosis type: unspecified Qualified Code(s): D72.829 - Elevated white blood cell count, unspecified (5) Dysphagia: Status: Acute (6) Left arm numbness: Status: Acute (7) Left arm pain: Status: Acute (8) Hypertension: Status: Acute Reason for Visit Reason for Visit: gerneralized weakness and high blood pressure Hospital Course Hospital Course Pleasant 50-year-old gentleman with history of hypertension, TIA, began experiencing dizziness sometime on Saturday for which was evaluated in ER, this was associated with headache. CT of the head at that time was unremarkable. With symptomatic treatment his symptoms improved and he was discharged home with symptoms thought to be related to possible migraine. He returned on 12/25 with complaint of headache, dizziness, double vision. Multiple episodes of vomiting. Head CT in ER with finding of interval development of finding suspicious for moderate-sized acute infarct in medial right cerebellar hemisphere. He was admitted for additional assessment and management of the CVA. Maintained on permissive hypertension with antihypertensives held except for metoprolol. He was started on aspirin, Plavix, statin. We discussed smoking cessation with him as well which will be important for him going forward. Additionally assessed by MRA neck, MRI head, with confirmation of CVA finding, as well as with noted filling defect in distal right vertebral artery, possibly thrombus. He was monitored closely in the hospital due to size and location of his stroke. Carotid Doppler did not reveal any significant occlusions. Echocardiogram showed normal ejection fraction, grade 1 diastolic dysfunction. Minimally thickened aortic and mitral valves. Trace PVR. On assessment by speech therapy he has been noted to have aspiration with thin liquids. Due to risk of microaspiration, pneumonitis, pneumonia his liquids were thickened to nectar thick. Leukocytosis on presentation 27.3 resolved, he remained afebrile and adequate oxygenation on room air, 94%. He is encouraged to continue nectar thick. He is referred for follow-up with PT, speech therapy. He has also noted since the stroke he has had decreased sensation of his left arm as well as pain that comes and jolts and goes towards his left hand. EKG and troponin not suggestive of cardiac ischemia. He is referred additionally for CT cervical spine to assess for DJD with possible nerve root compression. His blood pressures were allowed to run on the high side in the hospital, and he is instructed to avoid rapid decreases in blood pressure over the Lasix several days to a week. Please follow-up with regards to CVA and help him to gradually continue optimize blood pressures with long-term hypertension goal of 120/80. Since he has done well in the hospital he is wanting to discharge home today. He is continued on aspirin, Plavix for the next 21 days or as directed by neurology. Statin. Please continue to work with him to encourage smoking cessation. While in the hospital also noted mild conjunctivitis after he was rubbing his right eye due to headache behind his eye. Repeat CT of the head today with expected evolution changes of cerebellar stroke. Density of right vertebral artery likely thrombus, no other new changes. He denies any vision changes in the affected eye, intraocular pressure measured at 12 mmHg. Symptoms improving with artificial tears. Please follow-up for resolution. Physical Exam Const: COMMON NORMALS: no acute distress, patient oriented x3 and alert HENMT: COMMON NORMALS: oropharynx normal Eye: OTHER: Resolving mild conjunctival injection right eye. Pupils equal and reactive. Neck/C-Spine: COMMON NORMALS: no meningeal signs and no JVD Resp: COMMON NORMALS: normal respiratory effort and clear to auscultation bilaterally AUSCULTATION: clear to auscultation bilaterally Cardio: COMMON NORMALS: no JVD, regular rhythm, S1 normal heart sound present, S2 normal heart sound present and No murmurs present (Cardio) RHYTHM: regular rhythm HEART SOUNDS: S1 normal heart sound present and S2 normal heart sound present GI: COMMON NORMALS: Normal to inspection, nondistended, normoactive bowel sounds present, Soft to palpation and non-tender PALPATION: Yes Soft to palpation Extremity: COMMON NORMALS: no joint enlargement and no pedal edema OTHER: R AKA Neuro: COMMON NORMALS: patient oriented x3 and moves all extremities SENSORIUM/ORIENTATION: Yes alert MENINGEAL SIGNS: Yes no meningeal signs COORDINATION/BALANCE: edjfdv-ga-svga test normal SPEECH: speech normal SENSORY EXAM: Yes sensory level loss detected (Reported persistent diminished sensation of the left arm) and Normal double simultaneous stimulation for sensation MOTOR EXAM: 5/5 motor strength present throughout and Pronator motor function not present COORDINATION: exhaxx-rw-jlpw test normal OTHER: No trouble tracking. Visual salgado full to confrontation. Skin: COMMON NORMALS: no rashes or lesions noted GENERAL SKIN EXAM: no rashes or lesions noted Discharge Data Data Completed and Pending: Completed Studies During Hospitalization Category Date Time Status CT head wo con* 7 0450 Routine Cat Scan 12/28/20 08:[address] head wo con* 7 0450 Urgent Cat Scan 12/25/20 19:47 Completed XR chest 1V kayla ble [id number] Urgent Exams 12/25/20 19:47 Completed MR angio neck w c on* [id number] Routine MRI 12/26/20 05:17 Completed MR head wo/w con [id number] Routine MRI 12/26/20 07:34 Completed CV carotid duplex BI* [id number] Routine Ultrasound 12/27/20 00:04 Completed CV. echo complete * [id number] Routine Ultrasound 12/27/20 00:04 Completed Pending at discharge Category Date Time Status Basic Metabolic P aimee AM LABS Lab 12/29/20 04:00 Ordered Complete Blood Co unt w/Auto AM LABS Lab 12/29/20 04:00 Ordered MR head wo con* 7 0551 Routine MRI 12/26/20 11:45 Unverified Labs from last 24 hours 12/28/20 12/28/20 12/28/20 10:56 05:12 05:12 WBC RBC Hgb Hct MCV MCH MCHC RDW Plt Count MPV Neut % (Auto) Lymph % (Auto) [place] % (Auto) Eos % (Auto) Baso % (Auto) Neut # (Auto) Lymph # (Auto) [place] # (Auto) Eos # (Auto) Baso # (Auto) Nucleated RBC % (a uto) Nucleated RBCs # Sodium 134 L Potassium 3.7 Chloride 99 Carbon Dioxide 25 Anion Gap 13.7 BUN 7 Creatinine 0.5 L GFR Calculation 175.3 H Glucose 92 POC Glucose 116 H Calculated Osmolal ity 276 L Calcium 9.2 Troponin T Gen 5 n g/L 6 12/28/20 05:12 WBC 9.2 RBC 5.58 H Hgb 17.0 H Hct 48.7 MCV 87.3 MCH 30.5 MCHC 34.9 RDW 12.6 Plt Count 309 MPV 8.7 Neut % (Auto) 49.1 Lymph % (Auto) 33.0 [place] % (Auto) 11.9 Eos % (Auto) 3.8 Baso % (Auto) 1.2 Neut # (Auto) 4.52 Lymph # (Auto) 3.0 [place] # (Auto) 1.1 H Eos # (Auto) 0.4 Baso # (Auto) 0.1 Nucleated RBC % (a uto) 0 Nucleated RBCs # 0.0 Sodium Potassium Chloride Carbon Dioxide Anion Gap BUN Creatinine GFR Calculation Glucose POC Glucose Calculated Osmolal ity Calcium Troponin T Gen 5 n g/L Vitals: Last Vital Signs Temp 98.2 F 12/28/20 11:52 Pulse 103 H 12/28/20 11:52 Resp 18 12/28/20 11:52 BP 160/110 12/28/20 11:52 Pulse Ox 94 12/28/20 11:52 Discharge Plan Discharge Patient Disposition: Home Condition: Stable Prescriptions: New Isopto Tears 0.5 % Drops 1 drp eye-right Q4H PRN (Reason: Dry Eye(S)) Qty: 15 RF: 0 aspirin 81 mg Tablet,Delayed Release (Dr/Ec) 81 mg PO DAILY Qty: 90 RF: 0 atorvastatin 40 mg Tablet 40 mg PO BEDTIME Qty: 90 RF: 0 nicotine (polacrilex) 2 mg Gum 4 mg buccal Q2H PRN (Reason: Withdrawal) Qty: 100 RF: 3 clopidogrel 75 mg Tablet 75 mg PO Q24H Qty: 21 RF: 0 nicotine 21 mg/24 hr Patch 24 Hour 1 patch transdermal DAILY Qty: 30 RF: 0 polyethylene glycol 3350 17 gram Powder In Packet 17 g PO BID Qty: 30 RF: 0 Metamucil (with sugar) 3.4 gram Powder In Packet 1 packet PO BID Qty: 60 RF: 0 Continued metoprolol succinate 50 mg Tablet Extended Release 24 Hr 50 mg PO DAILY RF: 0 esomeprazole magnesium [Nexium] 20 mg Capsule,Delayed Release(Dr/Ec) 20 mg PO DAILY RF: 0 ferrous sulfate [Iron (ferrous sulfate)] 325 mg (65 mg iron) Tablet 325 mg PO DAILY RF: 0 sertraline 50 mg tablet See Rx Instructions .ROUTE .COMPLEX RF: 0 meclizine 25 mg tablet 25 mg PO DAILY PRN (Reason: dizziness or vertigo) Qty: 15 RF: 0 cimetidine 400 mg tablet 400 mg PO DAILY RF: 0 nortriptyline 50 mg capsule 50 mg PO BEDTIME RF: 0 Changed pregabalin 75 mg capsule 150 mg PO BID Qty: 60 RF: 0 Held losartan 50 mg Tablet 100 mg PO DAILY RF: 0 Hold Instructions: Resume on 01/04/21. chlorthalidone 25 mg Tablet 25 mg PO DAILY RF: 0 Hold Instructions: Resume on 01/05/21. amlodipine 10 mg tablet 10 mg PO DAILY Qty: 30 RF: 0 Hold Instructions: Resume on 01/08/21. Discontinued amlodipine 5 mg tablet 5 mg PO DAILY RF: 0 Discharge Orders: Discharge Order (Routine); Ordered 12/28/20 Ordered By: Danny Pittman Other Ambulatory Orders: CT cervical spin wo con* [id number] (Routine) Timeframe: 2 Days Facility: [facility] - Location: Radiology [place] [facility] Ordered By: Danny Pittman Physical Therapy Eval and Treat Outpatient (Order) Timeframe: 2 Days Facility: [facility] - Location: Physical Therapy [place] Ordered By: Danny Pittman Speech Language Pathology Eval and Treat Outpatient (Order) Timeframe: 2 Days Facility: [facility] - 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, OT, 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[place] Ordered By: Danny Pittman Referrals: NEUROSCIENCE PROVIDERS [Provider Group] - 01/13/21 12:30 pm Ozzy Torres DO [Primary Care Provider] - 4-7 days Discharge Diet: As Directed and Cardiac Discharge Activity: Increase activity as tolerated, As per PT/OT instructions and Return to work/school after cleared by PCP/Specialist Patient Instructions: Aspirin (By mouth), Nicotine (Absorbed through the skin), Atorvastatin (By mouth), Clopidogrel (By mouth), How to Stop Smoking (GEN), Cigarette Smoking and Your Health (GEN), Ischemic Stroke (GEN), Fall Prevention (GEN) Activity Restrictions/Additional Instructions: Please stay off work for the next week, returning to work after cleared by your primary provider or neurologist. Please follow-up with neurology in office with regards to stroke as well as noted thrombus in the right vertebral artery. Please stop smoking as continued smoking would lead to additional stroke, as well as risk of heart attack, lung disease, and various cancers. As noted during hospitalization due to aspiration with thin liquids, risk of pneumonitis, pneumonia, association, please make sure to maintain aspiration precautions and thicken liquids to nectar thick consistency. Maintain fall precautions. Please discuss with your primary doctor and neurologist also regarding loss of sensation in the left arm, intermittent jolt-like pain, and have them follow-up also on the results of the CT of your neck ordered to assess if there are any obvious degenerative changes that may signify nerve root compression. Please monitor your blood pressures closely at home. In case her blood pressures rise above 200 top number or above 100 bottom number seek medical attention. Avoid having her blood pressure for the next several days being too low, avoiding blood pressures lower than 140 top number or lower than 80 bottom number. Apart from metoprolol hold your other usual blood pressure medications for now, resuming them next week, or sooner if cleared by your primary provider or neurologist depending on your blood pressure at the next visit. Do not resume all medications at the same time, resume 1 every 1-2 days and monitor blood pressures closely and watch for any changes in your symptoms. If you experience worsening her symptoms, or if your finds that you are more sleepy, difficult to awaken, or there are other concerning symptoms, seek medical attention immediately. Discharge Attestations Time Spent in Discharge Care*: greater than 30 min Quality Metrics Clinical Quality Measures During this hospital stay, did patient experience: Stroke Contraindication to Antithrombotic: Antithrombotic prescribed Contraindication to Anticoagulation: Overlap treatment not indicated Contraindication to Statin: Statin prescribed Coding Level of Care Code Acute [facility] note Diagnoses Cerebellar stroke I63.9 Dizziness R42 Headache R51.9 Headache chronicity pattern: acute headache Headache type: unspecified Intractability: not intractable Leukocytosis D72.829 Leukocytosis type: unspecified Dysphagia R13.10 Left arm numbness R20.0 Left arm pain M79.602 Hypertension I10
--- NOTE | 2020-12-28 12:50 | PC.SOCIAL ---
IMM UPdated Page 2 of IMM updated and reviewed. Initialed timed and dated. Copy placed in chart.
[2020-12-28] MEDS: clopidogrel 75 mg Tablet PO (15:00)
[2020-12-28 17:39] VITALS: BP 160/110; PULSE 103; RESP 18; TEMP 36.8; O2SAT 94
--- NOTE | 2020-12-29 11:53 | PC.SOCIAL ---
discharge follow up call made, spoke with patient. patient picked up medications from the pharmacy, is taking as prescribed. the only thing the patient didn't get was Lyrica, dose was changed and patient needs refilled. business writer will call lyrica into patients pharmacy, patient has a follow up appointment saturday with his pcp and he will get further refills from pcp. Patient is aware of follow up appointment with Dr. Willis 01-13. Physical therapy set up appointment for patient to be seen 01-04, patient will been seen in PT and Speech therapy at this time. Patient given date and time of CT scan by business writer, patient is to have CT scan done 01-06 at 0815 at [facility]. Patient verbalized understanding. Patient is aware of held medications, and when to resume taking. Patient is recording b/p's at home and will take when he has follow up w pcp. patient has nicotine patches and is attempting to quit smoking. Patient denies getting choked on liquids at home, he reports the only way he keeps from getting choked is with drinking water.
== END 2020-12-28 15:30 | disposition home or self-care (01) | DRG 66 ==
LOC: ER 22:14 → MEDSURG 22:25
PROVIDERS: Admitting Provider Student in an Organized Health Care Education/Training Program; Emergency Provider Emergency Medicine; PCP Internal Medicine; Visit Provider Internal Medicine
DX: I63.341 Cerebral infarction due to thrombosis of right cerebellar artery (principal); R47.01 Aphasia; R13.10 Dysphagia, unspecified; H53.2 Diplopia; R20.2 Paresthesia of skin; R29.702 NIHSS score 2; I10 Essential (primary) hypertension; Z89.611 Acquired absence of right leg above knee; F17.210 Nicotine dependence, cigarettes, uncomplicated; I65.01 Occlusion and stenosis of right vertebral artery; H10.9 Unspecified conjunctivitis
CPT/HCPCS: 36415; 36416; 70450; 70548; 70553; 71045; 80048; 80053; 80061; 80306; 80307; 81003; 82550; 82962; 83036; 83605; 83735; 84145; 84484; 85025; 86140; 87426; 92523; 92526; 92610; 93005; 93306; 93880; 96361; 96374; 96375; 97161; 97165; 97530; 99285; A9577; J0360; J2060; J2405; J2765; J3490; J7030

== ENCOUNTER 2021-01-04 07:29 | Outpatient (RCR) | payer BC, MEDICARE, MEDICAID, SELFPAY | END 2021-01-29 23:59 | disposition home or self-care (01) | LOC: SPS 07:29 | PROVIDERS: PCP Internal Medicine; Referring Provider Internal Medicine; Visit Provider Internal Medicine | DX: I63.9 Cerebral infarction, unspecified (principal) | CPT/HCPCS: 92507; 92523; 92526; 92610; 97110; 97161 ==

== ENCOUNTER 2021-01-10 07:58 | Outpatient (CLI) | payer BC, MEDICARE, MEDICAID, SELFPAY ==
--- NOTE | 2021-01-10 09:00 | CT_ITS ---
WS: [id number] CT CERVICAL SPINE TECHNIQUE: Noncontrast CT of the cervical spine with coronal and sagittal reformatted images. CLINICAL INFORMATION: Assess for DJD, nerve root compression COMPARISON: None. DLP: 1691.[address] scans at [facility] use at least one of these dose optimization techniques: automated e xposure control; mA and/or kV adjustment per patient size (includes targeted exams where dose is matc hed to clinical indication); or iterative reconstruction. FINDINGS: Straightening of the normal cervical lordosis. Disc space narrowing worse at C5-C6 and C6-C7 with dis c osteophyte complexes. Normal C1-C2 articulation. C2-C3: Normal. C3-C4: Mild disc bulging with a tiny shallow central protrusion. Mild central canal stenosis. Foramen are patent. Mild facet arthropathy. C4-C5: Mild disc bulging with osteophytic ridging. Tiny shallow central protrusion. Mild central axel l stenosis. Mild right foraminal narrowing. Mild facet arthropathy. C5-C6: Disc osteophyte complex with endplate ridging. Mild central canal stenosis. Moderate left grea ter than right bony foraminal narrowing. Mild facet arthropathy. C6-C7: Disc osteophyte complex with endplate ridging eccentric to the left. Moderate to severe left b albin foraminal narrowing. Mild central canal stenosis. Right foramen is patent. Mild facet arthropathy . C7-T1: No significant disc bulging. Spinal canal and foramen are patent. Visualized posterior nasopharynx: Normal. Prevertebral soft tissues: Normal. CT/CT cervical spin wo con* [id number] IMPRESSION: 1. Straightening of the normal cervical lordosis. Disc space narrowing worse a t C5-C6 and C6-C7. 2. Disc osteophyte complexes at C5-C6 and C6-C7 with mild central canal stenos is. 3. Moderate bilateral C5-C6 bony foraminal narrowing left greater than right a nd moderate to severe left C6-C7 bony foraminal narrowing. 4. Tiny shallow central protrusion C3-C4 and C4-C5 with mild central canal namrata nosis.
== END 2021-01-10 07:59 | disposition home or self-care (01) ==
PROVIDERS: PCP Internal Medicine; Visit Provider Internal Medicine
DX: M79.602 Pain in left arm (principal); R20.0 Anesthesia of skin; M25.78 Osteophyte, vertebrae; M50.21 Other cervical disc displacement, high cervical region; M48.02 Spinal stenosis, cervical region
CPT/HCPCS: 72125

== ENCOUNTER → 2021-01-13 12:25 | Outpatient (BNVA) | payer BC, MEDICARE, MEDICAID, SELFPAY | PROVIDERS: PCP Internal Medicine; Referring Provider Internal Medicine; Visit Provider Nurse Practitioner | DX: I69.398 Other sequelae of cerebral infarction (principal); R26.89 Other abnormalities of gait and mobility; I69.354 Hemiplegia and hemiparesis following cerebral infarction affecting left non-dominant side; I10 Essential (primary) hypertension; F17.200 Nicotine dependence, unspecified, uncomplicated | CPT/HCPCS: 99204 ==

== ENCOUNTER 2021-02-06 08:00 | Outpatient (CLI) | payer BC, MEDICARE, MEDICAID, SELFPAY | END 2021-02-06 08:01 | disposition home or self-care (01) | LOC: SLEEP 02-07 11:04 | PROVIDERS: PCP Internal Medicine; Visit Provider Internal Medicine | DX: G47.10 Hypersomnia, unspecified (principal) | CPT/HCPCS: G0399 ==

== ENCOUNTER 2021-05-12 11:06 | Emergency (ER) | payer MEDICARE, BC, MEDICAID, SELFPAY ==
[2021-05-12 11:18] VITALS: BP 154/84; PULSE 103; RESP 16; TEMP 36.9; O2SAT 96; BMI 25.1
--- NOTE | 2021-05-12 11:47 | CT_ITS ---
WS: [id number] CT HEAD NONCONTRAST HISTORY: visual disturbance, recent stroke hx TECHNIQUE: Contiguous axial imaging performed through the brain in 2.5 mm imaging. Bone and soft tiss ue windows. Sagittal and coronal reformats reviewed. All CT scans at [facility] use at least one of these dose optimization techniques: automated exposure control; mA and/or kV adjustment per pa tient size (includes targeted exams where dose is matched to clinical indication); or iterative recon struction. DLP: 1002.13 mGy.cm COMPARISON: 12/28/2020 No acute intracranial hemorrhage, midline shift or mass effect. Very minimal atrophy and chronic microvascular ischemic changes. Remote infarct in the RIGHT cerebell um. There is a very tiny lacunar infarct noted in the RIGHT occipital lobe. Lacunar infarct is new si nce 12/28/2020. Ventricles: Normal size with no hydrocephalus. No inferior displacement of cerebellar tonsils. Paranasal sinuses: As visualized are clear. Mastoid air cells: Well pneumatized. Calvarium and scalp: Skull is intact with no soft tissue edema or swelling. CT/CT head wo con* [id number] IMPRESSION: 1. No acute intracranial hemorrhage or edema. 2. Remote RIGHT cerebellar infarct. 3. Remote lacunar infarct in the RIGHT occipital lobe. New since 12/28/2020.
--- NOTE | 2021-05-12 11:47 | CT_ITS ---
WS: [id number] CT ANGIOGRAM CEREBRAL AND CAROTID ARTERIES HISTORY: visual disturbance, prior stroke. TECHNIQUE: CT angiogram is performed of the carotid and cerebral arteries. During arterial injection imaging is obtained from the skull vertex to the aortic arch in 1.25 mm imaging. Coronal and sagittal reformats are submitted. Additional multi planar reformats of the carotid and cerebral arteries are submitted, MIP imaging also reviewed. NASCET criteria utilized. [facility] CT [facility] at least one of these dose optimization techniques: automated exposure control; mA and/or kV adjust ment per patient size (includes targeted exams where dose is matched to clinical indication); or iter ative reconstruction. CONTRAST: Omnipaque 350; 95 mL IV. DLP: 2374.51 mGy.cm COMPARISON: 08/31/2019 Carotid Angiogram: Right carotid: Common carotid artery: Arises normally from the innominate artery. No significant plaque or stenosis. Internal carotid artery: No plaque or stenosis. External carotid artery: Patent. Left carotid: Common carotid artery: Arises normally from the aorta. No significant plaque or stenosis. Internal carotid artery: No plaque or stenosis. External carotid artery: Patent. Right vertebral artery: Small caliber RIGHT vertebral artery but it is patent. Small caliber RIGHT ve rtebral artery is a new finding since 08/31/2019. The small caliber vertebral artery was described on is is probably the result of prior thrombus or dissection. This is not a new finding as comp ared to 12/26/2020. Left vertebral artery: Normal caliber with calcified plaque. Subclavian arteries: No stenosis or significant abnormality. Upper thorax: Normal. Thyroid gland: Normal. Osseous structures: Unremarkable. CEREBRAL ANGIOGRAM: Intracranial vertebral arteries: Again noted is a very small caliber RIGHT vertebral artery. Distal L EFT vertebral artery is normal with a few calcified plaques. Basilar artery: No significant stenosis or occlusion. No aneurysm. Intracranial Internal carotid arteries: Very minimal atherosclerotic disease. Middle cerebral arteries: Dominant LEFT M1 segment. No occlusion on the RIGHT but the RIGHT M1 and M2 segments are smaller than the LEFT. No thrombus or stenosis and no aneurysm. Anterior cerebral arteries and ACOM: Small caliber RIGHT A1 segment but no stenosis or occlusion. Posterior cerebral arteries and PCOM's: Posterior cerebral arteries are both patent. Small caliber bu t patent posterior communicating arteries. Dural venous sinuses are normally enhancing. Mastoid air cells: Normal.1 Paranasal sinuses: Normal. Calvarium: Normal. CT/CT angio headneck* [id number] IMPRESSION: 1. No significant cervical carotid artery stenosis. 2. Very mild atherosclerotic plaque within the intracranial carotid arteries b ut no high-grade stenosis. 3. Diffuse small caliber RIGHT vertebral artery. 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 This is not a new finding.
--- NOTE | 2021-05-12 12:06 | ED_ITS ---
Documented by User: Keyona Paul PA-C 05/12/21 14:01 HPI - General Adult General: Chief complaint: General Medical Stated complaint: Hx of stroke recently, high bp and heart rate Time Seen by Provider: 05/12/21 11:38 Source: patient Mode of arrival: ambulatory Limitations: no limitations History of Present Illness: 50-year-old male with history of stroke presents to the ER today for elevated blood pressure, blurred vision, difficulty processing his thoughts x24 hours. Patient reports this all began yesterday. Patient reports his right eye was red yesterday and then he woke up this a.m. and his blood pressure was significantly elevated. Patient reports at home his diastolic was 107 this morning. Patient reports he went to work and felt like he had difficulty processing thoughts and doing his job which is abnormal for him. Patient also reports blurred vision which is abnormal for him. Patient reports these are similar symptoms to what he experienced when he had a stroke in November. Patient was placed on a blood thinner at that time but he does not think he is taking it anymore. Patient reports he has some burning sensation in his left leg. He reports this is a chronic issue however is significantly worse in the last couple of days. Patient reports he was unable to sleep last night due to the burning in the leg. Onset (ago): hour(s) (24) Pain Consistency: constant Relieving factors: none Exacerbating factors: none Associated symptoms: Reports confusion (Difficulty processing thoughts at work) and headache(s) (Has chronic headaches); Deny chest pain, dyspnea, short of breath or weakness Review of Systems General: Reports: 10 or more systems reviewed and unremarkable except in HPI and below Eyes: Reports: change in vision, blurry vision and eye redness Card: Denies: chest pain Resp: Denies: dyspnea or productive cough Neuro: Reports: headache(s) (Has chronic headaches), confusion (Difficulty pro cessing thoughts at work) and other (Burning sensation in left lower extremity) [facility] PFSH: Medical History (Updated 05/12/21 @ 14:01 by Keyona Paul PA-C) Acute CVA (cerebrovascular accident) Amputation of leg Hypertension Social History Smoking and tobacco status: current every day smoker Physical Exam Const: COMMON NORMALS: no acute distress, average body habitus, patient oriented x3, no limitations and alert HENMT: COMMON NORMALS: normocephalic, Normal external nose present and moist oral mucous membranes HEAD & SCALP: normocephalic NOSE: Normal external nose present Eye: COMMON NORMALS: EOMs intact bilaterally and conjunctivae normal CONJUNCTIVA: Yes conjunctivae normal Neck/C-Spine: COMMON NORMALS: no lymphadenopathy Resp: COMMON NORMALS: normal respiratory effort and No retractions Cardio: COMMON NORMALS: regular rate and regular rhythm RATE: regular rate RHYTHM: regular rhythm Extremity: NARRATIVE EXTREMITY EXAM: Patient has amputation right lower extremity Neuro: COMMON NORMALS: patient oriented x3 SENSORIUM/ORIENTATION: Yes alert SPEECH: speech normal GAIT: Yes Assistive device used (pt has unilateral amputation) crutches SENSORY EXAM: Yes other (normal sensation bilaterally) Psych: COMMON NORMALS: cooperative Skin: COMMON NORMALS: no rashes or lesions noted GENERAL SKIN EXAM: no rashes or lesions noted Course ED course: Patient presents to the ER today for blurry vision, elevated diastolic blood pressure, headache, difficulty with thoughts this morning. This has been going on more than 24 hours. Patient has a history of a stroke. We will go ahead with imaging and lab work at this time given symptoms and history. Consultations: Consultation #1: Spoke with Dr. Pedraza regarding patient, he recommends contacting Dr. Willis. Consultation #2: Spoke with Dr. Willis who recommends MRI outpatient along with aspirin and atorvastatin. Time: 12:50 Vital Signs: Vital signs: Vital Signs Temperature 97.8 F 05/12/21 13:35 Pulse Rate 101 H 05/12/21 13:35 Respiratory Rate 18 05/12/21 13:35 Blood Pressure 152/96 05/12/21 13:35 Pulse Oximetry 95 05/12/21 13:35 MDM - General Adult Medical Decision Making 50-year-old male with history of a stroke approximately 6 months ago presents to the ER today for blurry vision, elevated diastolic blood pressure, headache, and difficulty with thoughts x24 hours. Patient reports headaches are daily. Patient reports he checks his blood pressure daily and this was the first that has been elevated however in the ER today it is normal. Patient reports the blurry vision has not changed his acuity it is just not normal for him. Patient reports the difficulty with thoughts was this morning while at work. He denies any weakness or numbness on the left side. He reports a burning sensation in his left side however that again is chronic and he takes Lyrica for that. We we nt ahead and imaging at this time, a CT of the brain and also a CTA. CT of the brain shows an infarct that is new since November. Age is undetermined at this time. Given patient has no significant neurological deficits at this time it is unlikely it is acute. I spoke with Dr. Pedraza and Dr. Willis. Dr. Willis recommends follow-up this week with her in the clinic in addition to an outpati ent MRI. She recommends aspirin and atorvastatin. Patient is currently taking aspirin and atorvastatin. Discussed findings with patient. Labs are otherwise stable for patient. Patient should follow-up as discussed. Return to the ER with new or worsening symptoms. Patient verbalized understanding and is in agreement with the treatment plan. Lab Data : 05/12/21 11:54 05/12/21 12:[address] 05/12/21 11:47 IMPRESSION: 1. No acute intracranial hemorrhage or edema. 2. Remote RIGHT cerebellar infarct. 3. Remote lacunar infarct in the RIGHT occipital lobe. New since 12/28/2020. Head/Neck CTA 05/12/21 11:47 IMPRESSION: 1. No significant cervical carotid artery stenosis. 2. Very mild atherosclerotic plaque within the intracranial carotid arteries but no high-grade stenosis. 3. Diffuse small caliber RIGHT vertebral artery. 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 This is not a new finding. Laboratory Results WBC 8.5 10^3/uL (4.0-10.0) 05/12/21 11:54 RBC 5.81 10^6/uL (4.1-5.3) H 05/12/21 11:54 Hgb 17.0 g/dL (11.7-16.6) H 05/12/21 11:54 Hct 51.3 % (42.0-52.0) 05/12/21 11:54 MCV 88.3 fl (80-94) 05/12/21 11:54 MCH 29.3 pg (28.0-34.0) 05/12/21 11:54 MCHC 33.1 g/dL (30.0-36.0) 05/12/21 11:54 RDW 18.2 % (12.1-15.1) H 05/12/21 11:54 Plt Count 287 10^3/cmm (130-400) 05/12/21 11:54 MPV 10.5 fL (7.4-10.4) H 05/12/21 11:54 Neut % (Auto) 65.5 % 05/12/21 11:54 Lymph % (Auto) 21.5 % 05/12/21 11:54 [place] % (Auto) 7.2 % 05/12/21 11:54 Eos % (Auto) 4.1 % 05/12/21 11:54 Baso % (Auto) 1.3 % 05/12/21 11:54 Neut # (Auto) 5.58 10^3/uL (1.8-7.7) 05/12/21 11:54 Lymph # (Auto) 1.8 10^3/uL (0.8-4.8) 05/12/21 11:54 [place] # (Auto) 0.6 10^3/uL (0.2-0.9) 05/12/21 11:54 Eos # (Auto) 0.4 10^3/uL (0.0-0.8) 05/12/21 11:54 Baso # (Auto) 0.1 10^3/uL (0.0-0.1) 05/12/21 11:54 Nucleated RBC % (auto) 0 % 05/12/21 11:54 Nucleated RBCs # 0.0 /100WBC 05/12/21 11:54 PT 12.80 SECONDS (12.1-14.9) 05/12/21 12:55 INR 0.94 (0.8-1.2) 05/12/21 12:55 APTT 26.5 SECONDS (23.9-36.7) 05/12/21 12:55 Sodium 132 mmol/L (136-145) L 05/12/21 12:55 Potassium 3.1 mmol/L (3.5-5.1) L 05/12/21 12:55 Chloride 97 mmol/L (98-107) L 05/12/21 12:55 Carbon Dioxide 22 mmol/L (22-29) 05/12/21 12:55 Anion Gap 16.1 (5-19) 05/12/21 12:55 BUN 11 mg/dL (6-20) 05/12/21 12:55 Creatinine 0.8 mg/dL (0.7-1.2) 05/12/21 12:55 GFR Calculation 101.9 mL/min (90-130) 05/12/21 12:55 Glucose 163 mg/dL (65-115) H 05/12/21 12:55 Calculated Osmolality 277 mOsm/kg (285-295) L 05/12/21 12:55 Calcium 9.3 mg/dL (8.5-10.5) 05/12/21 12:55 Total Bilirubin 0.6 mg/dL (0.15-1.2) 05/12/21 12:55 AST 15 U/L (0-40) 05/12/21 12:55 ALT 23 U/L (0-41) 05/12/21 12:55 Alkaline Phosphatase 122 IU/L (40-130) 05/12/21 12:55 Total Protein 6.9 g/dL (6.6-8.7) 05/12/21 12:55 Albumin 4.4 g/dL (3.5-5.2) 05/12/21 12:55 Globulin 2.5 g/dL (1.3-4.6) 05/12/21 12:55 Critical Care Time Critical Care Time: Critical Care Time: No Discharge Plan Discharge Patient Disposition: Home Clinical Impression: Right-sided lacunar infarction, Hyponatremia, Hypokalemia Condition: Stable Prescriptions: No Action losartan 50 mg Tablet 100 mg PO DAILY 0RF Hold Instructions: Resume on 01/04/21. metoprolol succinate 50 mg Tablet Extended Release 24 Hr 50 mg PO DAILY 0RF esomeprazole magnesium [Nexium] 20 mg Capsule,Delayed Release(Dr/Ec) 20 mg PO DAILY 0RF chlorthalidone 25 mg Tablet 25 mg PO DAILY 0RF Hold Instructions: Resume on 01/05/21. ferrous sulfate [Iron (ferrous sulfate)] 325 mg (65 mg iron) Tablet 325 mg PO DAILY 0RF cimetidine 400 mg tablet 400 mg PO DAILY 0RF nortriptyline 50 mg capsule 50 mg PO BEDTIME 0RF amlodipine 10 mg tablet 10 mg PO DAILY Qty: 30 0RF Hold Instructions: Resume on 01/08/21. Rx Instructions: take with 5 mg tab to make 15 mg daily pregabalin 75 mg capsule 150 mg PO BID Qty: 60 0RF Isopto Tears 0.5 % Drops 1 drp eye-right Q4H PRN (Reason: Dry Eye(S)) Qty: 15 0RF aspirin 81 mg Tablet,Delayed Release (Dr/Ec) 81 mg PO DAILY Qty: 90 0RF atorvastatin 40 mg Tablet 40 mg PO BEDTIME Qty: 90 0RF nicotine 21 mg/24 hr Patch 24 Hour 1 patch transdermal DAILY Qty: 30 0RF polyethylene glycol 3350 17 gram Powder In Packet 17 g PO BID Qty: 30 0RF Metamucil (with sugar) 3.4 gram Powder In Packet 1 packet PO BID Qty: 60 0RF Discharge Orders: Discharge ED (Routine); Ordered 05/12/21 Ordered By: Keyona Paul Referrals: Ozzy Torres DO [Primary Care Provider] - Discharge Diet: Usual diet Discharge Activity: Resume usual activity Patient Instructions: Opioid Safety Activity Restrictions/Additional Instructions: Make sure you're taking aspirin and atorvastatin as prescribed. Follow-up with Dr. Willis next week. MRI will be scheduled so if you do not hear from the hospital contact them next week. Return to the ER with new or worsening symptoms. Coding Level of Care Code ED Print Binding And Finishing Worker for [facility]g Fwd Exam Comprehensive Documented by User: Jonnie Pedraza MD 05/18/21 03:37 HPI - General Adult General: Chief complaint: General Medical Stated complaint: Hx of stroke recently, high bp and heart rate Time Seen by Provider: 05/12/21 11:38 PFS ED PFSH: Medical History (Updated 05/12/21 @ 14:01 by Keyona Paul PA-C) Acute CVA (cerebrovascular accident) Amputation of leg Hypertension Social History Smoking and tobacco status: current every day smoker Course Vital Signs: Vital signs: Vital Signs Temperature 97.8 F 05/12/21 13:35 Pulse Rate 101 H 05/12/21 13:35 Respiratory Rate 18 05/12/21 13:35 Blood Pressure 152/96 05/12/21 13:35 Pulse Oximetry 95 05/12/21 13:35 MDM - General Adult Medical Decision Making 50-year-old male with history of a stroke approximately 6 months ago presents to the ER today for blurry vision, elevated diastolic blood pressure, headache, and difficulty with thoughts x24 hours. Patient reports headaches are daily. Patient reports he checks his blood pressure daily and this was the first that has been elevated however in the ER today it is normal. Patient reports the blurry vision has not changed his acuity it is just not normal for him. Patient reports the difficulty with thoughts was this morning while at work. He denies any weakness or numbness on the left side. He reports a burning sensation in his left side however that again is chronic and he takes Lyrica for that. We went ahead and imaging at this time, a CT of the brain and also a CTA. CT of the brain shows an infarct that is new since November. Age is undetermined at this time. Given patient has no significant neurological deficits at this time it is unlikely it is acute. I spoke with Dr. Pedraza and Dr. Willis. Dr. Willis recommends follow-up this week with her in the clinic in addition to an outpatient MRI. She recommends aspirin and atorvastatin. Patient is currently taking aspirin and atorvastatin. Discussed findings with patient. Labs are otherwise stable for patient. Patient should follow-up as discussed. Return to the ER with new or worsening symptoms. Patient verbalized understanding and is in agreement with the treatment plan. I have reviewed this documentation by MAYELIN Armendariz. I discussed the case with her while patient present in the emergency department. I reviewed labs and imaging. Jonnie Pedraza MD Emergency Medicine Lab Data : 05/12/21 11:54 05/12/21 12:[address] 05/12/21 11:47 IMPRESSION: 1. No acute intracranial hemorrhage or edema. 2. Remote RIGHT cerebellar infarct. 3. Remote lacunar infarct in the RIGHT occipital lobe. New since 12/28/2020. Head/Neck CTA 05/12/21 11:47 IMPRESSION: 1. No significant cervical carotid artery stenosis. 2. Very mild atherosclerotic plaque within the intracranial carotid arteries but no high-grade stenosis. 3. Diffuse small caliber RIGHT vertebral artery. 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 This is not a new finding. Laboratory Results WBC 8.5 10^3/uL (4.0-10.0) 05/12/21 11:54 RBC 5.81 10^6/uL (4.1-5.3) H 05/12/21 11:54 Hgb 17.0 g/dL (11.7-16.6) H 05/12/21 11:54 Hct 51.3 % (42.0-52.0) 05/12/21 11:54 MCV 88.3 fl (80-94) 05/12/21 11:54 MCH 29.3 pg (28.0-34.0) 05/12/21 11:54 MCHC 33.1 g/dL (30.0-36.0) 05/12/21 11:54 RDW 18.2 % (12.1-15.1) H 05/12/21 11:54 Plt Count 287 10^3/cmm (130-400) 05/12/21 11:54 MPV 10.5 fL (7.4-10.4) H 05/12/21 11:54 Neut % (Auto) 65.5 % 05/12/21 11:54 Lymph % (Auto) 21.5 % 05/12/21 11:54 [place] % (Auto) 7.2 % 05/12/21 11:54 Eos % (Auto) 4.1 % 05/12/21 11:54 Baso % (Auto) 1.3 % 05/12/21 11:54 Neut # (Auto) 5.58 10^3/uL (1.8-7.7) 05/12/21 11:54 Lymph # (Auto) 1.8 10^3/uL (0.8-4.8) 05/12/21 11:54 [place] # (Auto) 0.6 10^3/uL (0.2-0.9) 05/12/21 11:54 Eos # (Auto) 0.4 10^3/uL (0.0-0.8) 05/12/21 11:54 Baso # (Auto) 0.1 10^3/uL (0.0-0.1) 05/12/21 11:54 Nucleated RBC % (auto) 0 % 05/12/21 11:54 Nucleated RBCs # 0.0 /100WBC 05/12/21 11:54 PT 12.80 SECONDS (12.1-14.9) 05/12/21 12:55 INR 0.94 (0.8-1.2) 05/12/21 12:55 APTT 26.5 SECONDS (23.9-36.7) 05/12/21 12:55 Sodium 132 mmol/L (136-145) L 05/12/21 12:55 Potassium 3.1 mmol/L (3.5-5.1) L 05/12/21 12:55 Chloride 97 mmol/L (98-107) L 05/12/21 12:55 Carbon Dioxide 22 mmol/L (22-29) 05/12/21 12:55 Anion Gap 16.1 (5-19) 05/12/21 12:55 BUN 11 mg/dL (6-20) 05/12/21 12:55 Creatinine 0.8 mg/dL (0.7-1.2) 05/12/21 12:55 GFR Calculation 101.9 mL/min (90-130) 05/12/21 12:55 Glucose 163 mg/dL (65-115) H 05/12/21 12:55 Calculated Osmolality 277 mOsm/kg (285-295) L 05/12/21 12:55 Calcium 9.3 mg/dL (8.5-10.5) 05/12/21 12:55 Total Bilirubin 0.6 mg/dL (0.15-1.2) 05/12/21 12:55 AST 15 U/L (0-40) 05/12/21 12:55 ALT 23 U/L (0-41) 05/12/21 12:55 Alkaline Phosphatase 122 IU/L (40-130) 05/12/21 12:55 Total Protein 6.9 g/dL (6.6-8.7) 05/12/21 12:55 Albumin 4.4 g/dL (3.5-5.2) 05/12/21 12:55 Globulin 2.5 g/dL (1.3-4.6) 05/12/21 12:55 Discharge Plan Discharge Patient Disposition: Home Clinical Impression: Right-sided lacunar infarction, Hyponatremia, Hypokalemia Condition: Stable Prescriptions: No Action losartan 50 mg Tablet 100 mg PO DAILY 0RF Hold Instructions: Resume on 01/04/21. metoprolol succinate 50 mg Tablet Extended Release 24 Hr 50 mg PO DAILY 0RF esomeprazole magnesium [Nexium] 20 mg Capsule,Delayed Release(Dr/Ec) 20 mg PO DAILY 0RF chlorthalidone 25 mg Tablet 25 mg PO DAILY 0RF Hold Instructions: Resume on 01/05/21. ferrous sulfate [Iron (ferrous sulfate)] 325 mg (65 mg iron) Tablet 325 mg PO DAILY 0RF cimetidine 400 mg tablet 400 mg PO DAILY 0RF nortriptyline 50 mg capsule 50 mg PO BEDTIME 0RF amlodipine 10 mg tablet 10 mg PO DAILY Qty: 30 0RF Hold Instructions: Resume on 01/08/21. Rx Instructions: take with 5 mg tab to make 15 mg daily pregabalin 75 mg capsule 150 mg PO BID Qty: 60 0RF Isopto Tears 0.5 % Drops 1 drp eye-right Q4H PRN (Reason: Dry Eye(S)) Qty: 15 0RF aspirin 81 mg Tablet,Delayed Release (Dr/Ec) 81 mg PO DAILY Qty: 90 0RF atorvastatin 40 mg Tablet 40 mg PO BEDTIME Qty: 90 0RF nicotine 21 mg/24 hr Patch 24 Hour 1 patch transdermal DAILY Qty: 30 0RF polyethylene glycol 3350 17 gram Powder In Packet 17 g PO BID Qty: 30 0RF Metamucil (with sugar) 3.4 gram Powder In Packet 1 packet PO BID Qty: 60 0RF Discharge Orders: Discharge ED (Routine); Ordered 05/12/21 Ordered By: Keyona Paul Referrals: Ozzy Torres DO [Primary Care Provider] - Discharge Diet: Usual diet Discharge Activity: Resume usual activity Patient Instructions: Opioid Safety Activity Restrictions/Additional Instructions: Make sure you're taking aspirin and atorvastatin as prescribed. Follow-up with Dr. Willis next week. MRI will be scheduled so if you do not hear from the hospital contact them next week. Return to the ER with new or worsening symptoms. Coding Level of Care Code ED Print Binding And Finishing Worker for [place] Fwd Exam Comprehensive
[2021-05-12] MEDS: iohexol 350 mg/mL 100 mL Btl IV (12:08)
[2021-05-12 12:13] LABS: Basophils # 0.1 10^3/uL (0.0-0.1); Basophils % 1.3 %; Eosinophils # 0.4 10^3/uL (0.0-0.8); Eosinophils % 4.1 %; Hematocrit 51.3 % (42.0-52.0); Lymphocytes # 1.8 10^3/uL (0.8-4.8); Lymphocytes % 21.5 %; Mean Corpuscular HGB Conc 33.1 g/dL (30.0-36.0); Mean Corpuscular Hemoglobin 29.3 pg (28.0-34.0); Mean Corpuscular Volume 88.3 fl (80-94); Mean Platelet Volume 10.5 fL (7.4-10.4); Monocytes # 0.6 10^3/uL (0.2-0.9); Monocytes % 7.2 %; Neutrophils # 5.58 10^3/uL (1.8-7.7); Neutrophils % 65.5 %; Nucleated Red Blood Cells % 0 %; Platelet Count 287 10^3/cmm (130-400); Red Blood Count 5.81 10^6/uL (4.1-5.3); Red Cell Distribution Width 18.2 % (12.1-15.1); White Blood Count 8.5 10^3/uL (4.0-10.0)
[2021-05-12 13:16] LABS: INR 0.94 (0.8-1.2)
[2021-05-12 13:17] LABS: Partial Thromboplastin Time 26.5 SECONDS (23.9-36.7)
[2021-05-12 13:24] LABS: Aspartate Amino Transferase 15 U/L (0-40); Blood Urea Nitrogen 11 mg/dL (6-20); Carbon Dioxide 22 mmol/L (22-29)
[2021-05-12 13:35] VITALS: BP 152/96; PULSE 101; RESP 18; TEMP 36.6; O2SAT 95
[2021-05-12 13:41] LABS: Alanine Aminotransferase 23 U/L (0-41); Albumin Level 4.4 g/dL (3.5-5.2); Alkaline Phosphatase 122 IU/L (40-130); Anion Gap 16.1 (5-19); Calcium 9.3 mg/dL (8.5-10.5); Chloride 97 mmol/L (98-107); Globulin 2.5 g/dL (1.3-4.6); Glomerular Filtration Rate 101.9 mL/min (90-130); Glucose 163 mg/dL (65-115); Osmolality Calculated 277 mOsm/kg (285-295); Potassium 3.1 mmol/L (3.5-5.1); Sodium 132 mmol/L (136-145)
[2021-05-12 13:42] LABS: Total Bilirubin 0.6 mg/dL (0.15-1.2); Total Protein 6.9 g/dL (6.6-8.7)
--- NOTE | 2021-05-16 10:40 | DCPLANNER ---
Addendum entered by Enid Toure 08/09/21 20:28: Patient had an appointment scheduled for 07.24.21 for an outpatient MRI - appointment was rescheduled. Addendum entered by Enid Toure 06/30/21 07:47: Patient has an MRI scheduled for Saturday, July 24, 2021 at 8:45. Centralized scheduling will contact patient with appointment information. Addendum entered by Enid Toure 06/02/21 12:14: network architect manager was told by Dr. Damon office that patient declined appointment, was seen by his primary care and is being referred to [facility]. Addendum entered by Enid Toure 05/25/21 19:05: network architect manager received conformation that centralized scheduling received order, no appointment at this time. Addendum entered by Enid Toure 05/16/21 12:29: network architect manager also had message to schedule an outpatient MRI. network architect manager faxed signed order to centralized scheduling, who will call patient with appointment information. Original Note: network architect manager had message to schedule a follow up appointment for patient with Dr. Willis. network architect manager emailed patients information to the neurology clinic for review. Patients information will be printed and reviewed. Clinic will call patient with appointment information.
== END 2021-05-12 14:06 | disposition home or self-care (01) ==
PROVIDERS: Emergency Provider Physician Assistant; PCP Internal Medicine
DX: I63.81 Other cerebral infarction due to occlusion or stenosis of small artery (principal); E87.1 Hypo-osmolality and hyponatremia; E87.6 Hypokalemia; Z79.82 Long term (current) use of aspirin; Z86.73 Personal history of transient ischemic attack (TIA), and cerebral infarction without residual deficits; I10 Essential (primary) hypertension; F17.210 Nicotine dependence, cigarettes, uncomplicated
CPT/HCPCS: 70450; 70496; 70498; 80053; 85025; 85610; 85730; 99283; Q9967

== ENCOUNTER 2021-05-20 19:16 | Emergency (ER) | payer MEDICARE, BC, MEDICAID, SELFPAY ==
[2021-05-20 19:35] VITALS: BP 175/98; PULSE 100; RESP 20; TEMP 36.7; O2SAT 95; BMI 25.2
--- NOTE | 2021-05-20 19:42 | W.ED.WOUNDLC ---
HPI - Wound/Laceration General: Chief Complaint: Wound/Laceration Stated Complaint: Left Finger Cut\On Blood Thinners Time Seen by Provider: 05/20/21 19:42 History of Present Illness: 50-year-old male patient comes in for injury to the left dorsal thumb and left ulnar index finger. Patient had cut the fingers while working on some pipe. The lacerations occurred through the sharp edges of the pipe. Patient cannot recall his last tetanus shot. Patient is on Plavix and was concerned due to the bleeding. Patient has pressure applied at this time with electricians tape. Review of Systems General: Reports: 10 or more systems reviewed and unremarkable except in HPI and below Skin/Breast: Reports: new lesions (Laceration first and second digit left hand) [facility] ED PFSH: Medical History (Updated 05/20/21 @ 20:14 by CARLOS Parham) Acute CVA (cerebrovascular accident) Amputation of leg Hypertension Social History Smoking and tobacco status: current every day smoker Physical Exam Const: COMMON NORMALS: alert HENMT: COMMON NORMALS: atraumatic HEAD & SCALP: atraumatic Resp: COMMON NORMALS: normal respiratory effort Cardio: COMMON NORMALS: regular rate and regular rhythm RATE: regular rate RHYTHM: regular rhythm Extremity: LEFT UPPER EXTREMITY: Yes hand & digits (Lacerations first and second digit left hand) Left hand and digits: Yes inspection, Yes palpation, Yes ROM, Yes neurovascular exam and Yes tendon exam Neuro: SENSORIUM/ORIENTATION: Yes alert Psych: COMMON NORMALS: cooperative Skin: TRAUMA: laceration (First and second digit left hand) linear (Dorsal thumb left hand), Y-shaped (Ulnar side of finger distal) and actively bleeding; Negative for no foreign bodies present Procedures Laceration Laceration 1: Site: hand (Left thumb) Size (cm): 1 Description: linear Depth: simple, single layer Local Anesthetic: lidocaine 1% Amount of anesthesia used (mL): 2 Pre-repair: wound explored and irrigated extensively Skin layer closed with: nylon Size (cm): 4-0 Number of sutures: 2 Technique: simple, interrupted Laceration 2: Site: hand (Left index finger) Size (cm): 1.5 Description: irregular Depth: simple, single layer Local Anesthetic: lidocaine 1% Amount of anesthesia used (mL): 2 Pre-repair: wound explored and irrigated extensively Skin layer closed with: nylon Size (cm): 4-0 Number of sutures: 3 Technique: simple, interrupted Course Vital Signs: Vital signs: Vital Signs Temperature 98.1 F 05/20/21 19:35 Pulse Rate 100 05/20/21 19:35 Respiratory Rate 20 H 05/20/21 19:35 Blood Pressure 175/98 05/20/21 19:35 Pulse Oximetry 95 05/20/21 19:35 MDM - Wound/Laceration Medical Decision Making Patient was brought in today for injuries to the left hand first and second digit. On exam there is two lacerations one to the dorsal left thumb and one to the ulnar side of the left index finger. Patient has normal range of motion. No acute distress is noted. Respirations are even lungs are clear to auscultation. Differential diagnosis includes need for prophylaxis antibiotic, need for prophylaxis tetanus, laceration, foreign body. No foreign body was noted. Wounds were cleaned and approximated with sutures. Bleeding was controlled with sutures and pressure. Patient will be continued on antibiotics cephalexin 500 twice a day for 7 days. Tetanus was updated. Patient was given hydrocodone tablet for his discomfort. Discharge Plan Discharge Patient Disposition: Home Clinical Impression: Finger laceration Qualifiers: Encounter type: initial encounter Finger: unspecified finger Damage to nail status: without damage Foreign body presence: without foreign body Laterality: left Qualified Code(s): S61.219A - Laceration without foreign body of unspecified finger without damage to nail, initial encounter Condition: Stable Prescriptions: New cephalexin 500 mg capsule 500 mg PO BID 7 Days Qty: 14 0RF hydrocodone-acetaminophen 5-325 mg tablet 1 tab PO Q8H PRN (Reason: pain) Qty: 6 0RF No Action losartan 50 mg Tablet 100 mg PO DAILY 0RF Hold Instructions: Resume on 01/04/21. metoprolol succinate 50 mg Tablet Extended Release 24 Hr 50 mg PO DAILY 0RF esomeprazole magnesium [Nexium] 20 mg Capsule,Delayed Release(Dr/Ec) 20 mg PO DAILY 0RF chlorthalidone 25 mg Tablet 25 mg PO DAILY 0RF Hold Instructions: Resume on 01/05/21. ferrous sulfate [Iron (ferrous sulfate)] 325 mg (65 mg iron) Tablet 325 mg PO DAILY 0RF cimetidine 400 mg tablet 400 mg PO DAILY 0RF nortriptyline 50 mg capsule 50 mg PO BEDTIME 0RF amlodipine 10 mg tablet 10 mg PO DAILY Qty: 30 0RF Hold Instructions: Resume on 01/08/21. Rx Instructions: take with 5 mg tab to make 15 mg daily pregabalin 75 mg capsule 150 mg PO BID Qty: 60 0RF Isopto Tears 0.5 % Drops 1 drp eye-right Q4H PRN (Reason: Dry Eye(S)) Qty: 15 0RF aspirin 81 mg Tablet,Delayed Release (Dr/Ec) 81 mg PO DAILY Qty: 90 0RF atorvastatin 40 mg Tablet 40 mg PO BEDTIME Qty: 90 0RF nicotine 21 mg/24 hr Patch 24 Hour 1 patch transdermal DAILY Qty: 30 0RF polyethylene glycol 3350 17 gram Powder In Packet 17 g PO BID Qty: 30 0RF Metamucil (with sugar) 3.4 gram Powder In Packet 1 packet PO BID Qty: 60 0RF Discharge Orders: Discharge ED (Routine); Ordered 05/20/21 Ordered By: Nathaniel Liz Referrals: Ozzy Torres DO [Primary Care Provider] - Discharge Diet: Usual diet Discharge Activity: Increase activity as tolerated Patient Instructions: Finger Laceration (ED), Opioid Safety Activity Restrictions/Additional Instructions: Keep wounds clean and dry. Sutures out in 7 days. Monitor for signs of infection such as increasing redness, swelling, purulent drainage. Take Keflex 500 mg twice a day for the next 7-day for prophylaxis infection therapy. Follow-up with primary care in 1 week. Return to ER for new concerns. 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
[2021-05-20] MEDS: tetanus-dipt-pertussis 0.5 mL SDV IM (20:08)
[2021-05-20] MEDS: lidocaine 1% INJ 20 mL INJECTION (20:09)
[2021-05-20] MEDS: cephALEXin 500 mg Capsule PO (20:23)
[2021-05-20] MEDS: HYDROcodone-acetaminophen 7.5-325 mg Tablet 1 TAB PO (20:23)
== END 2021-05-20 20:28 | disposition home or self-care (01) ==
PROVIDERS: Emergency Provider Nurse Practitioner Family; PCP Internal Medicine
DX: S61.012A Laceration without foreign body of left thumb without damage to nail, initial encounter (principal); S61.211A Laceration without foreign body of left index finger without damage to nail, initial encounter; W26.8XXA Contact with other sharp object(s), not elsewhere classified, initial encounter; I10 Essential (primary) hypertension; Z23 Encounter for immunization; Z79.02 Long term (current) use of antithrombotics/antiplatelets; Z86.73 Personal history of transient ischemic attack (TIA), and cerebral infarction without residual deficits; Z79.82 Long term (current) use of aspirin
CPT/HCPCS: 12001; 90471; 90715; 99283

== ENCOUNTER 2021-06-02 14:55 | Emergency (ER) | payer BC, MEDICARE, MEDICAID, SELFPAY ==
[2021-06-02 15:03] VITALS: BP 170/91; PULSE 116; RESP 16; TEMP 36.7; O2SAT 94; BMI 25.0
--- NOTE | 2021-06-02 16:33 | CTR_ITS ---
PROCEDURE INFORMATION: Exam: CT Head Without Contrast Exam date and time: 06/02/2021 4:33 PM Age: 50 years old Clinical indication: Dizziness and visual disturbance; Additional info: R/O stroke; Dizziness, visual changes, slurred speech TECHNIQUE: Imaging protocol: Computed tomography of the head without contrast. Sagittal and coronal reformatted images were created and reviewed. Radiation optimization: All CT scans at this facility use at least one of these dose optimization techniques: automated exposure control; mA and/or kV adjustment per patient size (includes targeted exams where dose is matched to clinical indication); or iterative reconstruction. COMPARISON: CT head wo con* [id number] 05/12/2021 12:04 PM RADIATION DOSE METRICS: Total DLP (mGy-cm): 1018.95 FINDINGS: Brain: No acute intracranial hemorrhage. No acute infarct. No intra-axial or extra-axial masses. Lara-white matter differentiation is preserved. No cerebral edema. No extra-axial fluid collections. No midline shift. No evidence for Chiari 1 malformation. Stable small area of encephalomalacia in the right cerebellar hemisphere suggesting chronic infarct. Cerebral ventricles: No hydrocephalus. Paranasal sinuses: Mild opacification within an anterior right ethmoid sinuses. Other visualized paranasal sinuses are clear. Mastoid air cells: Visualized mastoid air cells are clear. Orbital cavity: Globes and lenses, extraocular muscles, and optic nerves are intact bilaterally. No acute intraorbital abnormality. Bones/joints: No acute fracture. Soft tissues: The extracranial soft tissues are unremarkable. CT/CT head wo con* [id number] IMPRESSION: 1. No acute abnormality of the brain. 2. Stable small area of encephalomalacia in the right cerebellar hemisphere suggesting chronic infarct. 3. Mild opacification within an anterior right ethmoid sinuses.
--- NOTE | 2021-06-02 16:34 | XRR_ITS ---
PROCEDURE INFORMATION: Exam: XR Chest Exam date and time: 06/02/2021 4:34 PM Age: 50 years old Clinical indication: Other: Dizziness TECHNIQUE: Imaging protocol: XR of the chest. Views: 1 view. COMPARISON: CR XR chest 1V portable [id number] 12/25/2020 8:18 PM FINDINGS: Lungs: Lungs are clear bilaterally. Pleural spaces: No pleural effusion. No pneumothorax. Heart/Mediastinum: Stable mild enlargement of the cardiac silhouette. Mediastinal contours are unremarkable. Bones/joints: Unremarkable for age. XR/XR chest 1V portable [id number] IMPRESSION: 1. No acute cardiopulmonary process. 2. Incidental/nonacute findings are listed in the report.
--- NOTE | 2021-06-02 16:34 | W.ED.DIZZY ---
Documented by User: MAYELIN Coughlin 06/02/21 16:53 HPI - Dizziness General: Chief Complaint: Dizziness Stated Complaint: dizziness and weakness Time Seen by Provider: 06/02/21 16:25 Source: patient Mode of arrival: ambulatory Limitations: no limitations History of Present Illness: HPI Narrative: Patient is a 50-year-old male who presents to ED today with a complaint of dizziness, visual changes/blurry vision, slurred speech, and trouble thinking. Patient states he had an episode of dizziness around 8 PM yesterday evening that was accompanied with nausea and feeling sweaty. Patient states episode lasted for approximately 2 hours and then he went to bed around 10 PM. He states when he woke up this morning he felt foggy headed and states later that day he had another episode of dizziness and slurred speech. Patient states currently he feels like he is having blurry vision and trouble thinking. He has not noticed any weakness to his upper extremities. Patient has a right lower extremity amputation. 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 Patient has not noticed any facial drooping/deficits. Patient was seen here in our facility on 05/12 for similar complaints. He had CT head and CTA head/neck performed. Dr. Willis was consulted who recommended MRI as an outpatient but I do not see where this is ever been completed. MD elicited complaint: dizziness Pertinent past history: stroke Onset (ago): hour(s) Description: room spinning History of similar symptoms: Yes Exacerbating factors: nothing Relieving factors: nothing Associated symptoms: Reports nausea (none currently); Denies chest pain, chills, headache(s), malaise, palpitations, syncope or vomiting Associated neuro symptoms: Reports confusion Review of Systems Const: Denies: fever(s), chills, body aches, fatigue or malaise Eyes: Reports: change in vision and blurry vision; Denies: blind spots, photophobia, floaters or seeing flashes Card: Denies: chest pain, palpitations, irregular heart rhythm, edema, swelling of feet/ankles, lightheadedness, syncope, pre-syncope or dyspnea on exertion Resp: Reports: dyspnea (reports this is chronic); Denies: productive cough, pain on inspiration or chest congestion GI: Reports: nausea (none currently); Denies: abdominal pain, vomiting, heartburn or diarrhea : Denies: flank pain, difficulty urinating or dysuria Musc: Denies: neck pain, back pain, extremity pain, extremity swelling or joint pain Skin/Breast: Denies: rash Neuro: Reports: sensory changes (chronic L LE; no new sensory changes), dizziness, confusion, Slurred speech present and difficulty communicating thoughts; Denies: headache(s) or seizure-like activity PFS ED PFSH: Medical History (Updated 06/10/21 @ 00:00 by ) Acute CVA (cerebrovascular accident) Amputation of leg Hypertension Social History Smoking and tobacco status: current every day smoker Physical Exam Const: COMMON NORMALS: no acute distress, patient oriented x3, no limitations and alert GENERAL APPEARANCE: cooperative ORIENTATION/CONSCIOUSNESS: Yes awake, Yes oriented to person, Yes oriented to place and Yes oriented to time HENMT: COMMON NORMALS: normocephalic and atraumatic HEAD & SCALP: normal to inspection, normocephalic and atraumatic FACE & SINUS: normal facial exam Neck/C-Spine: COMMON NORMALS: full ROM, no lymphadenopathy and no meningeal signs Resp: COMMON NORMALS: normal respiratory effort and clear to auscultation bilaterally AUSCULTATION: clear to auscultation bilaterally Cardio: COMMON NORMALS: regular rate and regular rhythm RATE: regular rate RHYTHM: regular rhythm Extremity: COMMON NORMALS: normal to inspection and full ROM NARRATIVE EXTREMITY EXAM: R LE amputation GENERAL: Yes normal exam except as noted Neuro: SHANE COMA SCALE: document GCS findings Shane coma scale eye opening: Spontaneous Spalding coma scale verbal response: Orientated Spalding coma scale motor response: Obey commands Shane coma scale total score: 15 COMMON NORMALS: patient oriented x3, CN's II-XII intact bilaterally, moves all extremities, no focal motor deficits and no sensory deficits noted (lateral L LE sensory deficits that are chronic) SENSORIUM/ORIENTATION: Yes alert, Yes oriented to person, Yes oriented to place and Yes oriented to time MENINGEAL SIGNS: Yes no meningeal signs CRANIAL NERVES: Yes CN normal except as noted COORDINATION/BALANCE: [id number] test normal SPEECH: speech normal GAIT: Yes Unable to assess gait (secondary to R LE amputation/wheelchair status) MOTOR EXAM: 5/5 motor strength present throughout and Pronator motor function not present COORDINATION: [id number] test normal Skin: COMMON NORMALS: no rashes or lesions noted GENERAL SKIN EXAM: no rashes or lesions noted Course Vital Signs: Vital signs: Vital Signs Temperature 98.1 F 06/02/21 15:03 Pulse Rate 98 06/02/21 20:50 Respiratory Rate 18 06/02/21 20:50 Blood Pressure 182/98 06/02/21 20:50 Pulse Oximetry 98 06/02/21 20:50 MDM - Dizziness Lab Data : 06/02/21 17:30 06/02/21 17:[address] 06/02/21 16:33 IMPRESSION: 1. No acute abnormality of the brain. 2. Stable small area of encephalomalacia in the right cerebellar hemisphere suggesting chronic infarct. 3. Mild opacification within an anterior right ethmoid sinuses. Chest X-Ray 06/02/21 16:34 IMPRESSION: 1. No acute cardiopulmonary process. 2. Incidental/nonacute findings are listed in the report. Head/Neck CTA 06/02/21 18:42 IMPRESSION: 1. Atherosclerotic disease with multilevel mild stenoses. No occlusion, thrombosis, extravasation, dissection, or aneurysm. Findings are stable. 2. The posterior communicating arteries are not visualized. The posterior communicating arteries may be congenitally absent, or may be too small for the resolution capabilities of this study. 3. Diffusely small caliber of the A1 segment, likely congenital in nature. There is a common trunk of the A2 segment of the right and left anterior cerebral arteries that branches into right and left A3 segments. 4. Incidental/nonacute findings are listed in the report. IMPRESSION: 1. Atherosclerotic disease. Moderate stenosis at the origin of the right vertebral artery. No occlusion, thrombosis, extravasation, dissection, or aneurysm. Findings are stable. 2. Incidental/nonacute findings are listed in the report. REFERENCES: NASCET CRITERIA. The degree of internal carotid artery stenosis is based on NASCET criteria. Normal is no stenosis. Mild is less than 50% stenosis. Moderate is 50-69% stenosis. Severe is 70% to 99% stenosis. Total occlusion is no detectable patent lumen. Laboratory Results WBC 12.3 10^3/uL (4.0-10.0) H 06/02/21 17:30 RBC 5.81 10^6/uL (4.1-5.3) H 06/02/21 17: Hgb 17.1 g/dL (11.7-16.6) H 06/02/21 17: Hct 49.7 % (42.0-52.0) 06/02/21 17: MCV 85.5 fl (80-94) 06/02/21 17: MCH 29.4 pg (28.0-34.0) 06/02/21 17: MCHC 34.4 g/dL (30.0-36.0) 06/02/21 17: RDW 13.7 % (12.1-15.1) 06/02/21: Plt Count 326 10^3/cmm (130-400) 06/02/21 17: MPV 9.3 fL (7.4-10.4) 06/02/21 17: Neut % (Auto) 67.0 % 06/02/21: Lymph % (Auto) 20.8 % 06/02/21 17:30 Barber % (Auto) 6.9 % 06/02/21 17: Eos % (Auto) 3.9 % 06/02/21: Baso % (Auto) 1.1 % 06/02/21: Neut # (Auto) 8.27 10^3/uL (1.8-7.7) H 06/02/21 17: Lymph # (Auto) 2.6 10^3/uL (0.8-4.8) 06/02/21: Barber # (Auto) 0.9 10^3/uL (0.2-0.9) 06/02/21: Eos # (Auto) 0.5 10^3/uL (0.0-0.8) 06/02/21 17: Baso # (Auto) 0.1 10^3/uL (0.0-0.1) 06/02/21: Nucleated RBC % (auto) 0 % 06/02/21: Nucleated RBCs # 0.0 /100WBC 06/02/21 17: Sodium 136 mmol/L (136-145) 06/02/21 17:30 Potassium 3.5 mmol/L (3.5-5.1) 06/02/21 17:30 Chloride 98 mmol/L (98-107) 06/02/21 17:30 Carbon Dioxide 23 mmol/L (22-29) 06/02/21 17:30 Anion Gap 18.5 (5-19) 06/02/21 17:30 BUN 7 mg/dL (6-20) 06/02/21 17:30 Creatinine 0.6 mg/dL (0.7-1.2) L 06/02/21 17:30 GFR Calculation 142.0 mL/min (90-130) H 06/02/21 17:30 Glucose 134 mg/dL (65-115) H 06/02/21 17:30 Calculated Osmolality 282 mOsm/kg (285-295) L 06/02/21 17:30 Calcium 9.6 mg/dL (8.5-10.5) 06/02/21 17:30 Total Bilirubin 0.8 mg/dL (0.15-1.2) 06/02/21 17:30 AST 16 U/L (0-40) 06/02/21 17:30 ALT 22 U/L (0-41) 06/02/21 17:30 Alkaline Phosphatase 111 IU/L (40-130) 06/02/21 17:30 Troponin T Baseline 7 ng/L (0-15) 06/02/21 17:30 Troponin T 120 Minute 6.04 ng/L (0-15) 06/02/21 19:22 Delta Troponin T Not Reportable 06/02/21 19:22 Total Protein 7.6 g/dL (6.6-8.7) 06/02/21 17:30 Albumin 4.5 g/dL (3.5-5.2) 06/02/21 17:30 Globulin 3.1 g/dL (1.3-4.6) 06/02/21 17:30 Urine Opiates Screen Negative ng/mL (Negative) 06/02/21 19:29 Ur Barbiturates Screen Negative ng/mL (Negative) 06/02/21 19:29 Ur Phencyclidine Scrn Negative ng/mL (Negative) 06/02/21 19:29 Ur Amphetamines Screen Negative ng/mL (Negative) 06/02/21 19:29 U Benzodiazepines Scrn Negative ng/mL (Negative) 06/02/21 19:29 Urine Cocaine Screen Negative ng/mL (Negative) 06/02/21 19:29 U Marijuana (THC) Screen Negative ng/mL (Negative) 06/02/21 19:29 Ethyl Alcohol < 10 mg/dL (0-10) 06/02/21 17:30 Discharge Plan Discharge Patient Disposition: Home Clinical Impression: Dizziness, History of cerebral infarction Condition: Stable Prescriptions: No Action clopidogrel [Plavix] 75 mg tablet 75 mg PO DAILY Qty: 90 0RF losartan 50 mg Tablet 100 mg PO DAILY 0RF Hold Instructions: Resume on 01/04/21. metoprolol succinate 50 mg Tablet Extended Release 24 Hr 50 mg PO DAILY 0RF esomeprazole magnesium [Nexium] 20 mg Capsule,Delayed Release(Dr/Ec) 20 mg PO DAILY 0RF chlorthalidone 25 mg Tablet 25 mg PO DAILY 0RF Hold Instructions: Resume on 01/05/21. ferrous sulfate [Iron (ferrous sulfate)] 325 mg (65 mg iron) Tablet 325 mg PO DAILY 0RF hydrocodone-acetaminophen 5-325 mg tablet 1 tab PO Q8H PRN (Reason: pain) Qty: 6 0RF cimetidine 400 mg tablet 400 mg PO DAILY 0RF nortriptyline 50 mg capsule 50 mg PO BEDTIME 0RF amlodipine 10 mg tablet 10 mg PO DAILY Qty: 30 0RF Hold Instructions: Resume on 01/08/21. Rx Instructions: take with 5 mg tab to make 15 mg daily pregabalin 75 mg capsule 150 mg PO BID Qty: 60 0RF Isopto Tears 0.5 % Drops 1 drp eye-right Q4H PRN (Reason: Dry Eye(S)) Qty: 15 0RF aspirin 81 mg Tablet,Delayed Release (Dr/Ec) 81 mg PO DAILY Qty: 90 0RF atorvastatin 40 mg Tablet 40 mg PO BEDTIME Qty: 90 0RF nicotine 21 mg/24 hr Patch 24 Hour 1 patch transdermal DAILY Qty: 30 0RF polyethylene glycol 3350 17 gram Powder In Packet 17 g PO BID Qty: 30 0RF Metamucil (with sugar) 3.4 gram Powder In Packet 1 packet PO BID Qty: 60 0RF Discharge Orders: Discharge ED (Routine); Ordered 06/02/21 Ordered By: Dez Moraes Referrals: Ozzy Torres DO [Primary Care Provider] - Discharge Diet: Regular Discharge Activity: Increase activity as tolerated Patient Instructions: Dizziness (ED) Activity Restrictions/Additional Instructions: Follow-up with medical provider as directed. Case management should be contacting you in the next several days to set up an appointment for an MRI of head. Take medications as prescribed. Return to the ER or your medical provider if condition worsens. Please read and understand discharge instructions. Thank you for choosing [facility] for your healthcare needs today. Please realize this is an emergency room and that we are providing you with a medical screening exam and this may not be complete and all inclusive of all the testing and or work up that you may need to determine your ailment or severity of your illness. It is very important that you follow up as instructed or that you return to the Emergency Department should you have concerns or if your condition changes or worsens in any way. Sign Out Sign Out Data: Patient Sign Out occurred on 06/02/21 at 17:06. Patient's care was discussed, and care was transferred from to MAYELIN Ying. Coding Level of Care Code ED Telecommunications Consultant for Chg Fwd Exam Comprehensive Documented by User: MAYELIN Ying 06/02/21 22:50 HPI - Dizziness General: Chief Complaint: Dizziness Stated Complaint: dizziness and weakness Time Seen by Provider: 06/02/21 16:25 [facility] ED PFSH: Medical History (Updated 06/10/21 @ 00:00 by ) Acute CVA (cerebrovascular accident) Amputation of leg Hypertension Social History Smoking and tobacco status: current every day smoker Physical Exam Neuro: SHANE COMA SCALE: document GCS findings Shane coma scale total score: 15 Course Vital Signs: Vital signs: Vital Signs Temperature 98.1 F 06/02/21 15:03 Pulse Rate 98 06/02/21 20:50 Respiratory Rate 18 06/02/21 20:50 Blood Pressure 182/98 06/02/21 20:50 Pulse Oximetry 98 06/02/21 20:50 MDM - Dizziness Medical Decision Making Patient is a 50-year-old male who presents to ED today with a complaint of dizziness, visual changes/blurry vision, slurred speech, and trouble thinking. Past history of a cerebellar infarct. 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 Patient has not noticed any facial drooping/deficits. Patient was seen here in our facility on 05/12 for similar complaints. He had CT head and CTA head/neck performed. Dr. Willis was consulted who recommended MRI as an outpatient. He is currently being referred to [facility] by his primary care physician. Vitals are stable. Patient stroke score is 0. Rest of exam is benign. Labs were unremarkable and troponin negative. EKG showed no ST segment ovation or depression seen. No other acute findings noted. Head CT showed no acute abnormality. It did note a small chronic infarct in right cerebellar. CTA of head neck showed no occlusions or from both cysts, dissection or aneurysm. Talked with Dr. Núñez about patient case he recommended getting patient set up for an outpatient MRI. I placed order with case management for patient to get an outpatient MRI of head. Patient is stable for discharge home and was told to follow-up with his PCP in the next 5 to 7 days for reevaluation. Return to ED precautions given. Patient still agree with plan. Lab Data I reviewed the patient's lab results. : 06/02/21 17:30 06/02/21 17:[address] 06/02/21 16:33 IMPRESSION: 1. No acute abnormality of the brain. 2. Stable small area of encephalomalacia in the right cerebellar hemisphere suggesting chronic infarct. 3. Mild opacification within an anterior right ethmoid sinuses. Chest X-Ray 06/02/21 16:34 IMPRESSION: 1. No acute cardiopulmonary process. 2. Incidental/nonacute findings are listed in the report. Head/Neck CTA 06/02/21 18:42 IMPRESSION: 1. Atherosclerotic disease with multilevel mild stenoses. No occlusion, thrombosis, extravasation, dissection, or aneurysm. Findings are stable. 2. The posterior communicating arteries are not visualized. The posterior communicating arteries may be congenitally absent, or may be too small for the resolution capabilities of this study. 3. Diffusely small caliber of the A1 segment, likely congenital in nature. There is a common trunk of the A2 segment of the right and left anterior cerebral arteries that branches into right and left A3 segments. 4. Incidental/nonacute findings are listed in the report. IMPRESSION: 1. Atherosclerotic disease. Moderate stenosis at the origin of the right vertebral artery. No occlusion, thrombosis, extravasation, dissection, or aneurysm. Findings are stable. 2. Incidental/nonacute findings are listed in the report. REFERENCES: NASCET CRITERIA. The degree of internal carotid artery stenosis is based on NASCET criteria. Normal is no stenosis. Mild is less than 50% stenosis. Moderate is 50-69% stenosis. Severe is 70% to 99% stenosis. Total occlusion is no detectable patent lumen. Laboratory Results WBC 12.3 10^3/uL (4.0-10.0) H 06/02/21 17:30 RBC 5.81 10^6/uL (4.1-5.3) H 06/02/21 17:30 Hgb 17.1 g/dL (11.7-16.6) H 06/02/21 17:30 Hct 49.7 % (42.0-52.0) 06/02/21 17: MCV 85.5 fl (80-94) 06/02/21 17:30 MCH 29.4 pg (28.0-34.0) 06/02/21 17: MCHC 34.4 g/dL (30.0-36.0) 06/02/21 17: RDW 13.7 % (12.1-15.1) 06/02/21 17:30 Plt Count 326 10^3/cmm (130-400) 06/02/21 17:30 MPV 9.3 fL (7.4-10.4) 06/02/21 17: Neut % (Auto) 67.0 % 06/02/21 17: Lymph % (Auto) 20.8 % 06/02/21 17:30 Barber % (Auto) 6.9 % 06/02/21 17:30 Eos % (Auto) 3.9 % 06/02/21 17: Baso % (Auto) 1.1 % 06/02/21 17:30 Neut # (Auto) 8.27 10^3/uL (1.8-7.7) H 06/02/21 17:30 Lymph # (Auto) 2.6 10^3/uL (0.8-4.8) 06/02/21 17:30 Barber # (Auto) 0.9 10^3/uL (0.2-0.9) 06/02/21 17:30 Eos # (Auto) 0.5 10^3/uL (0.0-0.8) 06/02/21 17:30 Baso # (Auto) 0.1 10^3/uL (0.0-0.1) 06/02/21 17:30 Nucleated RBC % (auto) 0 % 06/02/21 17: Nucleated RBCs # 0.0 /100WBC 06/02/21 17:30 Sodium 136 mmol/L (136-145) 06/02/21 17:30 Potassium 3.5 mmol/L (3.5-5.1) 06/02/21 17:30 Chloride 98 mmol/L (98-107) 06/02/21 17:30 Carbon Dioxide 23 mmol/L (22-29) 06/02/21 17:30 Anion Gap 18.5 (5-19) 06/02/21 17:30 BUN 7 mg/dL (6-20) 06/02/21 17:30 Creatinine 0.6 mg/dL (0.7-1.2) L 06/02/21 17:30 GFR Calculation 142.0 mL/min (90-130) H 06/02/21 17:30 Glucose 134 mg/dL (65-115) H 06/02/21 17:30 Calculated Osmolality 282 mOsm/kg (285-295) L 06/02/21 17:30 Calcium 9.6 mg/dL (8.5-10.5) 06/02/21 17:30 Total Bilirubin 0.8 mg/dL (0.15-1.2) 06/02/21 17:30 AST 16 U/L (0-40) 06/02/21 17:30 ALT 22 U/L (0-41) 06/02/21 17:30 Alkaline Phosphatase 111 IU/L (40-130) 06/02/21 17:30 Troponin T Baseline 7 ng/L (0-15) 06/02/21 17:30 Troponin T 120 Minute 6.04 ng/L (0-15) 06/02/21 19:22 Delta Troponin T Not Reportable 06/02/21 19:22 Total Protein 7.6 g/dL (6.6-8.7) 06/02/21 17:30 Albumin 4.5 g/dL (3.5-5.2) 06/02/21 17:30 Globulin 3.1 g/dL (1.3-4.6) 06/02/21 17:30 Urine Opiates Screen Negative ng/mL (Negative) 06/02/21 19:29 Ur Barbiturates Screen Negative ng/mL (Negative) 06/02/21 19:29 Ur Phencyclidine Scrn Negative ng/mL (Negative) 06/02/21 19:29 Ur Amphetamines Screen Negative ng/mL (Negative) 06/02/21 19:29 U Benzodiazepines Scrn Negative ng/mL (Negative) 06/02/21 19:29 Urine Cocaine Screen Negative ng/mL (Negative) 06/02/21 19:29 U Marijuana (THC) Screen Negative ng/mL (Negative) 06/02/21 19:29 Ethyl Alcohol < 10 mg/dL (0-10) 06/02/21 17:30 EKG Data EKG 1: EKG interpretation date: 06/02/21 Interpretation: EKG shows sinus tachycardia, 100 bpm, no ST segment elevation or depression seen. Discharge Plan Discharge Patient Disposition: Home Clinical Impression: Dizziness, History of cerebral infarction Condition: Stable Prescriptions: No Action clopidogrel [Plavix] 75 mg tablet 75 mg PO DAILY Qty: 90 0RF losartan 50 mg Tablet 100 mg PO DAILY 0RF Hold Instructions: Resume on 01/04/21. metoprolol succinate 50 mg Tablet Extended Release 24 Hr 50 mg PO DAILY 0RF esomeprazole magnesium [Nexium] 20 mg Capsule,Delayed Release(Dr/Ec) 20 mg PO DAILY 0RF chlorthalidone 25 mg Tablet 25 mg PO DAILY 0RF Hold Instructions: Resume on 01/05/21. ferrous sulfate [Iron (ferrous sulfate)] 325 mg (65 mg iron) Tablet 325 mg PO DAILY 0RF hydrocodone-acetaminophen 5-325 mg tablet 1 tab PO Q8H PRN (Reason: pain) Qty: 6 0RF cimetidine 400 mg tablet 400 mg PO DAILY 0RF nortriptyline 50 mg capsule 50 mg PO BEDTIME 0RF amlodipine 10 mg tablet 10 mg PO DAILY Qty: 30 0RF Hold Instructions: Resume on 01/08/21. Rx Instructions: take with 5 mg tab to make 15 mg daily pregabalin 75 mg capsule 150 mg PO BID Qty: 60 0RF Isopto Tears 0.5 % Drops 1 drp eye-right Q4H PRN (Reason: Dry Eye(S)) Qty: 15 0RF aspirin 81 mg Tablet,Delayed Release (Dr/Ec) 81 mg PO DAILY Qty: 90 0RF atorvastatin 40 mg Tablet 40 mg PO BEDTIME Qty: 90 0RF nicotine 21 mg/24 hr Patch 24 Hour 1 patch transdermal DAILY Qty: 30 0RF polyethylene glycol 3350 17 gram Powder In Packet 17 g PO BID Qty: 30 0RF Metamucil (with sugar) 3.4 gram Powder In Packet 1 packet PO BID Qty: 60 0RF Discharge Orders: Discharge ED (Routine); Ordered 06/02/21 Ordered By: Dez Moraes Referrals: Ozzy Torres DO [Primary Care Provider] - Discharge Diet: Regular Discharge Activity: Increase activity as tolerated Patient Instructions: Dizziness (ED) Activity Restrictions/Additional Instructions: Follow-up with medical provider as directed. Case management should be contacting you in the next several days to set up an appointment for an MRI of head. Take medications as prescribed. Return to the ER or your medical provider if condition worsens. Please read and understand discharge instructions. Thank you for choosing [facility] for your healthcare needs today. Please realize this is an emergency room and that we are providing you with a medical screening exam and this may not be complete and all inclusive of all the testing and or work up that you may need to determine your ailment or severity of your illness. It is very important that you follow up as instructed or that you return to the Emergency Department should you have concerns or if your condition changes or worsens in any way. Sign Out Sign Out Data: Patient Sign Out occurred on 06/02/21 at 17:06. Patient's care was discussed, and care was transferred from to MAYELIN Ying. Coding Level of Care Code ED Telecommunications Consultant for Chg Fwd Exam Comprehensive Documented by User: Jonnie Pedraza MD 06/12/21 16:21 HPI - Dizziness General: Chief Complaint: Dizziness Stated Complaint: dizziness and weakness Time Seen by Provider: 06/02/21 16:25 PFSH ED PFSH: Medical History (Updated 06/10/21 @ 00:00 by ) Acute CVA (cerebrovascular accident) Amputation of leg Hypertension Social History Smoking and tobacco status: current every day smoker Physical Exam Neuro: SHANE COMA SCALE: document GCS findings Spalding coma scale total score: 15 Course Vital Signs: Vital signs: Vital Signs Temperature 98.1 F 06/02/21 15:03 Pulse Rate 98 06/02/21 20:50 Respiratory Rate 18 06/02/21 20:50 Blood Pressure 182/98 06/02/21 20:50 Pulse Oximetry 98 06/02/21 20:50 MDM - Dizziness Medical Decision Making Patient is a 50-year-old male who presents to ED today with a complaint of dizziness, visual changes/blurry vision, slurred speech, and trouble thinking. Past history of a cerebellar infarct. 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 Patient has not noticed any facial drooping/deficits. Patient was seen here in our facility on 05/12 for similar complaints. He had CT head and CTA head/neck performed. Dr. Willis was consulted who recommended MRI as an outpatient. He is currently being referred to [facility] neuro by his primary care physician. Vitals are stable. Patient stroke score is 0. Rest of exam is benign. Labs were unremarkable and troponin negative. EKG showed no ST segment ovation or depression seen. No other acute findings noted. Head CT showed no acute abnormality. It did note a small chronic infarct in right cerebellar. CTA of head neck showed no occlusions or from both cysts, dissection or aneurysm. Talked with Dr. Núñez about patient case he recommended getting patient set up for an outpatient MRI. I placed order with case management for patient to get an outpatient MRI of head. Patient is stable for discharge home and was told to follow-up with his PCP in the next 5 to 7 days for reevaluation. Return to ED precautions given. Patient still agree with plan. I discussed this case with MAYELIN Coughlin. I have reviewed this documentation. Jonnie Pedraza MD Emergency Medicine Lab Data : 06/02/21 17:30 06/02/21 17:[address] 06/02/21 16:33 IMPRESSION: 1. No acute abnormality of the brain. 2. Stable small area of encephalomalacia in the right cerebellar hemisphere suggesting chronic infarct. 3. Mild opacification within an anterior right ethmoid sinuses. Chest X-Ray 06/02/21 16:34 IMPRESSION: 1. No acute cardiopulmonary process. 2. Incidental/nonacute findings are listed in the report. Head/Neck CTA 06/02/21 18:42 IMPRESSION: 1. Atherosclerotic disease with multilevel mild stenoses. No occlusion, thrombosis, extravasation, dissection, or aneurysm. Findings are stable. 2. The posterior communicating arteries are not visualized. The posterior communicating arteries may be congenitally absent, or may be too small for the resolution capabilities of this study. 3. Diffusely small caliber of the A1 segment, likely congenital in nature. There is a common trunk of the A2 segment of the right and left anterior cerebral arteries that branches into right and left A3 segments. 4. Incidental/nonacute findings are listed in the report. IMPRESSION: 1. Atherosclerotic disease. Moderate stenosis at the origin of the right vertebral artery. No occlusion, thrombosis, extravasation, dissection, or aneurysm. Findings are stable. 2. Incidental/nonacute findings are listed in the report. REFERENCES: NASCET CRITERIA. The degree of internal carotid artery stenosis is based on NASCET criteria. Normal is no stenosis. Mild is less than 50% stenosis. Moderate is 50-69% stenosis. Severe is 70% to 99% stenosis. Total occlusion is no detectable patent lumen. Laboratory Results WBC 12.3 10^3/uL (4.0-10.0) H 06/02/21 17:30 RBC 5.81 10^6/uL (4.1-5.3) H 06/02/21 17:30 Hgb 17.1 g/dL (11.7-16.6) H 06/02/21 17: Hct 49.7 % (42.0-52.0) 06/02/21 17: MCV 85.5 fl (80-94) 06/02/21 17: MCH 29.4 pg (28.0-34.0) 06/02/21: MCHC 34.4 g/dL (30.0-36.0) 06/02/21 17: RDW 13.7 % (12.1-15.1) 06/02/21: Plt Count 326 10^3/cmm (130-400) 06/02/21: MPV 9.3 fL (7.4-10.4) 06/02/21: Neut % (Auto) 67.0 % 06/02/21: Lymph % (Auto) 20.8 % 06/02/21: Barber % (Auto) 6.9 % 06/02/21 17: Eos % (Auto) 3.9 % 06/02/21 17: Baso % (Auto) 1.1 % 06/02/21: Neut # (Auto) 8.27 10^3/uL (1.8-7.7) H 06/02/21: Lymph # (Auto) 2.6 10^3/uL (0.8-4.8) 06/02/21: Barber # (Auto) 0.9 10^3/uL (0.2-0.9) 06/02/21 17: Eos # (Auto) 0.5 10^3/uL (0.0-0.8) 06/02/21: Baso # (Auto) 0.1 10^3/uL (0.0-0.1) 06/02/21: Nucleated RBC % (auto) 0 % 06/02/21: Nucleated RBCs # 0.0 /100WBC 06/02/21: Sodium 136 mmol/L (136-145) 06/02/21: Potassium 3.5 mmol/L (3.5-5.1) 06/02/21 17:30 Chloride 98 mmol/L (98-107) 06/02/21 17:30 Carbon Dioxide 23 mmol/L (22-29) 06/02/21 17:30 Anion Gap 18.5 (5-19) 06/02/21 17:30 BUN 7 mg/dL (6-20) 06/02/21 17:30 Creatinine 0.6 mg/dL (0.7-1.2) L 06/02/21 17:30 GFR Calculation 142.0 mL/min (90-130) H 06/02/21 17:30 Glucose 134 mg/dL (65-115) H 06/02/21 17:30 Calculated Osmolality 282 mOsm/kg (285-295) L 06/02/21 17:30 Calcium 9.6 mg/dL (8.5-10.5) 06/02/21 17:30 Total Bilirubin 0.8 mg/dL (0.15-1.2) 06/02/21 17:30 AST 16 U/L (0-40) 06/02/21 17:30 ALT 22 U/L (0-41) 06/02/21 17:30 Alkaline Phosphatase 111 IU/L (40-130) 06/02/21 17:30 Troponin T Baseline 7 ng/L (0-15) 06/02/21 17:30 Troponin T 120 Minute 6.04 ng/L (0-15) 06/02/21 19:22 Delta Troponin T Not Reportable 06/02/21 19:22 Total Protein 7.6 g/dL (6.6-8.7) 06/02/21 17:30 Albumin 4.5 g/dL (3.5-5.2) 06/02/21 17:30 Globulin 3.1 g/dL (1.3-4.6) 06/02/21 17:30 Urine Opiates Screen Negative ng/mL (Negative) 06/02/21 19:29 Ur Barbiturates Screen Negative ng/mL (Negative) 06/02/21 19:29 Ur Phencyclidine Scrn Negative ng/mL (Negative) 06/02/21 19:29 Ur Amphetamines Screen Negative ng/mL (Negative) 06/02/21 19:29 U Benzodiazepines Scrn Negative ng/mL (Negative) 06/02/21 19:29 Urine Cocaine Screen Negative ng/mL (Negative) 06/02/21 19:29 U Marijuana (THC) Screen Negative ng/mL (Negative) 06/02/21 19:29 Ethyl Alcohol < 10 mg/dL (0-10) 06/02/21 17:30 Discharge Plan Discharge Patient Disposition: Home Clinical Impression: Dizziness, History of cerebral infarction Condition: Stable Prescriptions: No Action clopidogrel [Plavix] 75 mg tablet 75 mg PO DAILY Qty: 90 0RF losartan 50 mg Tablet 100 mg PO DAILY 0RF Hold Instructions: Resume on 01/04/21. metoprolol succinate 50 mg Tablet Extended Release 24 Hr 50 mg PO DAILY 0RF esomeprazole magnesium [Nexium] 20 mg Capsule,Delayed Release(Dr/Ec) 20 mg PO DAILY 0RF chlorthalidone 25 mg Tablet 25 mg PO DAILY 0RF Hold Instructions: Resume on 01/05/21. ferrous sulfate [Iron (ferrous sulfate)] 325 mg (65 mg iron) Tablet 325 mg PO DAILY 0RF hydrocodone-acetaminophen 5-325 mg tablet 1 tab PO Q8H PRN (Reason: pain) Qty: 6 0RF cimetidine 400 mg tablet 400 mg PO DAILY 0RF nortriptyline 50 mg capsule 50 mg PO BEDTIME 0RF amlodipine 10 mg tablet 10 mg PO DAILY Qty: 30 0RF Hold Instructions: Resume on 01/08/21. Rx Instructions: take with 5 mg tab to make 15 mg daily pregabalin 75 mg capsule 150 mg PO BID Qty: 60 0RF Isopto Tears 0.5 % Drops 1 drp eye-right Q4H PRN (Reason: Dry Eye(S)) Qty: 15 0RF aspirin 81 mg Tablet,Delayed Release (Dr/Ec) 81 mg PO DAILY Qty: 90 0RF atorvastatin 40 mg Tablet 40 mg PO BEDTIME Qty: 90 0RF nicotine 21 mg/24 hr Patch 24 Hour 1 patch transdermal DAILY Qty: 30 0RF polyethylene glycol 3350 17 gram Powder In Packet 17 g PO BID Qty: 30 0RF Metamucil (with sugar) 3.4 gram Powder In Packet 1 packet PO BID Qty: 60 0RF Discharge Orders: Discharge ED (Routine); Ordered 06/02/21 Ordered By: Dez Moraes Referrals: Ozzy Torres DO [Primary Care Provider] - Discharge Diet: Regular Discharge Activity: Increase activity as tolerated Patient Instructions: Dizziness (ED) Activity Restrictions/Additional Instructions: Follow-up with medical provider as directed. Case management should be contacting you in the next several days to set up an appointment for an MRI of head. Take medications as prescribed. Return to the ER or your medical provider if condition worsens. Please read and understand discharge instructions. Thank you for choosing [facility] for your healthcare needs today. Please realize this is an emergency room and that we are providing you with a medical screening exam and this may not be complete and all inclusive of all the testing and or work up that you may need to determine your ailment or severity of your illness. It is very important that you follow up as instructed or that you return to the Emergency Department should you have concerns or if your condition changes or worsens in any way. Sign Out Sign Out Data: Patient Sign Out occurred on 06/02/21 at 17:06. Patient's care was discussed, and care was transferred from to MAYELIN Ying. Coding Level of Care Code ED Telecommunications Consultant for Dickson Klein Exam Comprehensive
--- NOTE | 2021-06-02 16:45 | ECG_ITS ---
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 Measurements Intervals [place] Rate: 109 P: 49 NM: 145 QRS: -5 QRSD: 106 T: 46 QT: 352 QTc: 475 Interpretive Statements SINUS TACHYCARDIA INCOMPLETE RIGHT BUNDLE BRANCH BLOCK [90+ ms QRS DURATION, TERMINAL R IN V1/V2, 40+ ms S IN I/aVL/V4/V5/V6] Compared to ECG 12/28/2020 11:23:42 Incomplete right bundle-branch block now present Electronically Signed On 06-03-2021 8:31:41 ONBOARDING SPECIALIST by Beatriz Lopez M.D. [id number]
[2021-06-02] MEDS: lactated ringers 1,000 ML 999 ML IV (17:30)
[2021-06-02 17:31] VITALS: BP 147/100; PULSE 105; RESP 13; O2SAT 94
[2021-06-02 17:40] LABS: Basophils # 0.1 10^3/uL (0.0-0.1); Basophils % 1.1 %; Eosinophils # 0.5 10^3/uL (0.0-0.8); Eosinophils % 3.9 %; Hematocrit 49.7 % (42.0-52.0); Hemoglobin 17.1 g/dL (11.7-16.6); Lymphocytes # 2.6 10^3/uL (0.8-4.8); Lymphocytes % 20.8 %; Mean Corpuscular HGB Conc 34.4 g/dL (30.0-36.0); Mean Corpuscular Hemoglobin 29.4 pg (28.0-34.0); Mean Corpuscular Volume 85.5 fl (80-94); Mean Platelet Volume 9.3 fL (7.4-10.4); Monocytes # 0.9 10^3/uL (0.2-0.9); Monocytes % 6.9 %; Neutrophils # 8.27 10^3/uL (1.8-7.7); Nucleated Red Blood Cells % 0 %; Platelet Count 326 10^3/cmm (130-400); Red Blood Count 5.81 10^6/uL (4.1-5.3); Red Cell Distribution Width 13.7 % (12.1-15.1); White Blood Count 12.3 10^3/uL (4.0-10.0)
[2021-06-02 18:04] LABS: Troponin(5th) Baseline 7 ng/L (0-15)
[2021-06-02 18:15] LABS: Alanine Aminotransferase 22 U/L (0-41); Albumin Level 4.5 g/dL (3.5-5.2); Alkaline Phosphatase 111 IU/L (40-130); Anion Gap 18.5 (5-19); Aspartate Amino Transferase 16 U/L (0-40); Blood Urea Nitrogen 7 mg/dL (6-20); Calcium 9.6 mg/dL (8.5-10.5); Carbon Dioxide 23 mmol/L (22-29); Chloride 98 mmol/L (98-107); Globulin 3.1 g/dL (1.3-4.6); Glucose 134 mg/dL (65-115); Osmolality Calculated 282 mOsm/kg (285-295); Potassium 3.5 mmol/L (3.5-5.1); Sodium 136 mmol/L (136-145); Total Bilirubin 0.8 mg/dL (0.15-1.2); Total Protein 7.6 g/dL (6.6-8.7)
[2021-06-02 18:16] LABS: Alcohol Level < 10 mg/dL (0-10)
--- NOTE | 2021-06-02 18:42 | CTR_ITS ---
PROCEDURE INFORMATION: Exam: CT Angiography Head With Contrast, Arteriography Exam date and time: 06/02/2021 6:42 PM Age: 50 years old Clinical indication: Patient HX: C/O dizziness and L sided numbness; Additional info: Dizziness. History of stroke TECHNIQUE: Imaging protocol: Computed tomography angiography of the head with contrast. Exam focused on the arteries. 3D rendering (Not supervised by radiologist): MIP and/or 3D reconstructed images were created by the technologist. Radiation optimization: All CT scans at this facility use at least one of these dose optimization techniques: automated exposure control; mA and/or kV adjustment per patient size (includes targeted exams where dose is matched to clinical indication); or iterative reconstruction. Contrast material: OMNI 350; Contrast volume: 90 ml; Contrast route: INTRAVENOUS (IV); COMPARISON: 1. CT angio headneck* [id number] 05/12/2021 12:[address] head wo con* [id number] 06/02/2021 4:59 PM RADIATION DOSE METRICS: Total DLP (mGy-cm): 2228.61 FINDINGS: ANTERIOR CIRCULATION: Right internal carotid artery: Unremarkable. No occlusion, thrombosis, stenosis, extravasation, dissection, or aneurysm. Right middle cerebral artery: Unremarkable. No occlusion, thrombosis, stenosis, extravasation, dissection, or aneurysm. Right anterior cerebral artery: Diffusely small caliber of the A1 segment, likely congenital in nature. There is a common trunk of the A2 segment of the right and left anterior cerebral arteries that branches into right and left A3 segments. No occlusion, thrombosis, stenosis, extravasation, dissection, or aneurysm. Findings are stable. Anterior communicating artery: The anterior communicating artery is unremarkable. Left internal carotid artery: Stable mild calcified plaque at the cavernous segment. No occlusion, thrombosis, stenosis, extravasation, dissection, or aneurysm. Left middle cerebral artery: Unremarkable. No occlusion, thrombosis, stenosis, extravasation, dissection, or aneurysm. Left anterior cerebral artery: See right anterior cerebral artery . POSTERIOR CIRCULATION: Right vertebral artery: Diffusely small caliber, likely congenital in nature. No occlusion, thrombosis, extravasation, dissection, or aneurysm. Left vertebral artery: Dominant left vertebral artery. Stable mild calcified and moderate noncalcified plaque with diffuse irregularity. 30% stenosis in the distal left vertebral artery. No occlusion, thrombosis, extravasation, dissection, or aneurysm. Basilar artery: Mild noncalcified plaque with mild irregularity. No occlusion, thrombosis, stenosis, extravasation, dissection, or aneurysm. Right posterior cerebral artery: Unremarkable. No occlusion, thrombosis, stenosis, dissection, or aneurysm. Left posterior cerebral artery: Unremarkable. No occlusion, thrombosis, stenosis, extravasation, dissection, or aneurysm. Right posterior communicating artery: The right posterior communicating artery is not visualized. The right posterior communicating artery may be congenitally absent, or may be too small for the resolution capabilities of this study. Left posterior communicating artery: The left posterior communicating artery is not visualized. The left posterior communicating artery may be congenitally absent, or may be too small for the resolution capabilities of this study. Brain: No definite mass, mass effect, or midline shift. Cerebral ventricles: No hydrocephalus. Orbital cavity: Globes and lenses, extraocular muscles, and optic nerves are intact bilaterally. No acute intraorbital abnormality. Bones/joints: Unremarkable. No acute fracture. Mastoid air cells: Mastoid air cells are clear bilaterally. Soft tissues: No acute abnormality of the extracranial soft tissues. Paranasal sinuses: Stable opacification within an anterior right ethmoid sinus. Other paranasal sinuses are clear. PROCEDURE INFORMATION: Exam: CT Angiography Neck With Contrast Exam date and time: 06/02/2021 6:42 PM Age: 50 years old Clinical indication: Patient HX: C/O dizziness and L sided numbness; Additional info: Dizziness. History of stroke TECHNIQUE: Imaging protocol: Computed tomography angiography of the neck with contrast. 3D rendering (Not supervised by radiologist): MIP and/or 3D reconstructed images were created by the technologist. Radiation optimization: All CT scans at this facility use at least one of these dose optimization techniques: automated exposure control; mA and/or kV adjustment per patient size (includes targeted exams where dose is matched to clinical indication); or iterative reconstruction. Contrast material: OMNI 350; Contrast volume: 90 ml; Contrast route: INTRAVENOUS (IV); COMPARISON: CT angio headneck* [id number] 05/12/2021 12:07 PM RADIATION DOSE METRICS: Total DLP (mGy-cm): 2228.61 FINDINGS: Right common carotid artery: Unremarkable. No occlusion, thrombosis, stenosis, extravasation, dissection, or aneurysm. Right internal carotid artery: Unremarkable. No occlusion, thrombosis, stenosis, extravasation, dissection, or aneurysm. Right external carotid artery: Unremarkable. No occlusion, thrombosis, stenosis, extravasation, dissection, or aneurysm. Left common carotid artery: Mild calcified and noncalcified plaque at the carotid bulb. No occlusion, thrombosis, stenosis, extravasation, dissection, or aneurysm. Left internal carotid artery: Stable mild noncalcified plaque at the origin. No occlusion, thrombosis, stenosis, extravasation, dissection, or aneurysm. Left external carotid artery: Mild noncalcified plaque at the origin. No occlusion, thrombosis, stenosis, extravasation, dissection, or aneurysm. Right vertebral artery: Diffusely small caliber, likely congenital in nature. Stable moderate calcified plaque at the origin with 50% stenosis. Left vertebral artery: Dominant left vertebral artery. Left vertebral artery is unremarkable.. No occlusion, thrombosis, stenosis, dissection, or aneurysm. Brachiocephalic artery: Unremarkable. No occlusion, thrombosis, stenosis, extravasation, dissection, or aneurysm. Subclavian arteries: Mild calcified plaque at the origin of the right subclavian artery and mild calcified and noncalcified plaque at the origin left subclavian artery. No occlusion, thrombosis, stenosis, extravasation, dissection, or aneurysm. Aorta: Mild calcified plaque in the visualized aortic arch. Lymph nodes: No lymphadenopathy. Soft tissues: No soft tissue swelling. No radiopaque foreign body. Bones/joints: Multilevel degenerative changes of varying severity in the visualized spine. Lungs: Visualized lungs are clear. Mild centrilobular emphysematous changes in the lungs. CT/CT angio headneck* [id number] IMPRESSION: 1. Atherosclerotic disease with multilevel mild stenoses. No occlusion, thrombosis, extravasation, dissection, or aneurysm. Findings are stable. 2. The posterior communicating arteries are not visualized. The posterior communicating arteries may be congenitally absent, or may be too small for the resolution capabilities of this study. 3. Diffusely small caliber of the A1 segment, likely congenital in nature. There is a common trunk of the A2 segment of the right and left anterior cerebral arteries that branches into right and left A3 segments. 4. Incidental/nonacute findings are listed in the report. IMPRESSION: 1. Atherosclerotic disease. Moderate stenosis at the origin of the right vertebral artery. No occlusion, thrombosis, extravasation, dissection, or aneurysm. Findings are stable. 2. Incidental/nonacute findings are listed in the report. REFERENCES: NASCET CRITERIA. The degree of internal carotid artery stenosis is based on NASCET criteria. Normal is no stenosis. Mild is less than 50% stenosis. Moderate is 50-69% stenosis. Severe is 70% to 99% stenosis. Total occlusion is no detectable patent lumen.
--- NOTE | 2021-06-02 18:45 | ECG_ITS ---
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 Measurements Intervals [place] Rate: 100 P: 52 [place]: 150 QRS: -3 QRSD: 107 T: 30 QT: 369 QTc: 477 Interpretive Statements SINUS TACHYCARDIA INCOMPLETE RIGHT BUNDLE BRANCH BLOCK NONSPECIFIC T-WAVE ABNORMALITY Compared to ECG 06/02/2021 17:23:50 T-wave abnormality now present Electronically Signed On 06-03-2021 8:42:51 MANAGEMENT ASSISTANT by Beatriz Lopez M.D. [id number]
[2021-06-02] MEDS: iohexol 350 mg/mL 100 mL Btl IV (19:18)
[2021-06-02 19:47] LABS: Troponin 5 2HR 6.04 ng/L (0-15)
[2021-06-02 19:47] LABS: Amphetamines Screen Urine Negative (Negative); Barbiturates Screen Urine Negative (Negative); Benzodiazepines Screen Urine Negative (Negative); Cocaine Screen Urine Negative (Negative); Opiate Screen Urine Negative (Negative); PCP Screen Urine Negative (Negative); THC Screen Urine Negative (Negative)
[2021-06-02 20:50] VITALS: BP 182/98; PULSE 98; RESP 18; O2SAT 98
--- NOTE | 2021-06-06 06:28 | DCPLANNER ---
Addendum entered by Enid Toure 08/09/21 20:23: Patient had an MRI scheduled for 07.24.21 - appointment was rescheduled. Addendum entered by Enid Toure 06/30/21 08:04: Patient has an outpatient MRI scheduled for Saturday, July 24, 2021 at 8:45. Centralized scheduling will call patient with appointment information. Original Note: radiology manager had message to schedule an outpatient MRI for patient. radiology manager faxed signed order to centralized scheduling, who will call patient with appointment information.
== END 2021-06-02 20:51 | disposition home or self-care (01) ==
PROVIDERS: Physician Assistant; Emergency Provider Physician Assistant; PCP Internal Medicine
DX: R42 Dizziness and giddiness (principal); Z79.82 Long term (current) use of aspirin; Z86.73 Personal history of transient ischemic attack (TIA), and cerebral infarction without residual deficits; I10 Essential (primary) hypertension; F17.210 Nicotine dependence, cigarettes, uncomplicated; Z89.619 Acquired absence of unspecified leg above knee
CPT/HCPCS: 36415; 70450; 70496; 70498; 71045; 80053; 80306; 80307; 84484; 85025; 93005; 96360; 99284; Q9967

== ENCOUNTER 2021-06-30 10:28 | Emergency (ER) | payer BC, MEDICARE, MEDICAID, SELFPAY ==
[2021-06-30 10:37] VITALS: BP 165/93; PULSE 91; RESP 17; TEMP 36.7; O2SAT 97; BMI 26.6
--- NOTE | 2021-06-30 11:03 | W.ED.SOB ---
HPI - SOB/Dyspnea General: Chief Complaint: Shortness of Breath/Dyspnea Stated Complaint: Diffculty breathing, Believe he had a stroke sunda Time Seen by Provider: 06/30/21 11:03 History of Present Illness: HPI Narrative: Mr Garcia is a 50-year-old gentleman with history of hypertension, history of stroke with residual left-sided sensory deficits, history of dysphagia, current tobaccoism who presents to the emergency department due to concern over aspiration and repeat stroke. He reports approximately 1 week ago subacute onset of hoarseness and progressive shortness of breath since that time. He does endorse when he sleeps occasionally waking up choking, he has been on a PPI but does feel that he has aspirated. He has had similar episodes in the past however these typically resolve after approximately 2 or 3 days. He endorses mild cough and mild shortness of breath. Denies chest pain or other significant changes in health. Intensity symptoms are moderate. Course has persisted. He reports compliance with his aspirin and Plavix as well as other medications. He is currently working on quitting smoking but does still smoke. No other specific changes in health, exacerbating, or alleviating factors identified. Onset (ago): week(s) Severity: moderate Exacerbating factors: lying flat Review of Systems General: Reports: 10 or more systems reviewed and unremarkable except in HPI and below PFSH ED PFSH: Medical History (Updated 06/30/21 @ 12:58 by Jonnie Pedraza MD) Acute CVA (cerebrovascular accident) Amputation of leg Hypertension Social History Smoking and tobacco status: current every day smoker Physical Exam Const: COMMON NORMALS: patient oriented x3 and alert GENERAL APPEARANCE: cooperative and well developed HENMT: COMMON NORMALS: normocephalic and atraumatic HEAD & SCALP: normocephalic and atraumatic Eye: COMMON NORMALS: conjunctivae normal CONJUNCTIVA: Yes conjunctivae normal SCLERA: sclerae normal Neck/C-Spine: COMMON NORMALS: supple GENERAL: Yes trachea midline Resp: EFFORT & INSPECTION: Yes able to speak in complete sentences AUSCULTATION: diminished lung sounds Cardio: COMMON NORMALS: regular rate and regular rhythm RATE: regular rate RHYTHM: regular rhythm GI: COMMON NORMALS: Soft to palpation PALPATION: Yes Soft to palpation and No Tenderness to palpation present (GI) PERCUSSION: normal to percussion Extremity: NARRATIVE EXTREMITY EXAM: RLE amputation GENERAL: Yes normal exam except as noted and No edema Neuro: COMMON NORMALS: patient oriented x3, CN's II-XII intact bilaterally, moves all extremities and no focal motor deficits; negative for no sensory deficits noted (baseline) SENSORIUM/ORIENTATION: Yes alert and No Orientation impaired Psych: COMMON NORMALS: mental status grossly normal and Normal thought process present THOUGHT PROCESS: Normal thought process present Course ED course: - Patient was seen and evaluated by me at bedside - Patient placed on cardiac monitors, IV access obtained - Initial evaluation notable for exam as above - Labs and xrays personally interpreted by me - RT treatment, steroids, antibiotics given - Labs notable for mild leukocytosis, normal hemoglobin. Metabolic panel without acute derangement. - Imaging notable for no lobar consolidation or pneumothorax. CT head without evidence of acute hemorrhage or mass. - Upon serial reexamination after treatment the patient was improved - Based on patient history, evaluation, and testing as interpreted the most likely cause of the patient's condition is pneumonia likely secondary to aspiration - The results of ED evaluation were discussed with the patient including prescriptions and/or symptomatic cares (if applicable) including appropriate and responsible use, followup plan, and return precautions. The patient verbalized understanding and felt safe for discharge. - Patient discharged in satisfactory condition. Note: Click bubbles or prepopulated salgado in note writing are used for assistance with data collection and billing and are inherently more limited than narrative and other text portions of this note. Please use narrative for additional clinical history and defer to narrative/free test for any case of contradictory information. If information appears in only free text or click bubble it should be considered present or absent as reported. Please contact note designer writer for clarifications of clinical information or contradictory information. MDM is a brief summary, contradictory or erroneous seeming information should be clarified and full note should be reviewed. Vital Signs: Vital signs: Vital Signs Temperature 98.1 F 06/30/21 10:37 Pulse Rate 90 06/30/21 13:14 Respiratory Rate 15 06/30/21 13:14 Blood Pressure 147/90 06/30/21 13:14 Pulse Oximetry 91 06/30/21 13:14 MDM - SOB/Dyspnea Medical Decision Making 50-year-old gentleman with complex past medical history including stroke presenting with concern over shortness of breath and possible worsening symptoms. Neurologic exam grossly unchanged from previous. Patient is high risk for aspiration given history of stroke with dysphagia and clinically consistent with pneumonia. Patient is nontoxic in appearance. Satisfactory for outpatient management with antibiotics given improvement with ED treatment. We will plan to refer for outpatient speech-language pathology. Medical Records I reviewed the patient's medical records. Lab Data I reviewed the patient's lab results. : 06/30/21 11:40 06/30/21 11:40 Labs/Radiology: Radiology Impressions Chest X-Ray 06/30/21 11:15 IMPRESSION: 1. No acute cardiopulmonary finding. Head CT 06/30/21 11:15 IMPRESSION: 1. No acute intracranial hemorrhage or edema. 2. Prior stable RIGHT cerebellar infarct. Laboratory Results WBC 12.5 10^3/uL (4.0-10.0) H 06/30/21 11:40 RBC 5.38 10^6/uL (4.1-5.3) H 06/30/21 11:40 Hgb 15.8 g/dL (11.7-16.6) 06/30/21 11:40 Hct 47.8 % (42.0-52.0) 06/30/21 11:40 MCV 88.8 fl (80-94) 06/30/21 11:40 MCH 29.4 pg (28.0-34.0) 06/30/21 11:40 MCHC 33.1 g/dL (30.0-36.0) 06/30/21 11:40 RDW 13.9 % (12.1-15.1) 06/30/21 11:40 Plt Count 319 10^3/cmm (130-400) 06/30/21 11:40 MPV 9.2 fL (7.4-10.4) 06/30/21 11:40 Neut % (Auto) 64.6 % 06/30/21 11:40 Lymph % (Auto) 21.2 % 06/30/21 11:40 [place] % (Auto) 9.8 % 06/30/21 11:40 Eos % (Auto) 3.2 % 06/30/21 11:40 Baso % (Auto) 0.8 % 06/30/21 11:40 Neut # (Auto) 8.04 10^3/uL (1.8-7.7) H 06/30/21 11:40 Lymph # (Auto) 2.6 10^3/uL (0.8-4.8) 06/30/21 11:40 [place] # (Auto) 1.2 10^3/uL (0.2-0.9) H 06/30/21 11:40 Eos # (Auto) 0.4 10^3/uL (0.0-0.8) 06/30/21 11:40 Baso # (Auto) 0.1 10^3/uL (0.0-0.1) 06/30/21 11:40 Nucleated RBC % (auto) 0 % 06/30/21 11:40 Nucleated RBCs # 0.0 /100WBC 06/30/21 11:40 Sodium 139 mmol/L (136-145) 06/30/21 11:40 Potassium 4.3 mmol/L (3.5-5.1) 06/30/21 11:40 Chloride 103 mmol/L (98-107) 06/30/21 11:40 Carbon Dioxide 24 mmol/L (22-29) 06/30/21 11:40 Anion Gap 16.3 (5-19) 06/30/21 11:40 BUN 9 mg/dL (6-20) 06/30/21 11:40 Creatinine 0.8 mg/dL (0.7-1.2) 06/30/21 11:40 GFR Calculation 101.9 mL/min (90-130) 06/30/21 11:40 Glucose 104 mg/dL (65-115) 06/30/21 11:40 Calculated Osmolality 287 mOsm/kg (285-295) 06/30/21 11:40 Calcium 9.2 mg/dL (8.5-10.5) 06/30/21 11:40 Total Bilirubin 0.2 mg/dL (0.15-1.2) 06/30/21 11:40 AST 15 U/L (0-40) 06/30/21 11:40 ALT 20 U/L (0-41) 06/30/21 11:40 Alkaline Phosphatase 108 IU/L (40-130) 06/30/21 11:40 Total Protein 6.7 g/dL (6.6-8.7) 06/30/21 11:40 Albumin 4.3 g/dL (3.5-5.2) 06/30/21 11:40 Globulin 2.4 g/dL (1.3-4.6) 06/30/21 11:40 Discharge Plan Discharge Patient Disposition: Home Clinical Impression: Aspiration pneumonia, COPD (chronic obstructive pulmonary disease), Bronchitis Condition: Stable Prescriptions: New amoxicillin-pot clavulanate 875-125 mg tablet 1 tab PO BID Qty: 20 0RF No Action metoprolol succinate 50 mg Tablet Extended Release 24 Hr 50 mg PO BEDTIME 0RF ferrous sulfate [Iron (ferrous sulfate)] 325 mg (65 mg iron) Tablet 325 mg PO DAILY 0RF cimetidine 400 mg tablet 400 mg PO BEDTIME 0RF aspirin 325 mg Tablet 325 mg PO BEDTIME 0RF Plavix 75 mg tablet 75 mg PO BEDTIME 0RF amlodipine 10 mg tablet 10 mg PO BEDTIME 0RF pregabalin 150 mg capsule 150 mg PO BID 0RF omeprazole 40 mg capsule,delayed release(DR/EC) 40 mg PO BID 0RF pantoprazole 40 mg tablet,delayed release (DR/EC) 40 mg PO BEDTIME 0RF losartan 100 mg tablet 100 mg PO BEDTIME 0RF Discharge Orders: Discharge ED (Routine); Ordered 06/30/21 Ordered By: Jonnie Pedraza Referrals: Ozzy Torres DO [Primary Care Provider] - Patient Instructions: Acute Bronchitis (ED), COPD (Chronic Obstructive Pulmonary Disease) (ED), GERD (Gastroesophageal Reflux Disease) (ED), Bacterial Pneumonia (ED), Aspiration Precautions (ED) Activity Restrictions/Additional Instructions: Thank you for visiting the emergency department. You were seen and evaluated for cough, voice change, and concern over aspiration and strokelike symptoms. The exact cause of your symptoms is unclear though likely related to aspiration pneumonia/bronchitis. You will be given a prescription for steroids and antibiotics. I would expect that these would improve your symptoms however please ensure to return to the emergency department if symptoms worsen despite treatment and make sure to follow-up with your primary care provider. Given your history of stroke and aspiration I will message case management regarding referral for outpatient [facility] follow-up. Please return to the emergency department for anything else that you are concerned about and feel needs emergency department evaluation. Coding Level of Care Code ED [employer] [employer] for [facility] Fwd Exam Comprehensive
--- NOTE | 2021-06-30 11:15 | CT_ITS ---
WS: [id number] CT HEAD NONCONTRAST HISTORY: new hoarseness, hx strokes TECHNIQUE: Contiguous axial imaging performed through the brain in 2.5 mm imaging. Bone and soft tiss ue windows. Sagittal and coronal reformats reviewed. All CT scans at [facility] use at least one of these dose optimization techniques: automated exposure control; mA and/or kV adjustment per pa tient size (includes targeted exams where dose is matched to clinical indication); or iterative recon struction. DLP: 1053.45 mGy.cm COMPARISON: 06/02/2021, 05/12/2021 No acute intracranial hemorrhage, midline shift or mass effect. No significant atrophy. Prior infarct in the posterior RIGHT cerebellum. There is an area of encephal omalacia and volume loss. Ventricles: Normal size with no hydrocephalus. No inferior displacement of cerebellar tonsils. Paranasal sinuses: As visualized are clear. Mastoid air cells: Well pneumatized. Calvarium and scalp: Skull is intact with no soft tissue edema or swelling. CT/CT head wo con* [id number] IMPRESSION: 1. No acute intracranial hemorrhage or edema. 2. Prior stable RIGHT cerebellar infarct.
--- NOTE | 2021-06-30 11:15 | XR_ITS ---
WS: [id number] Exam: XR chest 1V portable [id number] Date/Time of Exam: 06/30/2021 11:19 AM Reason For Exam: cough, hoarseness Comparison 06/02/2021. The lungs are clear and fully expanded. Cardiomediastinal silhouette is unremarkable. Monitoring lead s superimpose the chest. A battery pack is noted along the mediastinum on the right. Bony structures are intact. XR/XR chest 1V portable [id number] IMPRESSION: 1. No acute cardiopulmonary finding.
[2021-06-30 11:27] VITALS: PULSE 91; RESP 16; O2SAT 93
[2021-06-30] MEDS: ipratropium-albuterol 3 mL Neb INHALATION (11:27)
[2021-06-30 11:33] VITALS: PULSE 95; RESP 16; O2SAT 95
[2021-06-30 11:49] LABS: Basophils # 0.1 10^3/uL (0.0-0.1); Basophils % 0.8 %; Eosinophils # 0.4 10^3/uL (0.0-0.8); Eosinophils % 3.2 %; Hematocrit 47.8 % (42.0-52.0); Hemoglobin 15.8 g/dL (11.7-16.6); Lymphocytes # 2.6 10^3/uL (0.8-4.8); Lymphocytes % 21.2 %; Mean Corpuscular HGB Conc 33.1 g/dL (30.0-36.0); Mean Corpuscular Hemoglobin 29.4 pg (28.0-34.0); Mean Corpuscular Volume 88.8 fl (80-94); Mean Platelet Volume 9.2 fL (7.4-10.4); Monocytes # 1.2 10^3/uL (0.2-0.9); Monocytes % 9.8 %; Neutrophils # 8.04 10^3/uL (1.8-7.7); Neutrophils % 64.6 %; Nucleated Red Blood Cells % 0 %; Platelet Count 319 10^3/cmm (130-400); Red Blood Count 5.38 10^6/uL (4.1-5.3); Red Cell Distribution Width 13.9 % (12.1-15.1); White Blood Count 12.5 10^3/uL (4.0-10.0)
[2021-06-30] MEDS: doxycycline 100 MG in sodium chloride 0.9% (plus) 100 ML IV (12:01)
[2021-06-30 12:08] LABS: Alanine Aminotransferase 20 U/L (0-41); Albumin Level 4.3 g/dL (3.5-5.2); Alkaline Phosphatase 108 IU/L (40-130); Anion Gap 16.3 (5-19); Aspartate Amino Transferase 15 U/L (0-40); Blood Urea Nitrogen 9 mg/dL (6-20); Calcium 9.2 mg/dL (8.5-10.5); Carbon Dioxide 24 mmol/L (22-29); Chloride 103 mmol/L (98-107); Globulin 2.4 g/dL (1.3-4.6); Glomerular Filtration Rate 101.9 mL/min (90-130); Glucose 104 mg/dL (65-115); Osmolality Calculated 287 mOsm/kg (285-295); Potassium 4.3 mmol/L (3.5-5.1); Sodium 139 mmol/L (136-145); Total Bilirubin 0.2 mg/dL (0.15-1.2); Total Protein 6.7 g/dL (6.6-8.7)
--- NOTE | 2021-06-30 12:28 | PC.PHAR ---
pt states him and his take care of his medications-pt states he takes aspirin daily states it just causes ringing in his ears-pt states he still takes losartan 100mg hs ext med history shows last filled 11/28/20 90d/s
[2021-06-30 13:14] VITALS: BP 147/90; PULSE 90; RESP 15; O2SAT 91
== END 2021-06-30 13:13 | disposition home or self-care (01) ==
PROVIDERS: Emergency Provider Emergency Medicine; PCP Internal Medicine
DX: J69.0 Pneumonitis due to inhalation of food and vomit (principal); J44.9 Chronic obstructive pulmonary disease, unspecified; F17.210 Nicotine dependence, cigarettes, uncomplicated; I69.998 Other sequelae following unspecified cerebrovascular disease; Z79.02 Long term (current) use of antithrombotics/antiplatelets; I10 Essential (primary) hypertension
CPT/HCPCS: 36415; 70450; 71045; 80053; 85025; 94640; 96365; 96375; 99284; J2930; J3490

== ENCOUNTER 2021-09-07 06:49 | Outpatient (CLI) | payer BC, MEDICARE, MEDICAID, SELFPAY ==
--- NOTE | 2021-09-07 07:15 | MR_ITS ---
WS: [id number] MRI HEAD WITH CONTRAST TECHNIQUE: Sagittal T1, T2 axial, T2 axial FLAIR, axial susceptibility weighted imaging, axial diffus ion weighted images, and coronal T2 images were obtained. Pre and post-T1 axial and post T1 coronal i mages. ADC and FSPGR images. CLINICAL INFORMATION: Z86.73 - Personal history of transient ischemic attack (T... COMPARISON: CT head June 30, 2021 and MRI December 26, 2020 FINDINGS: No evidence of restricted diffusion to suggest acute ischemia. Ventricular system and basal cisterns are patent. Mild small vessel changes. Mild parenchymal volume loss. Chronic cortical infarct with en cephalomalacia RIGHT parasagittal cerebellum unchanged. Associated chronic lacunar infarct involving the RIGHT medullary pyramid. Normal vascular flow voids at the skull base. No extra-axial fluid colle ctions. No evidence of mass or mass effect. Mild mucosal thickening ethmoid air cells. Mastoid air ce lls well aerated. Tiny chronic appearing lacunar infarct in the RIGHT medullary pyramid. No hemosiderin on susceptibly weighted images. Normal optic chiasm and pituitary infundibulum. Normal cavernous sinuses and Meckel's cave. No abnormal gadolinium enhancement. Normal visualized dural gilberto ous sinuses. MR/MR head wo/w con [id number] IMPRESSION: 1. No evidence of restricted diffusion to suggest acute ischemia. 2. Mild small vessel changes with mild parenchymal volume loss. 3. Chronic infarct in the RIGHT parasagittal cerebellum with encephalomalacia unchanged. 4. Tiny chronic lacunar infarct RIGHT brain stem involving the medullary pyram id.a 5. No abnormal gadolinium enhancement. 6. No other acute findings.
[2021-09-07] MEDS: gadobenate dimeglumine 20 mL vial IV (08:06)
== END 2021-09-07 06:50 | disposition home or self-care (01) ==
LOC: RAD 06:52
PROVIDERS: PCP Internal Medicine; Visit Provider Nurse Practitioner
DX: Z86.73 Personal history of transient ischemic attack (TIA), and cerebral infarction without residual deficits (principal)
CPT/HCPCS: 70553

== ENCOUNTER 2021-11-27 15:05 | Emergency (ER) | payer BC, MEDICARE, MEDICAID, SELFPAY ==
[2021-11-27 15:17] VITALS: BP 146/101; PULSE 109; RESP 19; TEMP 36.8; O2SAT 95; BMI 27.1
--- NOTE | 2021-11-27 15:31 | W.ED.AMS ---
HPI - Altered Mental Status General: Chief Complaint: Altered Mental Status Stated Complaint: DIFFICULTY SPEAKING Time Seen by Provider: 11/27/21 15:06 History of Present Illness: 50-year-old with history of previous CVA presents due to altered mental status and speech difficulty for 2 to 3 days. Denies any pain. Denies any drug or alcohol use. Denies any focal numbness weakness or tingling. However history is limited due to speech difficulty. Review of Systems Narrative: - CONSTITUTIONAL: Denies weight loss, fever and chills. - HEENT: Denies changes in vision and hearing. - RESPIRATORY: Denies SOB and cough. - CV: Denies palpitations and CP. - GI: Denies abdominal pain, nausea, vomiting and diarrhea. - : Denies dysuria and urinary frequency. - MSK: Denies myalgia and joint pain. - SKIN: Denies rash and pruritus. - NEUROLOGICAL: As above - PSYCHIATRIC: Denies suicidal ideation [facility] ED PFSH: Medical History (Updated 07/08/21 @ 00:01 by ) Acute CVA (cerebrovascular accident) Amputation of leg Hypertension Social History Smoking and tobacco status: current every day smoker Physical Exam Narrative: - GENERAL: Alert and oriented x 3. No acute distress. Well-nourished. - EYES: EOMI. Anicteric. - HENT: Atraumatic, no C-spine tenderness. Moist mucous membranes. No scleral icterus. No cervical lymphadenopathy. - LUNGS: Clear to auscultation bilaterally. No accessory muscle use. Equal lung sounds bilaterally. No respiratory distress. - CARDIOVASCULAR: Regular rate and rhythm. No murmur. No JVD. - ABDOMEN: Soft, non-tender and non-distended. Negative CVA tenderness bilaterally, no rebound or guarding, negative Patel sign. No palpable masses. - EXTREMITIES: No edema. Non-tender. - SKIN: No rashes or lesions. Warm. - NEUROLOGIC: No meningismus, does appear to exhibit expressive aphasia. Otherwise no focal deficit. - PSYCHIATRIC: Cooperative. Appropriate mood and affect. Course Vital Signs: Vital signs: Vital Signs Temperature 98.2 F 11/27/21 15:17 Pulse Rate 109 H 11/27/21 15:17 Respiratory Rate 19 H 11/27/21 15:17 Blood Pressure 146/101 11/27/21 15:17 Pulse Oximetry 95 11/27/21 15:17 Oxygen Delivery Me thod 11/27/21 15:17 MDM - Altered Mental Status Medical Decision Making 50-year-old presents due to speech difficulty and altered mental status. CT scan of the head does not reveal any intracranial hemorrhage or other acute abnormality. According to family onset was approximately 2 to 3 days ago. He is outside of tPA window. Discussed with neurology and they recommend outpatient follow-up and outpatient MRI. UDS is positive for amphetamines. Patient also had some improvement in mental status with Narcan. Observed in the emergency department without any decompensation. Remainder of lab work unremarkable. At this time I believe patient would be safe for discharge and outpatient follow-up. Return precautions provided. Plan was reviewed with the patient who expressed understanding. Questions answered. Patient will follow up with neurology and PCP. Patient discharged in stable condition. Lab Data : 11/27/21 15:45 11/27/21 15:[address] 11/27/21 15:32 IMPRESSION: No acute intracranial abnormality. Laboratory Results WBC 9.9 10^3/uL (4.0-10.0) 11/27/21 15:45 RBC 5.25 10^6/uL (4.1-5.3) 11/27/21 15:45 Hgb 14.9 g/dL (11.7-16.6) 11/27/21 15:45 Hct 44.9 % (42.0-52.0) 11/27/21 15:45 MCV 85.5 fl (80-94) 11/27/21 15:45 MCH 28.4 pg (28.0-34.0) 11/27/21 15:45 MCHC 33.2 g/dL (30.0-36.0) 11/27/21 15:45 RDW 14.0 % (12.1-15.1) 11/27/21 15:45 Plt Count 365 10^3/cmm (130-400) 11/27/21 15:45 MPV 9.5 fL (7.4-10.4) 11/27/21 15:45 Neut % (Auto) 69.4 % 11/27/21 15:45 Lymph % (Auto) 20.6 % 11/27/21 15:45 [place] % (Auto) 5.6 % 11/27/21 15:45 Eos % (Auto) 3.2 % 11/27/21 15:45 Baso % (Auto) 0.7 % 11/27/21 15:45 Neut # (Auto) 6.89 10^3/uL (1.8-7.7) 11/27/21 15:45 Lymph # (Auto) 2.1 10^3/uL (0.8-4.8) 11/27/21 15:45 [place] # (Auto) 0.6 10^3/uL (0.2-0.9) 11/27/21 15:45 Eos # (Auto) 0.3 10^3/uL (0.0-0.8) 11/27/21 15:45 Baso # (Auto) 0.1 10^3/uL (0.0-0.1) 11/27/21 15:45 Nucleated RBC % (auto) 0 % 11/27/21 15:45 Nucleated RBCs # 0.0 /100WBC 11/27/21 15:45 Sodium 139 mmol/L (136-145) 11/27/21 15:45 Potassium 3.4 mmol/L (3.5-5.1) L 11/27/21 15:45 Chloride 101 mmol/L (98-107) 11/27/21 15:45 Carbon Dioxide 23 mmol/L (22-29) 11/27/21 15:45 Anion Gap 18.4 (5-19) 11/27/21 15:45 BUN 8 mg/dL (6-20) 11/27/21 15:45 Creatinine 0.8 mg/dL (0.7-1.2) 11/27/21 15:45 GFR Calculation 101.9 mL/min (90-130) 11/27/21 15:45 Glucose 108 mg/dL (65-115) 11/27/21 15:45 Calculated Osmolality 287 mOsm/kg (285-295) 11/27/21 15:45 Calcium 9.2 mg/dL (8.5-10.5) 11/27/21 15:45 Total Bilirubin 0.4 mg/dL (0.15-1.2) 11/27/21 15:45 AST 13 U/L (0-40) 11/27/21 15:45 ALT 20 U/L (0-41) 11/27/21 15:45 Alkaline Phosphatase 100 U/L (40-130) 11/27/21 15:45 Troponin T Baseline 8 ng/L (0-15) 11/27/21 15:45 Total Protein 6.9 g/dL (6.6-8.7) 11/27/21 15:45 Albumin 4.1 g/dL (3.5-5.2) 11/27/21 15:45 Globulin 2.8 g/dL (1.3-4.6) 11/27/21 15:45 TSH 2.35 uIU/mL (0.27-4.20) 11/27/21 15:45 Urine Color Yellow (Yellow) 11/27/21 16:11 Urine Appearance Clear (CLEAR) 11/27/21 16:11 Urine pH 6.5 (5-7) 11/27/21 16:11 Ur Specific [place] 1.005 (1.005-1.030) 11/27/21 16:11 Urine Protein Neg (Negative) 11/27/21 16:11 Urine Glucose (UA) Norm (Normal) 11/27/21 16:11 Urine Ketones Negative (Negative) 11/27/21 16:11 Urine Blood Neg (Negative) 11/27/21 16:11 Urine Nitrate Negative (Negative) 11/27/21 16:11 Urine Bilirubin Neg (Negative) 11/27/21 16:11 Urine Urobilinogen Norm mg/dL (Negative) 11/27/21 16:11 Ur Leukocyte Esterase Negative (Negative) 11/27/21 16:11 Urine RBC 0-4 /hpf (0-2) H 11/27/21 16:11 Urine WBC 0-4 /hpf (0-5) H 11/27/21 16:11 Ur Squamous Epith Cells 0-4 /hpf (0-5) H 11/27/21 16:11 Amorphous Sediment Not Reportable 11/27/21 16:11 Urine Bacteria Trace /hpf (NONE) 11/27/21 16:11 Urine Opiates Screen Negative ng/mL (Negative) 11/27/21 16:11 Ur Barbiturates Screen Negative ng/mL (Negative) 11/27/21 16:11 Ur Phencyclidine Scrn Negative ng/mL (Negative) 11/27/21 16:11 Ur Amphetamines Screen Positive ng/mL (Negative) H 11/27/21 16:11 U Benzodiazepines Scrn Negative ng/mL (Negative) 11/27/21 16:11 Urine Cocaine Screen Negative ng/mL (Negative) 11/27/21 16:11 U Marijuana (THC) Screen Negative ng/mL (Negative) 11/27/21 16:11 Ethyl Alcohol < 10 mg/dL (0-10) 11/27/21 15:45 EKG Data EKG 1: Other EKG comments: Sinus tachycardia, rate 108, incomplete right bundle branch block, no sign of acute ischemia or other acute abnormality. Discharge Plan Discharge Condition: Stable Prescriptions: No Action atorvastatin [Lipitor] 40 mg tablet 40 mg PO DAILY Qty: 30 3RF cimetidine 400 mg tablet 400 mg PO BEDTIME clopidogrel [Plavix] 75 mg tablet 75 mg PO BEDTIME amlodipine 10 mg tablet 10 mg PO BEDTIME pregabalin 150 mg capsule 150 mg PO BID pantoprazole 40 mg tablet,delayed release (DR/EC) 40 mg PO BEDTIME losartan 100 mg tablet 100 mg PO BEDTIME nicotine (polacrilex) 2 mg gum 4 mg PO Q2H PRN (Reason: Withdrawal Symptoms) metoprolol succinate 100 mg tablet extended release 24 hr 100 mg PO DAILY chlorthalidone 25 mg tablet 50 mg PO DAILY Referrals: Ozzy Torres DO [Primary Care Provider] - Coding Level of Care Code ED Inserting Operator for Derrickg Ernie
--- NOTE | 2021-11-27 15:32 | ECG_ITS ---
[facility] Test Date: 2021-11-27 Pat Name: Holger Garcia Department: Room: Gender: Male Fisher Scallop: CARLOS: 1970 Requested By: Ariel Higgins Order Number: [id number] Diaz MD: Andrea Rebolledo M.D. Measurements Intervals [place] Rate: 108 P: 60 W[place]: 192 QRS: 18 QRSD: 108 T: 42 QT: 337 QTc: 453 Interpretive Statements SINUS TACHYCARDIA POSSIBLE LEFT ATRIAL ENLARGEMENT [-0.1mV P-WAVE IN V1/V2] INCOMPLETE RIGHT BUNDLE BRANCH BLOCK [90+ ms QRS DURATION, TERMINAL R IN V1/V2, 40+ ms S IN I/aVL/V4/V5/V6] Compared to ECG 06/02/2021 18:48:16 T-wave abnormality no longer present Electronically Signed On 11-28-2021 16:28:34 CDT by Andrea Rebolledo M.D. [email or web address]
--- NOTE | 2021-11-27 15:32 | CTR_ITS ---
PROCEDURE INFORMATION: Exam: CT Head Without Contrast Exam date and time: 11/27/2021 4:31 PM Age: 50 years old Clinical indication: Altered mental status/memory loss; Additional info: AMS TECHNIQUE: Imaging protocol: Computed tomography of the head without contrast. Radiation optimization: All CT scans at this facility use at least one of these dose optimization techniques: automated exposure control; mA and/or kV adjustment per patient size (includes targeted exams where dose is matched to clinical indication); or iterative reconstruction. COMPARISON: MR head wo/w con [id number] 09/07/2021 7:34 AM RADIATION DOSE METRICS: Total DLP (mGy-cm): 1149.98 FINDINGS: Brain: Normal. No hemorrhage. Unremarkable white matter. No mass effect. Cerebral ventricles: No ventriculomegaly. Paranasal sinuses: Visualized sinuses are unremarkable. No fluid levels. Mastoid air cells: Visualized mastoid air cells are well aerated. Bones/joints: Unremarkable. No acute fracture. Soft tissues: Unremarkable. CT/CT head wo con* [id number] IMPRESSION: No acute intracranial abnormality.
--- NOTE | 2021-11-27 15:47 | PC.PHAR ---
pt unable to verify medications-pts states the pt has the medications entered except states she is unsure if the pt takes the chlorthalidone 25mg take 50mg daily [facility] -pts states the pt has a bottle of losartan 100mg daily from 2020 ozh last filled 10/2020 rx is -pts states the has nicotine gum but doesnt use it-notes are made in the pharmacy comments
[2021-11-27 16:05] LABS: Basophils # 0.1 10^3/uL (0.0-0.1); Basophils % 0.7 %; Eosinophils # 0.3 10^3/uL (0.0-0.8); Eosinophils % 3.2 %; Hematocrit 44.9 % (42.0-52.0); Hemoglobin 14.9 g/dL (11.7-16.6); Lymphocytes # 2.1 10^3/uL (0.8-4.8); Lymphocytes % 20.6 %; Mean Corpuscular HGB Conc 33.2 g/dL (30.0-36.0); Mean Corpuscular Hemoglobin 28.4 pg (28.0-34.0); Mean Corpuscular Volume 85.5 fl (80-94); Mean Platelet Volume 9.5 fL (7.4-10.4); Monocytes # 0.6 10^3/uL (0.2-0.9); Monocytes % 5.6 %; Neutrophils # 6.89 10^3/uL (1.8-7.7); Neutrophils % 69.4 %; Nucleated Red Blood Cells % 0 %; Platelet Count 365 10^3/cmm (130-400); Red Blood Count 5.25 10^6/uL (4.1-5.3); White Blood Count 9.9 10^3/uL (4.0-10.0)
[2021-11-27 16:19] LABS: Troponin(5th) Baseline 8 ng/L (0-15)
[2021-11-27 16:25] LABS: Amphetamines Screen Urine Positive (Negative); Barbiturates Screen Urine Negative (Negative); Benzodiazepines Screen Urine Negative (Negative); Cocaine Screen Urine Negative (Negative); Opiate Screen Urine Negative (Negative); PCP Screen Urine Negative (Negative); THC Screen Urine Negative (Negative)
[2021-11-27 16:29] LABS: Alanine Aminotransferase 20 U/L (0-41); Albumin Level 4.1 g/dL (3.5-5.2); Alkaline Phosphatase 100 U/L (40-130); Anion Gap 18.4 (5-19); Aspartate Amino Transferase 13 U/L (0-40); Blood Urea Nitrogen 8 mg/dL (6-20); Calcium 9.2 mg/dL (8.5-10.5); Carbon Dioxide 23 mmol/L (22-29); Chloride 101 mmol/L (98-107); Globulin 2.8 g/dL (1.3-4.6); Glomerular Filtration Rate 101.9 mL/min (90-130); Glucose 108 mg/dL (65-115); Osmolality Calculated 287 mOsm/kg (285-295); Potassium 3.4 mmol/L (3.5-5.1); Sodium 139 mmol/L (136-145); Thyroid Stimulating Hormone 2.35 uIU/mL (0.27-4.20); Total Bilirubin 0.4 mg/dL (0.15-1.2); Total Protein 6.9 g/dL (6.6-8.7)
[2021-11-27 16:30] LABS: Alcohol Level < 10 mg/dL (0-10)
[2021-11-27 16:48] LABS: Add Urine Culture? No; Bacteria Urine TRACE /hpf; Bilirubin Urine Neg (Negative); Blood Urine Neg (Negative); Glucose Urine UA Norm (Normal); Ketones Urine Negative (Negative); Leukocyte Esterase Urine Negative (Negative); Nitrate Urine Negative (Negative); Protein Urine Neg (Negative); RBC Urine 0-4 /hpf (0-2); Specific Gravity, Urine 1.005 (1.005-1.030); Squamous Epithelial Cell Urine 0-4 /hpf (0-5); Urine Appearance Clear (CLEAR); Urine Color Yellow (Yellow); Urobilinogen Urine Norm (Negative); WBC Urine 0-4 /hpf (0-5); pH Urine 6.5 (5-7)
[2021-11-27 17:20] LABS: Free T4 Free Thyroxine 1.34 ng/dL (0.82-1.77)
[2021-11-27 22:16] VITALS: BP 142/98; PULSE 62; RESP 14; TEMP 36.6
== END 2021-11-27 21:35 | disposition home or self-care (01) ==
PROVIDERS: Emergency Provider Emergency Medicine; PCP Internal Medicine
DX: R41.82 Altered mental status, unspecified (principal); Z79.02 Long term (current) use of antithrombotics/antiplatelets; I10 Essential (primary) hypertension; Z86.73 Personal history of transient ischemic attack (TIA), and cerebral infarction without residual deficits; F17.210 Nicotine dependence, cigarettes, uncomplicated
CPT/HCPCS: 70450; 80053; 80306; 80307; 81001; 84439; 84443; 84484; 85025; 93005; 96374; 99285; J2310

== ENCOUNTER 2022-01-18 21:31 | Emergency (ER) | payer BC, MEDICARE, MEDICAID, SELFPAY ==
[2022-01-18 22:03] VITALS: BP 130/91; PULSE 84; RESP 15; TEMP 36.4; O2SAT 97; BMI 25.9
--- NOTE | 2022-01-18 22:30 | CTR_ITS ---
PROCEDURE INFORMATION: Exam: CTA Head With Contrast, Arteriography Exam date and time: 01/18/2022 11:16 PM Age: 51 years old Clinical indication: Dizziness and giddiness; Additional info: Dizzy TECHNIQUE: Imaging protocol: Computed tomographic angiography of the head with contrast. Exam focused on the arteries. 3D rendering (Not supervised by radiologist): MIP and/or 3D reconstructed images were created by the technologist. Radiation optimization: All CT scans at this facility use at least one of these dose optimization techniques: automated exposure control; mA and/or kV adjustment per patient size (includes targeted exams where dose is matched to clinical indication); or iterative reconstruction. Contrast material: OMNI 350; Contrast volume: 100 ml; Contrast route: INTRAVENOUS (IV); COMPARISON: CT angio headneck* [id number] 06/02/2021 7:13 PM RADIATION DOSE METRICS: Total DLP (mGy-cm): 566.58 FINDINGS: ANTERIOR CIRCULATION: Right internal carotid artery: Mild atherosclerotic disease. Intracranial segment is patent with no significant stenosis. No aneurysm. Right middle cerebral artery: No occlusion or significant stenosis. No aneurysm. Right anterior cerebral artery: The A1 segment of the right JAMES is non dominant and smaller in caliber compared to the contralateral side. No occlusion or significant stenosis. No aneurysm. Left internal carotid artery: Mild atherosclerotic disease. Intracranial segment is patent with no significant stenosis. No aneurysm. Left middle cerebral artery: No occlusion or significant stenosis. No aneurysm. Left anterior cerebral artery: No occlusion or significant stenosis. No aneurysm. POSTERIOR CIRCULATION: Right vertebral artery: Atherosclerotic disease of the non dominant right vertebral artery with severe stenosis or occlusion. No aneurysm. Left vertebral artery: Atherosclerotic disease of the dominant left vertebral artery with multifocal moderate stenosis. No occlusion. No aneurysm. Basilar artery: No occlusion or significant stenosis. No aneurysm. Right posterior cerebral artery: No occlusion or significant stenosis. No aneurysm. Left posterior cerebral artery: No occlusion or significant stenosis. No aneurysm. Brain: No definite mass, mass effect, or midline shift. Cerebral ventricles: Stable ventricular caliber.. Bones/joints: Unremarkable. No acute fracture. Soft tissues: Unremarkable. Other findings: Azygous JAMES is again noted. PROCEDURE INFORMATION: Exam: CTA Neck With Contrast Exam date and time: 01/18/2022 11:16 PM Age: 51 years old Clinical indication: Dizziness and giddiness; Additional info: Dizzy TECHNIQUE: Imaging protocol: Computed tomographic angiography of the neck with contrast. 3D rendering (Not supervised by radiologist): MIP and/or 3D reconstructed images were created by the technologist. Radiation optimization: All CT scans at this facility use at least one of these dose optimization techniques: automated exposure control; mA and/or kV adjustment per patient size (includes targeted exams where dose is matched to clinical indication); or iterative reconstruction. Contrast material: OMNI 350; Contrast volume: 100 ml; Contrast route: INTRAVENOUS (IV); COMPARISON: CT angio headneck* [id number] 06/02/2021 7:13 PM RADIATION DOSE METRICS: Total DLP (mGy-cm): 566.58 FINDINGS: Right common carotid artery: Mild atherosclerotic disease No stenosis. No dissection or occlusion. There are atherosclerotic calcifications of the proximal right brachiocephalic, the right common carotid, and the right subclavian arteries. Right internal carotid artery: Mild atherosclerotic disease. No stenosis of the extracranial segment. No dissection or occlusion. Mild tortuosity of the distal cervical right internal carotid artery. Right external carotid artery: No occlusion or stenosis of the origin. Left common carotid artery: Mild atherosclerotic disease. No stenosis. No dissection or occlusion. Left internal carotid artery: Mild atherosclerotic disease. No stenosis of the extracranial segment. No dissection or occlusion. Tortuosity of the distal cervical left internal carotid artery. Left external carotid artery: No occlusion or stenosis of the origin. Right vertebral artery: The non dominant right vertebral artery is small in caliber with the moderate to severe stenosis at its origin and scattered atherosclerotic disease along its cervical course. Left vertebral artery: The right vertebral artery is dominant. Scattered atherosclerotic disease and narrowing, most prominent proximally with [id number] stenosis, (series 4, image 139 for example). No hemodynamically significant stenosis. No dissection or occlusion. Aorta: There are atherosclerotic calcifications of the aortic arch. Soft tissues: Thickening of the right aryepiglottic fold with asymmetric medialization of the right vocal fold. Direct visualization laryngeal endoscopy is recommended for further evaluation. Bones/joints: There are degenerative changes of the cervical spine. Other findings: Typical carotid bifurcation is identified. CT/CT angio headneck* [id number] IMPRESSION: 1. Atherosclerotic disease of the intracranial arterial vessels as outlined. 2. No aneurysm, occlusion, or hemodynamically significant stenosis in the head. IMPRESSION: 1. Moderate to severe stenosis of the origin of the non dominant right vertebral artery due to atherosclerotic disease. 2. Additional atherosclerotic disease of the extracranial arterial vessels as outlined.. REFERENCES: NASCET CRITERIA. The degree of stenosis in the cervical segment of the internal carotid artery is based on NASCET criteria. Normal is no stenosis. Mild is less than 50% stenosis. Moderate is 50-69% stenosis. Severe is 70% to 99% stenosis. Total occlusion is no detectable patent lumen.
--- NOTE | 2022-01-18 22:30 | CTR_ITS ---
PROCEDURE INFORMATION: Exam: CT Head Without Contrast Exam date and time: 01/18/2022 11:03 PM Age: 51 years old Clinical indication: Dizziness; Additional info: Dizzy TECHNIQUE: Imaging protocol: Computed tomography of the head without contrast. Radiation optimization: All CT scans at this facility use at least one of these dose optimization techniques: automated exposure control; mA and/or kV adjustment per patient size (includes targeted exams where dose is matched to clinical indication); or iterative reconstruction. COMPARISON: CT head wo con* [id number] 11/27/2021 4:31 PM RADIATION DOSE METRICS: Total DLP (mGy-cm): 1183.5 FINDINGS: Brain: No evidence of acute intracranial hemorrhage. No significant mass effect or midline shift. Suspected minimal white matter hypoattenuation are nonspecific but likely the sequela of chronic small vessel ischemic disease. Redemonstration of small area of chronic encephalomalacia in the right posterior cerebellar hemisphere. Other small infarcts are seen on the prior MRI. Cerebral ventricles: The ventricles are stable in size, shape, and configuration. Paranasal sinuses: There is mild paranasal sinus disease. Mastoid air cells: The imaged mastoid air cells appear grossly clear. Pneumatization of the petrous apices bilaterally. Orbital cavities: The patient is status post cataract extraction. Bones/joints: No acute calvarial fractures are identified. Soft tissues: No focal soft tissue swelling is identified. Vasculature: There are atherosclerotic calcifications of the carotid siphons and the V4 segments of the vertebral arteries. CT/CT head wo con* [id number] IMPRESSION: No evidence of acute intracranial hemorrhage, mass effect, or midline shift.
[2022-01-18] MEDS: meclizine 25 mg tablet 50 MG PO (22:38)
[2022-01-18] MEDS: HYDROcodone-acetaminophen 7.5-325 mg Tablet 1 TAB PO (22:38)
[2022-01-18] MEDS: iohexol 350 mg/mL 100 mL Btl IV (22:39)
[2022-01-18 22:54] LABS: Basophils # 0.1 10^3/uL (0.0-0.1); Basophils % 0.8 %; Eosinophils # 0.4 10^3/uL (0.0-0.8); Eosinophils % 4.2 %; Hematocrit 47.2 % (42.0-52.0); Hemoglobin 15.9 g/dL (11.7-16.6); Lymphocytes # 2.7 10^3/uL (0.8-4.8); Lymphocytes % 26.8 %; Mean Corpuscular HGB Conc 33.7 g/dL (30.0-36.0); Mean Corpuscular Hemoglobin 28.5 pg (28.0-34.0); Mean Corpuscular Volume 84.7 fl (80-94); Monocytes # 0.9 10^3/uL (0.2-0.9); Monocytes % 9.1 %; Neutrophils # 5.84 10^3/uL (1.8-7.7); Neutrophils % 58.9 %; Nucleated Red Blood Cells % 0 %; Platelet Count 372 10^3/cmm (130-400); Red Blood Count 5.57 10^6/uL (4.1-5.3); Red Cell Distribution Width 13.5 % (12.1-15.1); White Blood Count 9.9 10^3/uL (4.0-10.0)
--- NOTE | 2022-01-18 22:57 | ED_ITS ---
HPI - Dizziness General: Chief Complaint: Dizziness Stated Complaint: very dizzy, ringing in ears Time Seen by Provider: 01/18/22 22:19 Source: patient Mode of arrival: ambulatory Limitations: no limitations History of Present Illness: HPI Narrative: 51-year-old male states that he has been having dizziness along with tinnitus since yesterday states tinnitus is worse in his left ear but he does have a bilaterally. He states he has had tendinitis in the past patient denies any vomiting or diarrhea he has had a history of stroke. He states he had a mild headache as well. He denies any worsening improving factors. Associated symptoms: Reports tinnitus; Denies chest pain, chills, nausea or vomiting Review of Systems Const: Denies: fever(s), chills, body aches or change in appetite Eyes: Denies: blurry vision or eye discomfort ENMT: Reports: tinnitus Card: Denies: chest pain Resp: Denies: dyspnea GI: Denies: abdominal pain, nausea, vomiting or diarrhea : Denies: dysuria Musc: Denies: neck pain or back pain Skin/Breast: Denies: rash Neuro: Reports: dizziness Psych: Denies: depression Neil/Lymph: Denies: easy bruising All/Imm: Denies: urticaria PFSH ED PFSH: Medical History Acute CVA (cerebrovascular accident) Amputation of leg Hypertension Psychiatric care Social History Smoking and tobacco status: current every day smoker Physical Exam Const: COMMON NORMALS: no acute distress, patient oriented x3 and healthy appearing HENMT: COMMON NORMALS: normocephalic and atraumatic HEAD & SCALP: normocephalic and atraumatic Eye: COMMON NORMALS: Equal, round and reactive pupils present and EOMs intact bilaterally PUPIL: Yes Equal, round and reactive pupils present Neck/C-Spine: COMMON NORMALS: full ROM and supple Chest: COMMONS NORMALS: normal inspection of the chest and normal palpation of entire chest wall Resp: COMMON NORMALS: normal respiratory effort, No retractions, No use of acc essory muscles and clear to auscultation bilaterally AUSCULTATION: clear to auscultation bilaterally Cardio: COMMON NORMALS: regular rate, regular rhythm and No murmurs present (Cardio) RATE: regular rate RHYTHM: regular rhythm GI: COMMON NORMALS: Normal to inspection, nondistended, normoactive bowel sounds present, Soft to palpation, non-tender and no masses PALPATION: Yes Soft to palpation Extremity: COMMON NORMALS: normal to inspection and full ROM Neuro: COMMON NORMALS: patient oriented x3, moves all extremities and no focal motor deficits Psych: COMMON NORMALS: mental status grossly normal, Normal thought process present and cooperative THOUGHT PROCESS: Normal thought process present Skin: COMMON NORMALS: no rashes or lesions noted and no wounds GENERAL SKIN EXAM: no rashes or lesions noted Course Vital Signs: Vital signs: Vital Signs Temperature 97.5 F L 01/18/22 22:03 Pulse Rate 81 01/18/22 23:59 Respiratory Rate 16 01/18/22 23:59 Blood Pressure 149/101 01/18/22 23:59 Pulse Oximetry 97 01/18/22 23:59 Oxygen Delivery Me thod 01/18/22 23:59 MDM - Dizziness Medical Decision Making Patient presents with ringing in his ears along with dizziness likely M?ni?re's disease he does have 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 Lab Data : 01/18/22 22:45 01/18/22 22:[address] 01/18/22 22:30 IMPRESSION: No evidence of acute intracranial hemorrhage, mass effect, or midline shift. Head/Neck CTA 01/18/22 22:30 IMPRESSION: 1. Atherosclerotic disease of the intracranial arterial vessels as outlined. 2. No aneurysm, occlusion, or hemodynamically significant stenosis in the head. IMPRESSION: 1. Moderate to severe stenosis of the origin of the non dominant right vertebral artery due to atherosclerotic disease. 2. Additional atherosclerotic disease of the extracranial arterial vessels as outlined.. REFERENCES: NASCET CRITERIA. The degree of stenosis in the cervical segment of the internal carotid artery is based on NASCET criteria. Normal is no stenosis. Mild is less than 50% stenosis. Moderate is 50-69% stenosis. Severe is 70% to 99% stenosis. Total occlusion is no detectable patent lumen. Laboratory Results WBC 9.9 10^3/uL (4.0-10.0) 01/18/22 22:45 RBC 5.57 10^6/uL (4.1-5.3) H 01/18/22 22:45 Hgb 15.9 g/dL (11.7-16.6) 01/18/22 22:45 Hct 47.2 % (42.0-52.0) 01/18/22 22:45 MCV 84.7 fl (80-94) 01/18/22 22:45 MCH 28.5 pg (28.0-34.0) 01/18/22:45 MCHC 33.7 g/dL (30.0-36.0) 01/18/22:45 RDW 13.5 % (12.1-15.1) 01/18/22:45 Plt Count 372 10^3/cmm (130-400) 01/18/22:45 MPV 9.0 fL (7.4-10.4) 01/18/22 22:45 Neut % (Auto) 58.9 % 01/18/22 22:45 Lymph % (Auto) 26.8 % 01/18/22 22:45 [place] % (Auto) 9.1 % 01/18/22 22:45 Eos % (Auto) 4.2 % 01/18/22 22:45 Baso % (Auto) 0.8 % 01/18/22:45 Neut # (Auto) 5.84 10^3/uL (1.8-7.7) 01/18/22 22:45 Lymph # (Auto) 2.7 10^3/uL (0.8-4.8) 01/18/22 22:45 [place] # (Auto) 0.9 10^3/uL (0.2-0.9) 01/18/22 22:45 Eos # (Auto) 0.4 10^3/uL (0.0-0.8) 01/18/22 22:45 Baso # (Auto) 0.1 10^3/uL (0.0-0.1) 01/18/22 22:45 Nucleated RBC % (auto) 0 % 01/18/22 22:45 Nucleated RBCs # 0.0 /100WBC 01/18/22 22:45 Sodium 138 mmol/L (136-145) 01/18/22 22:45 Potassium 4.0 mmol/L (3.5-5.1) 01/18/22 22:45 Chloride 102 mmol/L (98-107) 01/18/22 22:45 Carbon Dioxide 25 mmol/L (22-29) 01/18/22 22:45 Anion Gap 15.0 (5-19) 01/18/22 22:45 BUN 11 mg/dL (6-20) 01/18/22 22:45 Creatinine 0.7 mg/dL (0.7-1.2) 01/18/22 22:45 GFR Calculation 118.4 mL/min (90-130) 01/18/22 22:45 Glucose 140 mg/dL (65-115) H 01/18/22 22:45 Calculated Osmolality 288 mOsm/kg (285-295) 01/18/22 22:45 Calcium 9.8 mg/dL (8.5-10.5) 01/18/22 22:45 Total Bilirubin 0.2 mg/dL (0.15-1.2) 01/18/22 22:45 AST 12 U/L (0-40) 01/18/22 22:45 ALT 18 U/L (0-41) 01/18/22 22:45 Alkaline Phosphatase 131 U/L (40-130) H 01/18/22 22:45 Total Protein 7.2 g/dL (6.6-8.7) 01/18/22 22:45 Albumin 4.1 g/dL (3.5-5.2) 01/18/22 22:45 Globulin 3.1 g/dL (1.3-4.6) 01/18/22 22:45 EKG Data EKG 1: I personally reviewed and interpreted this EKG as follows: EKG interpretation date: 01/18/22 EKG interpretation time: 23:33 Interpretation: nsr hr [address] or t wave abnormalities qrs 110 qtc 432 Discharge Plan Discharge Patient Disposition: Home Clinical Impression: Dizziness, Meniere's disease Condition: Stable Prescriptions: New Antivert 50 mg tablet 50 mg PO BID PRN (Reason: dizziness) Qty: 20 0RF No Action atorvastatin [Lipitor] 40 mg tablet 40 mg PO DAILY Qty: 30 3RF cimetidine 400 mg tablet 400 mg PO BEDTIME clopidogrel [Plavix] 75 mg tablet 75 mg PO BEDTIME amlodipine 10 mg tablet 10 mg PO BEDTIME pregabalin 150 mg capsule 150 mg PO BID pantoprazole 40 mg tablet,delayed release (DR/EC) 40 mg PO BEDTIME losartan 100 mg tablet 100 mg PO BEDTIME nicotine (polacrilex) 2 mg gum 4 mg PO Q2H PRN (Reason: Withdrawal Symptoms) metoprolol succinate 100 mg tablet extended release 24 hr 100 mg PO DAILY chlorthalidone 25 mg tablet 50 mg PO DAILY Discharge Orders: Discharge ED (Routine); Ordered 01/19/22 Ordered By: Marco Rouse Referrals: Mahnaz Willis MD [Physician] - 1-3 days Ozzy Torres DO [Primary Care Provider] - Discharge Diet: Advance as tolerated Discharge Activity: Resume usual activity Patient Instructions: Meniere Disease (ED) Coding Level of Care Code ED 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
[2022-01-18 23:15] LABS: Alanine Aminotransferase 18 U/L (0-41); Albumin Level 4.1 g/dL (3.5-5.2); Alkaline Phosphatase 131 U/L (40-130); Aspartate Amino Transferase 12 U/L (0-40); Blood Urea Nitrogen 11 mg/dL (6-20); Calcium 9.8 mg/dL (8.5-10.5); Carbon Dioxide 25 mmol/L (22-29); Chloride 102 mmol/L (98-107); Globulin 3.1 g/dL (1.3-4.6); Glomerular Filtration Rate 118.4 mL/min (90-130); Glucose 140 mg/dL (65-115); Osmolality Calculated 288 mOsm/kg (285-295); Sodium 138 mmol/L (136-145); Total Bilirubin 0.2 mg/dL (0.15-1.2); Total Protein 7.2 g/dL (6.6-8.7)
--- NOTE | 2022-01-18 23:33 | ECG_ITS ---
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 Measurements Intervals [place] Rate: 76 P: 57 PA: 158 QRS: 16 QRSD: 110 T: 41 QT: 401 QTc: 453 Interpretive Statements SINUS RHYTHM INCOMPLETE RIGHT BUNDLE BRANCH BLOCK [90+ ms QRS DURATION, TERMINAL R IN V1/V2, 40+ ms S IN I/aVL/V4/V5/V6] NONSPECIFIC T-WAVE ABNORMALITY Compared to ECG 11/27/2021 15:53:35 T-wave abnormality now present Sinus tachycardia no longer present Electronically Signed On 01-19-2022 16:48:08 CDT by Leia Mast M.D. [id number]
[2022-01-18 23:59] VITALS: BP 149/101; PULSE 81; RESP 16; O2SAT 97
[2022-01-19 00:56] VITALS: BP 154/98; PULSE 88; RESP 18; O2SAT 97
--- NOTE | 2022-01-19 10:47 | DCPLANNER ---
Addendum entered by Enid Toure 02/22/22 08:12: Patient had a follow up appointment scheduled for 02.02.22 at neurology - patient did not attend appointment. Original Note: manager respiratory care had message to schedule a follow up appointment for patient with neurology. manager respiratory care sent patients information to the front office staff at neurology. Patients information will be printed and reviewed. Clinic will call patient with appointment information.
== END 2022-01-19 00:55 | disposition home or self-care (01) ==
PROVIDERS: Emergency Provider Emergency Medicine; PCP Internal Medicine
DX: H81.03 Meniere's disease, bilateral (principal); I67.2 Cerebral atherosclerosis; I10 Essential (primary) hypertension; Z86.73 Personal history of transient ischemic attack (TIA), and cerebral infarction without residual deficits; Z79.02 Long term (current) use of antithrombotics/antiplatelets
CPT/HCPCS: 70450; 70496; 70498; 80053; 85025; 93005; 99285; J8597; Q9967

== ENCOUNTER 2022-08-11 11:31 | Emergency (ER) | payer MEDICARE, MEDICAID, SELFPAY ==
[2022-08-11 11:37] VITALS: BP 161/104; PULSE 86; RESP 16; TEMP 36.7; O2SAT 98
--- NOTE | 2022-08-11 11:49 | XRR_ITS ---
PROCEDURE INFORMATION: Exam: XR Chest Exam date and time: 08/11/2022 11:58 AM Age: 51 years old Clinical indication: Cough; Additional info: Injury TECHNIQUE: Imaging protocol: Radiologic exam of the chest. Views: 1 view. COMPARISON: CR XR chest 1V portable [id number] 06/30/2021 11:25 AM FINDINGS: Lungs: Unremarkable. No consolidation. Pleural spaces: Unremarkable. No pleural effusion. No pneumothorax. Heart/Mediastinum: Unremarkable. No cardiomegaly. Bones/joints: Unremarkable. XR/XR chest 1V portable [id number] IMPRESSION: No acute findings.
--- NOTE | 2022-08-11 11:49 | XRR_ITS ---
PROCEDURE INFORMATION: Exam: XR Right Shoulder Exam date and time: 08/11/2022 11:58 AM Age: 51 years old Clinical indication: Pain; Shoulder; Right; Additional info: Injury TECHNIQUE: Imaging protocol: Radiologic exam of the right shoulder. Views: 2 or more views. COMPARISON: CR XR chest 1V portable [id number] 06/30/2021 11:25 AM FINDINGS: Bones/joints: Normal. Soft tissues: Normal. XR/XR shoulder RT min 2V* [id number] IMPRESSION: No acute findings.
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
[2022-08-11] MEDS: ketorolac 60 mg/2 mL INJ IM (12:24)
== END 2022-08-11 12:56 | disposition home or self-care (01) ==
PROVIDERS: Emergency Provider Emergency Medicine; PCP Internal Medicine
DX: S46.011A Strain of muscle(s) and tendon(s) of the rotator cuff of right shoulder, initial encounter (principal); Z79.02 Long term (current) use of antithrombotics/antiplatelets; Z86.73 Personal history of transient ischemic attack (TIA), and cerebral infarction without residual deficits; I10 Essential (primary) hypertension; F17.210 Nicotine dependence, cigarettes, uncomplicated; X50.9XXA Other and unspecified overexertion or strenuous movements or postures, initial encounter
CPT/HCPCS: 71045; 73030; 96372; 99284; J1885

== ENCOUNTER → 2022-09-11 15:06 | Outpatient (BNVA) | payer MEDICARE, MEDICAID, SELFPAY | PROVIDERS: PCP Internal Medicine; Referring Provider Internal Medicine; Visit Provider Physician Assistant | DX: M25.511 Pain in right shoulder (principal) | CPT/HCPCS: 73030 ==

== ENCOUNTER 2022-09-11 16:06 | Outpatient (CLI) | payer MEDICARE, MEDICAID, SELFPAY | END 2022-09-11 16:07 | disposition home or self-care (01) | LOC: SPT 16:06 | PROVIDERS: PCP Internal Medicine; Visit Provider Physician Assistant | DX: Z46.89 Encounter for fitting and adjustment of other specified devices (principal); S42.294D Other nondisplaced fracture of upper end of right humerus, subsequent encounter for fracture with routine healing; W20.8XXD Other cause of strike by thrown, projected or falling object, subsequent encounter; M25.511 Pain in right shoulder | CPT/HCPCS: 73030; 97760; 99203; L3670 ==

== ENCOUNTER 2022-11-23 23:53 | Emergency (ER) | payer MEDICARE, MEDICAID, SELFPAY ==
[2022-11-23 23:53] VITALS: BP 158/115; PULSE 100; RESP 20; O2SAT 97
--- NOTE | 2022-11-24 00:10 | PC.NURSE ---
When pt was asked to produce urine specimen, pt stated you aren't getting shit out of me. Dr notified.
[2022-11-24] MEDS: haloperidol inj 5 mg/mL INJ 1 mL IVP (00:26)
[2022-11-24] MEDS: LORazepam 2 mg/mL INJ 1 mL 1 MG IVP (00:26)
--- NOTE | 2022-11-24 00:44 | XRR_ITS ---
PROCEDURE INFORMATION: Exam: XR Chest Exam date and time: 11/24/2022 12:54 AM Age: 51 years old Clinical indication: Shortness of breath; Patient HX: C/O SOB. History of copd. ; Additional info: SOA, 100% o2, on methamphetamine TECHNIQUE: Imaging protocol: Radiologic exam of the chest. Views: 1 view. COMPARISON: CR XR chest 1V portable [id number] 08/11/2022 11:58 AM FINDINGS: Lungs: Low lung volumes with bronchovascular crowding. No airspace disease. Pleural spaces: No pleural effusion. No pneumothorax. Heart/Mediastinum: Cardiac silhouette is normal in size for technique. Bones/joints: Age appropriate. XR/XR chest 1V [id number] IMPRESSION: Low lung volumes. No convincing superimposed abnormality.
--- NOTE | 2022-11-24 00:55 | ED_ITS ---
HPI - SOB/Dyspnea General: Chief Complaint: Shortness of Breath/Dyspnea Stated Complaint: SOB Time Seen by Provider: 11/24/22 00:02 Source: patient Mode of arrival: EMS Limitations: no limitations History of Present Illness: HPI Narrative: Patient presents to the emergency department today brought by EMS for reported sudden onset shortness of breath. Patient states he was asleep at home and he woke up feeling like he was choking and could not breathe. Patient denies eating any new foods at dinner. He has not started any new medications. Patient received a breathing treatment in route by EMS however, patient is satting 100% in the room. However, patient is actively gasping in the room. He is grabbing onto the bed rails and jerking himself around in the bed. He is kicking his legs. He is yelling out. Upon arrival, nursing asked if he could provide a urine specimen and he indicated with expletives that he would not be providing any specimens. Review of Systems General: Reports: 10 or more systems reviewed and unremarkable except in HPI and below PFSH ED PFSH: Medical History Acute CVA (cerebrovascular accident) Alcohol use disorder, severe, in early remission, dependence Amphetamine use disorder, mild Amputation of leg Generalized anxiety disorder Hypertension Insomnia Major depressive disorder, recurrent, moderate Psychiatric care Tobacco use disorder Social History Smoking and tobacco status: current every day smoker cigarettes Packs smoked per day: 0.5 Years cigarettes smoked: 30 Quit status (tobacco): has tried quititng Number of times tried to quit tobacco: 10 Second hand smoke exposure: No Smoking risk assessment/counseling performed?: No Alcohol intake: former Year of sobriety/quit date alcohol: 2021 Desire information about alcohol rehabilitation?: No Counseling given: No Substance/Drug Use: former Desire information about substance/drug rehabilitation?: No Counseling given: No Physical Exam Const: COMMON NORMALS: patient oriented x3 and alert OTHER: Patient is extremely riled up. Eye: COMMON NORMALS: Equal, round and reactive pupils present, EOMs intact bilaterally and conjunctivae normal CONJUNCTIVA: Yes conjunctivae normal PUPIL: Yes Equal, round and reactive pupils present Neck/C-Spine: COMMON NORMALS: no JVD Lymph: LYMPHATIC: no lymphadenopathy noted Resp: COMMON NORMALS: normal respiratory effort, No retractions and No use of accessory muscles OTHER: Patient is gasping for air but, is answering questions with little difficulty. Appreciated no wheezing. Patient has what sounds like stridor but seems to be from sudden, forceful inhalations of air. Auscultation of the trachea revealed no acute concerns. Oxygen saturation 100%. Cardio: COMMON NORMALS: no JVD OTHER: Patient is mildly tachycardic. : COMMON NORMALS: Yes no CVA tenderness BLADDER/KIDNEY EXAM: Yes no CVA tenderness Back/Pelvis: COMMON NORMALS: no CVA tenderness, thoracic and lumbar spine normal to inspection and thoraco-lumbar ROM normal Extremity: COMMON NORMALS: normal to inspection, full ROM and no pedal edema Neuro: COMMON NORMALS: patient oriented x3 SENSORIUM/ORIENTATION: Yes alert Psych: OTHER: Patient is extremely agitated. Skin: COMMON NORMALS: no rashes or lesions noted and turgor normal GENERAL SKIN EXAM: no rashes or lesions noted and turgor normal Course Vital Signs: Vital signs: Vital Signs Pulse Rate 100 11/24/22 02:27 Respiratory Rate 18 11/24/22 02:27 Blood Pressure 158/115 11/24/22 02:27 Pulse Oximetry 91 11/24/22 02:27 Oxygen Delivery Me thod Room Air 11/24/22 02:27 Oxygen Flow Rate 4 11/23/22 23:53 MDM - SOB/Dyspnea Medical Decision Making Patient presents into the emergency department extremely agitated. He is yelling out and jerking about the bed stating he cannot breathe though he received a breathing treatment and oxygen saturations 100%. I appreciated no acute concerns on lung auscultation. I indicated I knew he had refused to provide a urine specimen when he arrived. I asked if he would let me do an evaluation and work-up on him if needed and at that time, patient admitted to me he is currently on methamphetamines. I asked if he would allow me to provide him medications to help calm him down and he indicated yes- as long as it is not Narcan . Patient is provided Haldol and Ativan at the recommendation of Dr. Little. We also obtained a chest x-ray. Chest x-ray is negative for any acute concerns. Patient received his Haldol and Ativan and had a slight drop in oxygenation. However, patient was placed on nasal cannula and O2 saturations returned to normal. After some time, nasal cannula was removed and, patient continued to remain with O2 saturations in the 90%. On recheck, patient is completely asleep in the bed. Watching his respirations they are even, unlabored. No signs of any accessory muscle use. Patient shows no signs of distress and there is no stridor. Discussed with patient symptoms most likely secondary to methamphetamine use or, anxiety brought on by symptoms of metha mphetamine use. However, he was still given return precautions for any return or worsening of respiratory symptoms. Differential Diagnosis Likely asthma with exacerbation (Anxiety, panic attack, side effect of methamphetamine use) Lab Data Labs/Radiology: Radiology Impressions Chest X-Ray 11/24/22 00:44 IMPRESSION: Low lung volumes. No convincing superimposed abnormality. Discharge Plan Discharge Patient Disposition: Home Clinical Impression: Breath shortness Condition: Stable Prescriptions: No Action sertraline [Zoloft] 50 mg tablet 50 mg PO DAILY Qty: 30 1RF hydroxyzine HCl 25 mg tablet 25 mg PO BID PRN (Reason: itching) Qty: 60 1RF Rx Instructions: take once daily PRN anxiety and at HS PRN for sleep. (DME) Shoulder Immobilizer See Rx Instructions .Route .MEDSUPPLY Qty: 1 0RF Rx Instructions: As directed atorvastatin [Lipitor] 40 mg tablet 40 mg PO DAILY Qty: 30 3RF cimetidine 400 mg tablet 400 mg PO BEDTIME clopidogrel [Plavix] 75 mg tablet 75 mg PO BEDTIME amlodipine 10 mg tablet 10 mg PO BEDTIME pregabalin 150 mg capsule 150 mg PO BID pantoprazole 40 mg tablet,delayed release (DR/EC) 40 mg PO BEDTIME losartan 100 mg tablet 100 mg PO BEDTIME Antivert 50 mg tablet 50 mg PO BID PRN (Reason: dizziness) Qty: 20 0RF nicotine (polacrilex) 2 mg gum 4 mg PO Q2H PRN (Reason: Withdrawal Symptoms) metoprolol succinate 100 mg tablet extended release 24 hr 100 mg PO DAILY chlorthalidone 25 mg tablet 50 mg PO DAILY tramadol 100 mg tablet 100 mg PO Q12H PRN (Reason: pain) Qty: 14 0RF Discharge Orders: Discharge ED (Routine); Ordered 11/24/22 Ordered By: Roz Small Referrals: Ozzy Torres, [Primary Care Provider] - Discharge Diet: Usual diet Discharge Activity: Increase activity as tolerated Activity Restrictions/Additional Instructions: You responded to medication here in the emergency department to help with your breathing. Imaging was negative for any acute concerns and, your oxygen saturation has remained well within normal limits while on room air after your treatment. I do believe you may have had either a side effect of methamphetamine use or, had an anxiety attack brought on by the side effects which triggered the sensation of difficulty breathing. Coding Level of Care Code ED Warehouse Handler for Dickson Klein
[2022-11-24 02:27] VITALS: BP 158/115; PULSE 100; RESP 18; O2SAT 91
[2022-11-24 03:32] VITALS: BP 157/106; PULSE 107; RESP 18; O2SAT 96
== END 2022-11-24 03:39 | disposition home or self-care (01) ==
PROVIDERS: Emergency Provider Physician Assistant; PCP Internal Medicine
DX: F15.929 Other stimulant use, unspecified with intoxication, unspecified (principal); R06.09 Other forms of dyspnea
CPT/HCPCS: 71045; 96374; 96375; 99284; J1630; J2060

== ENCOUNTER 2023-08-09 08:23 | Outpatient (CLI) | payer MEDICARE, MEDICAID, SELFPAY ==
--- NOTE | 2023-08-09 08:46 | CT_ITS ---
WS: [id number] CT RIGHT FEMUR, NONCONTRAST HISTORY: ACQUIRED ABSENCE OF RT LEG ABOVE KNEE Technique: Axial imaging from the superior ilium through the wcsir-sqe-yvah amputation. All CT scans at [facility] use at least one of these dose optimization techniques: automated exposure contr ol; mA and/or kV adjustment per patient size (includes targeted exams where dose is matched to clinic al indication); or iterative reconstruction. DLP: 1157.72 mGy COMPARISON: 05/18/2018 Since the prior examination from 2017 there has been an wiwjv-iwm-muvo amputation. There is no remain ing hardware. Amputated site appears appropriately healed with no lucency or erosions. There is mild disuse osteopenia. No marrow expansion. There are a few small benign-appearing calcifications in the soft tissues around the distal amputation site. There is a soft tissue fluid collection just lateral to the distal femur measuring 2.2 x 2.7 cm. This could potentially be a small abscess or postoperative seroma. There is additional lucency in the sof t tissues distal to the amputation site. Small inguinal lymph nodes. No adenopathy. Patent, fat-containing RIGHT inguinal canal. CT/CT femur RT wo con* [id number] IMPRESSION: 1. Patient is status post [id number] amputation since 05/18/2018. 2. There is small fluid collections surrounding the distal femur at the amputa tion site. The largest collection is laterally measuring 2.2 x 2.7 cm. The flui d extends posterior to the distal femur. Postoperative seroma in the differenti al. Cannot exclude abscess. No osseous destruction.
--- NOTE | 2023-08-09 08:46 | CT_ITS ---
WS: [id number] CT LEFT LOWER EXTREMITY HISTORY: ACQUIRED ABSENCE OF RT LEG ABOVE KNEE Technique: Axial imaging from the mid iliac crest through the ankle. Images reformatted in sagittal a nd coronal planes. All CT scans at [facility] use at least one of these dose optimization tech niques: automated exposure control; mA and/or kV adjustment per patient size (includes targeted exams where dose is matched to clinical indication); or iterative reconstruction. DLP: 1254.90 mGy.cm COMPARISON: None available. LEFT femur is intact. No destructive bone lesions or marrow expansion. Knee joint is normal. There ma y be very mild narrowing of the medial and lateral compartments.. No osteophytosis. Distal tibia and fibula are normal and intact. No stress reaction. No fractures. Tibiotalar joint is negative. Patent LEFT inguinal canal containing fat only. There is no significant muscle atrophy or volume loss . No adenopathy. No joint effusion at the knee. CT/CT lower leg LT wo con* [id number] IMPRESSION: Unremarkable CT of the entire LEFT lower extremity. No significant degenerative changes.
== END 2023-08-09 08:24 | disposition home or self-care (01) ==
LOC: RAD 08:24
PROVIDERS: PCP Internal Medicine; Visit Provider Orthopaedic Surgery
DX: Z89.611 Acquired absence of right leg above knee (principal)
CPT/HCPCS: 73700

== ENCOUNTER → 2023-09-10 13:28 | Outpatient (BNVA) | payer MEDICARE, MEDICAID, SELFPAY | PROVIDERS: PCP Internal Medicine; Visit Provider Specialist | DX: M79.602 Pain in left arm (principal); R20.0 Anesthesia of skin; G56.03 Carpal tunnel syndrome, bilateral upper limbs | CPT/HCPCS: 95911 ==

== ENCOUNTER 2023-10-10 11:31 | Emergency (ER) | payer MEDICARE, MEDICAID, SELFPAY ==
[2023-10-10 11:55] VITALS: BP 124/66; PULSE 89; TEMP 36.9; O2SAT 98; BMI 23.7
[2023-10-10 12:07] VITALS: BP 124/66; PULSE 85; O2SAT 96
--- NOTE | 2023-10-10 14:37 | CTR_ITS ---
PROCEDURE INFORMATION: Exam: CT Abdomen And Pelvis With Contrast Exam date and time: 10/10/2023 2:49 PM Age: 52 years old Clinical indication: Abdominal pain; Localized; Right lower quadrant (rlq); Additional info: Right sided abd pain TECHNIQUE: Imaging protocol: Computed tomography of the abdomen and pelvis with contrast. Radiation optimization: All CT scans at this facility use at least one of these dose optimization techniques: automated exposure control; mA and/or kV adjustment per patient size (includes targeted exams where dose is matched to clinical indication); or iterative reconstruction. Contrast material: OMNI 350; Contrast volume: 100 ml; Contrast route: INTRAVENOUS (IV); COMPARISON: CT kidney stone [id number] 07/07/2020 7:08 PM RADIATION DOSE METRICS: Total DLP (mGy-cm): 788.17 FINDINGS: Lungs: Stable 5 mm nodule in the left lower lobe, unchanged from the previous study. This nodule appears partially calcified. This nodule does not appear to require imaging follow-up. Minimal pleural-based atelectasis in the right middle lobe. Diaphragm: Small hiatus hernia. Liver: Hepatic steatosis. There is a sub 5 mm hypodense lesion in the posterior right lobe of the liver, too small to characterize. Gallbladder and biliary ducts: The gallbladder is unremarkable with no calcified stones visualized and no strandy inflammatory changes surrounding the gallbladder. Pancreas: The pancreas is normal in appearance. No evidence of pancreatic ductal dilatation. Spleen: The spleen is normal in appearance. Adrenal glands: The adrenal glands are normal in appearance. Kidneys and ureters: The kidneys are normal in appearance. No evidence of hydronephrosis or hydroureter. No nephroureteral calculi are identified. Stomach and bowel: The small bowel loops are not thickened and are nondilated. There is colonic diverticulosis but no evidence of diverticulitis. Appendix: The appendix is normal in appearance. No evidence of appendicitis. Intraperitoneal space: Unremarkable. No free air. No significant fluid collection. Vasculature: Unremarkable. No abdominal aortic aneurysm. Lymph nodes: Unremarkable. No enlarged lymph nodes. Urinary bladder: The urinary bladder is normal in appearance. Reproductive: Unremarkable as visualized. Bones/joints: Stable mild chronic L1 compression fracture deformity. No acute osseous lesions identified. Soft tissues: Fat containing bilateral inguinal hernias. Tiny fat containing periumbilical hernia. CT/CT abdomen pelvis w con* [id number] IMPRESSION: 1. Hepatic steatosis. 2. No CT evidence of acute intra-abdominal pathology with incidental findings as above.
--- NOTE | 2023-10-10 14:38 | ED_ITS ---
HPI - Abdominal Pain 2 General: Chief Complaint: Abdominal Pain Stated Complaint: watery diarrhea, stomach issues Time Seen by Provider: 10/10/23 12:03 Source: patient Mode of arrival: ambulatory Limitations: no limitations History of Present Illness: This patient presents to the emergency department because of concerns about upper abdominal pain burning discomfort that he is had increasing symptoms of the last week to 10 days. ER states that also is been having watery nonbilious stools for the past month. He states he is on 3 medications his stomach and they do not seem to be working anymore. He states he is no longer smoking having quit 1 week ago. He states he does not use alcohol having quit 1 year ago. He states he has occasionally taken ibuprofen. He states he had endoscopy approximately 4 years ago and was told he had gastritis but was drinking alcohol at that time. States has been faithful to his prescribed medication. He denies any emesis or vomiting or black tarry stools or bloody stools etc. He has not recently been on antibiotics. Has no recent travel. No known food exposure or infectious disease exposure. No abdominal surgery history. He takes antihypertensives. No fevers chills cough cold congestion or other recent illness. 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 Associated Symptoms: Denies chills, dysuria, fever(s) and syncope Review of Systems 2 Const: Denies: fever(s) or chills Eyes: Denies: change in vision ENMT: Denies: odynophagia, nasal discharge or nasal congestion Card: Denies: chest pain, syncope or pre-syncope Resp: Denies: dyspnea, productive cough or non-productive cough : Denies: flank pain, difficulty urinating, dysuria or urinary frequency Musc: Denies: neck pain, back pain, extremity pain or extremity swelling Skin/Breast: Denies: rash or pruritus Neuro: Denies: headache(s), numbness in extremities or weakness in extremities Neil/Lymph: Denies: easy bruising or easy bleeding PFSH ED 2 PFSH: Medical History Bruxism Methamphetamine abuse, episodic Cigarette nicotine dependence Medical marijuana use History of alcohol use disorder Major depressive disorder, recurrent, moderate Generalized anxiety disorder Psychiatric care Acute CVA (cerebrovascular accident) Amputation of leg Hypertension Social History Smoking and tobacco/nicotine status: current every day tobacco/nicotine user cigarettes Packs smoked per day: 0.5 Years cigarettes smoked: 30 Quit status (tobacco/nicotine): has tried quititng Number of times tried to quit tobacco: 10 Second hand smoke exposure: No Alcohol intake: former Year of sobriety/quit date alcohol: 2021 Substance/Drug Use: former Physical Exam 2 Narrative: EXAM NARRATIVE: Patient is alert makes good eye contact. Speech is goal-directed. Const: COMMON NORMALS: no acute distress, average body habitus and patient oriented x3 GENERAL APPEARANCE: cooperative HENMT: COMMON NORMALS: normocephalic, Normal nasal mucous membranes and turbinates present, moist oral mucous membranes and oropharynx normal HEAD & SCALP: normocephalic NOSE: Normal nasal mucous membranes and turbinates present Eye: COMMON NORMALS: Equal, round and reactive pupils present, EOMs intact bilaterally and no scleral icterus PUPIL: Yes Equal, round and reactive pupils present Neck/C-Spine: COMMON NORMALS: full ROM, no lymphadenopathy and supple Chest: COMMONS NORMALS: normal inspection of the chest Resp: COMMON NORMALS: normal respiratory effort, No use of accessory muscles and clear to auscultation bilaterally AUSCULTATION: clear to auscultation bilaterally Cardio: COMMON NORMALS: regular rate, regular rhythm, No murmurs present (Cardio) and Peripheral pulses 2+ throughout RATE: regular rate RHYTHM: r egular rhythm PERIPHERAL PULSES: Peripheral pulses 2+ throughout GI: COMMON NORMALS: Normal to inspection, nondistended, normoactive bowel sounds present OTHER: Patient has tenderness in his right abdomen with some voluntary guarding. No rebound. No masses noted. : COMMON NORMALS: Yes no CVA tenderness BLADDER/KIDNEY EXAM: Yes no CVA tenderness Back/Pelvis: COMMON NORMALS: no CVA tenderness, no thoracic nor lumbar tenderness and thoraco-lumbar ROM normal Extremity: COMMON NORMALS: capillary refill normal and no calf tenderness N ARRATIVE EXTREMITY EXAM: He has right AKA amputation. No other abnormal findings on his extremity examination. Neuro: COMMON NORMALS: patient oriented x3, moves all extremities, no focal motor deficits and no sensory deficits noted Psych: COMMON NORMALS: mental status grossly normal and cooperative Skin: COMMON NORMALS: no rashes or lesions noted and turgor normal GENERAL SKIN EXAM: no rashes or lesions noted and turgor normal Course 2 Reevaluation(s): Reevaluation #1: Patient remained stable while in the emergency department. He had no stools while here so unable to obtain a C. difficile toxin evaluation. He has ancillary studies are reassuring. Will add Carafate to his regimen to see if that controls his symptoms. Certainly no evidence at this time of an ongoing emergency medical condition we discussed the importance of follow-up and other historical measures such as a food diary etc. to help discern what might be an etiology to his loose stools. Time: 16:09 Vital Signs: Vital signs: Vital Signs Temperature 98.5 F 10/10/23 11:55 Pulse Rate 85 10/10/23 12:07 Blood Pressure 124/66 10/10/23 12:07 Pulse Oximetry 96 10/10/23 12:07 Oxygen Delivery Me thod Room Air 10/10/23 12:07 MDM - Abdominal Pain Medical Decision Making This patient made his way to the emergency department because he has been having epigastric burning discomfort. He states that he has been having the symptoms off and on for months perhaps years and they have been reasonably controlled with his current regimen but he does not think there is well-controlled is in the past. He has not any vomiting does not associate any particular food intake with change in his symptoms. He denies any chest pain shortness of breath associated with it. He denies any black tarry stool or blood in his stools. He also states that over the past month or more he has been having loose stools which seem to have no relationship to his diet. They do not wake him up at night. There is been no blood in his stools. There is been no chalky white stools etc. He quit smoking tobacco approximately a week ago and has not drank alcohol for a year. He states he occasionally uses nonsteroidals. States his stools are not odiferous or foul-smelling. Differential includes gastroesophageal reflux peptic ulcer disease etc. He has no history of recent antibiotic use but certainly sees difficile is a possibility for his loose stools. It could be just food related or diet related as well. Patient is clinically looks good without any stigmata to suggest an ongoing emergency medical condition and his abdominal examinations unremarkable for tenderness or peritoneal signs. I discussed potential causes with the patient and also whether or not additional workup is necessary in the emergency department. The patient was concerned if he came to the emergency department so we will proceed with screening laboratories as well as CT scan. Those studies were obtained and were reassuring. He did not have a stool while in the emergency department overnight unable to obtain C. difficile toxin. Current thought was that he probably has some breakthrough gastritis. Certainly no evidence that suggest gastric ulcer with perforation etc. based on CT scan today and he certainly does not have a clinical picture that suggest such. Will go ahead and add Carafate to his regimen and also recommend primary care follow-up in the next 10 days or so to evaluate his progress and determine if he needs additional ancillary testing. Return precautions were also discussed. Lab Data I reviewed the patient's lab results. 10/10/23 14:43 10/10/23 14:43 Labs/Radiology: Radiology Impressions Abdomen/Pelvis CT 10/10/23 14:37 IMPRESSION: 1. Hepatic steatosis. 2. No CT evidence of acute intra-abdominal pathology with incidental findings as above. Laboratory Results WBC 10.35 10^3/uL (3.29-11.43) 10/10/23 14:43 RBC 5.36 10^6/uL (3.85-5.65) 10/10/23 14:43 Hgb 15.60 g/dL (11.27-16.99) 10/10/23 14:43 Hct 46.2 % (37-53) 10/10/23 14:43 MCV 86.2 fl (82-101) 10/10/23 14:43 MCH 29.1 pg (27-33) 10/10/23 14:43 MCHC 33.8 g/dL (30-55) 10/10/23 14:43 RDW 13.6 % (12.1-15.1) 10/10/23 14:43 Plt Count 387 10^3/cmm (157-399) 10/10/23 14:43 MPV 9.0 fL (7.4-10.4) 10/10/23 14:43 Neut % (Auto) 72.6 % 10/10/23 14:43 Lymph % (Auto) 18.0 % 10/10/23 14:43 [place] % (Auto) 6.2 % 10/10/23 14:43 Eos % (Auto) 2.1 % 10/10/23 14:43 Baso % (Auto) 0.6 % 10/10/23 14:43 Neut # (Auto) 7.52 10^3/uL (1.8-7.7) 10/10/23 14:43 Lymph # (Auto) 1.9 10^3/uL (0.8-4.8) 10/10/23 14:43 [place] # (Auto) 0.6 10^3/uL (0.2-0.9) 10/10/23 14:43 Eos # (Auto) 0.2 10^3/uL (0.0-0.8) 10/10/23 14:43 Baso # (Auto) 0.1 10^3/uL (0.0-0.1) 10/10/23 14:43 Nucleated RBC % (auto) 0 % 10/10/23 14:43 Nucleated RBCs # 0.0 /100WBC 10/10/23 14:43 Sodium 141 mmol/L (136-145) 10/10/23 14:43 Potassium 4.0 mmol/L (3.5-5.1) 10/10/23 14:43 Chloride 102 mmol/L (98-107) 10/10/23 14:43 Carbon Dioxide 29 mmol/L (22-29) 10/10/23 14:43 Anion Gap 14.0 (5-19) 10/10/23 14:43 BUN 17 mg/dL (6-20) 10/10/23 14:43 Creatinine 0.8 mg/dL (0.7-1.2) 10/10/23 14:43 GFR Calculation 101.1 mL/min (90-130) 10/10/23 14:43 Glucose 95 mg/dL (65-115) 10/10/23 14:43 Calculated Osmolality 293 mOsm/kg (285-295) 10/10/23 14:43 Calcium 9.4 mg/dL (8.5-10.5) 10/10/23 14:43 Total Bilirubin 0.6 mg/dL (0.15-1.2) 10/10/23 14:43 AST 14 U/L (0-40) 10/10/23 14:43 ALT 26 U/L (0-41) 10/10/23 14:43 Alkaline Phosphatase 89 U/L (40-130) 10/10/23 14:43 Total Protein 7.7 g/dL (6.6-8.7) 10/10/23 14:43 Albumin 4.2 g/dL (3.5-5.2) 10/10/23 14:43 Globulin 3.5 g/dL (1.3-4.6) 10/10/23 14:43 All radiology interpretation(s) finalized by discharge Discharge Plan Discharge Patient Disposition: Home Clinical Impression: Abdominal pain, Frequent loose stools Condition: Stable Prescriptions: New Carafate 1 gram tablet 1 g PO TID 28 Days Qty: 84 1RF No Action famotidine [Acid Emergency Room Registered Nurse (famotidine)] 20 mg tablet 20 mg PO DAILY naloxone [Narcan] 4 mg/actuation spray,non-aerosol 4 mg intranasal Q2M PRN (Reason: opioid overdose) Qty: 2 3RF Rx Instructions: spray 1 dose into 1 nostril; alt nostrils w each dose until help arrives buspirone 10 mg tablet 10 mg PO TID Qty: 90 3RF quetiapine [Seroquel] 50 mg tablet 50 mg PO BID PRN (Reason: severe anxiety/agitation) Qty: 60 3RF amlodipine 10 mg tablet 10 mg PO BEDTIME pregabalin 150 mg capsule 150 mg PO BID losartan 100 mg tablet 100 mg PO BEDTIME nicotine 14 mg/24 hr patch 24 hour 1 patch topical DAILY pantoprazole 40 mg tablet,delayed release (DR/EC) 40 mg PO BID metoprolol succinate 100 mg tablet extended release 24 hr 100 mg PO DAILY chlorthalidone 25 mg tablet 50 mg PO DAILY tramadol 100 mg tablet 100 mg PO Q12H PRN (Reason: pain) Qty: 14 0RF Discharge Orders: Discharge ED (Routine); Ordered 10/10/23 Ordered By: Jose Hodge Referrals: Ozzy Torres DO [Primary Care Provider] - 7-10 days (change in stools. Neg CT today in ED. ) Discharge Diet: Usual diet Discharge Activity: Resume usual activity Patient Instructions: Abdominal Pain (ED), Opioid Safety, Pain Management Activity Restrictions/Additional Instructions: As we discussed while you are in the emergency department your studies today were reassuring and did not reveal any serious cause of your symptoms. We have prescribed Carafate to help with some of your burning abdominal pain to see if that helps control your symptoms. You should also follow-up with your doctor next week to 10 days to discuss further testing and MRI need to be performed because of your frequent loose stools. We also recommend making a food diary to see if there is any association with your eating habits and your symptoms. If you develop any new or worsening symptoms you are welcome to return to the emergency department for reevaluation. Coding Level of Care Code ED Conservation Engineer for Dickson Klein
[2023-10-10 14:49] LABS: Basophils # 0.1 10^3/uL (0.0-0.1); Basophils % 0.6 %; Eosinophils # 0.2 10^3/uL (0.0-0.8); Eosinophils % 2.1 %; Hematocrit 46.2 % (37-53); Lymphocytes # 1.9 10^3/uL (0.8-4.8); Mean Corpuscular HGB Conc 33.8 g/dL (30-55); Mean Corpuscular Hemoglobin 29.1 pg (27-33); Mean Corpuscular Volume 86.2 fl (82-101); Monocytes # 0.6 10^3/uL (0.2-0.9); Monocytes % 6.2 %; Neutrophils # 7.52 10^3/uL (1.8-7.7); Neutrophils % 72.6 %; Nucleated Red Blood Cells % 0 %; Platelet Count 387 10^3/cmm (157-399); Red Blood Count 5.36 10^6/uL (3.85-5.65); Red Cell Distribution Width 13.6 % (12.1-15.1); White Blood Count 10.35 10^3/uL (3.29-11.43)
[2023-10-10] MEDS: iohexol 350 mg/mL 500 mL Btl (per mL) IV (14:53)
[2023-10-10 15:06] LABS: Alanine Aminotransferase 26 U/L (0-41); Albumin Level 4.2 g/dL (3.5-5.2); Alkaline Phosphatase 89 U/L (40-130); Aspartate Amino Transferase 14 U/L (0-40); Blood Urea Nitrogen 17 mg/dL (6-20); Calcium 9.4 mg/dL (8.5-10.5); Carbon Dioxide 29 mmol/L (22-29); Chloride 102 mmol/L (98-107); Creatinine Clr Calc Pharmacy 118.2831; Globulin 3.5 g/dL (1.3-4.6); Glomerular Filtration Rate 101.1 mL/min (90-130); Glucose 95 mg/dL (65-115); Osmolality Calculated 293 mOsm/kg (285-295); Sodium 141 mmol/L (136-145); Total Bilirubin 0.6 mg/dL (0.15-1.2); Total Protein 7.7 g/dL (6.6-8.7)
[2023-10-10 16:24] VITALS: BP 124/66; PULSE 85; TEMP 36.9; O2SAT 96
== END 2023-10-10 16:29 | disposition home or self-care (01) ==
PROVIDERS: Emergency Provider Emergency Medicine; PCP Internal Medicine
DX: R10.10 Upper abdominal pain, unspecified (principal); R19.7 Diarrhea, unspecified; I10 Essential (primary) hypertension; Z79.899 Other long term (current) drug therapy; Z86.73 Personal history of transient ischemic attack (TIA), and cerebral infarction without residual deficits
CPT/HCPCS: 36415; 74177; 80053; 85025; 99285; Q9967

== ENCOUNTER 2023-10-28 10:03 | Emergency (ER) | payer MEDICARE, MEDICAID, SELFPAY ==
[2023-10-28 10:24] VITALS: BP 124/84; PULSE 90; RESP 16; TEMP 36.9; O2SAT 100; BMI 25.6
[2023-10-28 11:02] LABS: Basophils # 0.1 10^3/uL (0.0-0.1); Eosinophils # 0.3 10^3/uL (0.0-0.8); Eosinophils % 3.3 %; Hematocrit 45.5 % (37-53); Lymphocytes # 2.2 10^3/uL (0.8-4.8); Lymphocytes % 21.4 %; Mean Corpuscular HGB Conc 33.8 g/dL (30-55); Mean Corpuscular Hemoglobin 29.1 pg (27-33); Mean Corpuscular Volume 85.8 fl (82-101); Mean Platelet Volume 8.9 fL (7.4-10.4); Monocytes # 0.8 10^3/uL (0.2-0.9); Monocytes % 7.9 %; Neutrophils # 6.72 10^3/uL (1.8-7.7); Neutrophils % 66.1 %; Nucleated Red Blood Cells % 0 %; Platelet Count 346 10^3/cmm (157-399); Red Cell Distribution Width 14.6 % (12.1-15.1); White Blood Count 10.15 10^3/uL (3.29-11.43)
[2023-10-28 11:19] VITALS: BP 131/95; PULSE 84; RESP 16; O2SAT 94
--- NOTE | 2023-10-28 11:19 | XRR_ITS ---
PROCEDURE INFORMATION: Exam: XR Left Hip Exam date and time: 10/28/2023 11:23 AM Age: 52 years old Clinical indication: Hip pain; Left hip; Patient HX: No known injury TECHNIQUE: Imaging protocol: Radiologic exam of the left hip. Views: 2 or 3 views hip with pelvis when performed. COMPARISON: CT abdomen pelvis w con* [id number] 10/10/2023 2:49 PM FINDINGS: Bones/joints: Unremarkable. No acute fracture. Soft tissues: Unremarkable. XR/XR hip LT 2-3V wo/w pel* [id number] IMPRESSION: No acute findings.
--- NOTE | 2023-10-28 11:20 | ED_ITS ---
HPI - Extremity Problem 2 General: Chief complaint: Extremity Injury, Lower Stated complaint: LT leg pain Time Seen by Provider: 10/28/23 10:17 Source: patient Mode of arrival: ambulatory Limitations: no limitations History of Present Illness: 52-year-old male states he been having s ome left hip pain for last 3 weeks. States been pain in his left lower back and hip and radiates down his left leg he states it feels like sciatica. States it is much worse with movement improved with rest. Denies any injuries denies any bowel or bladder incontinence Associated symptoms: Deny chest pain, fever(s) or rash Review of Systems 2 Const: Denies: fever(s), chills, body aches or change in appetite ENMT: Denies: throat pain or dental pain Card: Denies: chest pain Resp: Denies: dyspnea GI: Denies: abdominal pain, nausea, vomiting or diarrhea Musc: Reports: extremity pain; Denies: neck pain or back pain Skin/Breast: Denies: rash Neuro: Denies: headache(s) PFSH ED 2 PFSH: Medical History Bruxism Methamphetamine abuse, episodic Cigarette nicotine dependence Medical marijuana use History of alcohol use disorder Major depressive disorder, recurrent, moderate Generalized anxiety disorder Psychiatric care Acute CVA (cerebrovascular accident) Amputation of leg Hypertension Social History Smoking and tobacco/nicotine status: current every day tobacco/nicotine user cigarettes Packs smoked per day: 0.5 Years cigarettes smoked: 30 Quit status (tobacco/nicotine): has tried quititng Number of times tried to quit tobacco: 10 Second hand smoke exposure: No Alcohol intake: former Year of sobriety/quit date alcohol: 2021 Substance/Drug Use: former Physical Exam 2 Const: COMMON NORMALS: no acute distress, patient oriented x3 and healthy appearing HENMT: COMMON NORMALS: normocephalic and atraumatic HEAD & SCALP: n ormocephalic and atraumatic Eye: COMMON NORMALS: Equal, round and reactive pupils present and EOMs intact bilaterally PUPIL: Yes Equal, round and reactive pupils present Neck/C-Spine: COMMON NORMALS: full ROM and supple Chest: COMMONS NORMALS: normal inspection of the chest Resp: COMMON NORMALS: normal respiratory effort Extremity: COMMON NORMALS: normal to inspection and full ROM NARRATIVE EXTREMITY EXAM: Tenderness noted to left lower back and hip does have pain with range of motion no warmth to touch distal pulses sensation intact Neuro: COMMON NORMALS: patient oriented x3, moves all extremities and no focal motor deficits Psych: COMMON NORMALS: mental status grossly normal, Normal thought process present and cooperative THOUGHT PROCESS: Normal thought process present Skin: COMMON NORMALS: no rashes or lesions noted and no wounds GENERAL SKIN EXAM: no rashes or lesions noted Course 2 Vital Signs: Vital signs: Vital Signs Temperature 98.5 F 10/28/23 10:24 Pulse Rate 84 10/28/23 11:19 Respiratory Rate 16 10/28/23 11:29 Blood Pressure 131/95 10/28/23 11:19 Pulse Oximetry 96 10/28/23 11:29 Oxygen Delivery Me thod Room Air 10/28/23 11:19 MDM - Extremity (Nontraumatic) Medical Decision Making Patient presents here with low back and hip pains likely sciatica his pains improved here exam is benign x-ray shows no acute abnormalities white counts normal no signs of septic joint we will place him on steroids pain medicine he is follow-up with PCP and return if worsening Medical Records I reviewed the patient's medical records. Lab Data I reviewed the patient's lab results. 10/28/23 10:58 10/28/23 10:58 Radiology Impressions Hip/Pelvis X-Ray 10/28/23 11:19 IMPRESSION: No acute findings. Laboratory Results WBC 10.15 10^3/uL (3.29-11.43) 10/28/23 10:58 RBC 5.30 10^6/uL (3.85-5.65) 10/28/23 10:58 Hgb 15.40 g/dL (11.27-16.99) 10/28/23 10:58 Hct 45.5 % (37-53) 10/28/23 10:58 MCV 85.8 fl (82-101) 10/28/23 10:58 MCH 29.1 pg (27-33) 10/28/23 10:58 MCHC 33.8 g/dL (30-55) 10/28/23 10:58 RDW 14.6 % (12.1-15.1) 10/28/23 10:58 Plt Count 346 10^3/cmm (157-399) 10/28/23 10:58 MPV 8.9 fL (7.4-10.4) 10/28/23 10:58 Neut % (Auto) 66.1 % 10/28/23 10:58 Lymph % (Auto) 21.4 % 10/28/23 10:58 [place] % (Auto) 7.9 % 10/28/23 10:58 Eos % (Auto) 3.3 % 10/28/23 10:58 Baso % (Auto) 1.0 % 10/28/23 10:58 Neut # (Auto) 6.72 10^3/uL (1.8-7.7) 10/28/23 10:58 Lymph # (Auto) 2.2 10^3/uL (0.8-4.8) 10/28/23 10:58 [place] # (Auto) 0.8 10^3/uL (0.2-0.9) 10/28/23 10:58 Eos # (Auto) 0.3 10^3/uL (0.0-0.8) 10/28/23 10:58 Baso # (Auto) 0.1 10^3/uL (0.0-0.1) 10/28/23 10:58 Nucleated RBC % (auto) 0 % 10/28/23 10:58 Nucleated RBCs # 0.0 /100WBC 10/28/23 10:58 Sodium 136 mmol/L (136-145) 10/28/23 10:58 Potassium 3.5 mmol/L (3.5-5.1) 10/28/23 10:58 Chloride 99 mmol/L (98-107) 10/28/23 10:58 Carbon Dioxide 24 mmol/L (22-29) 10/28/23 10:58 Anion Gap 16.5 (5-19) 10/28/23 10:58 BUN 9 mg/dL (6-20) 10/28/23 10:58 Creatinine 0.7 mg/dL (0.7-1.2) 10/28/23 10:58 GFR Calculation 118.0 mL/min (90-130) 10/28/23 10:58 Glucose 110 mg/dL (65-115) 10/28/23 10:58 Calculated Osmolality 281 mOsm/kg (285-295) L 10/28/23 10:58 Calcium 9.8 mg/dL (8.5-10.5) 10/28/23 10:58 Total Bilirubin 0.6 mg/dL (0.15-1.2) 10/28/23 10:58 AST 11 U/L (0-40) 10/28/23 10:58 ALT 19 U/L (0-41) 10/28/23 10:58 Alkaline Phosphatase 75 U/L (40-130) 10/28/23 10:58 Total Protein 7.0 g/dL (6.6-8.7) 10/28/23 10:58 Albumin 4.0 g/dL (3.5-5.2) 10/28/23 10:58 Globulin 3.0 g/dL (1.3-4.6) 10/28/23 10:58 All radiology interpretation(s) finalized by discharge Discharge Plan Discharge Patient Disposition: Home Clinical Impression: Low back pain Qualifiers: Chronicity: acute Back pain laterality: left Sciatica presence: with sciatica S ciatica laterality: sciatica of left side Qualified Code(s): M54.42 - Lumbago with sciatica, left side Condition: Stable Prescriptions: New hydrocodone-acetaminophen 5-325 mg tablet 1 tab PO Q6H PRN (Reason: pain) Qty: 14 0RF prednisone 50 mg tablet 50 mg PO DAILY Qty: 5 0RF No Action famotidine [Acid [employer] (famotidine)] 20 mg tablet 20 mg PO DAILY naloxone [Narcan] 4 mg/actuation spray,non-aerosol 4 mg intranasal Q2M PRN (Reason: opioid overdose) Qty: 2 3RF Rx Instructions: spray 1 dose into 1 nostril; alt nostrils w each dose until help arrives buspirone 10 mg tablet 10 mg PO TID Qty: 90 3RF quetiapine [Seroquel] 50 mg tablet 50 mg PO BID PRN (Reason: severe anxiety/agitation) Qty: 60 3RF amlodipine 10 mg tablet 10 mg PO BEDTIME pregabalin 150 mg capsule 150 mg PO BID losartan 100 mg tablet 100 mg PO BEDTIME nicotine 14 mg/24 hr patch 24 hour 1 patch topical DAILY pantoprazole 40 mg tablet,delayed release (DR/EC) 40 mg PO BID Carafate 1 gram tablet 1 g PO TID 28 Days Qty: 84 1RF metoprolol succinate 100 mg tablet extended release 24 hr 100 mg PO DAILY chlorthalidone 25 mg tablet 50 mg PO DAILY tramadol 100 mg tablet 100 mg PO Q12H PRN (Reason: pain) Qty: 14 0RF Discharge Orders: Discharge ED (Routine); Ordered 10/28/23 Ordered By: Marco Rouse Referrals: Ozzy Torres DO [Primary Care Provider] - 4-7 days Discharge Diet: Advance as tolerated Discharge Activity: Resume usual activity Patient Instructions: Sciatica (ED), Opioid Safety Coding Level of Care Code ED Dockmaster for Dickson Klein
[2023-10-28 11:21] LABS: Alanine Aminotransferase 19 U/L (0-41); Alkaline Phosphatase 75 U/L (40-130); Anion Gap 16.5 (5-19); Aspartate Amino Transferase 11 U/L (0-40); Blood Urea Nitrogen 9 mg/dL (6-20); Calcium 9.8 mg/dL (8.5-10.5); Carbon Dioxide 24 mmol/L (22-29); Chloride 99 mmol/L (98-107); Creatinine Clr Calc Pharmacy 139.5653; Glucose 110 mg/dL (65-115); Osmolality Calculated 281 mOsm/kg (285-295); Potassium 3.5 mmol/L (3.5-5.1); Sodium 136 mmol/L (136-145); Total Bilirubin 0.6 mg/dL (0.15-1.2)
[2023-10-28 11:29] VITALS: RESP 16; O2SAT 96
[2023-10-28] MEDS: morphine 4 mg/mL SDV 1 mL IM (11:29)
[2023-10-28] MEDS: dexamethasone 10 mg/mL INJ IM (11:32)
[2023-10-28 12:19] VITALS: PULSE 85; RESP 18; O2SAT 96
== END 2023-10-28 12:20 | disposition home or self-care (01) ==
PROVIDERS: Family Medicine; Emergency Provider Emergency Medicine; PCP Internal Medicine
DX: M54.42 Lumbago with sciatica, left side (principal); Z86.73 Personal history of transient ischemic attack (TIA), and cerebral infarction without residual deficits; I10 Essential (primary) hypertension; F17.210 Nicotine dependence, cigarettes, uncomplicated
CPT/HCPCS: 36415; 73502; 80053; 85025; 96372; 99284; J1100; J2270

== ENCOUNTER 2024-05-08 16:36 | Emergency (ER) | payer MEDICARE, MEDICAID, SELFPAY ==
[2024-05-08 16:38] VITALS: BP 138/87; PULSE 113; RESP 18; TEMP 36.8; O2SAT 93
--- NOTE | 2024-05-08 16:41 | ECG_ITS ---
[facility] Test Date: 2024-05-08 Pat Name: Holger Garcia Department: Room: Gender: Male Qa Tech: : 1970 Requested By: Van Wen Order Number: [id number] Emily MD: WOO FLOWERS Measurements Intervals [place] Rate: 112 P: 47 [place]: 144 QRS: 32 QRSD: 106 T: 57 QT: 324 QTc: 443 Interpretive Statements SINUS TACHYCARDIA POSSIBLE RIGHT VENTRICULAR CONDUCTION DELAY [RSR (QR) IN V1/V2] NONSPECIFIC ST ELEVATION [0.05+ mV ST ELEVATION] ABNORMAL RHYTHM ECG Compared to ECG 01/18/2022 23:33:41 ST (T wave) deviation now present Sinus rhythm no longer present Incomplete right bundle-branch block no longer present T-wave abnormality no longer present Electronically Signed On 05-10-2024 21:04:10 FORMING FIXER by WOO FLOWERS [email or web address]
--- NOTE | 2024-05-08 18:44 | W.ED.CHESTPA ---
HPI - Chest Pain General: Chief Complaint: Chest Pain Stated Complaint: chest pain Time Seen by Provider: 05/08/24 18:29 History of Present Illness: Patient arrives to the ER with complaints of chest pain that radiates from the center out to both arms and up his neck. This started about 1:00 today. He lie down and took a nap to try to get to go away and have his blood pressure come down. Blood pressure did improve but pain stayed there. Patient says it hurts to take a big deep breath. He just feels achy all over and has fever and chills. Related Data Home Medications ?Medication ?Instructions ?Recorded ?Confirmed amlodipine 10 mg tablet 10 mg PO BEDTIME 06/30/21 10/10/23 losartan 100 mg tablet 100 mg PO BEDTIME 06/30/21 10/10/23 pregabalin 150 mg capsule 150 mg PO BID 06/30/21 10/10/23 chlorthalidone 25 mg tablet 50 mg PO DAILY 11/27/21 10/10/23 metoprolol succinate 100 mg 100 mg PO DAILY 11/27/21 10/10/23 tablet,extended release 24 hr famotidine 20 mg tablet (Acid 20 mg PO DAILY 02/07/23 10/10/23 Crystalizer Operator (famotidine)) nicotine 14 mg/24 hr daily 1 patch topical DAILY 10/10/23 10/10/23 transdermal patch pantoprazole 40 mg tablet,delayed 40 mg PO BID 10/10/23 10/10/23 release Previous Rx's ?Medication ?Instructions ?Recorded tramadol 100 mg tablet 100 mg PO Q12H PRN pain #14 tabs 08/11/22 naloxone 4 mg/actuation nasal 4 mg intranasal Q2M PRN opioid 02/20/23 spray (Narcan) overdose #2 ea buspirone 10 mg tablet 10 mg PO TID #90 tabs 04/10/23 quetiapine 50 mg tablet (Seroquel) 50 mg PO BID PRN severe 04/10/23 anxiety/agitation #60 tabs sucralfate 1 gram tablet (Carafate) 1 g PO TID 4 weeks #84 tabs 10/10/23 hydrocodone 5 mg-acetaminophen 325 1 tab PO Q6H PRN pain #14 tabs 10/28/23 mg tablet prednisone 50 mg tablet 50 mg PO DAILY #5 tabs 10/28/23 Allergies Allergy/AdvReac Type Severity Reaction Status Date / Time aspirin Allergy causes Verified 05/08/24 16:47 ringing in the ears ibuprofen Allergy Unknown Verified 05/08/24 16:47 Review of Systems General: Reports: 10 or more systems reviewed and unremarkable except in HPI and below PFSH ED PFSH: Medical History Bruxism Methamphetamine abuse, episodic Cigarette nicotine dependence Medical marijuana use History of alcohol use disorder Major depressive disorder, recurrent, moderate Generalized anxiety disorder Acute CVA (cerebrovascular accident) Amputation of leg Hypertension Social History Smoking and tobacco/nicotine status: current every day tobacco/nicotine user cigarettes Packs smoked per day: 0.5 Years cigarettes smoked: 30 Quit status (tobacco/nicotine): has tried quititng Number of times tried to quit tobacco: 10 Second hand smoke exposure: No Alcohol intake: former Year of sobriety/quit date alcohol: 2021 Substance/Drug Use: former Physical Exam Const: COMMON NORMALS: no acute distress, average body habitus, patient oriented x3, no limitations, healthy appearing, alert and well nourished HENMT: COMMON NORMALS: normocephalic, atraumatic, hearing grossly normal bilaterally, external ears normal and Normal external nose present HEAD & SCALP: normocephalic and atraumatic NOSE: Normal external nose present EXTERNAL EAR: Yes external ears normal Neck/C-Spine: COMMON NORMALS: full ROM, no lymphadenopathy, supple, no meningeal signs, no JVD and Thyroid normal THYROID: Thyroid normal Chest: COMMONS NORMALS: normal inspection of the chest and normal palpation of entire chest wall Resp: COMMON NORMALS: normal respiratory effort, No retractions, No use of accessory muscles and clear to auscultation bilaterally AUSCULTATION: clear to auscultation bilaterally Cardio: COMMON NORMALS: no JVD, regular rate, regular rhythm, S1 normal heart sound present, S2 normal heart sound present, No gallops present (Cardio), No clicks present (Cardio), No murmurs present (Cardio) and No rub (Cardio) RATE: regular rate RHYTHM: regular rhythm HEART SOUNDS: S1 normal heart sound present and S2 normal heart sound present GI: COMMON NORMALS: Normal to inspection, nondistended, normoactive bowel sounds present, Soft to palpation, non-tender, No hepatosplenomegaly present and no masses PALPATION: Yes Soft to palpation and Yes No hepatosplenomegaly present Neuro: COMMON NORMALS: patient oriented x3 SENSORIUM/ORIENTATION: Yes alert MENINGEAL SIGNS: Yes no meningeal signs Course Vital Signs: Vital signs: Vital Signs Temperature 98.3 F 05/08/24 16:38 Pulse Rate 95 05/08/24 21:40 Respiratory Rate 16 05/08/24 21:40 Blood Pressure 107/68 05/08/24 21:40 Pulse Oximetry 92 05/08/24 21:40 Oxygen Delivery Me thod Room Air 05/08/24 21:40 MDM - Chest Pain Medical Decision Making While waiting for the second troponin to be drawn come back patient decided that he was tired of waiting and wanted to leave AMA. The patient left AMA Medical Records I reviewed the patient's medical records. Lab Data I reviewed the patient's lab results. 05/08/24 18:34 05/08/24 18:34 Radiology Impressions Chest X-Ray 05/08/24 18:46 IMPRESSION: No acute findings. Laboratory Results WBC 14.94 10^3/uL (3.29-11.43) H 05/08/24 18:34 RBC 5.57 10^6/uL (3.85-5.65) 05/08/24 18:34 Hgb 15.40 g/dL (11.27-16.99) 05/08/24 18:34 Hct 46.1 % (37-53) 05/08/24 18:34 MCV 82.8 fl (82-101) 05/08/24 18:34 MCH 27.6 pg (27-33) 05/08/24 18:34 MCHC 33.4 g/dL (30-55) 05/08/24 18:34 RDW 14.2 % (12.1-15.1) 05/08/24 18:34 Plt Count 366 10^3/cmm (157-399) 05/08/24 18:34 MPV 9.8 fL (7.4-10.4) 05/08/24 18:34 Neut % (Auto) 71.3 % 05/08/24 18:34 Lymph % (Auto) 15.0 % 05/08/24 18:34 Grady % (Auto) 9.9 % 05/08/24 18:34 Eos % (Auto) 2.6 % 05/08/24 18:34 Baso % (Auto) 0.7 % 05/08/24 18:34 Neut # (Auto) 10.66 10^3/uL (1.8-7.7) H 05/08/24 18:34 Lymph # (Auto) 2.2 10^3/uL (0.8-4.8) 05/08/24 18:34 Grady # (Auto) 1.5 10^3/uL (0.2-0.9) H 05/08/24 18:34 Eos # (Auto) 0.4 10^3/uL (0.0-0.8) 05/08/24 18:34 Baso # (Auto) 0.1 10^3/uL (0.0-0.1) 05/08/24 18:34 Nucleated RBC % (auto) 0 % 05/08/24 18:34 Nucleated RBCs # 0.0 /100WBC 05/08/24 18:34 Sodium 137 mmol/L (136-145) 05/08/24 18:34 Potassium 4.1 mmol/L (3.5-5.1) 05/08/24 18:34 Chloride 99 mmol/L (98-107) 05/08/24 18:34 Carbon Dioxide 22 mmol/L (22-29) 05/08/24 18:34 Anion Gap 20.1 (5-19) H 05/08/24 18:34 BUN 10 mg/dL (6-20) 05/08/24 18:34 Creatinine 0.6 mg/dL (0.7-1.2) L 05/08/24 18:34 GFR Calculation 140.4 mL/min (90-130) H 05/08/24 18:34 Glucose 76 mg/dL (65-115) 05/08/24 18:34 Calculated Osmolality 282 mOsm/kg (285-295) L 05/08/24 18:34 Calcium 9.2 mg/dL (8.5-10.5) 05/08/24 18:34 Total Bilirubin 0.5 mg/dL (0.15-1.2) 05/08/24 18:34 AST 15 U/L (0-40) 05/08/24 18:34 ALT 24 U/L (0-41) 05/08/24 18:34 Alkaline Phosphatase 129 U/L (40-130) 05/08/24 18:34 Troponin T Baseline 8 ng/L (0-15) 05/08/24 18:34 Total Protein 6.6 g/dL (6.6-8.7) 05/08/24 18:34 Albumin 3.9 g/dL (3.5-5.2) 05/08/24 18:34 Globulin 2.7 g/dL (1.3-4.6) 05/08/24 18:34 Coronavirus (PCR) Negative (Negative) 05/08/24 19:14 Influenza A (PCR) Negative (Negative) 05/08/24 19:14 Influenza Type B (PCR) Negative (Negative) 05/08/24 19:14 RSV (PCR) Negative (Negative) 05/08/24 19:14 All radiology interpretation(s) finalized by discharge Discharge Plan Discharge Patient Disposition: Left Against Medical Advice Clinical Impression: Left against medical advice Condition: Stable Prescriptions: No Action famotidine [Acid Crystalizer Operator (famotidine)] 20 mg tablet 20 mg PO DAILY naloxone [Narcan] 4 mg/actuation spray,non-aerosol 4 mg intranasal Q2M PRN (Reason: opioid overdose) Qty: 2 3RF Rx Instructions: spray 1 dose into 1 nostril; alt nostrils w each dose until help arrives buspirone 10 mg tablet 10 mg PO TID Qty: 90 3RF quetiapine [Seroquel] 50 mg tablet 50 mg PO BID PRN (Reason: severe anxiety/agitation) Qty: 60 3RF amlodipine 10 mg tablet 10 mg PO BEDTIME pregabalin 150 mg capsule 150 mg PO BID losartan 100 mg tablet 100 mg PO BEDTIME nicotine 14 mg/24 hr patch 24 hour 1 patch topical DAILY pantoprazole 40 mg tablet,delayed release (DR/EC) 40 mg PO BID Carafate 1 gram tablet 1 g PO TID 28 Days Qty: 84 1RF metoprolol succinate 100 mg tablet extended release 24 hr 100 mg PO DAILY chlorthalidone 25 mg tablet 50 mg PO DAILY tramadol 100 mg tablet 100 mg PO Q12H PRN (Reason: pain) Qty: 14 0RF hydrocodone-acetaminophen 5-325 mg tablet 1 tab PO Q6H PRN (Reason: pain) Qty: 14 0RF prednisone 50 mg tablet 50 mg PO DAILY Qty: 5 0RF Referrals: Ozzy Torres DO [Primary Care Provider] - Print Language: Vincentian Coding Level of Care Code ED Chief Dietitian for Dickson Klein
--- NOTE | 2024-05-08 18:46 | XRR_ITS ---
PROCEDURE INFORMATION: Exam: XR Chest Exam date and time: 05/08/2024 6:51 PM Age: 53 years old Clinical indication: Pain; Chest pressure; Additional info: Chest pain TECHNIQUE: Imaging protocol: Radiologic exam of the chest. Views: 1 view. COMPARISON: CR (CHEST, ) 11/24/2022 12:54 AM FINDINGS: Lungs: Unremarkable. No consolidation. Pleural spaces: Unremarkable. No pleural effusion. No pneumothorax. Heart/Mediastinum: Unremarkable. No cardiomegaly. Bones/joints: Unremarkable. XR/XR chest 1V portable [id number] IMPRESSION: No acute findings.
[2024-05-08] MEDS: ketorolac 30 mg/mL INJ IVP (19:13)
[2024-05-08 19:17] VITALS: BP 133/95; PULSE 100; RESP 16; O2SAT 93
[2024-05-08 19:20] LABS: Basophils # 0.1 10^3/uL (0.0-0.1); Basophils % 0.7 %; Eosinophils # 0.4 10^3/uL (0.0-0.8); Eosinophils % 2.6 %; Hematocrit 46.1 % (37-53); Lymphocytes # 2.2 10^3/uL (0.8-4.8); Mean Corpuscular HGB Conc 33.4 g/dL (30-55); Mean Corpuscular Hemoglobin 27.6 pg (27-33); Mean Corpuscular Volume 82.8 fl (82-101); Mean Platelet Volume 9.8 fL (7.4-10.4); Monocytes # 1.5 10^3/uL (0.2-0.9); Monocytes % 9.9 %; Neutrophils # 10.66 10^3/uL (1.8-7.7); Neutrophils % 71.3 %; Nucleated Red Blood Cells % 0 %; Platelet Count 366 10^3/cmm (157-399); Red Blood Count 5.57 10^6/uL (3.85-5.65); Red Cell Distribution Width 14.2 % (12.1-15.1); White Blood Count 14.94 10^3/uL (3.29-11.43)
[2024-05-08 19:49] LABS: Alanine Aminotransferase 24 U/L (0-41); Albumin Level 3.9 g/dL (3.5-5.2); Alkaline Phosphatase 129 U/L (40-130); Aspartate Amino Transferase 15 U/L (0-40); Blood Urea Nitrogen 10 mg/dL (6-20); Calcium 9.2 mg/dL (8.5-10.5); Carbon Dioxide 22 mmol/L (22-29); Creatinine Clr Calc Pharmacy 164.9273; Globulin 2.7 g/dL (1.3-4.6); Glomerular Filtration Rate 140.4 mL/min (90-130); Glucose 76 mg/dL (65-115); Total Bilirubin 0.5 mg/dL (0.15-1.2); Total Protein 6.6 g/dL (6.6-8.7); Troponin(5th) Baseline 8 ng/L (0-15)
[2024-05-08 19:54] LABS: Anion Gap 20.1 (5-19); Chloride 99 mmol/L (98-107); Osmolality Calculated 282 mOsm/kg (285-295); Potassium 4.1 mmol/L (3.5-5.1); Sodium 137 mmol/L (136-145)
--- NOTE | 2024-05-08 20:38 | ECG_ITS ---
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
[2024-05-08 20:44] LABS: Influenza A NEGATIVE (Negative); Influenza B NEGATIVE (Negative); Respiratory Syncytial Virus Ce NEGATIVE (Negative); SARS-CoV-2 PCR NEGATIVE (Negative)
[2024-05-08 20:54] VITALS: BP 117/85; PULSE 85; RESP 16; O2SAT 90
[2024-05-08 21:40] VITALS: BP 107/68; PULSE 95; RESP 16; O2SAT 92
== END 2024-05-08 21:57 | disposition left against medical advice (07) ==
PROVIDERS: Emergency Medicine; Emergency Provider Emergency Medicine; PCP Internal Medicine
DX: Z53.21 Procedure and treatment not carried out due to patient leaving prior to being seen by health care provider (principal); Z11.52 Encounter for screening for COVID-19; F17.210 Nicotine dependence, cigarettes, uncomplicated; Z86.73 Personal history of transient ischemic attack (TIA), and cerebral infarction without residual deficits; I10 Essential (primary) hypertension
CPT/HCPCS: 71045; 80053; 84484; 85025; 87637; 93005; 96374; 99285; J1885

== ENCOUNTER 2024-08-31 20:00 | Outpatient (CLI) | payer MEDICARE, MEDICAID, SELFPAY | END 2024-08-31 20:01 | disposition home or self-care (01) | LOC: SLEEP 09-01 00:09 | PROVIDERS: PCP Internal Medicine; Referring Provider Specialist; Visit Provider Internal Medicine Pulmonary Disease | DX: G47.33 Obstructive sleep apnea (adult) (pediatric) (principal); G47.36 Sleep related hypoventilation in conditions classified elsewhere | CPT/HCPCS: 95810 ==

== ENCOUNTER → 2024-10-15 16:40 | Outpatient (BNVA) | payer MEDICARE, MEDICAID, SELFPAY | PROVIDERS: PCP Internal Medicine; Visit Provider Registered Nurse Neonatal Intensive Care | DX: S70.12XA Contusion of left thigh, initial encounter (principal); X58.XXXA Exposure to other specified factors, initial encounter | CPT/HCPCS: 73552 ==

== ENCOUNTER 2025-01-30 03:23 | Emergency (ER) | payer MEDICARE, MEDICAID, SELFPAY ==
--- OUTSIDE RECORDS SUMMARY | 2024-01-25 04:00 | XMS_ITS ---
Author Organization [facility] Address [address] [place] [address] Care Team Providers Care Chemistry Specialist Name Role Phone Holger Aceves Primary Care Provider Unavailabl e Nathaniel Grimes Unavailable [phone] Migration, Provider Unavailable Unavailable REASON FOR VISIT EMR[facility] Encounters Encounter Location Date Provider Diagnosis Migrated_Facility 0 0 01/25/2024 Provider Migration Plan Of Treatment Medication Medication Name Sig Start Date Stop Date Notes NIFEdipine 10 MG Capsule Oral 07/01/2018 07/31/2018 AMITRIPTYLINE HCL 25 MG TAB 06/30/2018 07/31/19 19 [facility]* Gabapentin Cap 400mg 06/28/2018 07/28/2018 *[facility]* Gabapentin 100 MG Capsule Oral 06/30/2018 07/30/2018 Ibuprofen 800 MG Tablet Oral 07/07/2018 08/06/2018 Progress Notes * Holger GARCIADOB: 0 (54 yo M)Acc No.[id number]:01/25/2024 Patient: Gege Holger SIERRA :1970 A ge:53 Y S ex:Male Address:[address] [place] [address], [phone] * Refills Stop Gabapentin Capsule, 100 MG, Oral Stop Ibuprofen Tablet, 800 MG, Oral Stop NIFEdipine Capsule, 10 MG, Oral Stop AMITRIPTYLINE HCL 25 MG TAB Stop Gabapentin Cap 400mg Subjective: * Chief Complaints: * E MR-[facility] * * Date:
--- OUTSIDE RECORDS SUMMARY | 2024-01-26 04:00 | XMS_ITS ---
Author Organization [facility] Address [address] [place] [address] Care Team Providers Care Data Collection Technician Name Role Phone Holger Aceves Primary Care Provider Unavailabl Nathaniel Santos Unavailable [phone] Migration, Provider Unavailable Unavailable Allergies Allergen (clinical drug ingredient) Drug/Non Drug Allergy documented on EMR Reaction Allergy Type Onset Date Status aspirin Aspirin Unknown Drug Allergy 10/17/2005 Active Vicoprofen hypertension Drug Allergy 03/04/2006 Ac tive lactose Lactose (Intolerance) Unknown Drug Allergy 10/17/2005 Active REASON FOR VISIT [facility] Social History Social History Additional Details Category Social Info Options Details Migrated Social History Migrated Social History Alcoholic beverages? - Yes, Currently on disability? - Yes, Drug or substance abuse? - No, Marital Status - , Nonprescription drug use? - No, Participation in detoxification or rehabilitation - Yes, Smoking - No, Smoking status (MU) - <BLANK>, Working currently? - No Encounters Encounter Location Date Provider Diagnosis Migrated_Facility 0 0 01/26/2024 Provider Migration Plan Of Treatment No Information Progress Notes * Holger GARCIADOB: 0 (54 yo M)Acc No.[id number]:01/26/2024 Patient: Gege SIERRA Holger Chaves :1970 A ge:53 Y S ex:Male Address:[address] [place] [address], [phone] Subjective: * Chief Complaints: * E MR-[facility] * Medical History: Arthritis, C onstipation, H igh blood pressure, M igraine, * Surgical History: Knee Surgery Shoulder surgery * Family History: M igrated Family History: : Cancer, D iabetes, H eart disease, R heumatoid arthritis, S troke. * Social History: M igrated Social History: M igrated Social History: Alcoholic beverages? - Yes, C urrently on disability? - Yes, D rug or substance abuse? - No, M arital Status - , N onprescription drug use? - No, P articipation in detoxification or rehabilitation - Yes, S moking - No, S moking status (MU) - <BLANK>, W orking currently? - No. * Allergies: A spirin: Allergy - Onset Date 9340-91-19Pmfesdphms: hypertension - Allergy - Onset Date 5704-84-51Xojudkh (Intolerance): Allergy - Onset Date 2005-10-17 * * Date:
--- OUTSIDE RECORDS SUMMARY | 2025-01-30 03:31 | XMS_ITS | Encounter Summary ---
Author [facility] Address 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
--- OUTSIDE RECORDS SUMMARY | 2025-01-30 03:31 | XMS_ITS | Encounter Summary ---
Author Organization [employer] Address 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
--- OUTSIDE RECORDS SUMMARY | 2025-01-30 03:31 | XMS_ITS | Encounter Summary ---
Author Organization [employer] Address [address] [place] [address] Care Team Providers Care Addictions Recovery Specialist Name Role Phone Unavailable Primary Care Provider Unavailabl e Encounter Details Date Type Department Care Team (Latest Contact Info) Description 08/01/2001 Inpatient Historical [facility] Mayco Castillo MD NO ADDRESS ON FILE PYOGEN ARTHRITIS-L/LEG ([facility]) (Primary Dx) Social History Tobacco Use Types Packs/Day Years Used Date Smoking Tobacco: Never Assessed Sex and Gender Information Value Date Recorded Sex Assigned at Not on file Legal Sex Male 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
--- OUTSIDE RECORDS SUMMARY | 2025-01-30 03:31 | XMS_ITS | Data Portability ---
Author Organization JORDYN [facility]al [facility] Address [address] [address] Care Team Providers Care Community Nutrition Educator Name Role Phone BRADY ACEVES Primary Care Provider Unavailabl e Assessment Encounter Date Assessment Date Assessment LastModified by Organization Details LastModified Time 12/23/2024 12/23/2024 Doing well with current trial of prosthetic but needs permanent. He will have them send us the paperwork to complete. He has an above the knee amputation with an OI. He using a proteor synsys. Not available 12/24/2024 09:39:52 Plan of Treatment Reminders Order Date Submit Date Provider Last Modified By Organization Details Last Modified Time Details Appointments None recorded. Lab None recorded. Referral None recorded. Procedures None recorded. Surgeries None recorded. Imaging None recorded. Medication Orders Ozempic 0.25 mg or 0.5 mg (2 mg/3 mL) subcutaneou s pen injector [address], [address], 17:23:09 triamcinolo ne acetonide 0.5 % topical cream 2024 025 [facility], [address] [place] [address], [address], 16:07:47 cephalexin 500 mg capsule [address], [address], 12:01:23 clotrimazol e 1 % topical cream 2024 025 [facility] [place], [address] [place] [address], [address], 15:50:12 metformin ER 500 mg tablet,exte nded release 24 hr 2024 025 [facility], [address], [address], [place], [address], 17:59:51 True Metrix Glucose Test Strip 2024 [facility], [address] [place] [address], [address], 16:07:47 Patient TargetsNo targets recorded. Patient Instructions Encounter Date Encounter Id Patient Instructions Last Modified By Organization Details Last Modified Time 12/23/2024 [id number] Call or return for questions or concerns. Not available 12/24/2024 09:32:21 Reason for Referral None Reported. Results Created Date Observation Date Name Description Value Unit Range Abnormal Flag Note LastModifiedBy Organization Detail LastModifiedTime 10/28/1910/30/2024 elect tobi augustine am No observ ation record ed. [email or web address] [facility] [address] [place], [address], 10/30/2024 13:32:15 10/29/1910/27/2024 elect rocar diogr am No observ ation record ed. [email or web address] [facility] [address] [place], [address], 10/28/2024 10:36:33 Result Notes None recorded. Problems Name Problem SNOMED Code Status Onset Date Resolution Date Notes Provider Name and Address Organization Details Recorded Time Amputated above knee 887542048 Active 2022 PRATIK MAYO null, [facility] 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 4 15:51:17 Essential hypertensio n 79555801 Active 2022 Brady Aceves MD [address] [place], [address], [facility] 5 16:45:52 Hyperlipide lizabeth 40849084 Active 2022 CASTRO castro, [facility] 4 15:51:06 Gastroesoph ageal reflux disease without esophagitis 184009404 Active 2022 Brady Aceves MD [address] [place], [address], [facility] 5 17:31:22 Dependent drug abuse 8798768 Active 2022 CASTRO castro, [facility] 4 15:50:46 Major depressive disorder 445183468 Active 2023 CASTRO castro [facility] 4 15:51:11 Prediabetes 442363035 Active 2023 KARLENE BEAUCHAMP null, [facility] 5 16:33:14 Obstructive sleep apnea of adult 0843137979120 Active 2024 KARLENE BEAUCHAMP null, [facility] 5 16:33:02 Insomnia 292773299 Active 2024 KARLENE BEAUCHAMP null, [facility] 5 16:33:02 Restless legs syndrome 76597623 Active 2024 KARLENE BEAUCHAMP [facility] 5 16:33:02 History of polyp of colon 597411039 Active 2024 CASTRO SOSA [facility] 5 22:34:25 Sinus tachycardia 47541753 Active 2024 KARLENE BEAUCHAMP [facility] 16:33:20 Degeneratio n of lumbar interverteb ral disc 04670428 Active 2024 KARLENE BEAUCHAMP [facility] 11:54:52 Polyneuropa thy due to type 2 diabetes mellitus 092849723 Active 2024 Brady Aceves MD [address] [place] [address], [address] , [facility] 16:44:31 Problem Notes None recorded. Procedures Surgical History Date Name Laterality Status Provider Name and Address Organization Details Recorded Time 04/23/19 25 [facility] 04/29/2024 17:53:12 Amputation completed CASTROPABLO SOSA [facility] 10/31/2023 15:38:44 procedure on shoulder completed [facility] 02/25/2024 15:48:49 Imaging Results None recorded. Procedure Notes None recorded. Medical Equipment None Reported. Allergies Allergen ID Allergen Name Allergen Category Reaction Reaction Severity Criticality Documentation Date Start Date Code Code System Note Provider Name and Address Organization Details Recorded Time 23573 aspirin medicatio n other Not available Not available 10/27/2022 1191 RxNorm Shweta Víctor [facility] 5 11:20:56 Medications Name Sig Start Date Stop Date Status Note LastModified by Organization Details LastModified Time cyclobenz aprine 10 mg tablet 04/22 completed Not Available Not Available Not Available amoxicill in 500 mg capsule Take 4 capsules BY MOUTH one hour before appointm ent 04/22 completed Not Available Not Available Not Available atorvasta tin 40 mg tablet TAKE 1 TABLET BY MOUTH EVERY DAY 10/30 completed Not Available Not Available Not Available atorvasta tin 80 mg tablet TAKE ONE TABLET BY MOUTH ONCE DAILY 2024 active Not Available Not Available Not Avai lable clonidine HCl 0.1 mg tablet TAKE 1 TABLET BY MOUTH TWICE DAILY. ONE EVERY MORNING AND ONE AT BEDTIME 10/30 completed Not Available Not Available Not Available atorvasta tin 20 mg tablet Take 1 tablet every day by oral route for 90 days. 03/30 completed Not Available Not Available Not Available nicotine 14 mg/24 hr daily transderm al patch APPLY ONE PATCH TO SKIN EVERY DAY 10/30 completed Not Available Not Available Not Available triamcino lone acetonide 0.5 % topical cream apply a thin layer TO affected area(S) topicall y TWICE DAILY active Not Available Not Available No t Available nicotine (polacril ex) 2 mg gum CHEW 2 PIECEs OF GUM EVERY 2 HOURS NEEDED FOR WITHDRAW EL 10/30 completed Not Available Not Available Not Available tizanidin e 4 mg tablet TAKE 1 TABLET BY MOUTH THREE TIMES DAILY NEEDED 11/10 completed Not Available Not Available Not Available cimetidin e 400 mg tablet daily 10/30 completed *surya berrios famotidi ne* cs/smf; 58463; Recorded 01/25/20 22 11:25AM by Macey Castillo RN (Authori ariadna through Ozzy Torres DO), Refill Request; Refill Quantity : 0; Not Available Not Available Not Available hydrocodo ne 5 mg-acetam inophen 325 mg tablet TAKE 1 TABLET BY MOUTH EVERY 8 HOURS NEEDED FOR PAIN active Not Available Not Available No t Available sucralfat e 1 gram tablet 11/10 completed Not Available Not Available Not Available metoprolo l succinate ER 100 mg tablet,ex tended release 24 hr TAKE 1 TABLET BY MOUTH EVERY DAY 2024 active Not Available Not Available Not Avai lable clopidogr el 75 mg tablet TAKE 1 TABLET BY MOUTH EVERY DAY 10/30 completed Not Available Not Available Not Available chlorthal idone 25 mg tablet TAKE 2 TABLETS BY MOUTH EVERY DAY 11/10 completed Not Available Not Available Not Available sulfameth oxazole 800 mg-trimet hoprim 160 mg tablet TAKE 1 TABLET BY MOUTH TWICE DAILY FOR 14 DAYS 09/08 completed Not Available Not Available Not Available tramadol 50 mg tablet TAKE 1 Tablet BY MOUTH EVERY FOUR HOURS NEEDED FOR PAIN (SCALE 7-10) 12/19 completed Not Available Not Available Not Available lamotrigi ne 25 mg tablet TAKE 2 TABLETS BY MOUTH EVERY DAY 01/21 completed Not Available Not Available Not Available meloxicam 7.5 mg tablet TAKE ONE TABLET BY MOUTH EVERY DAY FOR SEVEN DAYS 10/30 completed Not Available Not Available Not Available famotidin e 20 mg tablet TAKE 1 TABLET BY MOUTH NIGHTLY AT BEDTIME 2024 active Not Available Not Available Not Avai lable amlodipin e 10 mg tablet Take 1 tablet every day by oral route. active Not Available Not Available No t Available cephalexi n 500 mg capsule Take 1 capsule twice a day by oral route for 7 days. 12/19 completed Not Available Not Available Not Available pantopraz ole 40 mg tablet,de layed release Take 1 tablet twice a day by oral route. active Not Available Not Available No t Available esomepraz ole magnesium 40 mg capsule,d elayed release take 1 capsule BY MOUTH TWICE DAILY active Not Available Not Available No t Available buspirone 10 mg tablet TAKE 1 TABLET BY MOUTH THREE TIMES DAILY 01/21 completed Not Available Not Available Not Available prednison e 50 mg tablet TAKE 1 TABLET BY MOUTH ONCE DAILY 01/21 completed Not Available Not Available Not Available nicotine 21 mg/24 hr daily transderm al patch APPLY ONE PATCH TO SKIN EVERY DAY 10/30 completed Not Available Not Available Not Available olanzapin e 10 mg disintegr ating tablet DISSOLVE ONE TABLET BY MOUTH TWICE DAILY NEEDED FOR severe anxiety/ agitatio n 10/30 completed Not Available Not Available Not Available gabapenti n 300 mg capsule take ONE capsule BY MOUTH THREE TIMES DAILY 11/10 completed Not Available Not Available Not Available hydroxyzi ne HCl 25 mg tablet TAKE 1 TABLET BY MOUTH EVERY DAY NEEDED FOR anxiety and ONE AT BEDTIME NEEDED FOR sleep 10/30 completed Not Available Not Available Not Available metoprolo l succinate ER 25 mg tablet,ex tended release 24 hr Take 1 tablet every day by oral route. 12/11 completed Not Available Not Available Not Available albuterol sulfate HFA 90 mcg/actua tion aerosol inhaler INHALE TWO PUFFS EVERY 4 HOURS NEEDED active Not Available Not Available No t Available losartan 100 mg tablet TAKE ONE TABLET BY MOUTH ONCE DAILY FOR 90 DAYS 2024 active Not Available Not Available Not Avai lable fluticaso ne propionat e 50 mcg/actua tion nasal spray,jose guadalupe pension USE 1 SPRAY IN EACH NOSTRIL EVERY DAY 10/30 completed Not Available Not Available Not Available metformin ER 500 mg tablet,ex tended release 24 hr Take 1 tablet every day by oral route for 90 days. 2024 active Not Available Not Available Not Avai lable clotrimaz ole 1 % topical cream apply TO THE affected and surround ing areas of SKIN TWICE DAILY EVERY MORNING and EVERY EVENING active Not Available Not Available No t Available sertralin e 50 mg tablet TAKE 1 TABLET BY MOUTH EVERY DAY 10/30 completed Not Available Not Available Not Available dicyclomi ne 10 mg capsule Take 1 capsule 3 times a day by oral route as needed for 90 days. 11/10 completed Not Available Not Available Not Available nortripty line 50 mg capsule TAKE ONE CAPSULE BY MOUTH EVERY EVENING FOR 30 DAYS 2024 active Not Available Not Available Not Avai lable nicotine 7 mg/24 hr daily transderm al patch Apply 1 patch every day by transder mal route. 10/30 completed Not Available Not Available Not Available oxycodone 5 mg tablet TAKE 1 TABLET BY MOUTH EVERY 4 HOURS NEEDED FOR PAIN FOR UP TO 42 DOSES 09/08 completed Not Available Not Available Not Available escitalop swetha 10 mg tablet TAKE 1 TABLET BY MOUTH EVERY MORNING 10/30 completed Not Available Not Available Not Available escitalop swetha 20 mg tablet TAKE 1 TABLET BY MOUTH EVERY MORNING 01/21 completed Not Available Not Available Not Available aripipraz ole 10 mg tablet TAKE 1 TABLET BY MOUTH EVERY DAY 10/30 completed Not Available Not Available Not Available pregabali n 150 mg capsule take 1 capsule BY MOUTH TWICE DAILY active Not Available Not Available No t Available pregabali n 300 mg capsule take 1 capsule BY MOUTH TWICE DAILY 09/08 completed Not Available Not Available Not Available chlorthal idone daily 12/24 completed restarti ng recorded , not sent to pharmacy . *dose increase *; 99233; Recorded 02/14/20 22 12:06PM by Macey Castillo RN (Authori ariadna through Ozzy Torres DO), Refill Request; Refill Quantity : 30; Tablet; Not Available Not Available Not Available nortripty line at bedtime 10/30 completed Recorded 05/14/19 23 2:58PM by Macey Castillo RN, Office Visit; Refill Quantity : 90; Capsule; Not Available Not Available Not Available metoprolo l succinate daily 10/30 completed *DOSE INCREASE * CS/smf; 55814; Recorded 02/14/20 12:06PM by Macey Castillo RN (Authori ariadna through Ozzy Torres DO), Refill Request; Refill Quantity : 30; Tablet; Not Available Not Available Not Available Lyrica two times daily 12/24 completed Recorded 05/02/19 23 2:13PM by Ozzy Torres DO, Refill Request; Refill Quantity : 60; Capsule; Not Available Not Available Not Available quetiapin e 50 mg tablet TAKE 1 TABLET BY MOUTH TWICE DAILY NEEDED FOR severe anxiety or agitatio n 10/30 completed Not Available Not Available Not Available amlodipin e besylate (bulk) daily 12/24 completed cs/smf; 64365; Recorded 12/06/19 12:10PM by Macey Castillo RN (Authori ariadna through Ozzy Torres DO), Refill Request; Refill Quantity : 90; Tablet; Not Available Not Available Not Available naloxone 4 mg/actuat ion nasal spray CALL 911, USE 1 SPRAY IN ONE NOSTRIL. MAY REPEAT IN ALTERNAT E NOSTRILS EVERY 3 MINUTES NEEDED IF NO OR MINIMAL RESPONSE . active Not Available Not Available No t Available Accu-Chek Guide test strips USE ONE STRIP EVERY DAY active Not Available Not Available No t Available Accu-Chek Guide Glucose Meter USE DIRECTED TO CHECK SUGAR EVERY DAY active Not Available Not Available No t Available tramadol 100 mg tablet TAKE 1 TABLET BY MOUTH EVERY 12 HOURS NEEDED 10/30 completed Not Available Not Available Not Available losartan potassium (bulk) daily 10/30 completed restarti ng; Recorded 05/14/19 23 2:58PM by Macey Castillo RN, Office Visit; Refill Quantity : 90; Tablet; Not Available Not Available Not Available Ozempic 0.25 mg or 0.5 mg (2 mg/3 mL) subcutane ous pen injector inject 0.25mg SUBCUTAN EOUSLY every week FOR FOUR weeks THEN increase TO 0.5mg every week active Not Available Not Available No t Available Vitals Date Recorded Body height Body mass index (BMI) Body weight Heart rate Systolic And Diastolic Provider Name and Address Organization Details Last Updated DateTime 11/10/2024 182.88 cm 29.2 kg/m2 71525.36 g 80 /min 118/80 mm[Hg] TIFFANY HINDS [facility] 5 17:29:59 Date Recorded Body height Body mass index (BMI) Body weight Oxygen saturation Oxygen saturation in Arterial blood by Pulse oximetry Heart rate Respiratory rate Body temperature Systolic And Diastolic Provider Name and Address Organization Details Last Updated DateTime 5 182.88 cm 30 kg/m2 879140. 91 g 96 % 96 % 86 /min 16 /min 98.2 [degF] 122/66 mm[Hg] Olga Lidia Leone [facility] 5 14:02:43 Date Recorded Body height Body mass index (BMI) Body weight Oxygen saturation Oxygen saturation in Arterial blood by Pulse oximetry Heart rate Body temperature Systolic And Diastolic Provider Name and Address Organization Details Last Updated DateTime 5 182.88 cm 30.4 kg/m2 364963. 69 g 95 % 95 % 95 /min 98.5 [degF] 142/92 mm[Hg] Shweta Renee [facility] 11:25:36 Date Recorded Body height Body mass index (BMI) Body weight Systolic And Diastolic Provider Name and Address Organization Details Last Updated DateTime 12/23/2024 182.88 cm 29.8 kg/m2 34724.32 g 150/100 mm[Hg] CASTRO SOSA [facility] 12/23/2024 11:03:14 Date Recorded Body height Body mass index (BMI) Body weight Oxygen saturation Oxygen saturation in Arterial blood by Pulse oximetry Heart rate Systolic And Diastolic Provider Name and Address Organization Details Last Updated DateTime 182.88 cm 28.6 kg/m2 04137.9 9 g 94 % 94 % 82 /min 150/100 mm[Hg] KARLENE BEAUCHAMP [facility] 16:06:35 Social History Question Answer Notes LastModified by [employer] Details LastModified Time Tobacco Smoking Status Current Every Day Smoker 1 cigar QD JEREMY castro [facility] 02/25/2024 15:45:24 What Is Your Level Of Caffeine Consumption? Moderate Information not available 10/31/2023 Have You Had Direct Contact, Or Contact During Intimacy, With Monkeypox Rash, Scabs, Or Body Fluids From A Person With Monkeypox? No Information not available 07/02/2022 What Was The Date Of Your Most Recent Tobacco Screening? 12/19/2024 [email or web address] Information not available 12/19/2024 What Is Your Relationship Status? [email or web address] Information not available 10/31/2023 How Much Tobacco Do You Smoke? No Information not available 10/31/2023 Have You Recently Traveled Abroad? No [email or web address] Information not available 07/02/2022 Sex: Male Functional Status Question Answer Note LastModified by [employer] Details LastModified Time Do you use any illicit or recreational drugs? No [email or web address] Information not available 10/31/2023 Do you or have you ever used any other forms of tobacco or nicotine? Yes Information not available 07/02/2022 What is your level of alcohol consumption? None Quit 2021 Hx of heavy alcohol use. 5th every 2 days. [email or web address] Information not available 10/31/2023 Are you able to walk independently without assistance or assistive devices? YESASSIST [email or web address] Information not available 07/02/2022 Do you or have you ever used e-cigarettes or vape? Former user of electronic cigarettes [email or web address] Information not available 02/25/2024 Mental Status None recorded. Family History Relationship Description Onset Age of this Age Resolved Age Notes LastModified by Organization Details LastModified Time Mother Alcoholism age 66 [email or web address] Not available 10/31/2023 15:35:00 Mother Essential hypertension [email or web address] Not available 15:35:15 Mother Chronic depression [email or web address] Not available 04/2023 15:35:27 Father Type 1 diabetes mellitus age 75 [email or web address] Not available 10/30 15:35:58 Father Essential hypertension [email or web address] Not available 15:36:04 Medical History Condition Response Anxiety Disorder Y ADD/ADHD Y Reflux/GERD Y Hypertension Y Depression Y COPD Y Immunizations Vaccine Type Date Status Note Provider Nam e and Address Organization Details Recorded Time COVID-19, mRNA, LNP-S, PF, 30 mcg/0.3 mL dose 1 completed CARLOS VALDEZ [address] [place] [address], [address], [facility] 10/31/2023 15:50:04 COVID-19, mRNA, LNP-S, PF, 30 mcg/0.3 mL dose 1 CARLOS Licea [address] [place] [address], [address], [facility] 10/31/2023 15:50:04 Tdap 2 completed CARLOS VALDEZ [address] [place], [address], [facility] 10/31/2023 15:50:04 Td (adult), 2 Lf tetanus toxoid, preservative free, adsorbed 9 completed DAVE KIMBALL, [address], [address], [facility] 10/31/2023 15:50:05 tetanus toxoid, adsorbed 3 completed DAVE KIMBALL, [facility] [place], [address], [facility] 10/31/2023 15:50:05 Influenza, split virus, trivalent, PF 4 completed Not Available [facility] 01/06/2025 15:21:11 Influenza, split virus, trivalent, preservative 7 completed Not Available [facility] 10/27/2022 02:24:53 Influenza, split virus, trivalent, preservative 6 completed Not Available [facility] 10/27/2022 02:24:53 Influenza, split virus, trivalent, preservative 6 completed Not Available [facility] 10/27/2022 02:24:53 Pneumococcal conjugate PCV 13 6 completed Not Available [facility] 10/27/2022 02:24:53 Past Encounters Encounter ID Performer Location Encounter Start Date Encounter Closed Date Diagnosis/Indication Diagnosis SNOMED-CT Code Diagnosis ICD10 Code Diagnosis IMO Codes Diagnosis Note [id number] Ozzy Torres DO [facility] [address] [place] [address] 07/02/2022 15:16:11 07/09/2022 19:02:03 Depressive disorder 69695779 F32.9 Going to see psychiatri tomorrow or Wedday Amputated above knee 299 342860 Z89.619 Patient with right above knee amputation . He has poor balance and weakness and needs crutches regularly. He also has easy fatigue and at times needs a wheelchair . Will need both for 99 months. 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 Referral sent for PT. No x-ray today due to negative x-ray last week in ED and no worsening pain. Will follow up with PCP in 4 weeks. Renewal of prescription 004905063 Z76.0 Albuterol inhaler refilled per patient request. No SOB or wheezing noted on todays exam. 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 177778898 F15.10 reports still clean since rehab Essential hypertension 53864188 I10 Gastroesop hageal reflux disease without esophagitis 756202776 K21.9 Pain of ri ght shoulder joint 6195588233 8523426 M25.602 [id number] Ozzy Torres DO [facility] [address] [place] [id number] 2022 10:57:50 12/11/2022 17:17:29 Abdominal pain 80379533 R10.9 Dependent drug abuse 652 5002 F19.20 willing to go to rehab Smokes tobacco daily 449 428617 Z72.0 [id number] Ozzy Torres DO [facility] [address] [place] [id number] 12/24/2022 11:26:15 12/25/2022 11:52:15 Amputated above knee 172253308 Z89.619 Patient with right above knee amputation . He has poor balance and weakness and needs crutches regularly. He also has easy fatigue and at times needs a wheelchair . Will need both for 99 months. Stomach cramps 48784976 R10.9 Posterior rhinorrhea 758 42316 R09.82 [id number] Ozzy Torres DO [facility] [address] [place] [id number] 06/26/2023 09:29:26 06/26/2023 10:45:18 Essential hypertension 92680505 I10 Amputated above knee 299 498700 Z89.619 Numbness of hand 2099272 04 R20.0 left hand [id number] Ozzy Torres DO [facility] [address] [place] [id number] 09/16/2023 15:11:07 09/16/2023 17:07:51 Amputated above knee 422455071 Z89.619 Smokes tobacco daily 449 947074 Z72.0 Bilateral carpal tunnel syndrome 9281858977 6586366 G56.03 Major depr essive disorder 864090304 F32.9 [id number] CARLOS VALDEZ [facility] [address] [place] [id number] 10/31/2023 15:16:01 10/31/2023 16:33:06 Acute back pain with sciatica 261702388 M54.40 Left sciatica. Gastroesop hageal reflux disease without esophagitis 914151405 K21.9 Stomach cramps 05504504 R10.9 [id number] Ozzy Torres DO [facility] [address] [place] [id number] 12/16/2023 10:42:49 12/16/2023 11:12:08 Essential hypertension 88574750 I10 Gastroesop hageal reflux disease without esophagitis 518067067 K21.9 Left side sciatica 85591 06572 76624 M54.32 [id number] Ramírez Ford MD [facility] [address] [place] [id number] 02/25/2024 15:13:24 02/25/2024 16:02:28 Screening for malignant neoplasm of colon 370603399 Z12.11 Essential hypertension 20638407 I10 [id number] Ozzy Torres DO [facility]) [address] [place], [place] [id number] 01/22/2024 10:58:47 01/22/2024 11:47:11 Amputated above knee 119433545 Z89.619 Essential hypertension 26021754 I10 Major depr essive disorder 364272571 F32.9 [id number] Ramírez Ford MD [facility] ([facility]) [address] [place], [place] [address] 02/25/2024 16:06:40 02/25/2024 16:46:59 Screening for malignant neoplasm of colon 496795579 Z12.11 [id number] Brady Aceves MD [facility] ([facility]) [address] [place], [place] [address] 5 03/18/2024 15:12:08 03/18/2024 17:36:54 Prediabetes 986404654 R73.03 Amputated above knee 299 067292 Z89.619 right Essential hypertension 80250756 I10 [id number] Brady Aceves MD [facility] ([facility]) [address] [place] [id number] 5 04/22/2024 14:02:29 04/23/2024 14:44:40 History of cerebrovascular accident 906590532 Z86.73 Obstructiv e sleep apnea of adult 5294682956 103 G47.33 Has not tolerated CPAP and is interested in Inspire. Insomnia 165108852 G47.0 0 Restless l egs syndrome 92404349 G25.81 Essential hypertension 87094735 I10 Gastroesop hageal reflux disease without esophagitis 028544051 K21.9 Stomach cramps 43322511 R10.9 [id number] Ramírez Ford MD [facility] ([facility]) [address] [place] [id number] 5 05/06/2024 15:53:24 05/06/2024 16:55:06 Tubular adenomatous polyp of colon 613551257 D12.6 [id number] Brady Aceves MD [facility] ([facility]) [address] [place] [address] [place] [address] 5 09/08/2024 16:23:30 09/09/2024 15:32:12 Amputated above knee 987950421 Z89.619 right, Brady has been doing weight bearing only with a short prosthesis and is ready to progress to a definitive OPRA Axir II OI external prosthetic connector Degenerati on of lumbar intervertebral disc 08471031 M51.360 1702403036 DDD Brace Gastroesop hageal reflux disease without esophagitis 559890601 K21.9 [id number] failed tx with Pantoprazo le [id number] Brady Aceves MD [facility] ([facility]) [address] [place] [id number] 5 10/27/2024 08:31:12 10/27/2024 09:27:52 Preoperative procedure 248754166 Z01.894 [id number] Brady Aceves MD [facility] ([facility]) [address] [place] [id number] 5 11/10/2024 16:33:45 11/11/2024 12:42:04 Prediabetes 419454084 R73.03 A1c up to 6.6 recently therefore diabetic. Essential hypertension 22657985 I10 Major depr essive disorder 283208839 F32.9 [id number] CARLOS IRVIN [facility] ([facility]) [address] [place] [id number] 5 12/11/2024 11:58:20 12/11/2024 17:57:18 Skin lesion 38895408 L08.9 [id number] Patient is concerned about yeast as he states that he is constantly sweating between the stump and the prosthetic . May use clotrimazo le cream if needed. Patient states that he has purchased a barrier sheath to use but has not started this yet. RTC with any new or worsening symptoms. [id number] CARLOS VALDEZ [facility] ([facility]) [address] [place] [id number] 5 12/23/2024 10:42:06 12/23/2024 11:46:41 Amputated above knee 138384072 Z89.619 Patient is ready for the Telestream Knee Ankle system for attaching to his OI device. Brady will benefit from the Microproce ssor knee and ankle prosthesis to help reduce forces through the prosthesis and lessen those forces through his OI implant during ambulation . Patient is a K-3 functional level amputee has the ability to ambulate with the use of prosthesis to traverse low level environmen chidi barriers such as curbs, stairs and uneven surfaces. Patient limb is clean and dry from sore and has no commoditie s that would prevent prosthetic wear. Patient limb is motivated to ambulate. [id number] CARLOS IRVIN [facility] ([facility]) [address] [place] [address] [id number] 5 12/19/2024 11:12:01 12/19/2024 11:44:03 [facility] 484143822 R21 96637 Return to clinic if the rash worsens, lasts longer than one week, shows signs of local infection (redness, oozing, or swelling)o r occurs together with fever, chills, swollen glands, or other symptoms of infection. Will have follow up with Dr Aceves. [id number] Brady Aceves MD [facility] ([facility]) [address] [place] [id number] 5 01/06/2025 15:20:49 01/06/2025 16:58:38 Polyneuropathy due to type 2 diabetes mellitus 852010208 E11.42 23720826 labile blood sugar with sugar 70's to 300's. I recommend he try Ozempic instead of the metformin. Essential hypertension 33221863 I10 Absence of lower limb 72 8845035 Z89.611 [id number] working on getting a new prosthesis of the right leg.for his needs. Health Concerns Section Related Observation LastModified by Organization Detai ls LastModified Time None Recorded Concern Status LastModified by Organization Details LastModified Time None Recorded Advance Directives Directive None Recorded Payers Insurance Date Sequence Insurance Name Policy Number Policy Prakash Covered Member ID Prakash Member ID Guarantor Name 01/03/2025 [place] [facility] Brady Garcia [id number] Brady Garcia 11/11/2024 [place] - [facility] (MEDICARE) Brady Garcia [id number] Brayd Garcia 01/11/2025 1 [facility] PLAN - DUAL ELIGIBLE (MEDICARE REPLACEMENT/A DVANTAGE - HMO) MODSNP Brady Garcia [id number] Brady Garcia 04/20/2024 1 [place] - [place]) [id number] Brady Garcia [id number] Brady Garcia 08/04/2024 3 [employer] (MEDICARE REPLACEMENT/A DVANTAGE - PPO) [id number] Brady Garcia [id number] Brady Garcia 11/11/2024 1 [place] Brady Garcia [id number] Brady Garcia 01/03/2025 2 [place] Brady Garcia [id number] Brady Garcia 09/16/2023 1 [place] Brady Garcia [id number] Brady Garcia 09/16/2023 1 [place] [id number] Brady Garcia [id number] Brady Garcia 02/25/2024 [place] - [facility] (MEDICARE) Brady Garcia [id number] Brady Garcia 01/24/2025 1 [facility] [place] ([place]PL[place] DVANTAGE - HMO) MODSNP Brady Garcia [id number] Brady Garcia Notes Date Note Type Note Provider Name and Address Organization Details Recorded Time 5 text/html Hypertension IM/FMReported by PatientHPIFor quality, patient reportshere for check-up. For alleviating factors, patient reportsmedication. Brady Aceves MD [address] [place] [address], [phone], [facility], [facility] 11/10/2024 17:56:28 5 text/html General Rash/Skin LesionReported by PatientROS as noted in the HPI walk in patientpatient is here today for a rash around his stump on his right leg from his prosthetic patient said that this started about a month ago. Patient states that the rash is not painful or itchy but this area stays numb at all times. No drainage. CARLOS REEVESCARLOS [address] [place], [address], [facility], [place] 12/12/2024 09:12:38 5 text/html ROS as noted in the HPI walk inx2 weeks ago- here x 1 week ago and cream not helping around stump. Patient had been given cephalexin and clotrimazole cream. No changes per patient. Denies any itching or pain but has no feeling in this area since amputation. CARLOS REEVESCARLOS [address] [place], [address], [facility] [place] 12/19/2024 11:42:13 5 text/html DiabetesReported by PatientHPIFor duration, patient reportschronic. For control, patient reportsusually well controlled,improved since last visit,normal range of home blood sugars (in the low 100s), andtreated with diet and oral medications. For compliance, patient reportscompliant with medicationsandcompliant with follow-up visits. For self care, patient reportsmonitoring glucose 3 times per day. For associated symptoms, patient reportsno increased thirst,no increased appetite, andno increased urination. General Rash/Skin LesionReported by PatientHPIFor quality, patient reportsitchyandred. For location, patient reportslegs. For severity, patient reportsmild. For onset/timing, patient reportsabrupt onset. Pt. was seen in walk in on 12/19/24 for a rash. Brady Aceves MD [address] [place], [address], [facility], [place] 01/06/2025 16:56:46
--- OUTSIDE RECORDS SUMMARY | 2025-01-30 03:31 | XMS_ITS | Encounter Summary ---
Author Organization [facility] Address 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
--- OUTSIDE RECORDS SUMMARY | 2025-01-30 03:31 | XMS_ITS | Encounter Summary ---
Author Organization [employer] Address [address] [place] [address] Care Team Providers Care General Maintenance Mechanic Name Role Phone Unavailable Primary Care Provider Unavailabl e Encounter Details Date Type Department Care Team (Late st Contact Info) Description 01/27/2025 External Device Data [facility] ABSTRACTION Provider, Abstract NO ADDRESS ON FILE Social History Tobacco Use Types Packs/Day Years Used Date Smoking Tobacco: Every Day Smokeless Tobacco: Never Alcohol Use Standard Drinks/Week Comments No 0 (1 standard drink = 0.6 oz pur e alcohol) Feeling Safe Answer Date Recorded Are you in a relationship wi th someone who hurts you emotionally and/or physically? 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
--- OUTSIDE RECORDS SUMMARY | 2025-01-30 03:31 | XMS_ITS | Patient Health Record ---
Author Organization [facility] Address [address] [place] [address] Care Team Providers Care Cash Van Salesperson Name Role Phone Holger Aceves Primary Care Provider Nathaniel Villareal [phone] Allergies Allergen (clinical drug ingredient) Drug/Non Drug Allergy documented on EMR Reaction Allergy Type Onset Date Status aspirin Aspirin Unknown Drug Allergy 10/17/2005 Active Vicoprofen hypertension Drug Allergy 03/04/2006 Ac tive lactose Lactose (Intolerance) Unknown Drug Allergy 10/17/2005 Active Results Component Value Reference Range Notes Schedule Confirmation (Not y et reviewed by provider) Interpretation: Performing Lab: Notes/Report: MRI Lumbar Spine w/o Cont Schedule Confirmation (Not y et reviewed by provider) Interpretation: Performing Lab: Notes/Report: MRI Lumbar Spine w/o Cont Schedule Confirmation (Not y et reviewed by provider) Interpretation: Performing Lab: Notes/Report: MRI Lumbar Spine w/o Cont Schedule Confirmation (Not y et reviewed by provider) Interpretation: Performing Lab: Notes/Report: MRI Lumbar Spine w/o Cont Reason For Referral No Information Medications Medication SIG (Take, Route, Frequency, Duration) Notes Start Date End Date Status amLODIPine Besylate 5 MG Tablet Take 1 tab(s) by mouth q evening Oral; Duration: 30 Amlodipine 5mg Tablet Take 1 tab(s) by mouth q evening #30 (Thirty) tablet(s) 07/10/2012 Unknown Hydrocodone/Acetamin ophen Take 1 tablet(s) by mouth q 4 to 6 hr prn; Duration: 30 *please review for potential update for e-prescription and drug interaction check* Hydrocodone/Acetami nophen 10mg/300mg Tablet Take 1 tablet(s) by mouth q 4 to 6 hr prn 06/23/2012 Unknown oxyCODONE HCl 5 MG Tablet Take 1 tablet(s) by mouth at hs. Oral; Duration: 30 Oxycodone HCl 5mg Tablet Take 1 tablet(s) by mouth at hs. 06/23/2012 Unknown Simvastatin 40 MG Tablet Take 1 tablet(s) by mouth at bedtime Oral; Duration: 30 Simvastatin 40mg Tablet Take 1 tablet(s) by mouth at bedtime #90 (Ninety) tablet(s) 07/10/2012 Unknown Social History Social History Additional Details Category Social Info Options Details Migrated Social History Migrated Social History Alcoholic beverages? - Yes, Currently on disability? - Yes, Drug or substance abuse? - No, Marital Status - , Nonprescription drug use? - No, Participation in detoxification or rehabilitation - Yes, Smoking - No, Smoking status (MU) - <BLANK>, Working currently? - No Problems Problem Type SNOMED Code ICD Code Onset Dates Problem Status W/U Status Risk Notes Problem Degeneration of thoracolumbar intervertebral disc (53027779) DDD (degenerative disc disease), thoracolumbar (M51.35) Active confirmed Problem Hypertension (10509931) Hypertension (401.1) 2012 Active confirmed [id number]- Problem Anger disorder (312.0) 2011 Active confirmed [id number] [id number]- Problem Hypertension (78313740) HTN (401.1) 2009 Active confirmed [id number]- Problem Bipolar affective disorder, currently depressed, mild (946814992) Bipolar I disorder, most recent episode (or current) depressed, mild (296.51) 2007 Problem resolved confirmed [id number]- Problem Headache (95590081) Headache (784.0) 12/01 Problem resolved confirmed [id number]- Problem Cough (91849502) Cough (786.2) 2011 Problem resolved confirmed [id number]- Problem Heartburn (84549437) Heartburn (787.1) 2012 Problem resolved confirmed [id number]- Problem Dog bite to hand (882.0) 2012 Problem resolved confirmed [id number] [id number]- Problem Headache (73967200) Headache (307.81) 2007 Problem resolved confirmed [id number]- Problem Hypercholesterolemia (29573217) Hypercholesterolemia (272.0) 2009 Problem resolved confirmed [id number]- Problem Shortness of breath (993675944) Shortness of breath (786.09) 2008 Problem resolved confirmed [id number] [id number]- Problem Shoulder pain (04628744) Shoulder pain (719.41) 2010 Problem resolved confirmed [id number] [id number]- Problem Disorder of hematopoietic system (40344536) Other abnormal laboratory result on blood (790.99) 2007 Problem resolved confirmed [id number]- Problem Raynaud's disease (994695483) Raynaud's disease (443.0) 2008 Problem resolved confirmed [id number] [id number]- Problem Tobacco dependence (02339171) Tobacco dependence (305.1) 2010 Problem resolved confirmed [id number] [id number]- Problem Acute exacerbation o f chronic obstructive airways disease (457675494) Acute exacerbation of chronic obstructive pulmonary disease (COPD) (491.21) 2005 Problem resolved confirmed [id number] [id number]- Problem Chest pain (96174168) Chest pain (786.51) 2008 Problem resolved confirmed [id number] [id number]- Problem Generalized abdomina l pain (539765431) Generalized abdominal pain (789.07) 2007 Problem resolved confirmed [id number] [id number]- Problem Generalized osteoarthritis (517348132) Generalized osteoarthritis, multiple sites (715.09) 2009 Problem resolved confirmed [id number] [id number]- Problem Insomnia (276548288) Insomnia (307.41) 2007 Problem resolved confirmed [id number] [id number]- Problem Pain in limb (57440092) Leg pain (729.5) 2009 Problem resolved confirmed [id number] [id number]- Problem General examination of patient (045505741) Annual exam (V70.0) 2007 Problem resolved confirmed [id number] [id number]- Problem Middle ear conductiv e hearing loss (94567561) Conductive hearing loss, 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) 2006 Problem resolved confirmed [id number] [id number]- Problem Subjective tinnitus (25191559) Ringing in the ears (388.31) 2010 Problem resolved confirmed [facility]ron-98 [id number]- Problem Needs influenza immunization (720847938) Vaccination against other viral diseases, Influenza (V04.81) 2007 Problem resolved confirmed [facility]ron-98 [id number]- Problem Stress (893510765) Stress (300.02) 2009 Problem resolved confirmed [facility]ron-98 [id number]- Problem Nondependent alcohol abuse, continuous (473053582) Alcohol abuse, continuous (305.01) 2007 Problem resolved confirmed [id number] [id number]- Problem Itching (376196025) Itching (698.9) 01/06 Problem resolved confirmed [facility]ron-98 [id number]- Problem Knee pain (1146405665) Knee pain (719.46) 2006 Problem resolved confirmed [facility]ron-98 [id number]- Problem Adverse effects of other opiates and related narcotics (E935.2) 2006 Problem resolved confirmed [facility]ron-98 5911- Problem Tinnitus (79020256) Tinnitus (388.31) 2010 Problem resolved confirmed [facility]ron-98 [id number]- Problem Vaccination agai nst streptococcus pneumoniae (V03.82) 2011 Problem resolved confirmed [facility]ron-98 [id number]- Problem Low back pain (017883632) Lower back pain (724.2) 2009 Problem resolved confirmed [facility]ron-98 [id number]- Problem Essential hypertension (17805592) Essential hypertension (401.1) 2011 Problem resolved confirmed [facility]ron-98 [id number]- Problem Primary hypercholesterolemia (195213671) Primary hypercholesterolemia (272.0) 2008 Problem resolved confirmed [id number] [id number]- Vital Signs Heart Rate 100 /min 09/28/2024 Temperature 97.0 degrees Fahrenheit 09/28/2024 Respiratory Rate 20 /min 09/28/2024 Blood pressure diastolic 88 mm Hg 09/28/2024 Oximetry 96 % 09/28/2024 Weight-kg 90.72 kg 09/28/2024 Height 70 in 09/28/2024 Blood pressure systolic 143 mm Hg 09/28/2024 Weight 200 lbs 09/28/2024 BMI 28.69 kg/m2 09/28/2024 Encounters Encounter Location Date Provider Diagnosis [facility] [place] [address] [address] 09/28/2024 Nathaniel Grimes Degeneration of intervertebral disc of lumbosacral region with discogenic back pain M51.370 and DDD (degenerative disc disease), thoracolumbar M51.35 Assessments Encounter Date Diagnosis (ICD Code) Assessment Notes Treatment Notes Treatment Clinical Notes Section Notes 09/28/2024 DDD (degenerative disc disease), thoracolumbar (ICD-10 - M51.35) 09/28/2024 Degeneration of intervertebral disc of lumbosacral region with discogenic back pain (ICD-10 - M51.370) 34 minutes spent with over 50% spent in consultation and coordination of care. Patient with complaints of back pain that is worse with activity and better with rest and previously prescribed medications. He is underwent multiple rounds of physical therapy and apparently is still working with physical therapy currently for back pain as well as prosthesis training. Reports a 20+ year history of degenerative disc disease. Unfortunately he has no imaging for me to review. Further workup and treatment discussed with patient electing to proceed with offer of MRI and x-ray of the lumbar spine. He reports that he is ready, willing, able to undergo epidural steroid injections or surgery if so indicated. 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 Plan Of Treatment Pending Test Test Name Order Date Lumbosacral Spine AP/[id number] MRI Lumbar Spine w/o Cont-[id number] 09/29/19 Schedule Confirmation 10/15/2024 Schedule Confirmation 10/19/2024 Schedule Confirmation 10/19/2024 Schedule Confirmation 10/19/2024 Insurance Providers Payer Name Payer Address Payer Phone Subscriber Number Group Number Insured Name Patient Relationship to Insured Coverage Start Date Coverage End Date [place] [address] [place] [address] [id number] AidenHolger ramirez Self - patient is the insured [place] [address] [place] [address] [phone] [id number] RadhaHolger Self - patient is the insured [place] [address] [address] [place] [id number] Holger Garcia Self - patient is the insured Medical (General) History Medical History History ICD Code Arthritis, Constipation, High blood pressure, Migraine, Surgical History Surgery Date(Month/Year) Knee Surgery Shoulder surgery
--- OUTSIDE RECORDS SUMMARY | 2025-01-30 03:31 | XMS_ITS | Encounter Summary ---
Author Organization [facility] Address 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
--- OUTSIDE RECORDS SUMMARY | 2025-01-30 03:31 | XMS_ITS | Clinical Summary ---
Author Organization [facility] Address [address] [place] [address] Care Team Providers Care Direct Care Specialist Name Role Phone Unavailable Primary Care Provider Unavailabl e Allergies No known active allergies Medications ranitidine (ZANTAC) 150 mg tablet Take 150 mg by mouth daily. Active Disulfiram 500 mg Tablet Take by mouth. Activ e ziprasidone (GEODON) 40 mg Capsule Take 40 mg by mouth 2 times daily with meals. Active cloNIDine (CATAPRES) 0.1 mg tablet Take 0.1 mg by mouth 3 times daily. Active CALCIUM CARBONATE (TUMS ORAL) Take by mouth. Activ e fluticasone (FLONASE) 50 mcg/spray Evangeline, Suspension Administer 2 Sprays in each nostril daily. 16 Gram 0 4 Active guaiFENesin SR (MUCINEX) 600 mg tablet Take 1 Tab by mouth 2 times daily. 30 Tab 0 4 Active nicotine (NICODERM CQ) 21 mg/24 hr patch Apply 1 Patch to skin as directed every 24 hours. 21 Patch 0 4 Active NIFEdipine SR 24 hour (PROCARDIA-XL) 30 mg tabletIndicatio ns:Numbness and tingling Take 1 Tab by mouth daily. 30 Tab 1 4 Active Active Problems Problem Noted Date Diagnosed Date Raynaud's phenomenon (Observed) 05/12/2013 Tobacco abuse 04/16/2013 Alcohol abuse 04/16/2013 Social History Tobacco Use Types Packs/Day Years Used Date Smoking Tobacco: Every Day Smokeless Tobacco: Never Alcohol Use Standard Drinks/Week Comments No 0 (1 standard drink = 0.6 oz pur e alcohol) Sex and Gender Information Value Date Recorded Sex Assigned at Not on file Legal Sex Male 8:11 AM HEELER MACHINE Gender Identity Not on file Sexual Orientation Not on file Occupation Industry Job Start Date Job End Date Not on file Not on file Not on file Not on file Last Filed Vital Signs Vital Sign Reading Time Taken Comments Blood Pressure 158/110 05/12/2013 8:11 AM HEELER MACHINE Pulse 91 05/12/2013 8:11 AM HEELER MACHINE Temperature 36.8 C (98.2 F) 04/16/2013 3:50 PM HEELER MACHINE Respiratory Rate 20 04/16/2013 3:50 PM HEELER MACHINE Oxygen Saturation - - Inhaled Oxygen Concentration - - Weight 82.6 kg (182 lb) 05/12/2013 8:11 AM HEELER MACHINE Height 182.9 cm (6') 05/12/2013 8:11 AM HEELER MACHINE Body Mass Index 24.68 05/12/2013 8:11 AM HEELER MACHINE Plan of Treatment Health Maintenance Due Date Last Done Comments DTAP/TDAP/TD VACCINES (1 - Tdap) 1988 HEPATITIS B VACCINES (1 of 3 - 19+ 3-dose series) 11/30 COLORECTAL SCREENING 2014 Colorectal Cancer Screening 2014 FIT-DNA Q 3 years 2014 FIT/FOBT Q 1 year 2014 Flex Sig/CT Colonography Q 5 years 2014 ZOSTER VACCINE (1 of 2) 12/11/2019 INFLUENZA VACCINE (#1) 2024 Insurance MEDICARE PART A [place] B [place]ID [id number]
--- OUTSIDE RECORDS SUMMARY | 2025-01-30 03:31 | XMS_ITS | Clinical Summary ---
Author Organization [facility] Address [address] [place]: [place] [address] Care Team Providers Care Nutritionist Name Role Phone Unavailable Primary Care Provider Unavailabl e Allergies No known active allergies Medications albuterol sulfate HFA 90 mcg/actuation aerosol inhaler Take 2 Puffs by inhalation every 4 hours as needed for Shortness of Breath. Active amLODIPine (NORVASC) 10 mg tablet Take 10 mg by mouth daily. Active atorvastatin (LIPITOR) 80 mg tablet Take 80 mg by mouth daily. Active chlorthalidone (HYGROTON) 25 mg tablet Take 50 mg by mouth daily. Active famotidine (PEPCID) 20 mg tablet Take 20 mg by mouth 2 times daily. Active losartan (COZAAR) 100 mg tablet Take 100 mg by mouth daily. Active metoprolol succinate (TOPROL XL) 100 mg Extended Release 24 hour tablet Take 100 mg by mouth daily. Active pantoprazole (PROTONIX) [address] for susp in Packet Take 40 mg by mouth 2 times daily. Active pregabalin (LYRICA) 150 mg Capsule Take 150 mg by mouth every 12 hours. Active Active Problems Problem Noted Date Diagnosed Date Raynaud's phenomenon (Observed) 05/12/2013 Tobacco abuse 04/16/2013 Alcohol abuse 04/16/2013 Encounters Date Type Department Care Team Description 01/27/2025 External Device Data [facility]STRACTION Provider, Abstract 01/26/2025 External Device Data [facility]STRACTION Provider, Abstract 12/08/2024 8:45 AM CDT - 12/08/2024 9:15 AM CDT Surgery [facility] Operating Room [address] [place] [address] Ramírez Edwards MD DRUG INDUCED SLEEP ENDOSCOPY 12/08/2024 7:42 AM CDT Anesthesia Event [facility] [address] [place] [address] Jaren Garcia, LUIS ALFREDO 12/08/2024 Travel 11/10/2024 8:16 AM CDT - 12/08/2024 8:20 AM CDT Hospital Encounter [facility] [address] [place] [address] Ramírez Edwards MD Sleep apnea, obstructive Discharge Disposition: Home or Self Care 11/10/2024 [facility] Operating Room [address] [place] [address] Ramírez Edwards MD DRUG INDUCED SLEEP ENDOSCOPY from Last 3 Months Social History Tobacco Use Types Packs/Day Years [...] on file 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 Gender Identity Not on file Sexual Orientation Not on file Last Filed Vital Signs Vital Sign Reading Time Taken Comments Blood Pressure 128/90 12/08/2024 8:05 AM CDT Pulse 118 12/08/2024 8:05 AM CDT Temperature 36.6 C (97.9 F) 12/08/2024 8:05 AM CDT Respiratory Rate 18 12/08/2024 8:05 AM CDT Oxygen Saturation 92% 12/08/2024 8:05 AM CDT Inhaled Oxygen Concentration - - Weight - - Height 182.9 cm (6') 12/08/2024 6:51 AM CDT Body Mass Index - - Plan of Treatment Health Maintenance Due Date Last Done Comments Pre-Diabetes and Diabetes Screening 1970 HEPATITIS B VACCINES (1 of 3 - 19+ 3-dose series) 1988 FIT-DNA Q 3 years 2014 FIT/FOBT Q 1 year 2014 Flex Sig/CT Colonography Q 5 years 2014 ZOSTER VACCINE (1 of 2) 12/11/2019 INFLUENZA VACCINE (#1) 2024 4, 01/08/2017, 01/13/2016, Additional history exists COVID-19 Vaccine (3 - 2024-2 6 season) 2024 07/25/2020, 07/04/2020 DTAP/TDAP/TD VACCINES (2 - T d or Tdap) 05/20/2031 05/20/2021 COLORECTAL SCREENING 04/23/2034 04/23/2024 Colorectal Cancer Screening 04/23/2034 Procedures Procedure Name Priority Date/Time Associated Diagnosis Comments OR DISE DYN EVAL SLEEP DISORDERED BREATHING FLX DX 12/08/2024 8:45 AM CDT KE (obstructive sleep apnea) OR DISE DYN EVAL SLEEP DISORDERED BREATHING FLX DX 11/10/2024 7:40 AM CDT Sleep apnea, obstructive from Last 3 Months Insurance MEDICAID [place] Advance Directives For more information, please contact: [phone] * Full Code (Latest Code Status on File) Date Activated Date Inactivated Comments 12/08/2024 7:16 AM 12/08/2024 10:25 AM * Full Code Date Activated Date Inactivated Comments 12/08/2024 6:38 AM 12/08/2024 7:16 AM
[2025-01-30 03:35] VITALS: BP 152/83; PULSE 108; RESP 18; TEMP 36.6; O2SAT 94; BMI 26.9
--- NOTE | 2025-01-30 04:26 | W.ED.WOUNDLC ---
HPI - Wound/Laceration General: Chief Complaint: Wound/Laceration Stated Complaint: have soft tissue revision has opening from surgery Time Seen by Provider: 01/30/25 03:41 History of Present Illness: Patient is a 64-year-old male who underwent soft tissue revision surgery at [facility] on (2 days ago). He reports that yesterday while in the hospital, he experienced significant bleeding from the surgical site that bled all over the floor, creating what he described as a three foot diameter pool of blood. He states hospital staff wrapped the wound and discharged him with instructions to go to the ER if bleeding recurred. The patient reports that while at home, the bandage fell off during sleep. Upon waking and attempting to change the dressing, he noticed the wound was open and the bandage was saturated with blood, though he states the bleeding was not nothing compared to yesterday. Patient expresses concern that he may need a wound VAC. He denies fever. He came directly to the ER as instructed when he noticed the bleeding. Related Data Home Medications ?Medication ?Instructions ?Recorded ?Confirmed losartan 100 mg tablet 100 mg PO BEDTIME 06/30/21 10/15/24 pregabalin 150 mg capsule 150 mg PO BID 06/30/21 10/15/24 chlorthalidone 25 mg tablet 50 mg PO DAILY 11/27/21 10/15/24 metoprolol succinate 100 mg 100 mg PO DAILY 11/27/21 10/15/24 tablet,extended release 24 hr famotidine 20 mg tablet (Acid 20 mg PO DAILY 02/07/23 10/15/24 Clinical Services Assistant (famotidine)) pantoprazole 40 mg tablet,delayed 40 mg PO BID 10/10/23 10/15/24 release atorvastatin 80 mg tablet (Lipitor) 80 mg PO DAILY 10/15/24 10/15/24 esomeprazole magnesium 40 mg 40 mg PO DAILY 10/15/24 10/15/24 capsule,delayed release nortriptyline 50 mg capsule 50 mg PO DAILY 10/15/24 10/15/24 Previous Rx's ?Medication ?Instructions ?Recorded naloxone 4 mg/actuation nasal 4 mg intranasal Q2M PRN opioid 02/20/23 spray (Narcan) overdose #2 ea sucralfate 1 gram tablet (Carafate) 1 g PO TID 4 weeks #84 tabs 10/10/23 hydrocodone 5 mg-acetaminophen 325 1 tab PO Q6H PRN pain #14 tabs 10/28/23 mg tablet prednisone 50 mg tablet 50 mg PO DAILY #5 tabs 10/28/23 cephalexin 500 mg capsule 500 mg PO Q6H 10 days #40 caps 01/30/25 Allergies Allergy/AdvReac Type Severity Reaction Status Date / Time aspirin Allergy causes Verified 10/15/24 16:26 ringing in the ears ibuprofen Allergy Unknown Verified 10/15/24 16:26 PFSH ED PFSH: Medical History Bruxism Methamphetamine abuse, episodic Cigarette nicotine dependence Medical marijuana use History of alcohol use disorder Major depressive disorder, recurrent, moderate Generalized anxiety disorder Acute CVA (cerebrovascular accident) Amputation of leg Hypertension Social History Smoking and tobacco/nicotine status: former use of tobacco/nicotine Quit status (tobacco/nicotine): has tried quititng Number of times tried to quit tobacco: 10 Second hand smoke exposure: No Alcohol intake: former Year of sobriety/quit date alcohol: 2021 Substance/Drug Use: former Physical Exam Const: COMMON NORMALS: no acute distress GENERAL APPEARANCE: cooperative; not ill appearing and not frail appearing HENMT: COMMON NORMALS: normocephalic, atraumatic and Normal external nose present HEAD & SCALP: normocephalic and atraumatic FACE & SINUS: normal facial exam and face symmetric NOSE: Normal external nose present Eye: COMMON NORMALS: Equal, round and reactive pupils present and EOMs intact bilaterally PUPIL: Yes Equal, round and reactive pupils present Neck/C-Spine: GENERAL: Yes trachea midline Chest: CHEST: Yes Symmetrical chest wall rise Resp: COMMON NORMALS: normal respiratory effort, No retractions, No use of accessory muscles and clear to auscultation bilaterally AUSCULTATION: clear to auscultation bilaterally Cardio: COMMON NORMALS: regular rate and regular rhythm RATE: regular rate RHYTHM: regular rhythm Neuro: SHANE COMA SCALE: document GCS findings Shane coma scale eye opening: Spontaneous [place] coma scale verbal response: Orientated Shane coma scale motor response: Obey commands [place] coma scale total score: 15 SENSORY EXAM: Yes extremities (intact) Skin: COMMON NORMALS: no rashes or lesions noted NARRATIVE SKIN EXAM: Incision in the right groin shows a 6 inch long area of dehiscence. There is no active bleeding. There is no purulent drainage. There is surrounding ecchymosis, but no warmth, no redness, no streaking. It is minimally tender. GENERAL SKIN EXAM: no rashes or lesions noted Course Vital Signs: Vital signs: Vital Signs Temperature 97.8 F 01/30/25 03:35 Pulse Rate 98 01/30/25 05:24 Respiratory Rate 16 01/30/25 05:24 Blood Pressure 124/88 01/30/25 05:24 Pulse Oximetry 100 01/30/25 05:24 MDM - Wound/Laceration Medical Decision Making Spoke with our surgeon on-call. Recommendations are wet-to-dry dressing, with covering bandage. Referral to wound care at the beginning of the week, to see if wound VAC application is necessary. We will cover with antibiotics as he has an open wound. He will return for fever, worsening drainage or bleeding, other concerns. We will ask case management to make an appointment with wound care. No radiology studies performed this visit Discharge Plan Discharge Patient Disposition: Home Clinical Impression: Dehiscence of surgical wound Condition: Stable Prescriptions: New cephalexin 500 mg capsule 500 mg PO Q6H 10 Days Qty: 40 0RF No Action famotidine [Acid Clinical Services Assistant (famotidine)] 20 mg tablet 20 mg PO DAILY naloxone [Narcan] 4 mg/actuation spray,non-aerosol 4 mg intranasal Q2M PRN (Reason: opioid overdose) Qty: 2 3RF Rx Instructions: spray 1 dose into 1 nostril; alt nostrils w each dose until help arrives atorvastatin [Lipitor] 80 mg tablet 80 mg PO DAILY esomeprazole magnesium 40 mg capsule,delayed release(DR/EC) 40 mg PO DAILY nortriptyline 50 mg capsule 50 mg PO DAILY pregabalin 150 mg capsule 150 mg PO BID losartan 100 mg tablet 100 mg PO BEDTIME pantoprazole 40 mg tablet,delayed release (DR/EC) 40 mg PO BID Carafate 1 gram tablet 1 g PO TID 28 Days Qty: 84 1RF metoprolol succinate 100 mg tablet extended release 24 hr 100 mg PO DAILY chlorthalidone 25 mg tablet 50 mg PO DAILY hydrocodone-acetaminophen 5-325 mg tablet 1 tab PO Q6H PRN (Reason: pain) Qty: 14 0RF prednisone 50 mg tablet 50 mg PO DAILY Qty: 5 0RF Discharge Orders: Discharge ED (Routine); Ordered 01/30/25 Ordered By: Marv Little Referrals: Nathaniel Sanon MD [Physician, Wound Care] - 1-3 days Ozzy Torres DO [Primary Care Provider, Internal Medicine] Patient Instructions: Wound Dehiscence (ED), Opioid Safety, Pain Management, Patient Portal & Jaclyn Instructions Activity Restrictions/Additional Instructions: Leave your dressing in place. You may change the dressing as shown in the emergency department if needed. Return for worsening bleeding, drainage, fever, other concerns. Case management will make an appointment with wound care for you. You should hear from them at the beginning of this coming week. You may also like to call the number above. Antibiotics as directed. Return for any problems. Print Language: Syriac Coding Level of Care Code ED Bell Person for Dickson Klein
[2025-01-30 05:24] VITALS: BP 124/88; PULSE 98; RESP 16; O2SAT 100
--- NOTE | 2025-02-01 17:54 | DCPLANNER ---
messaged wound care for er f/u
== END 2025-01-30 05:26 | disposition home or self-care (01) ==
PROVIDERS: Emergency Provider Emergency Medicine; PCP Internal Medicine
DX: T81.31XA Disruption of external operation (surgical) wound, not elsewhere classified, initial encounter (principal); X58.XXXA Exposure to other specified factors, initial encounter; Z87.891 Personal history of nicotine dependence; I10 Essential (primary) hypertension; Z86.73 Personal history of transient ischemic attack (TIA), and cerebral infarction without residual deficits
CPT/HCPCS: 99283